=== PATIENT | female | born 1965 | race Caucasian/White ===

== ENCOUNTER → 2017-06-02 15:45 | Outpatient (CLI) | payer OTHER, SELFPAY ==
[2017-06-02 18:28] LABS: Amphetamine Urine VISTA NEGATIVE (<1000 ng/mL); Barbiturate Urine VISTA NEGATIVE (< 200 ng/mL); Benzodiazepine Urine VISTA NEGATIVE (< 200 ng/mL); Cocaine Urine VISTA NEGATIVE (< 300 ng/mL); Ecstacy Urine VISTA NEGATIVE (< 500 ng/mL); Methadone Urine VISTA NEGATIVE (< 300 ng/mL); PCP Urine VISTA NEGATIVE (< 25 ng/mL); THC Urine VISTA NEGATIVE (< 50 ng/mL); Vista UDS pH Range 5
== END ==
PROVIDERS: Family Provider Family Medicine; PCP Family Medicine; Visit Provider Anesthesiology Pain Medicine
DX: F11.20 Opioid dependence, uncomplicated (principal)
CPT/HCPCS: 80307

== ENCOUNTER 2017-06-13 08:31 | Emergency (ER) | payer OTHER, SELFPAY ==
[2017-06-13 08:31] VITALS: BP 140/71; PULSE 68; RESP 16; TEMP 36.8; O2SAT 98
--- NOTE | 2017-06-13 08:45 | ED.VISSUMM ---
- ER Visit Summary Date of Service: 06/13/17 Chief Complaint: Cough and wheezing History of Present Illness: The patient is a 51 F presenting for evaluation secondary to cough and wheezing. Patient states that since yesterday she had a sudden onset of illness. She states that associated with subjective chills, cough productive of yellowish sputum, and some chest tightness. Patient states that she feels that she is wheezing and is concerned that potentially she has bronchitis. Patient does smoke about 6 cigarettes per day, she states that she does not have a diagnosis of asthma or COPD. She denies any nausea vomiting diarrhea. Review of systems otherwise negative. Physical Examination: Vital signs within normal limits. Well-nourished female no acute distress. Moist mucous membranes. No JVD. Heart regular rate and rhythm. Lungs sounds showed evidence of wheezes in the bilateral lung pimentel, no rhonchi rales or retractions noted. No respiratory distress. Remainder physical unremarkable. Test Results: PA and lateral chest x-ray reviewed by myself is found to be negative with no infiltrate. It does show some hyperinflation. Emergency Department Course and Treatment: Patient presented with a cough and wheezing. X-ray was found to be negative. Patient has an element of bronchitis at this point. She was treated with a DuoNeb and prednisone in the emergency department and had symptomatic improvement. Patient will be discharged with a course of albuterol and prednisone and follow-up with primary care. Disposition: Discharge Impression: 1. Bronchitis This note was generated with [employer] dictation software. It may contain incorrect words, spelling, and punctuation that were not noted in review of the chart prior to signing ED Disposition - Plan for ED Patient: Disposition: Home or Assisted Living Chief Complaint: Cough Diagnosis: Bronchitis Instructions: ED Bronchitis Asthmatic Prescriptions: Albuterol Inhaler [Ventolin Hfa] 1 - 2 puff INHALATION Q4H PRN PRN #1 inhaler PRN Reason: Wheezing Prednisone [Deltasone] 60 mg PO DAILY #15 tab Referrals: Rio Foley III, MD [Primary Care Provider] - 1 Week if not improving
[2017-06-13 08:48] VITALS: PULSE 66; RESP 18; O2SAT 97
[2017-06-13] MEDS: Ipratropium/Albuterol Sulfate 3 ML AMPUL.NEB INHALATION (08:48)
--- NOTE | 2017-06-13 09:10 | RAD_ITS ---
STUDY: X-RAY CHEST REASON FOR EXAM: Female, 51 years old. Cough TECHNIQUE: PA and lateral views of the chest. COMPARISON: None. FINDINGS: The lungs are clear and expanded. There is no demonstrated pleural abnormality. Normal size heart. Normal mediastinum and veronica. Normal visualized pulmonary arteries. Normal visualized aortic arch and descending thoracic aorta. Normal visualized thoracic spine. Normal visualized ribs, clavicles, and shoulders. There is no demonstrated abnormality of the visualized soft tissue structures of the upper abdomen. RAD/Chest PA and Lateral IMPRESSION: Normal x-ray examination of the chest. Electronically Signed: Swapnil Garcia DO at 9:44 EDT Tel , Service support ,
[2017-06-13] MEDS: predniSONE 20 MG Tablet 60 MG PO (09:15)
[2017-06-13 09:16] VITALS: BP 109/72; PULSE 63; RESP 16; O2SAT 96
--- NOTE | 2017-06-14 10:13 | CM.ED ---
ED CALLBACK: Follow-up call placed to patient with no answer. Voicemail box is full.
== END 2017-06-13 09:54 | disposition home or self-care (01) ==
PROVIDERS: Emergency Provider Emergency Medicine; Family Provider Family Medicine; PCP Family Medicine
DX: J40 Bronchitis, not specified as acute or chronic (principal); M54.9 Dorsalgia, unspecified; F17.210 Nicotine dependence, cigarettes, uncomplicated
CPT/HCPCS: 71046; 94640; 99283

== ENCOUNTER 2019-09-14 06:26 | Day surgery (SDC) | payer OTHER, SELFPAY ==
--- NOTE | 2019-09-14 | COLBX_PTH ---
PATIENT: CECI NOGUEIRA LOC: EN U#:[id number] AGE/SX: 54/F ROOM: RE09/14/[address]: Dr. Kali Foley MD : 1965 BED: DIS: 09/14/2019 SPEC #: [id number] RECD: 09/14/19 09:48 STATUS: RODRIGUEZ KATHLEEN #: [id number] FAITH: 09/14/19 00:[address]: Kali Foley DEPT: SURGICAL PATHOLOGY RECD BY: Jaciel Luna ENTERED: 09/14/19 09:48 SP TYPE: COLON BX NEL DR: Dr. Rio Foley III, MD Tissues: A - Descending colon B - Sigmoid colon biopsy Procedures: Surgery Specimen Level IV HEADER OPERATION: Colonoscopy (MAC) PRE-OP DIAGNOSIS: Screening TISSUE SUBMITTED: A - Descending polyp, B - Mid sigmoid polyps (4) MICROSCOPIC DIAGNOSIS A. Descending colon polyp, biopsy: Hyperplastic polyp. B. Mid sigmoid colon polyps, biopsy: Fragments of hyperplastic polyp. AM:riccardo 09/17/19 MICROSCOPIC DESCRIPTION Slides are reviewed. GROSS DESCRIPTION A - Received in fixative is one container labeled with the patient's name and designated descending colon polyp. The specimen consists of multiple irregular fragments of light bey soft tissue that in aggregate measure 1 x 0.5 x 0.1 cm. The specimen is totally submitted in one cassette. B - Received in fixative is one container labeled with the patient's name and designated mid sigmoid colon polyp. The specimen consists of multiple irregular fragments of light bey soft tissue that in aggregate measure 1.2 x 0.5 x 0.1 cm. The specimen is totally submitted in one cassette. / AM:riccardo 09/14/19 TC:5 CPT: 00747 x2
[2019-09-14 06:41] VITALS: BP 118/85; PULSE 75; RESP 15; TEMP 36.3; O2SAT 98; BMI 20.4
--- NOTE | 2019-09-14 06:44 | PCM.HP.BLA ---
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 Kali Foley MD) Screening for malignant neoplasm of intestine (Acute) Urinary bladder cancer (Acute) Anxiety (Acute) Bladder cancer (Acute) Depression (Acute) Hematuria (Acute) Lung nodule (Acute) Surgical History (Updated 09/06/19 @ 07:51 by Silvia Messina) History of cervical spinal surgery (Acute) History of colonoscopy (Acute) History of repair of left rotator cuff (Acute) History of tubal ligation (Acute) Family History (Updated 09/06/19 @ 07:51 by Silvia Messina) Father No problems noted. Social History (Updated 09/06/19 @ 08:[address] Kali Foley MD) Smoking Status: Current some day smoker HPI HPI HPI: CECI NOGUEIRA, is a 53 F who presents to the office today for surgical consultation regarding a port placement. Patient referred by Dr. Huang Wynne and her primary care physician Dr. Rio Foley, III. a written copy of my surgical consult and recommendations will be returned to them. She has newly diagnosed bladder cancer. She thinks she may have very remotely over 10 years ago had a colonoscopy. She is very anxious today wanting to initiate treatment but stating that there are ongoing concerns and issues requiring further testing. She states that she has an echocardiogram and a stress test scheduled because of what sounds like coronary calcifications. She states her diagnosis was made with microscopic hematuria and then a CT scan. HPI HPI HPI: CECI NOGUEIRA, is a 53 F who presents to the office today for ROS General General: No weight change, appetite, fatigue, colon cancer, breast cancer or weakness HEENT HEENT: No difficulty swallowing, eye injury, eye surgery, swollen glands or hoarseness Endo Endocrine: No thyroid disease, diabetes mellitus, thyroid cancer, Hair loss, heat intolerance or cold intolerance Cardio Cardiovascular: No murmur, pacemaker, heart disease, atrial fibrillation, high blood pressure, heart attack, heart stent, palpitations, shortness of breat with exertion or chest pain Psych Psychiatric: Yes anxiety; no depression or hearing voices Resp Respiratory: No shortness of breath, No sleep apnea, No cough, No COPD, No asthma, No emphysema, No wheezing Brandon Hematologic: No blood thinners, No blood disorders, No bleeding, No anemia, No blood clots Neuro Neurologic: No weakness Exam Const General: cooperative, comfortable Nutritional Appearance: average body habitus Orientation: alert, awake HENMT Head: normal to inspection Eyes General: appearance normal, both eyes and all related structures Chest Other: Mild increased AP diameter Resp Effort & Inspection: normal respiratory effort Auscultation: clear to auscultation bilaterally Cardio Rate: regular rate Rhythm: regular rhythm Heart Sounds: no murmurs GI Palpation: soft, no hepatosplenomegaly Auscultation: normal bowel sounds Musc Cervical Spine: normal cervical lordosis Extrem General: no calf tenderness Psych Affect: anxious affect Assessment & Plan Problems 1. Malignant neoplasm of urinary bladder, unspecified site C67.9 2. Screening for malignant neoplasm of intestine Z12.10 Plan I recommend to the patient a right internal jugular port placement. In detail described the technique, benefit, risk and alternatives. She has had an opportunity to ask and have questions answered. I do recommend that we await the results of the echocardiogram/stress test. Furthermore to assist her I recommend a screening colonoscopy with possible biopsy or polypectomy. I also explained technique, benefit, risk and alternatives. She has had an opportunity to ask and have questions answered. She is requesting that we expedite her care. We will schedule within 2 days of her anticipated cardiac testing. She is aware of the Covid-19 pandemic. She is aware that the [facility] is currently identifying a low local incidence. I very much appreciate the kind opportunity of assisting with her surgical care Cc: Dr. Huang Foley, III Kali Foley M.D., F.A.C.S. Coding Level of Care Code 90570 Diagnoses Malignant neoplasm of urinary bladder, unspecified site C67.9 ??Bladder location: unspecified site Screening for malignant neoplasm of intestine Z12.10 I have re-examined the patient. There are no clinical changes since date of exam. Procedure Criteria Procedure Type: Elective COVID Risk Discussion: The surgeon/proceduralist and patient have discussed in detail the risk of exposure to and/or potential harm posed by the COVID-19 virus with having a surgery/procedure at this time versus the risk of delaying the surgery/procedure. It is not possible to know either the risk of delaying the surgery or procedure or chance of getting an infection with perfect accuracy, but a joint decision was made between the patient and the surgeon/proceduralist to proceed at this time with the scheduled surgery/procedure as indicated on the consent form.
[2019-09-14] MEDS: Lactated Ringers 1,000 ML 100 ML IV (06:49)
[2019-09-14 07:05] LABS: Hematocrit 44.6 % (37-47); Hemoglobin 14.4 g/dL (12.0-15.0); Mean Corp Hgb Conc 32.3 g/dL (32-36); Mean Corpuscular Hgb 30.6 pg (27.0-32.0); Mean Corpuscular Volume 94.7 fL (81-99); Mean Platelet Vol. 10.3 fl (6.2-12.0); Platelet Count 261 K/mm3 (150-450); RBC Distribution Width CV 13.9 % (11.6-14.6); RBC Distribution Width SD 48.7 fl (35.1-43.9); Red Blood Count 4.71 M/mm3 (4.2-5.4); White Blood Count 7.8 K/mm3 (4.4-11.0)
[2019-09-14 07:29] LABS: Anion Gap 4 (5-15); BUN 13 mg/dL (7-18); BUN/Creat Ratio 17.2 RATIO (10-20); Calcium,Total 9.3 mg/dL (8.5-10.1); Chloride 107 mmol/L (98-107); Creatinine, Serum 0.76 mg/dL (0.55-1.02); EST Glomerular Filtration Rate 85 mL/min (>60); Est Glom Filt Rate - Afr Amer 102 mL/min (>60); Estimated Creatinine Clearance 78.03 ml/min; Glucose 113 mg/dL (74-106); Potassium 3.9 mmol/L (3.5-5.1); Sodium Level 139 mmol/L (136-145)
[2019-09-14 07:58] VITALS: BP 118/85; BP 135/80; PULSE 75; RESP 16; TEMP 36.2; O2SAT 99
--- NOTE | 2019-09-14 08:00 | OP.CCLET_ITS ---
09/14/2019 Rio Foley I[address] [place] [address] Re : Colonoscopy procedure for Sun Larson Dear Dr. Foley This procedure was performed on Saturday, September 14, 2019. My impressions and recommendations are as follows: Impressions : - Preparation of the colon was fair. - Non-thrombosed external hemorrhoids, non-thrombosed internal hemorrhoids and internal hemorrhoids that prolapse with straining, but spontaneously regress to the resting position (Grade II) found on digital rectal exam. - One 5 mm polyp in the descending colon, removed with a hot snare. Resected and retrieved. - The entire examined colon is normal. - Four 4 to 5 mm polyps in the mid sigmoid colon, removed with a hot snare. Resected and retrieved. - Tortuous colon. Recommendations : - Discharge patient to home. - Resume previous diet. - Continue present medications. - Telephone my office for pathology results in 1 week. - Repeat colonoscopy in 5 years for surveillance based on pathology results. My findings are described in the full procedure note, which is enclosed. If I can be of further assistance, please feel free to contact me at Doctor phone number(s): Work: . Sincerely, Kali Foley MD 09/14/2019 7:59:31 AM This report has been signed electronically.
--- NOTE | 2019-09-14 08:00 | OP.COLON_ITS ---
Patient Name: Sun Larson Procedure Date: 09/14/2019 7:02 AM Date of : 1965 Age: 54 Procedure: Colonoscopy Indications: Screening for colorectal malignant neoplasm Providers: Kali Foley MD Referring MD: Rio Foley Iii Medicines: See the Anesthesia note for documentation of the administered medications Patient Profile: Last Colonoscopy: none. The patient's first colonoscopy is today. Complications: No immediate complications. Procedure: Pre-Anesthesia Assessment: - Prior to the procedure, a History and Physical was performed, and patient medications and allergies were reviewed. The patient's tolerance of previous anesthesia was also reviewed. The risks and benefits of the procedure and the sedation options and risks were discussed with the patient. All questions were answered, and informed consent was obtained. Prior Anticoagulants: The patient has taken no previous anticoagulant or antiplatelet agents. ASA Grade Assessment: II - A patient with mild systemic disease. After reviewing the risks and benefits, the patient was deemed in satisfactory condition to undergo the procedure. After I obtained informed consent, the scope was passed under direct vision. Throughout the procedure, the patient's blood pressure, pulse, and oxygen saturations were monitored continuously. The colonoscope was introduced through the anus and advanced to the cecum, identified by appendiceal orifice and ileocecal valve. The colonoscopy was performed without difficulty. The patient tolerated the procedure well. The quality of the bowel preparation was fair. The ileocecal valve and the appendiceal orifice were photographed. Scope In: 7:34:18 AM Scope Withdrawal Time 0 hours 12 minutes 16 seconds Scope Out: 7:52:57 AM Total Procedure Duration Time 0 hours 18 minutes 39 seconds Findings: The digital rectal exam findings include non-thrombosed external hemorrhoids, non-thrombosed internal hemorrhoids and internal hemorrhoids that prolapse with straining, but spontaneously regress to the resting position (Grade II). A 5 mm polyp was found in the descending colon. The polyp was sessile. The polyp was removed with a hot snare. Resection and retrieval were complete. The entire examined colon appeared normal. Four sessile polyps were found in the mid sigmoid colon. The polyps were 4 to 5 mm in size. These polyps were removed with a hot snare. Resection and retrieval were complete. The left colon was mildly tortuous. Advancing the scope required applying abdominal pressure. Impression: - Preparation of the colon was fair. - Non-thrombosed external hemorrhoids, non-thrombosed internal hemorrhoids and internal hemorrhoids that prolapse with straining, but spontaneously regress to the resting position (Grade II) found on digital rectal exam. - One 5 mm polyp in the descending colon, removed with a hot snare. Resected and retrieved. - The entire examined colon is normal. - Four 4 to 5 mm polyps in the mid sigmoid colon, removed with a hot snare. Resected and retrieved. - Tortuous colon. Recommendation: - Discharge patient to home. - Resume previous diet. - Continue present medications. - Telephone my office for pathology results in 1 week. - Repeat colonoscopy in 5 years for surveillance based on pathology results. Procedure Code(s): --- Professional --- 35824, Colonoscopy, flexible; with removal of tumor(s), polyp(s), or other lesion(s) by snare technique Diagnosis Code(s): --- Professional --- Z12.11, Encounter for screening for malignant neoplasm of colon K64.1, Second degree hemorrhoids K64.4, Residual hemorrhoidal skin tags D12.4, Benign neoplasm of descending colon D12.5, Benign neoplasm of sigmoid colon Q43.8, Other specified congenital malformations of intestine CPT copyright 2017 [employer]. All rights reserved. The codes documented in this report are preliminary and upon blind cleaner review may be revised to meet current compliance requirements. Kali Foley MD 09/14/2019 7:59:31 AM This report has been signed electronically. Number of Addenda: 0 Note Initiated On: 09/14/2019 7:02 AM
[2019-09-14 08:03] VITALS: BP 118/85; BP 133/81; PULSE 68; RESP 16; O2SAT 100
[2019-09-14 08:08] VITALS: BP 118/85; BP 126/69; PULSE 70; RESP 16; O2SAT 100
[2019-09-14 08:13] VITALS: BP 105/71; BP 118/85; PULSE 68; RESP 16; TEMP 36.2; O2SAT 100
[2019-09-14 08:35] VITALS: BP 118/85
== END 2019-09-14 08:47 | disposition home or self-care (01) ==
LOC: EN 06:27 → AC 06:29
PROVIDERS: PCP Family Medicine; Referring Provider Family Medicine; Visit Provider Surgery
PROC: 0DJD8ZZ Inspection of Lower Intestinal Tract, Via Natural or Artificial Opening Endoscopic (ICD-10-PCS; CPT 45378; principal; 2019-09-14 07:25)
DX: Z12.11 Encounter for screening for malignant neoplasm of colon (principal); D12.4 Benign neoplasm of descending colon; D12.5 Benign neoplasm of sigmoid colon; K64.1 Second degree hemorrhoids; K64.4 Residual hemorrhoidal skin tags; Q43.8 Other specified congenital malformations of intestine; C67.9 Malignant neoplasm of bladder, unspecified; Z87.891 Personal history of nicotine dependence
CPT/HCPCS: 45385; 80048; 85027; 88305; 93005; J7120

== ENCOUNTER 2019-09-20 08:51 | Day surgery (SDC) | payer OTHER, SELFPAY ==
--- NOTE | 2019-09-14 06:37 | EKG12_ITS ---
Test Reason : PRE-OP Blood Pressure : / mmHG Vent. Rate : 075 BPM Atrial Rate : 075 BPM P-R Int : 142 ms QRS Dur : 072 ms QT Int : 386 ms P-R-T Axes : 082 081 068 degrees QTc Int : 431 ms Normal sinus rhythm Right atrial enlargement Borderline ECG No previous ECGs available Confirmed by BAN JAMA, EV ([id number]), newspaper managing editor DARWIN HARTMANN ([id number]) on 09/18/2019 11:02:26 AM Referred By: Kali Foley Confirmed By:EV CEVALLOS MD
[2019-09-20] VITALS (8 sets, daily range): BP systolic 89–117; BP diastolic 44–79; PULSE 58–69; RESP 15–16; TEMP 36–36.4; O2SAT 97–100; BMI 20.7
[2019-09-20] MEDS: Lactated Ringers 1,000 ML 100 ML IV (09:35)
--- NOTE | 2019-09-20 10:12 | HP.PCM_ITS ---
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 Kali Foley MD) Screening for malignant neoplasm of intestine (Acute) Urinary bladder cancer (Acute) Anxiety (Acute) Bladder cancer (Acute) Depression (Acute) Hematuria (Acute) Lung nodule (Acute) Surgical History (Updated 09/06/19 @ 07:51 by Silvia Messina) History of cervical spinal surgery (Acute) History of colonoscopy (Acute) History of repair of left rotator cuff (Acute) History of tubal ligation (Acute) Family History (Updated 09/06/19 @ 07:51 by Silvia Messina) Father No problems noted. Social History (Updated 09/06/19 @ 08:[address] Kali Foley MD) Smoking Status: Current some day smoker HPI HPI HPI: CECI NOGUEIRA, is a 53 F who presents to the office today for surgical consultation regarding a port placement. Patient referred by Dr. Huang Wynne and her primary care physician Dr. Rio Foley, III. a written copy of my surgical consult and recommendations will be returned to them. She has newly diagnosed bladder cancer. She thinks she may have very remotely over 10 years ago had a colonoscopy. She is very anxious today wanting to initiate treatment but stating that there are ongoing concerns and issues requiring further testing. She states that she has an echocardiogram and a stress test scheduled because of what sounds like coronary calcifications. She states her diagnosis was made with microscopic hematuria and then a CT scan. HPI HPI HPI: CECI NOGUEIRA, is a 53 F who presents to the office today for ROS General General: No weight change, appetite, fatigue, colon cancer, breast cancer or weakness HEENT HEENT: No difficulty swallowing, eye injury, eye surgery, swollen glands or hoarseness Endo Endocrine: No thyroid disease, diabetes mellitus, thyroid cancer, Hair loss, heat intolerance or cold intolerance Cardio Cardiovascular: No murmur, pacemaker, heart disease, atrial fibrillation, high blood pressure, heart attack, heart stent, palpitations, shortness of breat with exertion or chest pain Psych Psychiatric: Yes anxiety; no depression or hearing voices Resp Respiratory: No shortness of breath, No sleep apnea, No cough, No COPD, No asthma, No emphysema, No wheezing Brandon Hematologic: No blood thinners, No blood disorders, No bleeding, No anemia, No blood clots Neuro Neurologic: No weakness Exam Const General: cooperative, comfortable Nutritional Appearance: average body habitus Orientation: alert, awake HENMT Head: normal to inspection Eyes General: appearance normal, both eyes and all related structures Chest Other: Mild increased AP diameter Resp Effort & Inspection: normal respiratory effort Auscultation: clear to auscultation bilaterally Cardio Rate: regular rate Rhythm: regular rhythm Heart Sounds: no murmurs GI Palpation: soft, no hepatosplenomegaly Auscultation: normal bowel sounds Musc Cervical Spine: normal cervical lordosis Extrem General: no calf tenderness Psych Affect: anxious affect Assessment & Plan Problems 1. Malignant neoplasm of urinary bladder, unspecified site C67.9 2. Screening for malignant neoplasm of intestine Z12.10 Plan I recommend to the patient a right internal jugular port placement. In detail described the technique, benefit, risk and alternatives. She has had an opportunity to ask and have questions answered. I do recommend that we await the results of the echocardiogram/stress test. Furthermore to assist her I recommend a screening colonoscopy with possible biopsy or polypectomy. I also explained technique, benefit, risk and alternatives. She has had an opportunity to ask and have questions answered. She is requesting that we expedite her care. We will schedule within 2 days of her anticipated cardiac testing. She is aware of the Covid-19 pandemic. She is aware that the [facility] is currently identifying a low local incidence. I very much appreciate the kind opportunity of assisting with her surgical care Cc: Dr. Huang Foley, III Kali Foley M.D., F.A.C.S. Coding Level of Care Code 88792 Diagnoses Malignant neoplasm of urinary bladder, unspecified site C67.9 ??Bladder location: unspecified site Screening for malignant neoplasm of intestine Z12.10 On September 12, 2019 performed a colonoscopy. Several polyps were identified but on pathology these were all hyperplastic. She presents today for planned placement of a right internal jugular port to facilitate management of her urinary bladder cancer. She has had an opportunity to ask and have questions answered and we will proceed as noted. Procedure Criteria Procedure Type: Elective COVID Risk Discussion: The surgeon/proceduralist and patient have discussed in detail the risk of exposure to and/or potential harm posed by the COVID-19 virus with having a surgery/procedure at this time versus the risk of delaying the surgery/procedure. It is not possible to know either the risk of delaying the surgery or procedure or chance of getting an infection with perfect accuracy, but a joint decision was made between the patient and the surgeon/proceduralist to proceed at this time with the scheduled surgery/procedure as indicated on the consent form.
[2019-09-20] MEDS: Cefazolin 2 GM in 0.9% Normal Saline 100 ML IV (10:31)
[2019-09-20] MEDS: Bupivacaine Mpf 0.5% 30 ML VIAL (10:46)
--- NOTE | 2019-09-20 11:08 | RAD_ITS ---
STUDY: X-RAY CHEST REASON FOR EXAM: Female, 54 years old. POST PORT PLACEMENT TECHNIQUE: Single AP portable view of the chest. COMPARISON: Comparison is made with prior study dated 06/13/2017. FINDINGS: A right-sided Port-A-Cath has been placed. The tip is at the junction of the superior vena cava and right atrium. Hyperinflation. Scattered calcified granulomas. There is no demonstrated pleural abnormality. Normal size heart. Normal mediastinum and veronica. Normal visualized pulmonary arteries. Normal visualized aortic arch and descending thoracic aorta. Normal visualized thoracic spine. Normal visualized ribs, clavicles, and shoulders. There is no demonstrated abnormality of the visualized soft tissue structures of the upper abdomen. RAD/CXR for Line Placement IMPRESSION: The tip of the right pankaj catheter is at the junction of the superior vena cava and right atrium. Hyperinflation. Electronically Signed: German Stanford, at 12:09 EDT , Service support ,
--- NOTE | 2019-09-20 11:11 | DCINST_ITS ---
Discharge Diet: No Restrictions - Pain medication may cause nausea. You should typically eat light foods as you take your pain medication. Discharge Activity: Return to Normal Activity, May Shower - Leave the bandage on for 2-3 days. When you remove the bandage, leave the steri-strips intact until they fall off. Additional Activity Instructions:: May not drive, work with heavy equipment, or sign legal documents for [address] if you are no longer taking narcotic pain medications. You may drive when you are no longer taking pain medications. Additional Dressing/Incision Instructions:: Leave the bandage on for 2-3 days. When you remove the bandage, leave the steri-strips intact until they fall off. Allergies/Adverse Reactions: Allergies Tetanus Vaccines and Toxoid [Tetanus Vaccines & Toxoid] Adverse Reaction (Verified 09/20/19 09:21) Swelling venom-honey bee [bee venom (honey bee)] Adverse Reaction (Verified 09/20/19 09:21) Swelling Medications to take at Discharge Hydrocodone Bitart/Apap 5-325 [[place] 5MG-325MG] 1 tablet PO Q6H PRN PRN 2 Days #5 tablet 09/20/19 The following prescriptions were given: Hydrocodone Bitart/Apap 5-325 [[place] 5MG-325MG] 1 tablet PO Q6H PRN PRN 2 Days #5 tablet PRN Reason: Pain Transmission Status: Sent to [facility] #30 Primary Care Physician: Rio Foley III, MD [Primary Care Provider] - Test Results: Test results from this visit will be discussed in further detail at your follow- up appointment, if applicable. Please Follow Up With: Kali Foley MD - [phone] When: Call for any concerns
--- NOTE | 2019-09-20 11:12 | PCM.OPRPT ---
Problem List (1) Urinary bladder cancer Status: Acute Qualifiers: Report of Operation Date of Procedure: 09/20/19 Pre-Operative Diagnosis: Urinary bladder cancer in need of IV access for chemotherapy Post-Operative Diagnosis: Same Surgery/Procedure Performed:: Right internal jugular 6 [place] PowerPort placement. Reference #[id number]. Lot number [id number]. Expiry date 10/07/2020 Description of Surgical Findings:: Timeout and informed consent was obtained. 54-year-old female was taken to the operating placed supine on the table underwent monitored anesthesia care. Ancef 2 g were given intravenously. The right neck and chest were sterilely prepped and draped. 1% lidocaine mixed 50-50 with 0.5% Marcaine was used as a local anesthetic. Total of 17 cc was used. Under ultrasound guidance local was instilled and then a micropuncture needle was instilled under ultrasound guidance of the right internal jugular vein. Micropuncture wire inserted. Micropuncture sheath inserted. 035 J-wire was inserted. Local was instilled down upon the right chest wall. Midclavicular line second intercostal space transverse incision was created. Electrocautery dissection was used to make a subcutaneous pocket. The tubing was tunneled from the neck to the chest. Under fluoroscopic control sheath dilator was placed over the wire. The wire and dilator were removed. The catheter advanced through the sheath. The sheath was split. Catheter was positioned at the SVC atrial junction. It was amputated connected the port and secured with a port attachment device. The port was placed in the pocket secured there with 2-0 silk. The port site was closed with interrupted 3-0 Vicryl subdermal stitches. The neck was closed with interrupted 5-0 Vicryl subdermal stitch. The port was accessed and aspirated easily was flushed with saline and then with 2-1/2 cc of heparinized saline. Steri-Strips Telfa OpSite dressings applied. Sponge and instrument and needle counts were reported to the surgeon to be correct. Specimens none. Drains none. Blood loss minimal. The patient was taken to the recovery room in satisfactory condition without apparent complication. Stat portable chest x-ray is pending. Kali Foley M.D., F.A.C.S. Type of Anesthesia:: Local MAC Anesthesiologist: Ravi Wen
== END 2019-09-20 12:30 | disposition home or self-care (01) ==
LOC: SDC 08:51 → AC 08:52
PROVIDERS: PCP Family Medicine; Referring Provider Surgery; Visit Provider Surgery
PROC: (CPT 36561; principal; 2019-09-20 10:45)
DX: Z45.2 Encounter for adjustment and management of vascular access device (principal); C67.9 Malignant neoplasm of bladder, unspecified; F17.200 Nicotine dependence, unspecified, uncomplicated
CPT/HCPCS: 36561; 71045; 77001; J7120; J2405

== ENCOUNTER 2020-01-10 09:49 | Emergency (ER) | payer OTHER, SELFPAY ==
[2019-09-20 09:21] VITALS: BMI 20.7
[2020-01-10 09:51] VITALS: BP 114/85; PULSE 88; RESP 18; TEMP 36.2; O2SAT 99; BMI 18.4
--- NOTE | 2020-01-10 10:18 | ED.VIS.GEN ---
History of Present Illness Chief Complaint: Flank Pain Informant: Patient Onset: Weeks Context: Sudden Onset Timing: Continuous Quality: Pain Location: Bilateral flank Current Severity: Severe Maximum Severity: Severe Worsened by: Touch Relieved by: Improved after taking tramadol this morning Associated Symptoms: Frequency and incontinence Narrative: Patient is a 54-year-old woman who underwent a radical cystectomy and lymphadenectomy with a intracorporal neobladder procedure at the [facility] on December 14, 2019. She reports pain since then. She states she has been seen several times by the doctor and feels that she is not being taken seriously. Patient denies fever, chills night sweats. Patient denies headache, visual, ocular auditory symptoms. Patient denies upper respiratory symptoms. Patient denies shortness of breath or cough. Patient denies chest pain. She denies nausea, vomiting or diarrhea. She does report frequency and incontinence. She states she is asked for pain medicine but has been declined. She feels as was due to the fact that she was in pain management for back pain in the past. Patient states that she contacted her primary care physician Dr. Rio Foley and wishes for me to contact Dr. Kali Foley to have her stents removed and port removed since she does not have cancer before the end of the year because she has met her deductible. Prior similar symptoms: Yes Recent Illness/Hospitalization: Yes - Past Medical History (1) Benign bladder mass Status: Acute Past Medical History - Allergies and Home Meds Allergies/Adverse Reactions: Allergies Tetanus Vaccines and Toxoid [Tetanus Vaccines & Toxoid] Adverse Reaction (Verified 01/10/20 09:51) Swelling venom-honey bee [bee venom (honey bee)] Adverse Reaction (Verified 01/10/20 09:51) Swelling Primary Care Physician: Rio Foley III, MD [Primary Care Provider] - 3-5 Days Prior records reviewed: Yes Surgical History: - - Radical cystectomy and lymphadenectomy with intracorporeal neobladder Lives: Spouse/ Significant Other Smoking Status: Current some day smoker Drugs: None Review of Systems General: Denies: Chills, Fever, Malaise, Subjective, Sweats Eyes: Denies: Visual changes - bilaterally, Blurred Vision - bilaterally ENT: Denies: Rhinorrhea, Sore throat Cardiovascular: Denies: Chest pain, Palpitations Respiratory: Denies: Dyspnea, Cough, Sputum, Dyspnea on exertion Gastrointestinal: Reports: Abdominal pain - Near the site of her neobladder, Nausea. Denies: Vomiting, Diarrhea, Constipation, Melena, Hematochezia Genitourinary: Reports: Frequency - And incontinence. Denies: Dysuria, Hematuria Musculoskeletal: Reports: Back pain - Bilateral pain over her kidneys. Denies: Myalgias, Arthralgias, Neck pain, Swelling Skin: Denies: Rash Neurological: Denies: Headache, Weakness Psych: Reports: - - Patient voices frustration due to lack of proper care and attention at [facility].. Denies: Depression, Anxiety Endocrine: Reports: - Hematologic: Denies: Easy bruising Allergy: Denies: Uticaria Physical Exam Vital Signs/Narrative: Vital Signs Temp Pulse Resp BP Pulse Ox 01/10/20 09:51 97.2 F L 88 18 114/85 H 99 Inital Vital Signs reviewed: Yes General: Well nourished, Well developed, Acute Distress Head: Normocephalic, Atraumatic Eyes: Perrl, EOMI. Negative for: Pale conjunctiva Neck: Supple, Nontender, No lymphadenopathy Cardiovascular: Regular rate, Regular rhythm, No murmurs, Normal S1, Normal S2 Respiratory: No distress, CTA bilaterally, Chest nontender Abdomen: Soft, Nondistended, Normal bowel sounds, No masses, Tender - Pain out of proportion to tactile stimuli. Patient raised her voice and told me not to touch there because she is in severe pain. Asked to clarify. She informed me that the pressure I was applying caused her severe pain.. Negative for: Nontender Rectal: Deferred Back: Normal Inspection, CVA tenderness - Out of proportion to stimulus. Negative for: Nontender Extremities: Nontender, No edema Skin: Normal color, No rash Neurological: Alert, Oriented x3, Cranial nerves II-XII grossly intact, Normal Strength, Normal Sensation, Normal Gait Psychological: Agitated, - - Angry, intrusive, voices frustration. Informed me that she spoke with the triage nurse. Diagnostic/Tx/Re-eval Chest X-Ray - ED: 1 View, Read by ED Physician, - - Single view KUB was ordered. The right and left are in proper position, and there is no evidence of migration 01/10/20 10:40 KUB [Abdomen Single View] [RAD] Stat Laboratory Results 01/10/20 01/10/20 01/10/20 10:15 10:36 10:36 WBC 8.7 RBC 3.64 L Hgb 11.6 L Hct 33.5 L MCV 92.0 MCH 31.9 MCHC 34.6 RDW Std Deviation 40.8 RDW Coeff of Waqas 12.0 Plt Count 418 MPV 9.0 Immature Gran % (Auto) 0.500 Neut % (Auto) 65.5 Lymph % (Auto) 19.0 [place] % (Auto) 8.2 Eos % (Auto) 6.0 H Baso % (Auto) 0.8 Absolute Neuts (auto) 5.7 Absolute Lymphs (auto) 1.65 Nucleated RBC % 0 Sodium 135 L Potassium 3.8 Chloride 107 Carbon Dioxide 23.0 Anion Gap 5 BUN 37 H Creatinine 1.18 H Estim Creat Clear Calc 45.52 Est GFR (MDRD) Af Amer 61 Est GFR (MDRD) Non-Af 51 L BUN/Creatinine Ratio 31.4 H Glucose 119 H Calcium 9.8 Urine Color Yellow Urine Clarity Cloudy Urine pH 8.0 Ur Specific [place] 1.010 Urine Protein 100 H Urine Glucose (UA) Normal Urine Ketones Negative Urine Occult Blood 150 H Urine Nitrite Negative Urine Bilirubin Negative Urine Urobilinogen Normal Ur Leukocyte Esterase 500 H Urine RBC 0 SEEN Urine WBC >100 SEEN Ur Squamous Epith Cells 0-5 SEEN Urine Bacteria 4+ Urine Mucus 0 SEEN Right knee is elevated 1.18 with a GFR of 51. Urine is consistent with infection. Culture was sent. She was treated with 1 g of Rocephin. - Medical Decision Making Presents with complaints that she has had since surgery December 14, 2019. Will obtain urine to assess for infection, CBC to assess for anemia/white count. Basic metabolic panel to assess renal function. Patient was medicated with Zofran and morphine. Patient was informed of her test results. She was informed of plan. She requested 2 weeks of oxycodone. Patient was informed she would receive pain medicine for 2 to 3 days. ED Disposition - Plan for ED Patient: Disposition: Home or Assisted Living Diagnosis: Urinary tract infection, Bilateral flank pain, Lower abdominal pain, Elevated serum creatinine Instructions: ED Bladder Infection, Female (Adult), ED Renal Insufficiency Prescriptions: Ciprofloxacin [Cipro] 500 mg PO BID #14 tab Transmission Status: Pending to [facility] #30 Hydrocodone Bitart/Apap 5-325 [[place] 5MG-325MG] 1 tablet PO Q6H PRN PRN 3 Days #10 tablet PRN Reason: Pain Transmission Status: Sent to [facility] #30 Referrals: Rio Foley III, MD [Primary Care Provider] - 3-5 Days
--- NOTE | 2020-01-10 10:28 | ED.RN ---
PT HOSTILE AND ANGRY. NOT ANSWERING QUESTIONS. PT STATES I ALREADY TOLD THEM ALL OF THAT. ATTEMPTED TO EXPLAIN TO PATIENT THAT STAFF CANNOT ALL COME IN AT ONCE. PT DOES NOT RESPOND. UA OBTAINED
[2020-01-10] MEDS: Morphine 4 MG/ML Syringe IV (10:29)
[2020-01-10 10:31] LABS: Mucous, Urine 0 SEEN /hpf (<or=2+)
[2020-01-10 10:32] LABS: Color, Urine Yellow (Yellow); Glucose, Dipstick Normal (Normal); Ketone-Dipstick Negative (Negative); Leukocyte Esterase-Dipstick 500 /ul (Negative); Nitrite-Dipstick Negative (Negative); Occult Blood-Urine 150 /ul (Negative); Protein-Dipstick 100 mg/dl (Negative); Urine Bilirubin Dipstick Negative (Negative); Urine Clarity Cloudy (Clear); Urine Urobilinogen Normal (Normal)
--- NOTE | 2020-01-10 10:40 | RAD_ITS ---
STUDY: X-RAY - ABDOMEN/PELVIS REASON FOR EXAM: Female, 54 years old. Isidoro flank pain. Recent stents placed, hx bladder CA TECHNIQUE: Single AP view of the abdomen / pelvis. COMPARISON: None. FINDINGS: Normal visualized lung bases. There is a moderate amount of colonic fecal material. Bilateral double-J stent catheters are seen in good position. There are calcified phleboliths in the pelvis. Normal visualized osseous structures. RAD/Abdomen Single View IMPRESSION: Bilateral double-J stent catheters are seen in good position. Electronically Signed: German Stanford, at 11:18 EST , Service support ,
[2020-01-10 10:43] LABS: Bacteria 4+ /hpf (None Seen); Red Blood Cells-Urine 0 SEEN /hpf (0-5); Squamous Epithelial Cells - UA 0-5 SEEN /hpf (5-10); White Blood Cells >100 SEEN /hpf (0-5)
[2020-01-10 10:48] LABS: Absolute Lymphocyte Count 1.65 X10^3/uL (0.83-4.51); Absolute Neutrophil Count 5.7 X10^3/uL (2.0-7.7); Basophil# 0.07 X10^3/uL; Basophil% 0.8 % (0-1); Eosinophil# 0.52 X10^3/uL; Hematocrit 33.5 % (37-47); Hemoglobin 11.6 g/dL (12.0-15.0); Lymphocyte # 1.65 X10^3/ul (4.0); Mean Corp Hgb Conc 34.6 g/dL (32-36); Mean Corpuscular Hgb 31.9 pg (27.0-32.0); Monocyte# 0.71 X10^3/uL; Monocyte% 8.2 % (0-10); NRBC Flagged by Analyzer 0 % (0-5); Neutrophil % 65.5 % (47-70); Platelet Count 418 K/mm3 (150-450); RBC Distribution Width SD 40.8 fl (35.1-43.9); Red Blood Count 3.64 M/mm3 (4.2-5.4); White Blood Count 8.7 K/mm3 (4.4-11.0)
[2020-01-10 11:02] LABS: Anion Gap 5 (5-15); BUN 37 mg/dL (7-18); BUN/Creat Ratio 31.4 RATIO (10-20); Calcium,Total 9.8 mg/dL (8.5-10.1); Chloride 107 mmol/L (98-107); Creatinine, Serum 1.18 mg/dL (0.55-1.02); EST Glomerular Filtration Rate 51 mL/min (>60); Est Glom Filt Rate - Afr Amer 61 mL/min (>60); Estimated Creatinine Clearance 45.52 ml/min; Glucose 119 mg/dL (74-106); Potassium 3.8 mmol/L (3.5-5.1); Sodium Level 135 mmol/L (136-145)
--- NOTE | 2020-01-10 11:03 | ED.RN ---
PT REMAINS ANGRY AND HOSTILE. REPORT GIVEN TO ROGER ISLAS. CHRISTIANE PT LIASON IN DEPARTMENT TO TALK WITH PATIENT
[2020-01-10] MEDS: Ceftriaxone 1 GM/50 ML BAG IV (11:27)
== END 2020-01-10 11:55 | disposition home or self-care (01) ==
PROVIDERS: Emergency Provider Emergency Medicine; PCP Family Medicine
DX: N39.0 Urinary tract infection, site not specified (principal); R79.89 Other specified abnormal findings of blood chemistry; F17.200 Nicotine dependence, unspecified, uncomplicated; Z90.6 Acquired absence of other parts of urinary tract
CPT/HCPCS: 74018; 80048; 81001; 85025; 87086; 87088; 96365; 96375; 99283; J7040; A4216; J2405

== ENCOUNTER → 2020-02-06 13:45 | Outpatient (CLI) | payer OTHER, SELFPAY ==
--- NOTE | 2020-02-06 13:47 | VDLE_ITS ---
Reason For Study: Swelling RIGHT LEFT GSV is normal. GSV is normal. CFV is compressible, spontaneous, phasic, CFV is compressible, spontaneous, phasic, competent and demonstrates normal competent, and demonstrates normal augmentation. augmentation. FV is compressible, spontaneous, phasic, FV is compressible, spontaneous, phasic, competent and demonstrates normal competent and demonstrates normal augmentation. augmentation. POP V is compressible, spontaneous, phasic, POP V is compressible, spontaneous, phasic, competent and demonstrates normal competent and demonstrates normal augmentation. augmentation. T/P Trunk is compressible. T/P Trunk is compressible. PTV is compressible. PTV is compressible. RT PerV is compressible. LT PerV is compressible. Procedure This is a venous duplex using B-mode, color flow and spectral Doppler. Exam performed in department. A preliminary report was called and/or faxed to [facility]. Interpretation Summary Deep veins of the lower extremities are bilaterally patent and compressible segmentally. There is no evidence of deep vein thrombosis on either side. Valvular competence appears intact within the proximal deep venous systems bilaterally. The great saphenous veins appear bilaterally patent and compressible segmentally. Ordering Physician: MARION TAY Referring Physician: MAZIN Foley M.D. Performed By: Cristy Burr RVT
== END ==
PROVIDERS: PCP Family Medicine
DX: R60.0 Localized edema (principal); C67.9 Malignant neoplasm of bladder, unspecified
CPT/HCPCS: 93970

== ENCOUNTER → 2021-08-15 | Outpatient (CLI) | payer MEDICAID, SELFPAY ==
--- NOTE | 2021-08-15 09:38 | CT_ITS ---
STUDY: CT Chest W/O Contrast Injection 08/15/2021 5:21 PM REASON FOR EXAM: Female, 55 years old. LUNG NODULE Individualized dose optimization techniques were used for this CT. TECHNIQUE: Transaxial imaging was performed withoutIV contrast material. COMPARISON: None. FINDINGS: There are degenerative changes of the shoulders. There is no pneumothorax. There is no demonstrated pleural abnormality. There is a 3.4 mm right upper lobe nodule. SE: 4 IM: 59. 3.7 mm right lower lobe lobe nodule. SE: 4 IM: 102. There are calcifications of the coronary arteries. Normal mediastinum. Normal hilar regions. Normal pulmonary arteries. There is atherosclerotic calcification of the aortic arch with tortuosity and elongation of the aortic arch and descending thoracic aorta. There are multi-level degenerative changes of the thoracic spine. There are no acute findings of the upper abdomen. CT/Chest without Contrast IMPRESSION: There are right pulmonary nodules. ACR Lung CT Screening Reporting T Data System (Lung-RADS) score: 2 - Benign Appearance or Behavior. Recommend continued annual screening with low-dose CT (LDCT) in 12 months. Electronically Signed: Shawn Castaneda MD at 17:23 EDT ,
== END | disposition home or self-care (01) ==
LOC: CT 09:36
PROVIDERS: PCP Internal Medicine; Referring Provider Internal Medicine Hematology & Oncology; Visit Provider Internal Medicine Hematology & Oncology
DX: R91.8 Other nonspecific abnormal finding of lung field (principal); C67.1 Malignant neoplasm of dome of bladder
CPT/HCPCS: 71250

== ENCOUNTER 2021-08-23 18:55 | Observation (INO) | payer MEDICAID, SELFPAY ==
[2021-08-23 18:58] VITALS: BP 98/64; PULSE 88; RESP 16; TEMP 36.5; O2SAT 97; BMI 19.1
--- NOTE | 2021-08-23 19:24 | ED.RN ---
c/o pressure to back of head and neck. it's not a headache, it's pressure.
--- NOTE | 2021-08-23 19:30 | EDS_ITS ---
HPI History of Present Illness Chief Complaint: Dizziness Detail of Chief Complaint: Lightheadedness and generalized weakness Informant: patient Narrative Narrative: Patient presents to the emergency department complaint of lightheadedness and generalized weakness. Patient states she has had the symptoms for about a week. Patient states she cannot walk very far before she feels like he is in a pass out. Intermittently she will have pain in her neck and in her head but then resolves. Her thighs sometimes get shaky. Patient denies any chest pain or shortness of breath. She denies abdominal pain. She does have history of bladder cancer and she had her bladder removed. Patient denies any fevers. Patient denies cough or sore throat. Patient has had 2 episodes of vomiting in the last 48 hours. She denies diarrhea. Prior similar symptoms: No PFSH PFSH Medical History (Updated 08/23/21 @ 20:[address] Marci Sandoval DO) Anxiety Depression Former tobacco use Lung nodule Urinary bladder cancer Home Medications fluticasone propionate 50 mcg/actuation nasal spray,suspension ea intranasal 08/23/21 [History Last Taken Unknown] Allergy/AdvReac Type Severity Reaction Status Date / Time Tetanus Vaccines and Toxoid AdvReac Swelling Verified 08/23/21 19:03 [Tetanus Vaccines & Toxoid] venom-honey bee AdvReac Swelling Verified 08/23/21 19:03 [bee venom (honey bee)] Family History (Updated 09/30/20 @ 13:10 by Eva Nayak) Father Colon cancer bone and MM Kidney disease stones Surgical History (Updated 08/23/21 @ 20:[address] Aby Penaloza MD) History of bladder surgery History of cervical spinal surgery History of colonoscopy History of repair of left rotator cuff History of tubal ligation Social History (Updated 09/30/20 @ 13:09 by Eva Nayak) Smoking Status: Former smoker alcohol intake: never ROS ROS ED Review of Systems ROS Unobtainable: other Constitutional Constitutional ED: Reports lethargy; Denies chills, fever(s), sweats or weight loss Eyes Eyes: Denies blurry vision, change in vision or diplopia ENT ENT ED: Denies rhinorrhea or sore throat Cardiovascular Cardiovascular: Reports chest pain and racing heartbeat; Denies orthopnea Respiratory/Chest Respiratory/Chest: Reports dyspnea and dyspnea on exertion; Denies cough, or thopnea or sputum Gastrointestinal Gastrointestinal: Reports nausea and vomiting; Denies abdominal pain or diarrhea Genitourinary Genitourinary ED: Denies dysuria, hematuria or urinary frequency Musculoskeletal Musculoskeletal: Reports neck pain; Denies arthralgias, back pain or myalgias Integumentary Denies abscess, Abrasions or rash Neurologic Neurologic: Reports weakness and other Details: Lightheaded ; Denies headache(s) Psychiatric Psychiatric: Denies anxiety, depression or suicidal thoughts Endocrine Endocrinology: Denies polydipsia, polyphagia or polyuria Hematologic/Lymphatic Hematologic/Lymphatic: Denies easy bleeding, easy bruising or lymphadenopathy Allergic/Immunologic Allergic/Immunologic ED: Denies mouth swelling, tongue swelling or urticaria EXAM Physical Exam Const Vital Signs: 08/23/21 18:58 08/23/21 19:24 08/23/21 19:55 Temperature 97.7 F L Temperature Source Temporal Pulse Rate 88 Pulse Rate [Lying] 76 Pulse Rate [Sitting (for 1 minute prior to obtaining)] 73 Pulse Rate [Standing (for 1 minute prior to obtaining)] 95 Respiratory Rate 16 Respiratory Effort Normal Non-Labored Blood Pressure 98/64 Blood Pressure [Lying] 100/79 Blood Pressure [Sitting (for 1 minute prior to obtaining)] 96/78 Blood Pressure [Standing (for 1 minute prior to obtaining)] 89/69 L Blood Pressure Mean 75 Blood Pressure Mean [Lying] 86 Blood Pressure Mean [Sitting (for 1 minute prior to obtaining)] 84 Blood Pressure Mean [Standing (for 1 minute prior to obtaining)] 75 Pulse Ox 97 Oxygen Delivery Method Room Air 08/23/21 19:57 08/23/21 20:48 08/23/21 21:17 Temperature 98 F Temperature Source Temporal Pulse Rate 68 70 Pulse Rate [Lying] Pulse Rate [Sitting (for 1 minute prior to obtaining)] Pulse Rate [Standing (for 1 minute prior to obtaining)] Respiratory Rate 22 H Respiratory Effort Blood Pressure 109/83 H 102/62 102/62 Blood Pressure [Lying] Blood Pressure [Sitting (for 1 minute prior to obtaining)] Blood Pressure [Standing (for 1 minute prior to obtaining)] Blood Pressure Mean 91 75 75 Blood Pressure Mean [Lying] Blood Pressure Mean [Sitting (for 1 minute prior to obtaining)] Blood Pressure Mean [Standing (for 1 minute prior to obtaining)] Pulse Ox Oxygen Delivery Method Positive well nourished and well developed General Appearance ED: well developed and NAD HEENT Reports TM's clear and moist mucous membranes normocephalic and atraumatic; Negative for trauma or tenderness Tympanic Membrane ED: Yes TM's clear Eyes PERRL and EOMs intact bilaterally General Eye ED: Negative for pale conjunctiva or scleral icterus Neck no lymphadenopathy, supple and no JVD General: Negative for tenderness Chest Wall inspection of chest normal and palpation of chest normal Chest: Negative for tenderness Resp normal respiratory effort and clear to auscultation bilaterally Effort and Inspection: Negative for respiratory distress or pain with movement Auscultation: Negative for rhonchi, wheezes or diminished lung sounds Cardio regular rate, regular rhythm, S1 normal heart sound, S2 normal heart sound and no murmurs Peripheral Pulses: pulses 2+ throughout GI normal to inspection, nondistended, normoactive bowel sounds, soft to palpation, non-tender, non-distended and no masses Back/Spine no CVA tenderness and no thoracic nor lumbar tenderness Extremity normal to inspection General Extremety ED: Negative for edema General Extremity: Negative for edema Neuro oriented x3, CN's II-XII intact bilaterally, no sensory deficits noted and gait normal Sensorium / Orientation: awake, alert, oriented to person, oriented to place and oriented to time Motor Exam: strength 5/5 throughout and strength abnormal Psych mental status grossly normal Skin no rashes or lesions noted and no wounds MDM MDM MDM Narrative Medical decision making narrative: IV line established on arrival. Patient was given liter normal saline bolus. Lab work showed an elevated white count 11.9. BUN was 66 and creatinine 1.43. Urinalysis was positive for UTI. Orthostatic vital signs were positive with systolic dropping into the 80s. Case discussed with hospitalist who will evaluate patient for admission. I did start patient on Rocephin 1 g IV. Lab Data Attestation: I reviewed the patient's lab results. Labs: Laboratory Results - last 24 hr 08/23/21 08/23/21 08/23/21 19:28 19:28 19:45 WBC 11.9 H RBC 4.86 Hgb 14.2 Hct 42.2 MCV 86.8 MCH 29.2 MCHC 33.6 RDW Std Deviation 43.9 RDW Coeff of Waqas 13.8 Plt Count 346 MPV 10.3 Immature Gran % (Auto) 0.400 Neut % (Auto) 67.2 Lymph % (Auto) 21.6 [place] % (Auto) 7.7 Eos % (Auto) 2.3 Baso % (Auto) 0.8 Absolute Neuts (auto) 8.0 H Absolute Lymphs (auto) 2.57 Nucleated RBC % 0 Sodium 132 L Potassium 4.4 Chloride 108 H Carbon Dioxide 19.0 L Anion Gap 5 BUN 66 H Creatinine 1.43 H Estim Creat Clear Calc 38.38 Est GFR (MDRD) Af Amer 49 L Est GFR (MDRD) Non-Af 40 L BUN/Creatinine Ratio 46.2 H Glucose 111 H Calcium 9.3 Troponin I High Sens 6 Urine Color Yellow Urine Clarity Cloudy Urine pH 8.0 Ur Specific [place] 1.010 Urine Protein 30 H Urine Glucose (UA) Normal Urine Ketones Negative Urine Occult Blood 50 H Urine Nitrite Positive H Urine Bilirubin Negative Urine Urobilinogen Normal Ur Leukocyte Esterase 500 H Urine RBC 0 SEEN Urine WBC 5-10 SEEN Ur Squamous Epith Cells 0 SEEN Urine Bacteria 3+ Urine Mucus 0 SEEN Radiography Diagnostic Testing: Clinical Impression(s) from Imaging Studies Chest X-Ray 08/23/21 19:34 IMPRESSION: COPD Electronically Signed: Anup Irving MD at 20:41 EDT Reading Location ID and State: [facility] / [place] , Service support , EKG Initial EKG: Attestation: I personally reviewed and interpreted this EKG as follows: Comments: Normal sinus rhythm with a rate of 70 bpm with no acute ST segment changes Discharge Plan Dx/Rx/DC Orders Clinical Impression: UTI (urinary tract infection), Orthostatic hypotension, Dehydration Disposition Disposition: Acute Care [facility]
--- NOTE | 2021-08-23 19:34 | RAD_ITS ---
STUDY: X-RAY CHEST REASON FOR EXAM: Female, 55 years old. weakness TECHNIQUE: Single frontal view of the chest. COMPARISON: CT chest 08/25/2021. Chest x-ray 06/13/2017 FINDINGS: Lungs are hyperaerated. The lungs are clear and expanded. There is no demonstrated pleural abnormality. Normal size heart. Normal mediastinum and veronica. Normal visualized pulmonary arteries. Normal visualized aortic arch and descending thoracic aorta. Normal visualized thoracic spine. Normal visualized ribs, clavicles, and shoulders. There is no demonstrated abnormality of the visualized soft tissue structures of the upper abdomen. RAD/Chest 1 View (Portable) IMPRESSION: COPD Electronically Signed: Anup Irving MD at 20:41 EDT ,
[2021-08-23 19:36] LABS: Absolute Lymphocyte Count 2.57 X10^3/uL (0.83-4.51); Basophil# 0.09 X10^3/uL; Basophil% 0.8 % (0-1); Eosinophil# 0.27 X10^3/uL; Eosinophils% 2.3 % (0-5); Hematocrit 42.2 % (37-47); Hemoglobin 14.2 g/dL (12.0-15.0); Lymphocyte # 2.57 X10^3/ul (0.83-4.51); Lymphocyte % 21.6 % (19-41); Mean Corp Hgb Conc 33.6 g/dL (32-36); Mean Corpuscular Hgb 29.2 pg (27.0-32.0); Mean Corpuscular Volume 86.8 fL (81-99); Mean Platelet Vol. 10.3 fl (6.2-12.0); Monocyte# 0.91 X10^3/uL; Monocyte% 7.7 % (0-10); NRBC Flagged by Analyzer 0 % (0-5); Neutrophil # 7.99 X10^3/uL (2.7-7.7); Neutrophil % 67.2 % (47-70); Platelet Count 346 K/mm3 (150-450); RBC Distribution Width CV 13.8 % (11.6-14.6); RBC Distribution Width SD 43.9 fl (35.1-43.9); Red Blood Count 4.86 M/mm3 (4.2-5.4); White Blood Count 11.9 K/mm3 (4.4-11.0)
[2021-08-23 19:53] LABS: Mucous, Urine 0 SEEN /hpf (<or=2+); Red Blood Cells-Urine 0 SEEN /hpf (0-5); Squamous Epithelial Cells - UA 0 SEEN /hpf (5-10)
[2021-08-23] MEDS: 0.9% Normal Saline 1,000 ML 1000 ML IV (19:54)
[2021-08-23 19:55] VITALS: BP 100/79; BP 89/69; BP 96/78; PULSE 73; PULSE 76; PULSE 95
[2021-08-23 19:55] LABS: Color, Urine Yellow (Yellow); Glucose, Dipstick Normal (Normal); Ketone-Dipstick Negative (Negative); Leukocyte Esterase-Dipstick 500 /ul (Negative); Nitrite-Dipstick Positive (Negative); Occult Blood-Urine 50 /ul (Negative); Protein-Dipstick 30 mg/dl (Negative); Urine Bilirubin Dipstick Negative (Negative); Urine Clarity Cloudy (Clear); Urine Urobilinogen Normal (Normal)
[2021-08-23 19:57] VITALS: BP 109/83
[2021-08-23 19:57] LABS: Anion Gap 5 (5-15); BUN 66 mg/dL (7-18); BUN/Creat Ratio 46.2 RATIO (10-20); Calcium,Total 9.3 mg/dL (8.5-10.1); Chloride 108 mmol/L (98-107); Creatinine, Serum 1.43 mg/dL (0.55-1.02); EST Glomerular Filtration Rate 40 mL/min (>60); Est Glom Filt Rate - Afr Amer 49 mL/min (>60); Estimated Creatinine Clearance 38.38 ml/min; Glucose 111 mg/dL (74-106); Potassium 4.4 mmol/L (3.5-5.1); Sodium Level 132 mmol/L (136-145); Troponin-I HS 6 pg/mL (3.0-54.0)
[2021-08-23 20:07] LABS: Bacteria 3+ /hpf (None Seen); White Blood Cells 5-10 SEEN /hpf (0-5)
[2021-08-23] MEDS: Ceftriaxone 1 GM/50 ML BAG IV (20:26)
--- NOTE | 2021-08-23 20:29 | HP.PCM.HOS_ITS ---
HPI - General General Date of Admission: 08/23/21 Date of Service: 08/23/21 Chief Complaint: Lightheaded, fatigue, malaise. HPI Narrative The patient is a 55 y/o F w/ PMHx: CKD stage III unclear subtype, Anxiety and Depression, Hx Bladder CA s/p resection with reconstructive surgery utilizing bowel for bladder creation considered in remission, Former tobacco use who presents to the [facility] ED on 08/23/21 with history of fatigue, malaise, ligh theadedness with activity prompting ED evaluation. She notes no recent fever, chills, abdominal pain but elected recent decreased oral intake although patient states she feels as though she is been at her baseline. She notes she is most bothered when she is attempting to get up and move. She on exam reports some mild suprapubic discomfort but states it is hard to differentiate if it is worse because she has some chronic underlying secondary to her surgical intervention. Work-up in the ED included T97.7, heart rate 88, BP 90/64 initially with most recent repeat 109/83, respiratory rate 16, 97% room air with orthostatics with change from 100/79-89/69 with standing, CBC with WC 11.9, hemoglobin 14.2, platelet 346 with left shift, BMP with sodium 132, chloride 108, carbon oxide 19, BUN/creatinine 66/1.43, glucose 111, troponin 6, urinalysis with evidence of urinary tract infection, negative SARS COVID antigen, chest x-ray with no acute cardiopulmonary, EKG with SR without acute evidence of ischemia, urine culture pending per ED. [facility] Medical History (Updated 08/23/21 @ 20:[address] Marci Sandoval, ) Anxiety Depression Former tobacco use Lung nodule Urinary bladder cancer Home Medications fluticasone propionate 50 mcg/actuation nasal spray,suspension ea intranasal 08/23/21 [History Last Taken Unknown] Allergy/AdvReac Type Severity Reaction Status Date / Time Tetanus Vaccines and Toxoid AdvReac Swelling Verified 08/23/21 19:03 [Tetanus Vaccines & Toxoid] venom-honey bee AdvReac Swelling Verified 08/23/21 19:03 [bee venom (honey bee)] Family History (Updated 09/30/20 @ 13:10 by Eva Nayak) Father Colon cancer bone and MM Kidney disease stones Surgical History (Updated 08/23/21 @ 20:[address] Aby Penaloza MD) History of bladder surgery History of cervical spinal surgery History of colonoscopy History of repair of left rotator cuff History of tubal ligation Social History (Updated 08/23/21 @ 22:[address] 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 alcohol intake: never substance use type: does not use ROS ROS Narrative Admission Review of Systems: CONSTITUTIONAL: No weight loss, fever, chills, + weakness or fatigue. HEENT: Eyes: No visual loss, blurred vision, double vision or yellow sclerae. Ears, Nose, Throat: No hearing loss, sneezing, congestion, runny nose or sore throat. SKIN: No rash or itching, lesions, wounds. CARDIOVASCULAR: + Lightheadedness, dizziness. No chest pain, chest pressure or chest discomfort, palpitations, edema, orthopnea, syncopal events. RESPIRATORY: No shortness of breath, cough or sputum, wheezing, hemoptysis. GASTROINTESTINAL: + Anorexia, No nausea, vomiting or diarrhea, abdominal pain, melena, BRBPR. GENITOURINARY: + Mild suprapubic discomfort but no specific reported dysuria, frequency, urgency or retention. NEUROLOGICAL: No headache, dizziness, syncope, paralysis, ataxia, numbness or tingling in the extremities, focal weakness, change in bowel or bladder control, seizure. MUSCULOSKELETAL: No muscle, back pain, joint pain or stiffness. HEMATOLOGIC: No anemia, bleeding or bruising. LYMPHATICS: No enlarged nodes. No history of splenectomy. PSYCHIATRIC: + history of depression or anxiety. ENDOCRINOLOGIC: No reports of sweating, cold or heat intolerance. No polyuria or polydipsia. ALLERGIES: + history of rhinitis. Vital Signs Vital Signs Vital Signs: 08/23/21 18:58 08/23/21 19:24 08/23/21 19:55 Temperature 97.7 F L Temperature Source Temporal Pulse Rate 88 Pulse Rate [Lying] 76 Pulse Rate [Sitting (for 1 minute prior to obtaining)] 73 Pulse Rate [Standing (for 1 minute prior to obtaining)] 95 Respiratory Rate 16 Respiratory Effort Normal Non-Labored Blood Pressure 98/64 Blood Pressure [Lying] 100/79 Blood Pressure [Sitting (for 1 minute prior to obtaining)] 96/78 Blood Pressure [Standing (for 1 minute prior to obtaining)] 89/69 L Blood Pressure Mean 75 Blood Pressure Mean [Lying] 86 Blood Pressure Mean [Sitting (for 1 minute prior to obtaining)] 84 Blood Pressure Mean [Standing (for 1 minute prior to obtaining)] 75 Pulse Ox 97 Oxygen Delivery Method Room Air 08/23/21 19:57 Temperature Temperature Source Pulse Rate Pulse Rate [Lying] Pulse Rate [Sitting (for 1 minute prior to obtaining)] Pulse Rate [Standing (for 1 minute prior to obtaining)] Respiratory Rate Respiratory Effort Blood Pressure 109/83 H Blood Pressure [Lying] Blood Pressure [Sitting (for 1 minute prior to obtaining)] Blood Pressure [Standing (for 1 minute prior to obtaining)] Blood Pressure Mean 91 Blood Pressure Mean [Lying] Blood Pressure Mean [Sitting (for 1 minute prior to obtaining)] Blood Pressure Mean [Standing (for 1 minute prior to obtaining)] Pulse Ox Oxygen Delivery Method Weight Weight: 122 lb Body Mass Index (BMI) 19.1 Physical Exam Narrative Physical Examination: General: Awake, alert, oriented x 3 and cooperative, seated upright in the ED bed, fatigued appearing, notes she feels improved with IV fluids. Skin: Normal color, normal turgor, no icterus, no cyanosis. HEENT: AT/NC, EOMI, PERRLA, dry MM, no carotid bruits or JVD noted. Lungs: Diminished, greater bases, moderate effort, no rales, ronchi or wheezing. Heart: Currently regular rate and rhythm; no gallop, rub audible. Abdomen: Soft, mild suprapubic discomfort with palpation otherwise nontender to palpation, ND, normal BS, no HSM. Extremities: No cyanosis, clubbing, or edema. Neurological: Patient awake, alert, oriented as noted, cognitive function intact; pupils equally reactive to light and accommodation, cranial nerves II- XII grossly normal, moving all 4 extremities, no focal deficits, strength moderately global decreased, worse with positional changes but she notes improving following fluids Psychiatric: Affect appears fatigued, irritable, no acute evidence of depressive or anxiety feelings but noted underlying history. Results Lab / Micro Data Result Diagrams: 08/23/21 19:28 08/23/21 19:28 Labs: Laboratory Results - last 24 hr 08/23/21 19:28: WBC 11.9 H, RBC 4.86, Hgb 14.2, Hct 42.2, MCV 86.8, MCH 29.2, MCHC 33.6, RDW Std Deviation 43.9, RDW Coeff of Waqas 13.8, Plt Count 346, MPV 10.3, Immature Gran % (Auto) 0.400, Neut % (Auto) 67.2, Lymph % (Auto) 21.6, [place] % (Auto) 7.7, Eos % (Auto) 2.3, Baso % (Auto) 0.8, Absolute Neuts (auto) 8.0 H, Absolute Lymphs (auto) 2.57, Nucleated RBC % 0 08/23/21 19:28: Sodium 132 L, Potassium 4.4, Chloride 108 H, Carbon Dioxide 19.0 L, Anion Gap 5, BUN 66 H, Creatinine 1.43 H, Estim Creat Clear Calc 38.38, Est GFR (MDRD) Af Amer 49 L, Est GFR (MDRD) Non-Af 40 L, BUN/Creatinine Ratio 46.2 H , Glucose 111 H, Calcium 9.3, Troponin I High Sens 6 08/23/21 19:45: Urine Color Yellow, Urine Clarity Cloudy, Urine pH 8.0, Ur Specific [place] 1.010, Urine Protein 30 H, Urine Glucose (UA) Normal, Urine Ketones Negative, Urine Occult Blood 50 H, Urine Nitrite Positive H, Urine Bilirubin Negative, Urine Urobilinogen Normal, Ur Leukocyte Esterase 500 H, Urine RBC 0 SEEN, Urine WBC 5-10 SEEN, Ur Squamous Epith Cells 0 SEEN, Urine Bacteria 3+, Urine Mucus 0 SEEN Micro: Microbiology 08/23/21 19:35 Nasal Secretion SARS-CoV-2 Antigen (Rapid) - Final Assessment & Plan Assessment/Plan (1) UTI (urinary tract infection): PLAN: Plan The patient is a 55 y/o F w/ PMHx: CKD stage III unclear subtype, Anxiety and Depression, Hx Bladder CA s/p resection with reconstructive surgery utilizing bowel for bladder creation considered in remission, Former tobacco use who presents to the [facility] ED on 08/23/21 with history of fatigue, malaise, lightheadedness with activity prompting ED evaluation. #1. Fatigue, malaise, lightheadedness secondary to Acute Complicated Urinary Tract Infection compounded by Orthostatic Hypotension secondary to decreased intake: Will admit to [facility] given improved BP, UA upon ED evaluation remarkable, pending UCx, continue IVFs with repeat orthostatic VS in AM, monitor I/Os, continue IV Rocephin w/ transition as able pending sensitivities and speciation, maintain on fall precautions. #2. Acute Mild Renal Insufficiency on Chronic Kidney Disease Stage III, unclear subtype: Admission BUN/Cr 66/1.43, baseline renal function noted last 01/10/2020 creatinine 1.18, repeat BMP in AM. #3. Hyponatremia, hypovolemic: Admission sodium 132, chloride 108, decreased recent oral intake with acute presentation noted #1, will continue to hydrate, repeat CMP in AM. #4. Anxiety and depression: Not on any regimen per current list, encourage outpatient follow-up. #5. Former tobacco use: Encourage continued tobacco cessation. #6. History of bladder cancer: Status post resection with reconstructive surgery noted to have utilized bowel, in remission. #7. DVT prophylaxis: SCDs, Lovenox. Charges/Coding Visit Charges OBSV E&M: 90134 Initial observation care L3
--- NOTE | 2021-08-23 20:45 | EKG12_ITS ---
Test Reason : DIZZINESS Blood Pressure : / mmHG Vent. Rate : 070 BPM Atrial Rate : 070 BPM P-R Int : 162 ms QRS Dur : 074 ms QT Int : 410 ms P-R-T Axes : 085 084 084 degrees QTc Int : 442 ms Normal sinus rhythm Normal ECG Confirmed by BAN JAMA, EV ([id number]), news copy editor ORIN MARSHALL ([id number]) on 08/24/2021 11:17:54 AM Referred By: BILLY Confirmed By:EV CEVALLOS MD
[2021-08-23 20:48] VITALS: BP 102/62; PULSE 68; RESP 22; TEMP 36.6
[2021-08-23 21:17] VITALS: BP 102/62; PULSE 70
--- NOTE | 2021-08-23 22:15 | ED.RN ---
pt complaining because why am I not in a room now! Ely been here for four hours, if you guys cant get me some service, I'll call my son to come get me. attempted to explain to the pt that we are very busy, oh so you dont have room for me? continued to attempt to explain that we are busy and we will try to get her to a room as soon as possible. well i have a bed time and i need to get to a comfortable bed. I'll wait a little longer but then im calling my son.
--- NOTE | 2021-08-23 22:33 | ED.RN ---
pt states that we have her out of her routine, i have to pee all night long and now im all mess up now, so they can just change my bed all night long. this rn over a diaper if that made her more comfortable. no, i cant control when it comes and i'll sleep right through it because i'm out of my routine. so they can change my bed all night long.
[2021-08-23] MEDS: 0.9% Normal Saline 1,000 ML 150 ML IV (22:38)
[2021-08-23 22:51] VITALS: BMI 19.3
[2021-08-23 22:53] VITALS: BP 108/61; PULSE 71; RESP 18; TEMP 36.6; O2SAT 93
[2021-08-23] MEDS: 0.9% Normal Saline 1,000 ML 125 ML IV (23:30)
--- NOTE | 2021-08-23 23:48 | NURSING ---
PT STATES SHE HAS NOT HAD COVID OR FLU VACCINES
[2021-08-24] VITALS (10 sets, daily range): BP systolic 72–89; BP diastolic 43–62; PULSE 60–86; RESP 16–18; TEMP 36.3–36.8; O2SAT 98–99
--- NOTE | 2021-08-24 04:18 | NURSING ---
BP 83/57. Dr Penaloza made aware. Order received for NS bolus.
[2021-08-24] MEDS: 0.9% Normal Saline 1,000 ML 125 ML IV ×2 (06:05→12:05)
[2021-08-24 06:26] LABS: Absolute Lymphocyte Count 1.61 X10^3/uL (0.83-4.51); Absolute Neutrophil Count 6.4 X10^3/uL (2.0-7.7); Basophil# 0.05 X10^3/uL; Basophil% 0.5 % (0-1); Eosinophil# 0.18 X10^3/uL; Hematocrit 32.8 % (37-47); Hemoglobin 10.9 g/dL (12.0-15.0); Lymphocyte # 1.61 X10^3/ul (0.83-4.51); Lymphocyte % 17.5 % (19-41); Mean Corp Hgb Conc 33.2 g/dL (32-36); Mean Corpuscular Hgb 29.1 pg (27.0-32.0); Mean Corpuscular Volume 87.5 fL (81-99); Mean Platelet Vol. 10.7 fl (6.2-12.0); Monocyte# 0.94 X10^3/uL; Monocyte% 10.2 % (0-10); NRBC Flagged by Analyzer 0 % (0-5); Neutrophil # 6.38 X10^3/uL (2.7-7.7); Neutrophil % 69.4 % (47-70); Platelet Count 246 K/mm3 (150-450); RBC Distribution Width SD 44.6 fl (35.1-43.9); Red Blood Count 3.75 M/mm3 (4.2-5.4); White Blood Count 9.2 K/mm3 (4.4-11.0)
[2021-08-24 07:09] LABS: AST(SGOT) 11 U/L (15-37); Alanine Aminotransfer ALT/SGPT 13 U/L (13-56); Alkaline Phosphatase 68 U/L (45-117); Anion Gap 11 (5-15); BUN 50 mg/dL (7-18); BUN/Creat Ratio 49.5 RATIO (10-20); Calcium,Total 7.9 mg/dL (8.5-10.1); Chloride 112 mmol/L (98-107); Creatinine, Serum 1.01 mg/dL (0.55-1.02); EST Glomerular Filtration Rate 60 mL/min (>60); Est Glom Filt Rate - Afr Amer 73 mL/min (>60); Estimated Creatinine Clearance 54.89 ml/min; Globulin 3.1 g/dL (2.2-4.2); Glucose 89 mg/dL (74-106); Potassium 3.4 mmol/L (3.5-5.1); Protein, Total 6.1 g/dL (6.4-8.2); Sodium Level 138 mmol/L (136-145)
[2021-08-24] MEDS: Enoxaparin 40 MG/0.4 ML Syringe SC (10:05)
--- NOTE | 2021-08-24 11:53 | PN.HOSP_ITS ---
Subjective Subjective Amada is a little lightheaded and dizzy, especially during her orthostatic vital signs. Blood pressure still on the low side but she does normally run low. Continue with IV fluids Objective Data Objective Data Vital Signs: Vital Signs Temp Pulse Resp BP Pulse Ox O2 Del Method 98.2 F 67 16 89/58 L 98 Room Air 08/24/21 11:19 08/24/21 11:19 08/24/21 11:19 08/24/21 11:19 08/24/21 11:19 08/24/21 11:19 Oxygen Delivery Method Room Air Weight: 123 lb 3.814 oz Body Mass Index (BMI) 19.3 Intake & Output: Intake and Output for Last 24 Hours 08/23/21 08/24/21 08/25/21 03:59 03:59 03:59 Intake Total 1180 / 1180 1442.92 / 1442.92 Balance 1180 / 1180 1442.92 / 1442.92 Lab / Micro Data Result Diagrams: 08/24/21 Unknown 08/24/21 Unknown Labs: Laboratory Results - last 24 hr 08/23/21 19:28: WBC 11.9 H, RBC 4.86, Hgb 14.2, Hct 42.2, MCV 86.8, MCH 29.2, MCHC 33.6, RDW Std Deviation 43.9, RDW Coeff of Waqas 13.8, Plt Count 346, MPV 10.3, Immature Gran % (Auto) 0.400, Neut % (Auto) 67.2, Lymph % (Auto) 21.6, [place] % (Auto) 7.7, Eos % (Auto) 2.3, Baso % (Auto) 0.8, Absolute Neuts (auto) 8.0 H, Absolute Lymphs (auto) 2.57, Nucleated RBC % 0 08/23/21 19:28: Sodium 132 L, Potassium 4.4, Chloride 108 H, Carbon Dioxide 19.0 L, Anion Gap 5, BUN 66 H, Creatinine 1.43 H, Estim Creat Clear Calc 38.38, Est GFR (MDRD) Af Amer 49 L, Est GFR (MDRD) Non-Af 40 L, BUN/Creatinine Ratio 46.2 H , Glucose 111 H, Calcium 9.3, Troponin I High Sens 6 08/23/21 19:45: Urine Color Yellow, Urine Clarity Cloudy, Urine pH 8.0, Ur Specific [place] 1.010, Urine Protein 30 H, Urine Glucose (UA) Normal, Urine Ketones Negative, Urine Occult Blood 50 H, Urine Nitrite Positive H, Urine Bilirubin Negative, Urine Urobilinogen Normal, Ur Leukocyte Esterase 500 H, Urine RBC 0 SEEN, Urine WBC 5-10 SEEN, Ur Squamous Epith Cells 0 SEEN, Urine Bacteria 3+, Urine Mucus 0 SEEN 08/24/21 : WBC 9.2, RBC 3.75 L, Hgb 10.9 L, Hct 32.8 L, MCV 87.5, MCH 29.1, MCHC 33.2, RDW Std Deviation 44.6 H, RDW Coeff of Waqas 14.0, Plt Count 246, MPV 10.7, Immature Gran % (Auto) 0.400, Neut % (Auto) 69.4, Lymph % (Auto) 17.5 L, [place] % (Auto) 10.2 H, Eos % (Auto) 2.0, Baso % (Auto) 0.5, Absolute Neuts (auto) 6.4, Absolute Lymphs (auto) 1.61, Nucleated RBC % 0 08/24/21 : Sodium 138, Potassium 3.4 L, Chloride 112 H, Carbon Dioxide 15.0 L, Anion Gap 11, BUN 50 H, Creatinine 1.01, Estim Creat Clear Calc 54.89, Est GFR (MDRD) Af Amer 73, Est GFR (MDRD) Non-Af 60, BUN/Creatinine Ratio 49.5 H, Glucose 89, Calcium 7.9 L, Total Bilirubin 0.20, AST 11 L, ALT 13, Alkaline Phosphatase 68, Total Protein 6.1 L, Albumin 3.0 L, Globulin 3.1, Albumin/Globulin Ratio 1.0 Micro: Microbiology 08/23/21 19:45 Urine, Clean Catch Urine Culture - Preliminary Gram negative gracia 08/23/21 19:35 Nasal Secretion SARS-CoV-2 Antigen (Rapid) - Final Radiography Diagnostic Testing: Radiology Impression Chest X-Ray 08/23/21 19:34 IMPRESSION: COPD Electronically Signed: Anup Irving MD at 20:41 EDT Reading Location ID and State: [facility] / [place] , Service support , Physical Exam Const alert, oriented x3 and no apparent distress General Appearance: cooperative HEENT normocephalic and moist oral mucous membranes Eyes PERRL, EOMs intact bilaterally and conjunctivae normal Neck supple and no JVD Resp normal respiratory effort, no retractions, no use of accessory muscles and clear to auscultation bilaterally Auscultation: Negative for crackles, rales, rhonchi or wheezes Cardio regular rate, regular rhythm, S1 normal heart sound, S2 normal heart sound and no murmurs GI soft to palpation, non-tender and non-distended; Negative for hepatosplenomegaly Extremity no clubbing, cyanosis or edema Skin no rashes or lesions noted Neuro no focal motor deficits and no sensory deficits noted Psych affect normal Appearance: appropriate Assessment & Plan Assessment/Plan (1) UTI (urinary tract infection): PLAN: Plan 1. Acute UTI with orthostatic hypotension secondary to dehydration/GUZMAN?resolved ? Continue with IV fluids ? She does have gram-negative rods in urine greater than 100,000 CFU's, will continue with Rocephin ? Urine culture is pending for sensitivities and speciation ? No signs of sepsis DVT: Lovenox Charges/Coding Visit Charges OBSV E&M: 41087 Subsequent observation care L2
[2021-08-24] MEDS: 0.9% Saline Lock 10 ML Syringe IV (12:05)
--- NOTE | 2021-08-24 12:58 | DCINST_ITS ---
Discharge Instructions Diet Discharge Diet: No restrictions Activity Discharge Activity: Return to Normal Activity Dressing / Incision Call your doctor if you observe: Fever of 101 or Higher, Shortness of breath, Dizziness, Fainting spells, Swelling in the ankles, Chest pain and Increased palpitations (irregular heartbeat) Follow Up Care Test Results: Test results from this visit will be discussed in further detail at your follow- up appointment, if applicable. Discharge Plan Admission Admit Date/Time: 08/23/21 20:37 Attending Provider: Benson Arciniega Primary Care Provider: Taylor Fernandes Consulting Providers: Aby Penaloza Discharge Orders/Prescriptions Prescriptions: New cephalexin 500 mg capsule 500 mg PO TID 4 Days Qty: 12 0RF Referrals / Follow Up: Taylor Fernandes MD [Primary Care Provider] - In 1 Week Disposition Disposition (needs filled in before D/C Order can be placed): Home, Self Care
--- NOTE | 2021-08-24 13:00 | DS.PCM_ITS ---
Providers Date of Admission: 08/23/21 Primary Care Physician: Dr. Taylor Fernandes MD Reason For Visit: UTI ORTHOSTATIC HYPOTENSION Diagnosis Discharge Diagnosis (1) UTI (urinary tract infection): Status: Acute Code(s): N39.0 - Urinary tract infection, site not specified Plan 1. Acute UTI with orthostatic hypotension secondary to dehydration/GUZMAN?resolved ? Continue with IV fluids ? She does have gram-negative rods in urine greater than 100,000 CFU's, will continue with Rocephin ? Urine culture is pending for sensitivities and speciation ? No signs of sepsis DVT: Lovenox Medications at Discharge Home Medications cephalexin 500 mg capsule 500 mg PO TID 4 days #12 caps 08/24/21 Hospital Course Operations None Procedures None Summary of Care Provided Minutes Spent on Discharge: 39 Hospital Course: Per HPI: The patient is a 55 y/o F w/ PMHx: CKD stage III unclear subtype, Anxiety and Depression, Hx Bladder CA s/p resection with reconstructive surgery utilizing bowel for bladder creation considered in remission, Former tobacco use who presents to the [facility] ED on 08/23/21 with history of fatigue, malaise, lightheadedness with activity prompting ED evaluation. She notes no recent fever, chills, abdominal pain but elected recent decreased oral intake although patient states she feels as though she is been at her baseline.? She notes she is most bothered when she is attempting to get up and move.? She on exam reports some mild suprapubic discomfort but states it is hard to differentiate if it is worse because she has some chronic underlying secondary to her surgical intervention. Work-up in the ED included T97.7, heart rate 88, BP 90/64 initially with most recent repeat 109/83, respiratory rate 16, 97% room air with orthostatics with change from 100/79-89/69 with standing, CBC with WC 11.9, hemoglobin 14.2, platelet 346 with left shift, BMP with sodium 132, chloride 108, carbon oxide 19, BUN/creatinine 66/1.43, glucose 111, troponin 6, urinalysis with evidence of urinary tract infection, negative SARS COVID antigen, chest x-ray with no acute cardiopulmonary, EKG with SR without acute evidence of ischemia, urine culture pending per ED. Hospital Course: 1. Acute UTI with orthostatic hypotension secondary to dehydration/GUZMAN and hyponatremia resolved?55-year-old female presented to the hospital with lightheadedness. She was found to have an GUZMAN due to dehydration from poor p.o. intake secondary to UTI. She does have greater than 100,000 CFU's of gram- negative rods in her urine and she did receive a dose of Rocephin last night. She states that she feels much better today and denies any lightheadedness or dizziness and wants to go home. I discussed with her that she does have some low blood pressure but she states that she is always low between 90 and 110 systolic. She states that she has been getting up and walking around the room and going to the bathroom on her own without any significant issues. She states that she would like to go home now or else she wants to sign out AMA. I discussed with her the possibility of going home and she expressed understanding of the risk and benefits of going home and still wants to go home. I recommend that she follow-up with her PCP in 3 to 5 days and I will follow-up her cultures tomorrow and if necessary change her antibiotics. Weight / BMI Weight Weight: 123 lb 3.814 oz Body Mass Index (BMI) 19.3 ABG / Lab / Microbiology Data Result Diagrams: 08/24/21 Unknown 08/24/21 Unknown Laboratory: Laboratory Results - last 24 hr 08/23/21 19:28: WBC 11.9 H, RBC 4.86, Hgb 14.2, Hct 42.2, MCV 86.8, MCH 29.2, MCHC 33.6, RDW Std Deviation 43.9, RDW Coeff of Waqas 13.8, Plt Count 346, MPV 10.3, Immature Gran % (Auto) 0.400, Neut % (Auto) 67.2, Lymph % (Auto) 21.6, [place] % (Auto) 7.7, Eos % (Auto) 2.3, Baso % (Auto) 0.8, Absolute Neuts (auto) 8.0 H, Absolute Lymphs (auto) 2.57, Nucleated RBC % 0 08/23/21 19:28: Sodium 132 L, Potassium 4.4, Chloride 108 H, Carbon Dioxide 19.0 L, Anion Gap 5, BUN 66 H, Creatinine 1.43 H, Estim Creat Clear Calc 38.38, Est GFR (MDRD) Af Amer 49 L, Est GFR (MDRD) Non-Af 40 L, BUN/Creatinine Ratio 46.2 H , Glucose 111 H, Calcium 9.3, Troponin I High Sens 6 08/23/21 19:45: Urine Color Yellow, Urine Clarity Cloudy, Urine pH 8.0, Ur Specific [place] 1.010, Urine Protein 30 H, Urine Glucose (UA) Normal, Urine Ketones Negative, Urine Occult Blood 50 H, Urine Nitrite Positive H, Urine Bilirubin Negative, Urine Urobilinogen Normal, Ur Leukocyte Esterase 500 H, Urine RBC 0 SEEN, Urine WBC 5-10 SEEN, Ur Squamous Epith Cells 0 SEEN, Urine Bacteria 3+, Urine Mucus 0 SEEN 08/24/21 : WBC 9.2, RBC 3.75 L, Hgb 10.9 L, Hct 32.8 L, MCV 87.5, MCH 29.1, MCHC 33.2, RDW Std Deviation 44.6 H, RDW Coeff of Waqas 14.0, Plt Count 246, MPV 10.7, Immature Gran % (Auto) 0.400, Neut % (Auto) 69.4, Lymph % (Auto) 17.5 L, [place] % (Auto) 10.2 H, Eos % (Auto) 2.0, Baso % (Auto) 0.5, Absolute Neuts (auto) 6.4, Absolute Lymphs (auto) 1.61, Nucleated RBC % 0 08/24/21 : Sodium 138, Potassium 3.4 L, Chloride 112 H, Carbon Dioxide 15.0 L, Anion Gap 11, BUN 50 H, Creatinine 1.01, Estim Creat Clear Calc 54.89, Est GFR (MDRD) Af Amer 73, Est GFR (MDRD) Non-Af 60, BUN/Creatinine Ratio 49.5 H, Glucose 89, Calcium 7.9 L, Total Bilirubin 0.20, AST 11 L, ALT 13, Alkaline Phosphatase 68, Total Protein 6.1 L, Albumin 3.0 L, Globulin 3.1, Albumin/Globulin Ratio 1.0 Microbiology: Microbiology 08/23/21 19:45 Urine, Clean Catch Urine Culture - Preliminary Gram negative gracia 08/23/21 19:35 Nasal Secretion SARS-CoV-2 Antigen (Rapid) - Final Radiography Diagnostic Testing: Radiology Impression Chest X-Ray 08/23/21 19:34 IMPRESSION: COPD Electronically Signed: Anup Irving MD at 20:41 EDT Reading Location ID and State: [facility] / [place] , Service support , D/C Instructions Discharge Diet: No restrictions Call your doctor if you observe: Fever of 101 or Higher, Shortness of breath, Dizziness, Fainting spells, Swelling in the ankles, Chest pain and Increased palpitations (irregular heartbeat) Meaningful Use Info Meaningful Use Diagnoses (Choose all that apply): None applicable Discharge Plan Admission Admit Date/Time: 08/23/21 20:37 Attending Provider: Benson Arciniega Primary Care Provider: Taylor Fernandes Consulting Providers: Aby Penaloza Discharge Orders/Prescriptions Prescriptions: New cephalexin 500 mg capsule 500 mg PO TID 4 Days Qty: 12 0RF Referrals / Follow Up: Taylor Fernandes MD [Primary Care Provider] - In 1 Week Disposition Disposition (needs filled in before D/C Order can be placed): Home, Self Care Charges/Coding Visit Charges OBSV E&M: 14693 Observation care discharge
--- NOTE | 2021-08-25 10:46 | NURSING ---
Patient called in to check on urine culture results after discharge. Dr. Arciniega aware of results and new antibiotic prescription sent to [facility]. Patient called back by this nurse and aware of new script being sent.
== END 2021-08-24 13:42 | disposition home or self-care (01) ==
LOC: ED 20:44 → MS3 21:51
PROVIDERS: Admitting Provider Family Medicine; Emergency Provider Emergency Medicine; PCP Internal Medicine; Visit Provider Family Medicine
DX: N39.0 Urinary tract infection, site not specified (principal); N17.9 Acute kidney failure, unspecified; N18.30 Chronic kidney disease, stage 3 unspecified; Z90.49 Acquired absence of other specified parts of digestive tract; R11.10 Vomiting, unspecified; I95.1 Orthostatic hypotension; Z87.891 Personal history of nicotine dependence; E86.0 Dehydration; E87.1 Hypo-osmolality and hyponatremia; Z85.51 Personal history of malignant neoplasm of bladder
CPT/HCPCS: 87811; 36415; 71045; 80048; 80053; 81001; 84484; 85025; 87077; 87086; 87088; 87186; 93005; 96361; 96365; 96372; 97802; 99218; 99285; J7030; J7040; A4216; G0378

== ENCOUNTER 2021-10-31 10:52 | Inpatient (IN) | payer MEDICAID, SELFPAY ==
[2021-10-31 10:53] VITALS: BP 101/61; PULSE 89; RESP 16; TEMP 35.7; O2SAT 100; BMI 19.5
--- NOTE | 2021-10-31 11:12 | EDS_ITS ---
HPI History of Present Illness Chief Complaint: Nausea/Vomiting Informant: patient Narrative Narrative: 56-year-old female is presenting to the emergency department today with 5 days of nausea vomiting and bilateral side pain. Patient states that the symptoms began abruptly. She notes no fever or diarrhea. She states that she has been constipated because I have not been eating. She denies any urinary symptoms. She has been able to tolerate fluids but not solids. She denies any rashes. No known bad food exposures. She denies any blood in the vomit. She has prior history of hysterectomy and bladder surgery. [facility] Medical History Anxiety Depression Former tobacco use Lung nodule Urinary bladder cancer Home Medications cephalexin 500 mg capsule 500 mg PO TID 4 days #12 caps 08/24/21 [Rx Last Taken Unknown] ciprofloxacin HCl 500 mg tablet (Cipro) 500 mg PO BID 5 days #10 tabs 08/25/21 [Rx Last Taken Unknown] Allergy/AdvReac Type Severity Reaction Status Date / Time Tetanus Vaccines and Toxoid AdvReac Swelling Verified 10/31/21 10:52 [Tetanus Vaccines & Toxoid] venom-honey bee AdvReac Swelling Verified 10/31/21 10:52 [bee venom (honey bee)] Family History Father Colon cancer bone and MM Kidney disease stones Surgical History History of bladder surgery History of cervical spinal surgery History of colonoscopy History of repair of left rotator cuff History of tubal ligation Social History household members: none Smoking Status: Former smoker how long ago did patient quit smoking: Quit >2 years prior, smoked 1/4 ppd, 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 alcohol intake: never substance use type: does not use ROS ROS ED Constitutional Constitutional ED: Denies chills or weight loss Eyes Eyes: Denies change in vision or diplopia ENT ENT ED: Denies ear pain, rhinorrhea or sore throat Cardiovascular Cardiovascular: Denies chest pain, orthopnea, palpitations or racing heartbeat Respiratory/Chest Respiratory/Chest: Denies cough, dyspnea or orthopnea Gastrointestinal Gastrointestinal: Reports abdominal pain, constipation, nausea and vomiting; Denies diarrhea Genitourinary Genitourinary ED: Denies dysuria, hematuria or urinary frequency Musculoskeletal Musculoskeletal: Denies arthralgias or myalgias Integumentary Denies abscess or rash Neurologic Neurologic: Denies headache(s) or weakness Psychiatric Psychiatric: Denies anxiety, depression, suicidal ideation or suicidal thoughts Endocrine Endocrinology: Denies polydipsia, polyphagia or polyuria Allergic/Immunologic Allergic/Immunologic ED: Denies mouth swelling, tongue swelling or urticaria EXAM Physical Exam Const Vital Signs: 10/31/21 10:53 10/31/21 11:27 10/31/21 13:00 Temperature 96.2 F L Temperature Source Temporal Pulse Rate 89 85 78 Respiratory Rate 16 14 12 Blood Pressure 101/61 116/47 L 114/79 Blood Pressure Mean 74 70 90 Pulse Ox 100 Oxygen Delivery Method Room Air Positive well nourished and well developed General Appearance ED: well developed HEENT Reports normocephalic, head/scalp atraumatic and moist mucous membranes Eyes PERRL and EOMs intact bilaterally Neck no lymphadenopathy, supple and no JVD Resp normal respiratory effort and clear to auscultation bilaterally Cardio regular rate, regular rhythm and no murmurs GI normal to inspection, nondistended, normoactive bowel sounds and non-tender Palpation: soft Back/Spine no CVA tenderness and normal ROM Extremity normal to inspection General Extremety ED: Negative for edema General Extremity: Negative for edema Neuro oriented x3 and CN's II-XII intact bilaterally Sensorium / Orientation: alert Motor Exam: strength 5/5 throughout Psych mental status grossly normal Mood & Affect: Negative for depressed or tearful Skin no rashes or lesions noted and no wounds MDM MDM MDM Narrative Medical decision making narrative: CT of the abdomen pelvis demonstrates moderate bilateral hydronephrosis and hydroureter's. There is thickening of the bladder wall. Her urine is consistent with infection. She is hyponatremic with evidence of acute renal failure. She attempted to urinate. A Conte catheter was placed with greater than 1000 cc of urine removed. She received Rocephin after blood and urine cultures were obtained. In speaking with her more she states that she has been having problems urinating at home often times has to push on her pelvis and lean forward in order to urinate. At this point the patient's going to be admitted into the hospital for further care. Conte catheters remain in place. Lab Data Attestation: I reviewed the patient's lab results. Labs: Laboratory Results - last 24 hr 10/31/21 10/31/21 10/31/21 11:20 11:20 13:11 WBC 11.6 H RBC 5.28 Hgb 15.7 H Hct 45.2 MCV 85.6 MCH 29.7 MCHC 34.7 RDW Std Deviation 40.6 RDW Coeff of Waqas 13.0 Plt Count 456 H MPV 10.4 Immature Gran % (Auto) 0.600 Neut % (Auto) 72.0 H Lymph % (Auto) 19.3 [place] % (Auto) 7.5 Eos % (Auto) 0.2 Baso % (Auto) 0.4 Absolute Neuts (auto) 8.3 H Absolute Lymphs (auto) 2.23 Nucleated RBC % 0 Sodium 119 L* Potassium 5.3 H Chloride 86 L Carbon Dioxide 17.0 L Anion Gap 16 H BUN 134 H* Creatinine 2.75 H Estim Creat Clear Calc 20.20 Est GFR (MDRD) Af Amer 23 L Est GFR (MDRD) Non-Af 19 L BUN/Creatinine Ratio 48.7 H Glucose 133 H Calcium 9.8 Total Bilirubin 0.60 Direct Bilirubin 0.10 AST 18 ALT 16 Alkaline Phosphatase 104 Total Protein 9.7 H Albumin 4.6 Globulin 5.1 H Lipase 445 H Urine Color Yellow Urine Clarity Sl. Cloudy Urine pH 8.0 Ur Specific [place] 1.010 Urine Protein 100 H Urine Glucose (UA) Normal Urine Ketones Negative Urine Occult Blood 250 H Urine Nitrite Negative Urine Bilirubin Negative Urine Urobilinogen Normal Ur Leukocyte Esterase 500 H Urine RBC 0 SEEN Urine WBC 10-25 SEEN Ur Squamous Epith Cells 0-5 SEEN Urine Bacteria 2+ Urine Mucus 0 SEEN Radiography Diagnostic Testing: Clinical Impression(s) from Imaging Studies Abdomen/Pelvis CT 10/31/21 12:34 IMPRESSION: 1. Moderate bilateral hydronephrosis and hydroureters without definite ureteral stones as described above. 2. Thickening of the posterior wall of the bladder wall. Cystitis or infiltrative process cannot be excluded. 3. Fluid collections anterior and superior to the bladder dome likely representing bladder diverticula. 4. Otherwise no focal acute inflammatory process. Electronically Signed: Richard Agudelo MD at 13:15 EDT , Discharge Plan Dx/Rx/DC Orders Clinical Impression: Acute dehydration, Acute renal failure, Acute hyponatremia, Acute uremia, Obstructive uropathy, UTI (urinary tract infection) Disposition Disposition: Acute Care Hospital [facility]
[2021-10-31] MEDS: 0.9% Normal Saline 1,000 ML 1000 ML IV ×2 (11:24→13:19)
[2021-10-31] MEDS: Ondansetron 4 MG/2 ML Vial IV (11:25)
[2021-10-31 11:27] VITALS: BP 116/47; PULSE 85; RESP 14
[2021-10-31 11:53] LABS: Absolute Lymphocyte Count 2.23 X10^3/uL (0.83-4.51); Absolute Neutrophil Count 8.3 X10^3/uL (2.0-7.7); Basophil# 0.05 X10^3/uL; Basophil% 0.4 % (0-1); Eosinophil# 0.02 X10^3/uL; Eosinophils% 0.2 % (0-5); Hematocrit 45.2 % (37-47); Hemoglobin 15.7 g/dL (12.0-15.0); Lymphocyte # 2.23 X10^3/ul (0.83-4.51); Lymphocyte % 19.3 % (19-41); Mean Corp Hgb Conc 34.7 g/dL (32-36); Mean Corpuscular Hgb 29.7 pg (27.0-32.0); Mean Corpuscular Volume 85.6 fL (81-99); Mean Platelet Vol. 10.4 fl (6.2-12.0); Monocyte# 0.87 X10^3/uL; Monocyte% 7.5 % (0-10); NRBC Flagged by Analyzer 0 % (0-5); Neutrophil # 8.31 X10^3/uL (2.7-7.7); Platelet Count 456 K/mm3 (150-450); RBC Distribution Width SD 40.6 fl (35.1-43.9); Red Blood Count 5.28 M/mm3 (4.2-5.4); White Blood Count 11.6 K/mm3 (4.4-11.0)
[2021-10-31 12:16] LABS: AST(SGOT) 18 U/L (15-37); Alanine Aminotransfer ALT/SGPT 16 U/L (13-56); Albumin, Serum 4.6 g/dL (3.2-5.0); Alkaline Phosphatase 104 U/L (45-117); Anion Gap 16 (5-15); BUN 134 mg/dL (7-18); BUN/Creat Ratio 48.7 RATIO (10-20); Calcium,Total 9.8 mg/dL (8.5-10.1); Chloride 86 mmol/L (98-107); Creatinine, Serum 2.75 mg/dL (0.55-1.02); EST Glomerular Filtration Rate 19 mL/min (>60); Est Glom Filt Rate - Afr Amer 23 mL/min (>60); Globulin 5.1 g/dL (2.2-4.2); Glucose 133 mg/dL (74-106); Lipase 445 U/L (73-393); Potassium 5.3 mmol/L (3.5-5.1); Protein, Total 9.7 g/dL (6.4-8.2); Sodium Level 119 mmol/L (136-145)
--- NOTE | 2021-10-31 12:34 | CT_ITS ---
STUDY: CT ABDOMEN AND PELVIS WITHOUT CONTRAST REASON FOR EXAM: Female, 56 years old. Abdominal pain and nausea RADIATION DOSAGE (If Supplied By Facility): CTDIvol = ( 6.26 ) mGy, DLP = ( 278.45 ) mGycm TECHNIQUE: Transaxial images were obtained from the dome of the diaphragm to the symphysis pubis without oral contrast, and without intravenous contrast. Sagittal and coronal images were reconstructed. Individualized dose optimization techniques were used for this CT. COMPARISON: None. FINDINGS: The visualized lung bases are unremarkable. The visualized portions of the heart are within normal limits. Normal liver. Normal gallbladder and extrahepatic biliary system. Normal spleen. Normal pancreas. Normal bilateral adrenal glands. Moderate bilateral hydronephrosis and hydroureters without evidence of ureteral stones. There are however multiple calcifications in the region of the distal ureters bilaterally and ureterovesical junction likely vascular. Normal visualized stomach. Normal small intestine. Normal colon. The appendix is visualized and appears normal. No evidence of abdominal aortic aneurysm. Probable small metallic density adjacent to the aorta. Normal inferior vena cava. Normal retroperitoneum. Distended urinary bladder. Thickening of the posterior wall of the bladder. Pockets of fluid anterior and superior to the bladder dome likely representing bladder diverticula measuring about 7 cm on the right side and 5 cm in the left side. Normal abdominal wall. Unremarkable osseous structures. CT/Abdomen/Pelvis without Cont IMPRESSION: 1. Moderate bilateral hydronephrosis and hydroureters without definite ureteral stones as described above. 2. Thickening of the posterior wall of the bladder wall. Cystitis or infiltrative process cannot be excluded. 3. Fluid collections anterior and superior to the bladder dome likely representing bladder diverticula. 4. Otherwise no focal acute inflammatory process. Electronically Signed: Richard Agudelo MD at 13:15 EDT ,
[2021-10-31 13:00] VITALS: BP 114/79; PULSE 78; RESP 12
[2021-10-31 13:28] LABS: Mucous, Urine 0 SEEN /hpf (<or=2+); Red Blood Cells-Urine 0 SEEN /hpf (0-5)
[2021-10-31 13:30] LABS: Color, Urine Yellow (Yellow); Glucose, Dipstick Normal (Normal); Ketone-Dipstick Negative (Negative); Leukocyte Esterase-Dipstick 500 /ul (Negative); Nitrite-Dipstick Negative (Negative); Occult Blood-Urine 250 /ul (Negative); Protein-Dipstick 100 mg/dl (Negative); Urine Bilirubin Dipstick Negative (Negative); Urine Clarity Sl. Cloudy (Clear); Urine Urobilinogen Normal (Normal)
[2021-10-31 13:45] LABS: Bacteria 2+ /hpf (None Seen); Squamous Epithelial Cells - UA 0-5 SEEN /hpf (5-10); White Blood Cells 10-25 SEEN /hpf (0-5)
[2021-10-31] MEDS: Ceftriaxone 1 GM/50 ML BAG IV (14:52)
--- NOTE | 2021-10-31 14:55 | HP.PCM.HOS_ITS ---
HPI - General General Date of Admission: 10/31/21 Date of Service: 10/31/21 Chief Complaint: nausea, vomiting. HPI Narrative CECI NOGUEIRA, is a 56 F with a PMH as outlined who presents via the ED with a complaint of nausea and vomiting as well as bilateral flank pain x 5 days. She has also not been having any bowel movements; she says she has to push on her pelvis when she goes to the bathroom. She hasnt been eating and drinking well. She has been unable to keep anything down. She denies any history of kidney stones. She denies any fever, chills, cough, chest pain, palpitations or any other symptoms. Vitals were temperature was 96.2, BP of 116/47 and RR of 14 and she was saturating at 100% on room air. CBC showed WBC of 11.6 with hemoglobin of 15.7 and platelets of 456. Chemistry showed sodium of 119 with potassium of 5.3, bicarb of 17 and anion gap of 16 as well as BUN of 134 and creatinine of 2.75. Urinalysis showed 2+ bacteria. CT of the abdomen and pelvis showed moderate bilateral hydronephrosis and hydroureters without definite ureteral stones and thickening of the posterior bladder wall with cystitis or infiltra tive process could not be excluded as well as fluid collections anterior and superior to the bladder dome most likely representing bladder diverticula. She has been admitted to be managed for GUZMAN likely postrenal with assisted hydronephrosis and hydroureters as well as anion gap metabolic acidosis due to GUZMAN. [facility] Medical History Anxiety Depression Former tobacco use Lung nodule Urinary bladder cancer Home Medications NK 10/31/21 [History Last Taken Unknown] Allergy/AdvReac Type Severity Reaction Status Date / Time Tetanus Vaccines and Toxoid AdvReac Swelling Verified 10/31/21 10:52 [Tetanus Vaccines & Toxoid] venom-honey bee AdvReac Swelling Verified 10/31/21 10:52 [bee venom (honey bee)] Family History Father Colon cancer bone and MM Kidney disease stones Surgical History History of bladder surgery History of cervical spinal surgery History of colonoscopy History of repair of left rotator cuff History of tubal ligation Social History household members: none Smoking Status: Former smoker how long ago did patient quit smoking: Quit >2 years prior, smoked 1/4 ppd, 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 alcohol intake: never substance use type: does not use ROS Constitutional Constitutional: Reports fatigue, malaise and weakness; Denies anorexia, change in weight, chills or fever(s) ENT HEENT: Denies dysphagia, headache(s) or sore throat Cardiovascular Cardiovascular: Denies chest pain, dyspnea on exertion, edema, lightheadedness, orthopnea, palpitations, paroxysmal nocturnal dyspnea, rapid heart rate or syncope Respiratory/Chest Respiratory/Chest: Denies cough, dyspnea, productive cough, shortness of breath at rest, shortness of breath with exertion or wheezing Gastrointestinal Gastrointestinal: Denies abdominal pain, coffee ground emesis, diarrhea, dyspepsia, hematochezia, loose stools, nausea or vomiting Genitourinary Genitourinary: Reports difficulty urinating, urinary frequency and urinary hesitancy; Denies burning urination, dysuria, nocturia, urinary incontinence or urinary urgency Musculoskeletal Musculoskeletal: Denies back pain Neurologic Neurologic: Denies confusion, dizziness, focal weakness, headache(s), numbness, seizure-like activity, seizures or syncope Psychiatric Psychiatric: Denies anxiety Endocrine Endocrinology: Denies change in body appearance Vital Signs Vital Signs Vital Signs: 10/31/21 10:53 10/31/21 11:27 10/31/21 13:00 Temperature 96.2 F L Temperature Source Temporal Pulse Rate 89 85 78 Respiratory Rate 16 14 12 Blood Pressure 101/61 116/47 L 114/79 Blood Pressure Mean 74 70 90 Pulse Ox 100 Oxygen Delivery Method Room Air Weight Weight: 125 lb Body Mass Index (BMI) 19.5 Physical Exam Const alert, oriented x3 and no apparent distress General Appearance: cooperative HEENT normocephalic, head/scalp atraumatic and hearing grossly normal bilaterally HEENT Narrative: dry oral mucosal membranes Eyes PERRL, EOMs intact bilaterally and conjunctivae normal Neck no lymphadenopathy, supple and no JVD Resp normal respiratory effort, no retractions, no use of accessory muscles and clear to auscultation bilaterally Cardio regular rate, regular rhythm, S1 normal heart sound, S2 normal heart sound and no murmurs GI normal to inspection, nondistended, normoactive bowel sounds, soft to palpation and non-tender Extremity normal to inspection, full ROM and no clubbing, cyanosis or edema Neuro oriented x3, CN's II-XII intact bilaterally, moves all extremities and no focal motor deficits Sensorium / Orientation: awake Motor Exam: strength 5/5 throughout Psych affect normal Results Lab / Micro Data Result Diagrams: 10/31/21 11:20 10/31/21 16:40 Labs: Laboratory Results - last 24 hr 10/31/21 11:20: WBC 11.6 H, RBC 5.28, Hgb 15.7 H, Hct 45.2, MCV 85.6, MCH 29.7, MCHC 34.7, RDW Std Deviation 40.6, RDW Coeff of Waqas 13.0, Plt Count 456 H, MPV 10.4, Immature Gran % (Auto) 0.600, Neut % (Auto) 72.0 H, Lymph % (Auto) 19.3, [place] % (Auto) 7.5, Eos % (Auto) 0.2, Baso % (Auto) 0.4, Absolute Neuts (auto) 8. 3 H, Absolute Lymphs (auto) 2.23, Nucleated RBC % 0 10/31/21 11:20: Sodium 119 L*, Potassium 5.3 H, Chloride 86 L, Carbon Dioxide 17.0 L, Anion Gap 16 H, BUN 134 H*, Creatinine 2.75 H, Estim Creat Clear Calc 20.20, Est GFR (MDRD) Af Amer 23 L, Est GFR (MDRD) Non-Af 19 L, BUN/Creatinine Ratio 48.7 H, Glucose 133 H, Calcium 9.8, Total Bilirubin 0.60, Direct Bilirubin 0.10, AST 18, ALT 16, Alkaline Phosphatase 104, Total Protein 9.7 H, Albumin 4.6, Globulin 5.1 H, Lipase 445 H 10/31/21 13:11: Urine Color Yellow, Urine Clarity Sl. Cloudy, Urine pH 8.0, Ur Specific [place] 1.010, Urine Protein 100 H, Urine Glucose (UA) Normal, Urine Ketones Negative, Urine Occult Blood 250 H, Urine Nitrite Negative, Urine Bilirubin Negative, Urine Urobilinogen Normal, Ur Leukocyte Esterase 500 H, Urine RBC 0 SEEN, Urine WBC 10-25 SEEN, Ur Squamous Epith Cells 0-5 SEEN, Urine Bacteria 2+, Urine Mucus 0 SEEN Radiology Impression Abdomen/Pelvis CT 10/31/21 12:34 IMPRESSION: 1. Moderate bilateral hydronephrosis and hydroureters without definite ureteral stones as described above. 2. Thickening of the posterior wall of the bladder wall. Cystitis or infiltrative process cannot be excluded. 3. Fluid collections anterior and superior to the bladder dome likely representing bladder diverticula. 4. Otherwise no focal acute inflammatory process. Electronically Signed: Richard Agudelo MD at 13:15 EDT , Assessment & Plan Assessment/Plan (1) Acute renal failure: (2) Acute hyponatremia: (3) Acute uremia: (4) Obstructive uropathy: (5) UTI (urinary tract infection): (6) Acute dehydration: PLAN: Plan #Acute renal failure due to post obstructive uropathy * Cr is * CT abdomen and pelvis showed moderate bilateral hydronephrosis and hydroureters without definitive ureteral stones, thickening of the posterior wall of the bladder and bladder diverticulae. * admit to PCU o/a of hyponatremia * urbina catheter in situ * consult urology * hydrate with IVF NS @ 150cc/hr * trend kidney function * #UTI * get urine cultures * start on IV ceftriaxone #Acute Hyponatremia * likely due to dehydration as she hasnt been eating or drinking well * sodium is 119; baseline is ~ 138 * hydrate with IVF and trend * check urine urine osmolality, serum osmolality and urine sodium * trend sodium; consult nephrology * goal is to correct by 6-8mmol/L over next 24 hours * #ANion gap metabolic acidosis * bicarb is down to 16 * likely due to dehydration and GUZMAN * should improve with hydration * #Hyperkalemia: potassium is 5.3. Likely due to GUZMAN. Give kayexalate and trend DVT prophylaxis: lovenox, renally dosed Addendum (11/01/2021) @ 12;12pm Patient signed out AGAINST MEDICAL ADVICE on the evening of 10/31/2021 at approximately 2124. This note will therefore serve as an admit and discharge note. Charges/Coding Visit Charges OBSV E&M: 93744 Observ/hosp same date L3
[2021-10-31 15:32] VITALS: BP 109/74; PULSE 86; RESP 16; TEMP 36.2; O2SAT 97
[2021-10-31 16:21] LABS: Lactic Acid 1.1 mmol/L (0.4-1.9)
[2021-10-31 16:54] VITALS: BP 108/75; PULSE 84; PULSE 85; RESP 16; TEMP 36.9; O2SAT 100
[2021-10-31] MEDS: 0.9% Normal Saline 1,000 ML 150 ML IV (17:00)
[2021-10-31 17:04] VITALS: BMI 19.5
[2021-10-31 17:17] LABS: Creatinine, Urine < 13.00 mg/dL (NO RANGE EST.); Urine Sodium 42 mmol/L (Not Establ.)
[2021-10-31] MEDS: Sodium Polystyrene Sulfonate 15 GM/60 ML UDC 30 GM PO (17:17)
[2021-10-31] MEDS: oxyCODONE 5 MG Tablet PO (17:24)
[2021-10-31 17:26] LABS: Osmolality, Serum 305 mOsm/KG (275-295)
[2021-10-31 17:50] LABS: Osmolality, Urine 347 mOsm/KG
[2021-10-31 18:10] LABS: Anion Gap 12 (5-15); BUN 119 mg/dL (7-18); BUN/Creat Ratio 59.8 RATIO (10-20); Calcium,Total 8.1 mg/dL (8.5-10.1); Chloride 99 mmol/L (98-107); Creatinine, Serum 1.99 mg/dL (0.55-1.02); EST Glomerular Filtration Rate 27 mL/min (>60); Est Glom Filt Rate - Afr Amer 33 mL/min (>60); Estimated Creatinine Clearance 27.97 ml/min; Glucose 102 mg/dL (74-106); Potassium 4.6 mmol/L (3.5-5.1); Sodium Level 128 mmol/L (136-145)
--- NOTE | 2021-10-31 21:05 | NURSING ---
Patient irritated upon coming onto shift states wanting towel and washcloths and states RN takes too long to complete tasks not wanting vitals or assessment obtained. Another nurse answers patient call light while this RN was with another patient and demands shower privileges. This RN working on obtaining when Patient wanting to leave AMA threatening to pull out IV and Conte. Multiple nurses attempted to talk to patient and education provided on importance of staying in hospital. Dr. Penaloza contacted and advises patient to not leave and states shower privileges can be given and we can help patient calm down and rest and leaving is not advised. This RN discusses with patient what Dr. Penaloza advises and patient states it doesn't matter and demands to leave. Signs AMA multiple attempts at education provided ineffectively. Patient removes heart monitor independently with noted increasing agitation and Charge nurse Marly removes Conte and this RN removes IV. Patient gathers stuff and is assisted to elevator and departs. Patient states this nurse is guilt tripping patient when education provided and that this nurse should be slapped for not putting shampoo and conditioner in shower
--- NOTE | 2021-10-31 21:05 | NURSING ---
Patient signed against medical advice this nurse provided education on the importance of staying in the hospital and leaving against medical advice. I also explained to patient that we were contacting doctor to see if we could get shower privilege. We received an order for shower privilege but patient still insisted on leaving. Explained to patient that doctor do not advise them on leaving.But patient put on clothing and states they would remove the urbina, iv, & heart monitor if we did not because she was leaving no matter what. Patient started removing gambling monitor tried asking patient how could I prevent her from leaving but patient insisted on leaving the hospital. Removed 10cc out of urbina balloon and nurse Kaur removed iv out of right ac. IV catheter intact no blood noted at right ac.
--- NOTE | 2021-10-31 21:44 | PCM.HOSP.N ---
Hospitalist Note Despite strong encouragement and allowance of shower privileges as well as offering of medications to help her relax patient very agitated and irritable, yelling at staff and left AMA 10/31/[id number].
--- NOTE | 2021-11-01 08:08 | DS.PCM_ITS ---
Providers Date of Admission: 10/31/21 Primary Care Physician: Dr. Taylor Fernandes MD Consultations 10/31/21 16:49 Consult: Nephrology Routine Consulting Provider: Selena De La Garza Reason for Consult: hyponatremia EMERGENT Consult: No Notified: Yes Date Notified: 10/31/21 Time Notified: 15:16 Method of Notification: Text Consult: Urology Routine Consulting Provider: Kady Taylor Reason for Consult: obstructive uropathy EMERGENT Consult: No Notified: Yes Date Notified: 10/31/21 Time Notified: 15:15 Method of Notification: Text Reason For Visit: GUZMAN, OBSTRUCTIVE UROPATHY Diagnosis Discharge Diagnosis (1) Acute renal failure: Status: Acute Code(s): N17.9 - Acute kidney failure, unspecified (2) Acute hyponatremia: Status: Acute Code(s): E87.1 - Hypo-osmolality and hyponatremia (3) Acute uremia: Status: Acute Code(s): N19 - Unspecified kidney failure (4) Obstructive uropathy: Status: Acute Code(s): N13.9 - Obstructive and reflux uropathy, unspecified (5) UTI (urinary tract infection): Status: Acute Code(s): N39.0 - Urinary tract infection, site not specified (6) Acute dehydration: Status: Acute Code(s): E86.0 - Dehydration Plan #Acute renal failure due to post obstructive uropathy * Cr is * CT abdomen and pelvis showed moderate bilateral hydronephrosis and hydroureters without definitive ureteral stones, thickening of the posterior wall of the bladder and bladder diverticulae. * admit to PCU o/a of hyponatremia * urbina catheter in situ * consult urology * hydrate with IVF NS @ 150cc/hr * trend kidney function * #UTI * get urine cultures * start on IV ceftriaxone #Acute Hyponatremia * likely due to dehydration as she hasnt been eating or drinking well * sodium is 119; baseline is ~ 138 * hydrate with IVF and trend * check urine urine osmolality, serum osmolality and urine sodium * trend sodium; consult nephrology * goal is to correct by 6-8mmol/L over next 24 hours * #ANion gap metabolic acidosis * bicarb is down to 16 * likely due to dehydration and GUZMAN * should improve with hydration * #Hyperkalemia: potassium is 5.3. Likely due to GUZMAN. Give kayexalate and trend DVT prophylaxis: lovenox, renally dosed Medications at Discharge Home Medications NK 10/31/21 Weight / BMI Weight Weight: 125 lb 3.561 oz Body Mass Index (BMI) 19.5 ABG / Lab / Microbiology Data Result Diagrams: 10/31/21 11:20 10/31/21 16:40 Laboratory: Laboratory Results - last 24 hr 10/31/21 11:20: WBC 11.6 H, RBC 5.28, Hgb 15.7 H, Hct 45.2, MCV 85.6, MCH 29.7, MCHC 34.7, RDW Std Deviation 40.6, RDW Coeff of Waqas 13.0, Plt Count 456 H, MPV 10.4, Immature Gran % (Auto) 0.600, Neut % (Auto) 72.0 H, Lymph % (Auto) 19.3, [place] % (Auto) 7.5, Eos % (Auto) 0.2, Baso % (Auto) 0.4, Absolute Neuts (auto) 8.3 H, Absolute Lymphs (auto) 2.23, Nucleated RBC % 0 10/31/21 11:20: Sodium 119 L*, Potassium 5.3 H, Chloride 86 L, Carbon Dioxide 17.0 L, Anion Gap 16 H, BUN 134 H*, Creatinine 2.75 H, Estim Creat Clear Calc 20.20, Est GFR (MDRD) Af Amer 23 L, Est GFR (MDRD) Non-Af 19 L, BUN/Creatinine Ratio 48.7 H, Glucose 133 H, Calcium 9.8, Total Bilirubin 0.60, Direct Bilirubin 0.10, AST 18, ALT 16, Alkaline Phosphatase 104, Total Protein 9.7 H, Albumin 4.6, Globulin 5.1 H, Lipase 445 H 10/31/21 13:11: Urine Color Yellow, Urine Clarity Sl. Cloudy, Urine pH 8.0, Ur Specific [place] 1.010, Urine Protein 100 H, Urine Glucose (UA) Normal, Urine Ketones Negative, Urine Occult Blood 250 H, Urine Nitrite Negative, Urine Bilirubin Negative, Urine Urobilinogen Normal, Ur Leukocyte Esterase 500 H, Urine RBC 0 SEEN, Urine WBC 10-25 SEEN, Ur Squamous Epith Cells 0-5 SEEN, Urine Bacteria 2+, Urine Mucus 0 SEEN 10/31/21 13:11: Urine Osmolality 347, Ur Random Sodium 42, Urine Creatinine < 13.00 10/31/21 14:35: Lactic Acid 1.1 10/31/21 16:40: Serum Osmolality 305 H 10/31/21 16:40: Sodium 128 L, Potassium 4.6, Chloride 99, Carbon Dioxide 17.0 L, Anion Gap 12, BUN 119 H*, Creatinine 1.99 H, Estim Creat Clear Calc 27.97, Est GFR (MDRD) Af Amer 33 L, Est GFR (MDRD) Non-Af 27 L, BUN/Creatinine Ratio 59.8 H , Glucose 102, Calcium 8.1 L Radiography Diagnostic Testing: Radiology Impression Abdomen/Pelvis CT 10/31/21 12:34 IMPRESSION: 1. Moderate bilateral hydronephrosis and hydroureters without definite ureteral stones as described above. 2. Thickening of the posterior wall of the bladder wall. Cystitis or infiltrative process cannot be excluded. 3. Fluid collections anterior and superior to the bladder dome likely representing bladder diverticula. 4. Otherwise no focal acute inflammatory process. Electronically Signed: Richard Agudelo MD at 13:15 EDT , Discharge Plan Admission Admit Date/Time: 10/31/21 15:13 Attending Provider: Elsa Miller Primary Care Provider: Taylor Fernandes Consulting Providers: Selena De La Garza ; Kady Taylor Discharge Orders/Prescriptions Prescriptions: No Action NK Referrals / Follow Up: Taylor Fernandes MD [Primary Care Provider] - Disposition Disposition (needs filled in before D/C Order can be placed): Against Medical Advice
--- NOTE | 2021-11-01 10:39 | NURSING ---
Patient called to inquire the results of her urine culture. The results are still pending. This RN informed the patient that once they result she will have to request them from medical records.
== END 2021-10-31 21:05 | disposition left against medical advice (07) | DRG 469 ==
LOC: ED 12:56 → MS3 15:36 → PCU 15:40
PROVIDERS: Admitting Provider Student in an Organized Health Care Education/Training Program; Emergency Provider Emergency Medicine; PCP Internal Medicine; Visit Provider Student in an Organized Health Care Education/Training Program
DX: N17.9 Acute kidney failure, unspecified (principal); E87.1 Hypo-osmolality and hyponatremia; E87.2 Acidosis; E86.0 Dehydration; E87.5 Hyperkalemia; N32.3 Diverticulum of bladder; N13.6 Pyonephrosis; B96.89 Other specified bacterial agents as the cause of diseases classified elsewhere; Z53.29 Procedure and treatment not carried out because of patient's decision for other reasons; Z79.899 Other long term (current) drug therapy; Z87.891 Personal history of nicotine dependence
CPT/HCPCS: 51702; 74176; 80048; 80076; 81001; 82570; 83605; 83690; 83930; 83935; 84300; 85025; 87040; 87077; 87086; 87088; 87186; 99285; J7030; A4216; J2405

== ENCOUNTER 2022-01-16 11:44 | Emergency (ER) | payer MEDICAID, SELFPAY ==
[2022-01-16 11:45] VITALS: BP 132/67; PULSE 74; RESP 14; TEMP 36.4; O2SAT 100
--- NOTE | 2022-01-16 12:17 | CT_ITS ---
HISTORY: Left lower abdominal pain. TECHNIQUE: Helically acquired images were obtained of the abdomen and pelvis without oral or IV contrast. A radiation dose optimization technique was used for this scan. 413 images. COMPARISON: 10/31/2021. FINDINGS: LOWER CHEST: Lung bases clear. BOWEL: Bowel including appendix nondilated. No focal pericolonic inflammatory change. PERITONEUM: No significant free fluid. LIVER/SPLEEN/PANCREAS: Nonenlarged. GALLBLADDER/BILIARY TREE: Gallbladder present. KIDNEYS AND URETERS: Mildly decreased bilateral hydroureteronephrosis. No nephrolithiasis or obstructing ureteral calculus identified on either side. ADRENAL GLANDS: No nodules. VESSELS: No abdominal aortic aneurysm. Mild atherosclerosis. PELVIC ORGANS: Absent uterus. Decompressed bladder with chronic wall thickening and adjacent postoperative change. BONES: Intact. CT/Abdomen/Pelvis without Cont IMPRESSION: Mildly decreased bilateral hydroureteronephrosis with decreased bladder distention. No evidence for nephrolithiasis or obstructing ureteral calculus. Chronic bladder wall thickening with postoperative change. Electronically Signed: Jennifer Gupta MD at 13:04 EST ,
--- NOTE | 2022-01-16 12:17 | EDS_ITS ---
HPI History of Present Illness Chief Complaint: Abd Pain Informant: patient Narrative Narrative: Patient presents with intermittent sharp left lower quadrant pain. She states is very sharp like stabbing. It comes and goes every couple minutes. She has never had nausea vomiting fevers chills diarrhea. Patient self caths ever since she got a neobladder placed about 2 years ago. She states she looks at her urine every time she catheterizes herself and she has not noticed any changes. She does have a history of kidney stones and is wondering if this is 1 of those. She states other than the pain in that area nothing bothers her. She states she just started a new job and she may have pulled something in that area. However, moving the hip does not bother her. Of note, she does not want blood work done. She did agree to getting a urinalysis. She would like a CT scan to see if she has a kidney stone. At this point she does not want any other work-up and will not permit that. We will work her up to the best of our ability giving the limitations that she provides. [facility] Medical History Anxiety Depression Former tobacco use Kidney stone Lung nodule Urinary bladder cancer Home Medications hydrocodone-acetaminophen 5-325mg 5mg-325mg 1 tab PO Q6H PRN pain 3 days #10 tabs 01/16/22 [Rx Last Taken Unknown] Allergy/AdvReac Type Severity Reaction Status Date / Time Tetanus Vaccines and Toxoid AdvReac Swelling Verified 01/16/22 11:47 [Tetanus Vaccines & Toxoid] venom-honey bee AdvReac Swelling Verified 01/16/22 11:47 [bee venom (honey bee)] Family History Father Colon cancer bone and MM Kidney disease stones Surgical History History of bladder surgery History of cervical spinal surgery History of colonoscopy History of repair of left rotator cuff History of tubal ligation Social History household members: none Smoking Status: Former smoker how long ago did patient quit smoking: Quit >2 years prior, smoked 1/4 ppd, 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 alcohol intake: never substance use type: does not use ROS ROS ED Constitutional Constitutional ED: Denies chills, fever(s) or sweats ENT ENT ED: Denies rhinorrhea or sore throat Cardiovascular Cardiovascular: Denies chest pain Respiratory/Chest Respiratory/Chest: Denies cough or dyspnea Gastrointestinal Gastrointestinal: Reports abdominal pain; Denies constipation, diarrhea, melena, nausea or vomiting Genitourinary Genitourinary ED: Reports other Details: See history of present illness. ; Denies dysuria, hematuria or urinary frequency Musculoskeletal Musculoskeletal: Denies back pain Integumentary Denies rash Neurologic Neurologic: Denies paresthesias or weakness Endocrine Endocrinology: Denies polydipsia or polyuria Hematologic/Lymphatic Hematologic/Lymphatic: Denies easy bleeding or easy bruising Allergic/Immunologic Allergic/Immunologic ED: Denies urticaria EXAM Physical Exam Const Vital Signs: 01/16/22 11:45 Temperature 97.6 F L Temperature Source Temporal Pulse Rate 74 Respiratory Rate 14 Blood Pressure 132/67 H Blood Pressure Mean 88 Pulse Ox 100 Oxygen Delivery Method Room Air Positive well nourished and well developed Constitutional Narrative: Patient looks comfortable. She has sitting in the chair. She has no difficulty getting up or moving. General Appearance ED: well developed and NAD HEENT Reports moist mucous membranes Eyes General Eye ED: Negative for scleral icterus Resp normal respiratory effort and clear to auscultation bilaterally Cardio regular rate, regular rhythm and no murmurs GI normal to inspection, nondistended, normoactive bowel sounds GI Narrative: I am really not getting any areas of tenderness even in the area she points to is a source of pain. She states she has been rubbing the area and that seems to help. Overall abdomen is quite benign. There is no CVA tenderness. Auscultation: normoactive bowel sounds Back/Spine no CVA tenderness Extremity normal to inspection General Extremety ED: Negative for edema or tenderness General Extremity: Negative for edema Neuro Sensorium / Orientation: alert Psych mental status grossly normal Skin no rashes or lesions noted MDM MDM MDM Narrative Medical decision making narrative: CT shows no marked abnormality. Urine does have 5-10 white cells. But negative nitrites. Patient states she always has urine that looks a little dirty because of her surgery and using small bowel reconstructed is a bladder. She is not having change in color or odor of the urine. No fevers or chills. Plan will be to send off a culture and treat if that is positive but we will hold off treatment with antibiotics until then. Patient is not having some sharp pain. It certainly possible she could have passed a kidney stone. She has done this before. I will write something for pain for her and we discussed reasons to return and reasons to return for further work-up. Lab Data Attestation: I reviewed the patient's lab results. Labs: Laboratory Results - last 24 hr 01/16/22 12:36 Urine Color YELLOW Urine Clarity Sl. Cloudy Urine pH 7.0 Ur Specific [place] 1.010 Urine Protein Negative Urine Glucose (UA) Normal Urine Ketones Negative Urine Occult Blood 25 H Urine Nitrite Negative Urine Bilirubin Negative Urine Urobilinogen Normal Ur Leukocyte Esterase 100 H Urine RBC 0 SEEN Urine WBC 5-10 SEEN Ur Squamous Epith Cells 0-5 SEEN Urine Bacteria RARE Urine Mucus 0 SEEN Radiography Diagnostic Testing: Clinical Impression(s) from Imaging Studies Abdomen/Pelvis CT 01/16/22 12:17 IMPRESSION: Mildly decreased bilateral hydroureteronephrosis with decreased bladder distention. No evidence for nephrolithiasis or obstructing ureteral calculus. Chronic bladder wall thickening with postoperative change. Electronically Signed: Jennifer Gupta MD at 13:04 EST , CT scan shows a little bit less hydroureteronephrosis than before. No acute process. Discharge Plan Triage Chief Complaint: Abd Pain ED Provider: Trevor Doe Dx/Rx/DC Orders Clinical Impression: Acute left flank pain Instructions: ED Flank Pain, Uncertain Cause Prescriptions: New hydrocodone-acetaminophen 5-325 mg tablet 1 tab PO Q6H PRN (Reason: pain) 3 Days Qty: 10 0RF Primary Care Provider: Taylor Fernandes Referrals: Taylor Fernandes MD [Primary Care Provider] - 3-5 Days if not improving Disposition Disposition: Home, Self Care
[2022-01-16 12:41] LABS: Glucose, Dipstick Normal (Normal); Ketone-Dipstick Negative (Negative); Leukocyte Esterase-Dipstick 100 /ul (Negative); Mucous, Urine 0 SEEN /hpf (<or=2+); Nitrite-Dipstick Negative (Negative); Occult Blood-Urine 25 /ul (Negative); Protein-Dipstick Negative (Negative); Red Blood Cells-Urine 0 SEEN /hpf (0-5); Urine Bilirubin Dipstick Negative (Negative); Urine Clarity Sl. Cloudy (Clear); Urine Urobilinogen Normal (Normal)
[2022-01-16 12:47] LABS: Color, Urine YELLOW (Yellow)
[2022-01-16 12:48] LABS: Squamous Epithelial Cells - UA 0-5 SEEN /hpf (5-10); White Blood Cells 5-10 SEEN /hpf (0-5)
[2022-01-16 12:49] LABS: Bacteria RARE /hpf (None Seen)
== END 2022-01-16 13:34 | disposition home or self-care (01) ==
PROVIDERS: Emergency Provider Emergency Medicine; PCP Internal Medicine; Visit Provider Emergency Medicine
DX: R10.32 Left lower quadrant pain (principal); Z79.899 Other long term (current) drug therapy; Z87.442 Personal history of urinary calculi; Z87.891 Personal history of nicotine dependence
CPT/HCPCS: 74176; 81001; 87077; 87086; 87088; 87186; 99282

== ENCOUNTER → 2022-02-19 | Outpatient (CLI) | payer MEDICAID, SELFPAY ==
--- NOTE | 2022-02-19 15:57 | CT_ITS ---
STUDY: CT ABDOMEN AND PELVIS WITH AND WITHOUT CONTRAST REASON FOR EXAM: Female, 56 years old. Evaluate neoplasm of the urinary bladder. Bladder resection 3 years ago. RADIATION DOSAGE (If Supplied By Facility): CTDIvol = ( 14.16 ) mGy, DLP = ( 1885.97 ) mGycm TECHNIQUE: Transaxial images were obtained from the dome of the diaphragm to the symphysis pubis without oral contrast. IV 100mL Isovue-370 was administered. Sagittal and coronal images were reconstructed. Individualized dose optimization techniques were used for this CT. COMPARISON: January 16, 2022. FINDINGS: The visualized lung bases are unremarkable. The visualized portions of the heart are within normal limits. Normal liver. Normal gallbladder and extrahepatic biliary system. Normal spleen. Normal pancreas. Normal bilateral adrenal glands. Normal right kidney. Normal left kidney. Normal visualized ureters. Normal visualized stomach. Normal small intestine. Normal colon. The appendix is visualized and appears normal. There is diffuse atherosclerotic calcification of the abdominal aorta, without a demonstrated aneurysm. Normal inferior vena cava. Nonspecific subcentimeter left periaortic lymphadenopathy. Urinary bladder is absent. There is a neobladder formed from bowel. No pelvic lymphadenopathy. Status post hysterectomy. No free air or free fluid is seen within the abdominal cavity Normal abdominal wall. Normal osseous structures. CT/CT Abd/Pelvis W/WO Contrast IMPRESSION: 1. Nondistended neobladder with resolution of the bilateral hydronephrosis and ureterectasis seen on the previous study. 2. Nonspecific left periaortic lymph nodes unchanged from prior study. There is no evidence of metastatic disease or local recurrence. 3. Otherwise stable findings. Electronically Signed: Carmelo Weiss DO at 17:54 EST ,
--- NOTE | 2022-02-19 16:06 | CT_ITS ---
INDICATION: Lung nodules. EXAMINATION: CT CHEST WITHOUT CONTRAST - CT Chest W/O Contrast Injection TECHNIQUE: Helically acquired images were obtained of the chest. A radiation dose optimization technique was used for this scan. IV Contrast dosage and agent: None. COMPARISON: Chest, August 23, 2021. CT of the chest, August 15, 2021 FINDINGS: LUNGS, PLEURA AND LARGE AIRWAYS: The lungs are hyper expanded with mild emphysematous change. There is a stable 3.4 cm nodule in the right middle lobe just below the horizontal fissure (image 67 of series 4 there is also a nodule seen laterally in the right costophrenic angle involving the lower lobe best seen on image 114 of series 4. On this same image there is a small stable density in the left lateral costophrenic angle measuring 4 mm in greatest dimension. No new masses or infiltrates. No pleural effusion or thickening. No pneumothorax. THYROID: No thyroid lesions. HEART AND PERICARDIUM: Heart size is normal. No pericardial effusion. CORONARY ARTERIES: Normal coronary artery calcifications. VESSELS: Thoracic aorta is not dilated. MEDIASTINUM AND XUAN: No mediastinal or hilar adenopathy. Esophagus is unremarkable. No hiatal hernia. UPPER ABDOMEN: No acute pathology. BONES: Stable degenerative changes of the midthoracic spine. There is evidence of anterior fusion of C5-6. CT/Chest without Contrast IMPRESSION: 1. Stable pulmonary nodules when compared with study of August 15, 2021. Fleischner Society Guidelines for low-risk patients, no follow-up is necessary. For high-risk patients (smoking history or other known risk factors) an optional chest CT at 12 months could be performed. 2. Otherwise stable findings. Electronically Signed: Carmelo Weiss DO at 17:24 EST ,
== END | disposition home or self-care (01) ==
PROVIDERS: PCP Internal Medicine; Visit Provider Internal Medicine Hematology & Oncology
DX: R91.8 Other nonspecific abnormal finding of lung field (principal); C67.8 Malignant neoplasm of overlapping sites of bladder
CPT/HCPCS: 71250; 74178; Q9967

== ENCOUNTER 2022-03-05 02:05 | Emergency (ER) | payer MEDICAID, SELFPAY ==
[2022-03-05 02:06] VITALS: BP 113/65; PULSE 82; RESP 15; TEMP 36.6; O2SAT 96; BMI 19.7
[2022-03-05] MEDS: Fluorescein 1 MG STRIP 1 STRIP EACH EYE (02:34)
[2022-03-05] MEDS: Tetracaine 0.5% Ophthalmic Bottle 1 DRP EACH EYE (02:35)
--- NOTE | 2022-03-05 02:46 | EDS_ITS ---
HPI History of Present Illness Chief Complaint: Eye Problem Narrative Narrative: Patient is a 56-year-old female with past medical history of anxiety and depression as well as history of bladder cancer. 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 She states that she did not think much of this and she performed her job but a few hours after returning home from work started noticing bilateral eye pain and irritation that was worse with light sensitivity. She states as time past symptoms worsen and she is concerned for Welders flash and with this comes in for evaluation. Patient denies any history of contact lens use and she denies any eye trauma prior to the pain beginning PFSH PFSH Medical History Anxiety Depression Former tobacco use Kidney stone Lung nodule Urinary bladder cancer Home Medications hydrocodone-acetaminophen 5-325mg 5mg-325mg 1 tab PO Q6H PRN pain 3 days #10 tabs 01/16/22 [Rx Last Taken Unknown] erythromycin 5 mg/gram (0.5 %) eye ointment 1 applic EACH EYE 4X/DAY 5 days #3.5 grams 03/05/22 [Rx Last Taken Unknown] methocarbamol 500 mg tablet 500 mg PO 4X/DAY PRN PRN Muscle pain/spasm #40 tabs 03/05/22 [Rx Last Taken Unknown] Allergy/AdvReac Type Severity Reaction Status Date / Time Tetanus Vaccines and Toxoid AdvReac Swelling Verified 01/16/22 11:47 [Tetanus Vaccines & Toxoid] venom-honey bee AdvReac Swelling Verified 01/16/22 11:47 [bee venom (honey bee)] Family History Father Colon cancer bone and MM Kidney disease stones Surgical History History of bladder surgery History of cervical spinal surgery History of colonoscopy History of repair of left rotator cuff History of tubal ligation Social History household members: none Smoking Status: Former smoker how long ago did patient quit smoking: Quit >2 years prior, smoked 1/4 ppd, 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 alcohol intake: never substance use type: does not use ROS ROS ED Constitutional Constitutional ED: Denies chills or fever(s) Eyes Eyes: Reports other Details: Positive photophobia ENT ENT ED: Denies sore throat Cardiovascular Cardiovascular: Denies chest pain Respiratory/Chest Respiratory/Chest: Denies cough or dyspnea Gastrointestinal Gastrointestinal: Denies abdominal pain, diarrhea, nausea or vomiting Genitourinary Genitourinary ED: Denies dysuria Musculoskeletal Musculoskeletal: Reports neck pain Integumentary Denies rash Neurologic Neurologic: Denies headache(s) or paresthesias Hematologic/Lymphatic Hematologic/Lymphatic: Denies easy bleeding or easy bruising EXAM Physical Exam Const Vital Signs: 03/05/22 02:06 Temperature 97.9 F Temperature Source Temporal Pulse Rate 82 Respiratory Rate 15 Blood Pressure 113/65 Blood Pressure Mean 81 Pulse Ox 96 Oxygen Delivery Method Room Air Positive well nourished and well developed General Appearance ED: well developed Eyes PERRL and EOMs intact bilaterally Eyes Narrative: Patient has scleral injection hyperemia bilaterally. There is no foreign body noted with upper lid everted. Staining with fluorescein and Lilly lamp exam reveals punctate uptake dye consistent with UV keratitis. Negative Mary sign. Neck supple Neck Narrative: Patient has tension and spasm in the left upper trapezius muscle that is worse with motion without secondary soft tissue changes to suggest trauma or infection and no neurovascular compromise Resp normal respiratory effort and clear to auscultation bilaterally Cardio regular rate and regular rhythm Extremity normal to inspection Neuro oriented x3 and CN's II-XII intact bilaterally Sensorium / Orientation: alert Psych mental status grossly normal Skin no rashes or lesions noted MDM MDM MDM Narrative Medical decision making narrative: Patient presented with a history and physical most consistent with UV keratitis. There is concern for also foreign body but patient had no known injury and physical exam did not reveal a retained foreign body. Also her history and exam is consistent with muscle tension in the trapezius and as there is no signs of neurovascular compromise or overlying soft tissue infection such as cellulitis or abscess there is no need for work-up. Patient had complete relief with tetracaine which is consistent with UV keratitis. At this time she will be placed on erythromycin ophthalmic ointment for possible infectious process stemming from the UV keratitis but at this time as there is no signs of globe rupture or arterial or vein occlusion there is no need for further work-up and patient is otherwise safe for discharge Discharge Plan Triage Chief Complaint: Eye Problem ED Provider: Lg Rivera Dx/Rx/DC Orders Clinical Impression: UV keratitis, Trapezius muscle spasm Instructions: ED Flash Burn to Eye, ED Muscle Spasm Prescriptions: New methocarbamol 500 mg tablet 500 mg PO 4X/DAY PRN PRN (Reason: Muscle pain/spasm) Qty: 40 0RF erythromycin 5 mg/gram (0.5 %) ointment 1 applic EACH EYE 4X/DAY 5 Days Qty: 3.5 0RF No Action hydrocodone-acetaminophen 5-325 mg tablet 1 tab PO Q6H PRN (Reason: pain) 3 Days Qty: 10 0RF Stand Alone Forms: ED Work / School Excuse Primary Care Provider: Taylor Fernandes Referrals: Taylor Fernandes MD [Primary Care Provider] - Activity Restrictions/Additional Instructions: Please only use the tetracaine/numbing eyedrops by using 1 to 2 drops in each eye up to 4 times a day for the next 3 days Disposition Disposition: Home, Self Care Discharge Date/Time: 03/05/22 03:04
== END 2022-03-05 03:04 | disposition home or self-care (01) ==
PROVIDERS: Emergency Provider Emergency Medicine; PCP Internal Medicine; Visit Provider Emergency Medicine
DX: H16.133 Photokeratitis, bilateral (principal); X58.XXXA Exposure to other specified factors, initial encounter; M62.838 Other muscle spasm; Z87.891 Personal history of nicotine dependence
CPT/HCPCS: 99282

== ENCOUNTER 2023-05-09 08:40 | Emergency (ER) | payer MEDICAID, SELFPAY ==
[2023-05-09 08:41] VITALS: BP 100/68; PULSE 79; RESP 16; TEMP 36.2; O2SAT 100; BMI 17.6
--- NOTE | 2023-05-09 09:01 | RAD_ITS ---
STUDY: X-RAY - PELVIS AND RIGHT HIP REASON FOR EXAM: Female, 57 years old. Right hip pain. TECHNIQUE: 4 views of the pelvis and right hip. COMPARISON: None. FINDINGS: There is a non-specific bowel gas pattern. There are sutures in the pelvis related to bowel surgery. There are multiple calcified phleboliths. Normal bilateral iliac wings, sacroiliac joints and visualized sacrum. Normal bilateral superior and inferior pubic rami. Normal pubic symphysis. Normal bilateral ischial tuberosities. Normal visualized femoral head. Normal acetabulum. Normal hip joint. There is no demonstrated acute fracture. RAD/HIP, UNI W/ Pelvis 2-3 Views IMPRESSION: Unremarkable x-ray examination of the pelvis and right hip. Electronically Signed: Jf Welch MD at 9:55 EDT ,
--- NOTE | 2023-05-09 09:04 | EDS_ITS ---
HPI History of Present Illness Chief Complaint: Lower Extremity Injury Informant: patient Onset/Context/Timing Onset: Days Injury: lifting Timing: Continuous Quality: Sharp Current Severity: Mild Maximum Severity: Moderate Worsened by: improves with Movement Relieved by: Nothing Associated Symptoms Associated Symptoms: Radiation to Right Leg; Negative for Numbness, Tingling, Radiation to Left Leg, Fever, Abdominal Pain, Dysuria, Unable to Ambulate, Unable to Transfer, Urinary Retention, Urinary Incontinence, Constipation or Fecal Incontinence Narrative Narrative: 57-year-old female with a history of prior bladder cancer with prior hysterectomy. States she was lifting something at work that weighed about 100 pounds on Tuesday and since that time has had back pain primarily right buttock going down her right leg to about her knee. Denies any fall injury or other trauma. No prior back history or surgery. No bowel or bladder incontinence. Prior similar symptoms: No Recent Illness/Hospitalization: No PFSH PFSH Medical History Anxiety Depression Former tobacco use Kidney stone Lung nodule Urinary bladder cancer Home Medications hydrocodone-acetaminophen 5-325mg 5mg-325mg 1 tab PO Q6H PRN pain 3 days #10 tabs 01/16/22 [Rx Last Taken Unknown] erythromycin 5 mg/gram (0.5 %) eye ointment 1 applic EACH EYE 4X/DAY 5 days #3.5 grams 03/05/22 [Rx Last Taken Unknown] methocarbamol 500 mg tablet 500 mg PO 4X/DAY PRN PRN Muscle pain/spasm #40 tabs 03/05/22 [Rx Last Taken Unknown] Allergy/AdvReac Type Severity Reaction Status Date / Time Tetanus Vaccines and Toxoid AdvReac Swelling Verified 05/09/23 08:44 [Tetanus Vaccines & Toxoid] venom-honey bee AdvReac Swelling Verified 05/09/23 08:44 [bee venom (honey bee)] Family History Father Colon cancer bone and MM Kidney disease stones Surgical History History of bladder surgery History of cervical spinal surgery History of colonoscopy History of repair of left rotator cuff History of tubal ligation Social History household members: none Smoking Status: Former smoker how long ago did patient quit smoking: Quit >2 years prior, smoked 1/4 ppd, 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 alcohol intake: never substance use type: does not use ROS ROS ED ROS Narrative Back pain radiating to right buttock and hamstring. No recent illness. Review of Systems ROS Unobtainable: Denies due to encephalopathy Constitutional Constitutional ED: Denies chills or fever(s) Eyes Eyes: Denies blurry vision ENT ENT ED: Denies ear pain Cardiovascular Cardiovascular: Denies chest pain Respiratory/Chest Respiratory/Chest: Denies dyspnea Gastrointestinal Gastrointestinal: Denies abdominal pain Genitourinary Genitourinary ED: Denies dysuria or hematuria Musculoskeletal Musculoskeletal: Reports back pain; Denies arthralgias Integumentary Denies abscess or Abrasions Neurologic Neurologic: Denies headache(s) Psychiatric Psychiatric: Denies anxiety or depression Endocrine Endocrinology: Denies cold intolerance Hematologic/Lymphatic Hematologic/Lymphatic: Denies easy bleeding, easy bruising or lymphadenopathy Allergic/Immunologic Allergic/Immunologic ED: Denies mouth swelling, tongue swelling or urticaria EXAM Physical Exam Narrative Exam Narrative: 57-year-old female no acute distress vital signs stable afebrile. H EENT exam unremarkable. Neck nontender. Lungs clear to auscultation bilaterally. Heart regular rhythm no murmur. Chest wall and ribs nontender. Abdomen soft nontender. Back there is no reproducible tenderness over thoracic or lumbar spine. No signs of trauma. Mild right SI tenderness. Full range of motion to her right hip and thigh and hamstring. Normal flexion extension of her right hip, knee and ankle and foot. Both lower extremities neurovascularly intact. No cauda equina. No saddle anesthesia. Neurologically she is awake and alert with no focal motor deficits. No loss of sensation. No cauda equina. Const Vital Signs: 05/09/23 08:41 05/09/23 08:41 Temperature 97.2 F L 97.2 F L Temperature Source Temporal Temporal Pulse Rate 79 79 Respiratory Rate 16 16 Blood Pressure 100/68 100/68 Blood Pressure Mean 78 78 Pulse Ox 100 100 Oxygen Delivery Method Room Air Room Air Positive well nourished and well developed; Negative for obese, cachectic, contractures or unkempt General Appearance ED: well developed; Negative for unkempt, cachectic, contractures or pallor Nutritional Appearance: Negative for cachectic or obese HEENT Reports moist mucous membranes; Denies dry mucous membranes Negative for trauma or tenderness Mouth ED: No dry mucous membranes Mouth: No dry mucous membranes Eyes PERRL and EOMs intact bilaterally General Eye ED: Negative for pale conjunctiva, scleral icterus or other Neck no lymphadenopathy, supple and no JVD General: Negative for tenderness Resp normal respiratory effort and clear to auscultation bilaterally Effort and Inspection: Negative for pain with movement Auscultation: Negative for rales, rhonchi, wheezes or diminished lung sounds Cardio regular rate, regular rhythm, S1 normal heart sound, S2 normal heart sound and no murmurs Palpation: Negative for palpable S3 Rate: Negative for bradycardia or tachycardic Rhythm: Negative for abnormal rhythm Bruits: Negative for other GI normal to inspection, nondistended, normoactive bowel sounds, soft to palpation, non-tender, non-distended and no masses Inspection: Negative for abdominal distention Auscultation: Negative for hyperactive bowel sounds Palpation: Negative for tender, guarding or rebound tenderness present Back/Spine normal to inspection and no thoracic nor lumbar tenderness General Back: Negative for CVA tenderness Cervical Spine: Negative for cervical spine tenderness and Negative for paracervical muscle tenderness Thoracic Spine / Upper Back: Negative for paraspinal muscle tenderness Lumbar Spine / Lower Back: Negative for ROM limited or straight leg raise negative bilaterally Extremity normal to inspection and no clubbing, cyanosis or edema General Extremety ED: Negative for edema or tenderness General Extremity: Negative for edema Neuro oriented x3 and no sensory deficits noted Sensorium / Orientation: alert; Negative for confused, lethargic or stuporous Sensory Exam: No other Motor Exam: strength 5/5 throughout Psych mental status grossly normal Appearance: Negative for unkempt Attitude: No agitated and No other Mood & Affect: Negative for depressed, sad or tearful Skin no rashes or lesions noted and no wounds General Skin Exam: Negative for jaundice or pallor Lesions: No lesion noted Rashes: No rashes noted Trauma: Negative for abrasion, puncture or other Wounds: Negative for wounds noted MDM MDM MDM Narrative Medical decision making narrative: 57-year-old female with lower back pain after lifting at work. 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 No prior back history. Clinically this appears to be sciatica. She is concerned with the pain in her hip and wants that x- rayed. I do not think there is going of any specific abnormality to her hip and x-rays being obtained per her request. Repeat exam unchanged. History and exam are consistent with acute right-sided sciatica. X-ray showed no acute abnormality per patient's request because of her hip pain. Discharged home. Anti-inflammatories for pain. Outpatient follow-up if not improving. History & Record Review Discussion w/independent historian: Patient Additional record(s) reviewed:: Prior inpatient record, Prior outpatient record, Prior ED visit, Prior labs and No prior records Radiography Diagnostic Testing: Right hip and pelvis x-ray showed no acute abnormality. 4 views interpreted by myself. Discharge Plan Triage Chief Complaint: Lower Extremity Injury ED Provider: Pravin Masterson Dx/Rx/DC Orders Clinical Impression: Sciatica, Encounter related to worker's compensation claim Instructions: ED Sciatica Prescriptions: No Action hydrocodone-acetaminophen 5-325 mg tablet 1 tab PO Q6H PRN (Reason: pain) 3 Days Qty: 10 0RF methocarbamol 500 mg tablet 500 mg PO 4X/DAY PRN PRN (Reason: Muscle pain/spasm) Qty: 40 0RF erythromycin 5 mg/gram (0.5 %) ointment 1 applic EACH EYE 4X/DAY 5 Days Qty: 3.5 0RF Primary Care Provider: Taylor Fernandes Referrals: [facility] [Group of [facility]] - 1 Week if not improving Taylor Fernandes MD [Primary Care Provider] - Activity Restrictions/Additional Instructions: Aleve for pain and inflammation. Follow-up with [facility] if not improving. Disposition Disposition: Home, Self Care
[2023-05-09] MEDS: Naproxen 375 MG Tablet PO (09:50)
--- NOTE | 2023-05-09 10:34 | ED.RN ---
[id number] THIS RN AT BEDSIDE TO MEDICATE PT. PT EDUCATED ON MEDICATION. PT REPORTS THAT THIS IS NOT PAIN MEDICINE, AND THIS IS NOT GOING TO DO ANYTHING, THIS IS AN ANTI-INFLAMMATORY, NOT A PAIN MEDICATION. THIS RN PROVIDES EDUCATION ON PATHOPHYSIOLOGY OF SCIATICA AND THE IMPORTANCE OF TAKING ANTI-INFLAMMATORY MEDICATION. PT ASSISTED TO THE RESTROOM. PT AMBULATORY WITHOUT ASSISTANCE OF STAFF UTILIZING A WALKER TO THE RESTROOM. THIS RN INFORMS PT SHE WILL RETURN TO DISCHARGE PATIENT WHEN SHE IS DONE IN THE RESTROOM. [id number] THIS RN RETURNS TO ROOM WITH NOEL RN TO DISCHARGE PATIENT. PT COMPLAINING THAT SHE FEELS THAT SHE NEEDS TO BE OFF WORK LONGER AND THAT SHE IS UNABLE TO WALK. THIS RN OFFERS CANE TO PATIENT TO WHICH SHE REFUSES REPORTING THAT SHE CANNOT PAY FOR THAT. 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 PT CONTINUES TO COMPLAIN SHE AMBULATES OUT OF THE DEPARTMENT. PT DITCHES THE DEPARTMENT WALKER AT THE EMS ENTRANCE AND AMBULATES WITH A LIMP OUT OF THE DEPARTMENT UNASSISTED.
--- NOTE | 2023-05-09 10:45 | ED.RN ---
ON DISCHARGE, PT WAS GIVEN DIRECTIONS TO NOW CLINIC.
== END 2023-05-09 10:46 | disposition home or self-care (01) ==
LOC: ED 09:26
PROVIDERS: Emergency Provider Emergency Medicine; PCP Internal Medicine; Visit Provider Emergency Medicine
DX: M54.40 Lumbago with sciatica, unspecified side (principal); Z87.891 Personal history of nicotine dependence
CPT/HCPCS: 73502; 99282

== ENCOUNTER 2024-09-30 09:44 | Emergency (ER) | payer OTHER, BC, SELFPAY ==
[2024-09-30 09:44] VITALS: BP 114/76; PULSE 76; RESP 14; TEMP 36.1; O2SAT 98; BMI 19.3
--- NOTE | 2024-09-30 10:03 | EX.ED.UPPERE ---
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 She is right-hand dominant. This is the first time she has been seen for this injury, she has been developing swelling and pain especially this morning, and the area of the entry wound has been seeping a small amount of fluid and she feels like there is a lot of pressure and pain in the pad of her finger like more needs to come out. Tetanus Immunization: >10 years [facility] Medical History Kidney stone Former tobacco use Urinary bladder cancer Depression Lung nodule Anxiety Home Medications ?Medication ?Instructions ?Recorded ?Last Taken ?Type hydrocodone-acetaminophen 5-325mg 1 tab PO Q6H PRN pain 3 days #10 01/16/22 Unknown Rx 5mg-325mg tabs erythromycin 5 mg/gram (0.5 %) eye 1 applic EACH EYE 4X/DAY 5 days 03/05/22 Unknown Rx ointment #3.5 grams methocarbamol 500 mg tablet 500 mg PO 4X/DAY PRN PRN Muscle 03/05/22 Unknown Rx pain/spasm #40 tabs cefadroxil 500 mg capsule 500 mg PO BID #20 caps 09/30/24 Unknown Rx Allergy/AdvReac Type Severity Reaction Status Date / Time Tetanus Vaccines and Toxoid AdvReac Swelling Verified 09/30/24 09:44 (Tetanus Vaccines & Toxoid) venom-honey bee (bee venom AdvReac Swelling Verified 09/30/24 09:44 (honey bee)) Family History Father Colon cancer bone and MM Kidney disease stones Surgical History History of bladder surgery History of cervical spinal surgery History of colonoscopy History of repair of left rotator cuff History of tubal ligation Social History household members: none Smoking Status: Former smoker how long ago did patient quit smoking: Quit >2 years prior, smoked 1/4 ppd, 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 alcohol intake: never substance use type: does not use ROS ROS ED Constitutional Constitutional ED: Denies chills or fever(s) Musculoskeletal Musculoskeletal: Reports extremity pain; Denies neck pain Integumentary Reports wounds; Denies Abrasions or rash Neurologic Neurologic: Reports paresthesias LUE (tip of middle injured finger); Denies weakness EXAM Physical Exam Const Vital Signs: 09/30/24 09:44 Temperature 97 F L Temperature Source Temporal Pulse Rate 76 Respiratory Rate 14 Blood Pressure 114/76 Blood Pressure Mean 88 Pulse Ox 98 Oxygen Delivery Method Room Air Positive well nourished and well developed General Appearance ED: well developed and NAD Neck full ROM and supple Back/Spine normal ROM and normal to inspection Extremity Extremity Narrative: Patient has swollen erythematous tender volar pad of the left middle finger. There is a single entry/exit wound without any evidence of a foreign body visible or palpable, directly in the center of the finger pad. There is no exit wound. There is no subungual hematoma. She is not tender dorsally. Limited function of the FDP due to swelling and pain but its function generally is intact. There is a very small amount of fluid seeping from the wound. Entire pad is tense and tender. There is no tenderness proximal to the DIPJ, nor is there lymphangitis/streaking. Neuro oriented x3, no focal motor deficits and no sensory deficits noted Sensorium / Orientation: alert Psych mental status grossly normal and thought process normal Skin no wounds Rashes: no rashes MDM MDM MDM Narrative Medical decision making narrative: Three-view x-ray series of the left middle finger was obtained, and on my interpretation there is no residual foreign body or apparent bone involvement. According to radiology there is arthritis versus an avulsion fracture dorsally, the patient does not have any pain or tenderness here, so I do not think this is indicative of an acute fracture. My concern is that she has an infection, and that it may be a borderline felon. I advised for now doing a simple puncture/I&D in the area where there is some drainage, the patient wanted this and wanted to relieve pressure from the area. This was successful, although there was not purulent drainage, afterwards the pad of the finger was much less tender and tense. I do not think she needs to have a felon dissection/drainage right now, but am referring her to plastics in case this does not get better on antibiotics. No evidence of a tenosynovitis right now. Given appropriate work restrictions, prescription for antibiotics which she started here, [facility] if it is not getting worse. We updated her tetanus. She states that she tends to swell locally as a result, so we offered her a half dose which she initially wanted but then she wanted to take the whole thing and had no issues with it. Procedures Other Procedures Procedure(s): Simple I&D: After sterile prep with isopropyl alcohol, topical anesthesia with LET for 20 minutes, and informed consent from the patient, after discussing alternatives including digital block, performed a simple incision and drainage with an 18-gauge needle into the area that there was seeping from. This caused some bleeding and no pus. Patient was able to express more blood from the area, no pulsatile bleeding, and the pad was less tense and swollen afterwards. Tolerated well no complications, dressed with bacitracin Discharge Plan Triage Chief Complaint: Upper Extremity Injury ED Provider: Yassine Hall Dx/Rx/DC Orders Clinical Impression: Puncture wound of left middle finger, Infected puncture wound of finger, Immunization, tetanus-diphtheria Instructions: ED Puncture Wound (General) Prescriptions: New cefadroxil 500 mg capsule 500 mg PO BID Qty: 20 0RF No Action hydrocodone-acetaminophen 5-325 mg tablet 1 tab PO Q6H PRN (Reason: pain) 3 Days Qty: 10 0RF methocarbamol 500 mg tablet 500 mg PO 4X/DAY PRN PRN (Reason: Muscle pain/spasm) Qty: 40 0RF erythromycin 5 mg/gram (0.5 %) ointment 1 applic EACH EYE 4X/DAY 5 Days Qty: 3.5 0RF Primary Care Provider: Joan Valle NP [facility] [Group of Physicians] - As soon as possible (if not worsening) Kali Banks MD [Med Staff - Active Staff] - 3-5 Days if not improving Print Language: Persian Disposition Disposition: Home, Self Care
--- NOTE | 2024-09-30 10:13 | RAD_ITS ---
PROCEDURE: FINGER(S) MIN 2 VIEWS 09/30/2024 REASON FOR EXAM: INJURY DISTAL PH TECHNIQUE: FINGER(S) MIN 2 VIEWS Laterality: Left COMPARISON: None FINDINGS: Bones: A half a mm bony density dorsal to the distal interphalangeal joint of the 3rd finger may represent avulsion fracture. Otherwise, no acute fractures. Joints: No dislocation. Soft tissues: No soft tissue abnormalities. Other: RAD/Finger(s) Min 2 Views IMPRESSION: A 0.5 mm bony density dorsal to the distal interphalangeal joint of the 3rd fin yung may represent avulsion fracture. Otherwise, no acute fractures. Reading Location: [id number]
[2024-09-30] MEDS: Lidocaine/Epi/Tetracaine 50 ML 1 APPLIC TOPICAL (10:20)
--- OUTSIDE RECORDS SUMMARY | 2024-09-30 10:46 | XMS RPT_ITS | CCD ---
Author Organization [facility] Care Team Providers Care Sql Etl Developer Name Role Phone Yuri JAMA MD, Jacinto Unavailable Doup RN, Allie Unavailable Unavailable Dena JAMA, Alma Delia Primary Care Provider Dr. Alma Delia Choudhury Primary Care Provider Dr. Marci Sandoval Emergency Provider Dr. Aby Penaloza Admit Provider Dr. Aby Penaloza Other Provider Dr. Benson Arciniega Attending Provider Dr. Benson Arciniega Other Provider Yuri JAMA MD, Felixung Unavailable Doup RN, Allie Unavailable Unavailable Alma Delia Choudhury MD Primary Care Provider Dr. Glenn Marte Emergency Provider Dr. Elsa Miller Admit Provider Dr. Elsa Miller Other Provider Dr. Selena De La Garza Other Provider Dr. Kady Taylor Other Provider Dr. Aby Penaloza Attending Provider Dr. Alma Delia Choudhury Primary Care Provider Dr. Glenn Marte Emergency Provider Dr. Elsa Miller Admit Provider Dr. Elsa Miller Other Provider Dr. Selena De La Garza Other Provider Dr. Kady Taylor Other Provider Dr. 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, Ofelia Unavailable VALLE, HEIDE Referring Unavailable GANTA, ALMA DELIA Primary Care Unavailable HAFSA MENDOZA Attending Unavailable GANTA, ALMA DELIA Primary Care Unavailable VALLE, HEIDE Attending Unavailable SELF Referring Unavailable GANTA, ALMA DELIA Primary Care Unavailable VALLE, HEIDE Referring Unavailable GANTA, ALMA DELIA Primary Care Unavailable GANTA, ALMA DELIA Primary Care Unavailable ADELA CHURCH Referring Unavailable GANTA, ALMA DELIA Primary Care Unavailable Allergies Allergy Classification Reported Allergen(s) Allergy Type Date of Onset Reaction(s) Facility (20 sources) bee stings [Other] Propensity to adverse reactions 10-25-19 05 [facility] (20 sources) tetnus [Other] Propensity to adverse reactions 10-25-19 05 [facility] (20 sources) Tetanus Vaccines and Toxoid; Translations: [Tetanus Vaccines and Toxoid] Propensity to adverse reactions 10-01-19 21 [facility] (20 sources) venom-honey bee; Translations: [VENOM-HONEY BEE] Propensity to adverse reactions 10-01-19 21 [facility] (8 sources) Gadolinium-Containi ng Contrast Media Drug Allergy 02-24-19 23 [facility] Work Phone: (20 sources) diphtheria toxoid vaccine, inactivated / tetanus toxoid vaccine, inactivated; Translations: [TETANUS AND DIPHTHER. TOX (PF)] Drug Allergy 12-02-20 23 [facility] Work Phone: (1 source) venom-honey bee Drug allergy (disorder) 05-09-19 [facility] (19 sources) Sulfamethoxazole / Trimethoprim; Translations: [SULFAMETHOXAZOLE-T RIMETHOPRIM] Drug Allergy 05-13-19 Other: See Comments [facility] Medications Current Medications Medication Drug Class(es) Dates Sig (Normalized) Sig (Original) acetaminophen 325 mg / HYDROcodone bitartrate 7.5 mg oral tablet (20 sources) Opioid Agonist Start: 05-13-2023 End: 05-16-2023 take 1 tablet by mouth every six hours as needed for pain HYDROcodone-Acetami nophen (NORCO) 7.5-325 mg per tablet Indications: Acute right-sided low back pain with right-sided sciatica Take 1 tablet by mouth every 6 hours as needed for pain for up to 3 days. For breakthrough pain 12 tablet 0 05/13/2023 05/16/2023 Active Start: 01-16-2022 take 1 tablet by linn th every six hours Hydrocodone-Acetaminophen Active 1 TABLE T PO EVERY 6 HOURS 10 January 16, 2022 Start: 11-03-2021 End: 11-08-2021 take 1 tablet by mouth every eight hours as needed for pain HYDROcodone-acetaminophen (NORCO) 5-325 mg per tablet Indications: Malignant neoplasm of urinary bladder, unspecified site (HCC) Take 1 tablet by mouth every 8 hours as needed for pain for up to 5 days. 15 tablet 0 11/03/2021 11/08/2021 Active Start: 01-10-2020 End: 01-13-2020 take 1 tablet by mouth every six hours as needed Hydrocodone-Acetaminophen Discontinued 1 TABLET PO EVERY 6 HOURS NEEDED 10 January 10, 2020 January 13, 2020 1:03am Start: 09-20-2019 End: 09-22-2019 take 1 tablet by mouth every six hours as needed Hydrocodone-Acetaminophen Discontinued 1 TABLET PO EVERY 6 HOURS NEEDED 5 September 20, 2019 September 22, 2019 12:02am Comment on above: Take 1 tablet by linn th every 8 hours as needed for pain for up to 5 days. Take 1 tablet by linn th every 6 hours as needed for pain for up to 3 days. For breakthrough pain [id number] 200 actuat albuterol 0.09 mg/actuat metered dose inhaler (20 sources) beta2-Adrenergic Agonist Start: take 2 puff(s) by inhalation every four hours as needed for wheezing albuterol HFA (PROVENTIL HFA, VENTOLIN HFA) 90 mcg/actuation inhaler Indications: Acute cough Inhale 2 puffs as instructed every 4 hours as needed for wheezing/shortness of breath. 8 g 05/17/2024 Active Start: 01-08-2023 End: 05-13-2023 take 2 puff(s) by inhalation every four hours as needed albuterol HFA (PROAIR HFA) 90 mcg/actuation inhaler Inhale 2 Puffs as instructed every 4 hours as needed. 18 g 0 01/08/2023 05/13/2023 Discontinued Start: 11-21-2022 End: 12-15-2022 take 2 puff(s) by inhalation every four hours as needed for wheezing albuterol HFA (PROVENTIL HFA, VENTOLIN HFA) 90 mcg/actuation inhaler Indications: Acute cough Inhale 2 Puffs as instructed every 4 hours as needed for wheezing/shortness of breath. 1 Each 0 11/21/2022 12/15/2022 Discontinued (Discontinued by Patient) Start: 03-04-2021 End: 11-21-2022 take 2 puff(s) by inhalation every four hours as needed albuterol HFA (PROAIR HFA) 90 mcg/actuation inhaler Indications: Viral URI with cough Inhale 2 Puffs as instructed every 4 hours as needed. 18 g 1 07/03/2021 11/21/2022 Discontinued Start: 06-13-2017 End: 09-06-2019 take 1 puff(s) by inhalation every four hours as needed Albuterol Sulfate Discontinued 1 - 2 PUFF INHALATION EVERY 4 HOURS NEEDED June 13, 2017 12:00am September 06, 2019 7:48am Comment on above: Inhale 2 Puffs as in structed every 4 hours as needed. Inhale 2 Puffs as in structed every 4 hours as needed for wheezing/shortness of breath. amoxicillin 875 mg / clavulanate 125 mg oral tablet (1 source) Penicillin-class Antibacterial Start: 022 End: take 1 tablet by mouth twice daily amoxicillin-clavulanic acid (AUGMENTIN) 875-125 mg per tablet Take 1 tablet by mouth twice daily for 10 days. 20 tablet 0 07/20/2021 07/30/2021 Active Comment on above: Take 1 tablet by linn twice daily for 10 days. azithromycin 250 mg oral tablet (1 source) Macrolide Antimicrobial Start: End: take 2 tablets by mouth once daily azithromycin (ZITHROMAX) 250 mg tablet Indications: Campylobacter gastroenteritis Take 2 tablets by mouth once daily for 3 days. 6 tablet 0 12/19/2022 12/22/2022 Active Comment on above: Take 2 tablets by [facility] once daily for 3 days. 24 hr buPROPion hydrochloride 150 mg extended release oral tablet (14 sources) Aminoketone Start: 024 End: 025 take 1 tablet by mouth once daily buPROPion XL (WELLBUTRIN XL) 150 mg 24 hr tablet Indications: EVELYN (generalized anxiety disorder) Take 1 tablet by mouth once daily for 14 days. 14 tablet 05/17/2024 Active Start: 01-23-2021 End: 07-03-2021 take 1 tablet by mouth twice daily buPROPion (WELLBUTRIN) 75 mg tablet Take 1 tablet by mouth twice daily. 60 tablet 1 01/23/2021 07/03/2021 Discontinued (Discontinued by Patient) Comment on above: Take 1 tablet by [facility] twice daily. cephalexin 500 mg oral capsule (7 sources) Cephalosporin Antibacterial Start: End: take 1 capsule by mouth three times daily cephALEXin (KEFLEX) 500 mg capsule Indications: Urgency of urination Take 1 capsule by mouth three times a day for 5 days. 15 capsule 05/17/2024 05/22/2024 Active Start: 11-21-2022 End: 11-28-2022 take 1 capsule by mouth twice daily cephALEXin (KEFLEX) 500 mg capsule Indications: Burning with urination Take 1 capsule by mouth two times a day for 7 days. 14 capsule 0 11/21/2022 11/28/2022 Start: 01-20-2022 End: 12-21-2022 take 1 capsule by mouth twice daily cephALEXin (KEFLEX) 500 mg capsule Take 1 capsule by mouth twice daily for 7 days. 14 capsule 0 01/20/2022 01/27/2022 Active Start: 08-24-2021 take 500 mg by mouth three times daily Cephalexin Active 500 MG PO THREE TIMES A DAY 12 August 24, 2021 12:00am Comment on above: Take 1 capsule by [facility] twice daily for 7 days. Take 1 capsule by [facility] two times a day for 7 days. cholecalciferol 0.025 mg oral tablet (8 sources) Vitamin D Start: 024 take 2 tablets by mouth once daily cholecalciferol (VITAMIN D3) 1,000 unit tab tablet Take 2 tablets by mouth once daily. 180 tablet 3 11/04/2023 Active ciprofloxacin 250 mg oral tablet (14 sources) Quinolone Antimicrobial Start: End: take 1 tablet by mouth twice daily ciprofloxacin HCl (CIPRO) 250 mg tablet Take 1 tablet by mouth twice daily for 10 days. 20 tablet 0 09/08/2021 09/18/2021 Active Start: 08-25-2021 take 1 tablet by linn twice daily Ciprofloxacin Hcl (Cipro) 500 mg tablet Active 500 MG PO TWICE A DAY 10 August 25, 2021 12:00am Start: 01-10-2020 End: 07-03-2021 take 500 mg by mouth twice daily Ciprofloxacin Hcl Discontinued 500 MG PO TWICE A DAY January 10, 2020 1:00am January 23, 2020 12:56pm Comment on above: Take by mouth. Take 1 tablet by linn twice daily for 10 days. cyclobenzaprine hydrochloride 10 mg oral tablet (20 sources) Muscle Relaxant Start: 05-13-19 End: 05-18-19 take 1 tablet by mouth three times daily as needed for muscle spasms cyclobenzaprine (FLEXERIL) 10 mg tablet Indications: EVELYN (generalized anxiety disorder) Take 1 tablet by mouth three times a day as needed for muscle spasm for up to 12 doses. 12 tablet 05/17/2024 Active Start: 08-27-2022 End: 12-15-2022 cyclobenzaprine (FLEXERIL) 1 0 mg tablet Indications: Low back pain, unspecified back pain laterality, unspecified chronicity, unspecified whether sciatica present 1/2 - 1 tablet (10mg) every 8 hours prn 15 tablet 0 08/27/2022 12/15/2022 Discontinued (Course of therapy completed) Start: 08-11-2022 cyclobenzaprin e (FLEXERIL) 10 mg tablet 1/2 - 1 tablet (10mg) every 8 hours prn 15 tablet 0 08/11/2022 Active Comment on above: 1/2 - 1 tablet (10mg ) every 8 hours prn Take 1 tablet by linn at bedtime as needed for muscle spasm. docusate sodium 100 mg oral capsule (18 sources) Start: 05-13-19 take 1 capsule by mouth every twelve hours as needed docusate sodium (COLACE) 100 mg capsule Take 1 capsule by mouth two times a day as needed for constipation. while taking hydrocodone acetaminophen 24 capsule 05/13/2023 Active Comment on above: Take 1 capsule by [facility] two times a day as needed for constipation. while taking hydrocodone acetaminophen erythromycin 0.005 mg/mg ophthalmic ointment (2 sources) Macrolide, Macrolide Antimicrobial Start: 03-05-19 Erythromycin Active 1 APPLIC EACH EYE 4 TIMES DAILY 3.5 5 March 05, 2022 1:00am levoFLOXacin 750 mg oral tablet (4 sources) Quinolone Antimicrobial Start: 11-03-19 End: 11-10-19 22 take 1 tablet by mouth once daily levoFLOXacin (LEVAQUIN) 750 mg tablet Take 1 tablet by mouth once daily for 7 days. 7 tablet 0 11/02/2021 11/09/2021 Active Comment on above: Take 1 tablet by [facility] once daily for 7 days. methocarbamol 500 mg oral tablet (2 sources) Muscle Relaxant Start: 03-05-19 take 500 mg by mouth four times daily as needed Methocarbamol Active 500 MG PO 4 TIMES DAILY NEEDED 40 March 05, 2022 3:47am MULTIVITAMIN ORAL (11 sources) MULTIVITAMIN ORA L Take by mouth. Active [place] (Nk) (2 sources) Start: 11-01-[address] (Nk) Active October 31, 2021 12:00am Start: 09-30-[address] (Nk) A ctive September 30, 2020 12:00am predniSONE 50 mg oral tablet (20 sources) Start: 05-17-2024 End: 05-22-2024 take 1 tablet by mouth once daily predniSONE (DELTASONE) 50 mg Indications: Acute cough Take 1 tablet by mouth once daily for 5 days. 5 tablet 05/17/2024 05/22/2024 Active Start: 05-13-2023 End: 05-18-2023 take 2 tablets by mouth once daily at mealtime predniSONE (DELTASONE) 20 mg tablet Indications: Acute right-sided low back pain with right-sided sciatica Take 2 tablets by mouth once daily for 5 days. Take with food 10 tablet 0 05/13/2023 05/18/2023 Active Start: 01-08-2023 End: 01-13-2023 take 2 tablets by mouth once daily predniSONE (DELTASONE) 20 mg tablet Take 2 tablets by mouth once daily for 5 days. 10 tablet 0 01/08/2023 01/13/2023 Active Start: 08-11-2022 End: 08-16-2022 take 2 tablets by mouth once daily predniSONE (DELTASONE) 20 mg tablet Take 2 tablets by mouth once daily for 5 days. 10 tablet 0 08/11/2022 08/16/2022 Active Start: 02-24-2022 End: 03-05-2022 predniSONE (DELTASONE) 10 mg tablet Indications: Allergic dermatitis Take 4 tabs daily for 3 days, then 2 tabs daily for 3 days, then 1 tab daily for 3 days with food. 21 tablet 0 02/24/2022 03/05/2022 Active Start: 07-03-2021 End: 02-24-2022 take 1 tablet by mouth once daily predniSONE (DELTASONE) 20 mg tablet Take 1 tablet by mouth once daily. 4 tablet 0 07/03/2021 02/24/2022 Discontinued Start: 06-13-2017 End: 09-06-2019 take 60 mg by mouth once daily at mealtime Prednisone Discontinued 60 MG PO DAILY June 13, 2017 12:00am September 06, 2019 7:48am With food Comment on above: Take 1 tablet by linn th once daily. Take 4 tabs daily fo r 3 days, then 2 tabs daily for 3 days, then 1 tab daily for 3 days with food. Take 2 tablets by mo uth once daily for 5 days. Take 2 tablets by mo uth once daily for 5 days. Take with food Completed/Discontinued Medications Medication Drug Class(es) Dates Sig (Normalized) Sig (Original) benzonatate 100 mg oral capsule (6 sources) Non-narcotic Antitussive Start: 11-21-2022 End: 12-01-2022 take 2 capsules by mouth every eight hours as needed for cough and cough benzonatate (TESSALON PERLE) 100 mg capsule Indications: Acute cough Take 2 capsules by mouth three times a day as needed for up to 10 days. 60 capsule 0 11/21/2022 12/01/2022 Start: 08-09-2020 End: 07-03-2021 benzonatate (TESSALON PERLE) 100 mg capsule Take 1-2 capsules tid prn, no more than 6 in 24 hours. 30 capsule 0 08/09/2020 07/03/2021 Discontinued (Discontinued by Patient) Comment on above: Take 1-2 capsules ti d prn, no more than 6 in 24 hours. Take 2 capsules by [facility] three times a day as needed for up to 10 days. brompheniramine maleate 0.4 mg/ml / dextromethorphan hydrobromide 2 mg/ml / pseudoephedrine hydrochloride 6 mg/ml oral solution (3 sources) alpha-Adrenergic Agonist, Uncompetitive V-qbljiw-C-aspartate Receptor Antagonist, Sigma-1 Agonist Start: End: take 5 mL by mouth every six hours as needed Brompheniramine-Pse udoeph-DM (BROMFED DM) 2-30-10 mg/5 mL syrup Take 5 mL by mouth four times a day as needed. 120 mL 0 01/08/2023 05/13/2023 Discontinued Comment on above: Take 5 mL by mouth f our times a day as needed. fluticasone propionate 0.05 mg/actuat metered dose nasal spray (20 sources) Corticosteroid Start: End: take 2 spray(s) by mouth once daily fluticasone (FLONASE) 50 mcg/actuation nasal spray Use 2 Sprays in each nostril once daily. Rinse mouth after use. 1 Each 3 07/03/2021 12/15/2022 Discontinued (Course of therapy completed) Comment on above: Use 2 Sprays in each nostril once daily. Rinse mouth after use. 12 hr guaiFENesin 600 mg extended release oral tablet (20 sources) Start: End: take 1 tablet by mouth twice daily guaiFENesin (MUCINEX) 600 mg 12 hr tablet Take 1 tablet by mouth twice daily. 60 tablet 0 07/03/2021 12/15/2022 Discontinued (Course of therapy completed) Comment on above: Take 2 tablets by [facility] twice daily. Take 1 tablet by [facility] twice daily. Incontinence Pad, Liner, Disp (BLADDER CONTROL PADS) pads (20 sources) Start: End: Incontinence Pad, Liner, Disp (BLADDER CONTROL PADS) pads Indications: Malignant neoplasm of urinary bladder, unspecified site (HCC) , Overflow incontinence of urine 1 Each every 8 hours as needed. Patient would like the over night pads Equate brand 90 Each 08/14/2021 12/15/2022 Discontinued (Discontinued by Patient) Start: 08-14-2021 Incontinence P ad, Liner, Disp (BLADDER CONTROL PADS) pads Indications: Malignant neoplasm of urinary bladder, unspecified site (HCC) , Overflow incontinence of urine 1 Each every 8 hours as needed. Patient would like the over night pads Equate brand 90 Each 08/14/2021 Active Start: 04-07-2021 Incontinence P ad, Liner, Disp (BLADDER CONTROL PADS) pads Indications: Malignant neoplasm of urinary bladder, unspecified site (HCC) , Overflow incontinence of urine 1 Each every 8 hours as needed. 90 Each 04/07/2021 Active Comment on above: 1 Each every 8 hours as needed. 1 Each every 8 hours as needed. Patient would like the over night pads Equate brand iv contrast (will be provided with radiology test) (20 sources) Start: 08-16-2024 End: 08-17-2024 iv contrast (will be provided with radiology test) CT Chest W -Inject, intravenously, once for 1 dose.No IV access, insert saline lock prior to the beginning of sedation, infusion, injection of imaging exam. Discontinue saline lock post exam. If Pt. has a central line or IVAD, may access for administration according to line specific nursing protocol. Once exam is complete flush line and de-access according to line specific nursing protocol in theCT contrast administration guidelines link. 1 each 08/16/2024 08/17/2024 Start: 08-16-2024 End: 08-17-2024 iv contrast (will be provide d with radiology test) CT Chest W -Inject, intravenously, once for 1 dose.No IV access, insert saline lock prior to the beginning of sedation, infusion, injection of imaging exam. Discontinue saline lock post exam. If Pt. has a central line or IVAD, may access for administration according to line specific nursing protocol. Once exam is complete flush line and de-access according to line specific nursing protocol in theCT contrast administration guidelines link. 1 each 08/16/2024 08/17/2024 Active Start: 11-01-2023 End: 11-02-2023 iv contrast (will be provide d with radiology test) Indications: Malignant neoplasm of urinary bladder, unspecified site (HCC) CT Chest W -Inject, intravenously, once for 1 dose.No IV access, insert saline lock prior to the beginning of sedation, infusion, injection of imaging exam. Discontinue saline lock post exam. If Pt. has a central line or IVAD, may access for administration according to line specific nursing protocol. Once exam is complete flush line and de-access according to line specific nursing protocol in the CT contrast administration guidelines link. 1 Each 11/01/2023 11/02/2023 Active Start: 11-01-2023 iv contrast (w ill be provided with radiology test) CT ABD/PEL -Inject, intravenously, once for 1 dose.No IV access, insert saline lock prior to the beginning of sedation, infusion, injection of imaging exam. Discontinue saline lock post exam. If Pt. has a central line or IVAD, may access for administration according to line specific nursing protocol. Once exam is complete flush line and de-access according to line specific nursing protocol in the CT contrast administration guidelines link. 1 Each 11/01/2023 Active Start: 05-16-2022 iv contrast (w ill be provided with radiology test) CT ABD/PEL -Inject, intravenously, once for 1 dose.No IV access, insert saline lock prior to the beginning of sedation, infusion, injection of imaging exam. Discontinue saline lock post exam. If Pt. has a central line or IVAD, may access for administration according to line specific nursing protocol. Once exam is complete flush line and de-access according to line specific nursing protocol in the CT contrast administration guidelines link. 1 Each 05/16/2022 Active Start: 05-16-2022 End: 05-13-2023 iv contrast (will be provide d with radiology test) CT Chest W -Inject, intravenously, once for 1 dose.No IV access, insert saline lock prior to the beginning of sedation, infusion, injection of imaging exam. Discontinue saline lock post exam. If Pt. has a central line or IVAD, may access for administration according to line specific nursing protocol. Once exam is complete flush line and de-access according to line specific nursing protocol in the CT contrast administration guidelines link. 1 Each 0 05/16/2022 05/13/2023 Discontinued Start: 05-16-2022 iv contrast (w ill be provided with radiology test) CT Chest W -Inject, intravenously, once for 1 dose.No IV access, insert saline lock prior to the beginning of sedation, infusion, injection of imaging exam. Discontinue saline lock post exam. If Pt. has a central line or IVAD, may access for administration according to line specific nursing protocol. Once exam is complete flush line and de-access according to line specific nursing protocol in the CT contrast administration guidelines link. 1 Each 0 05/16/2022 Active Start: 05-16-2022 iv contrast (w ill be provided with radiology test) CT ABD/PEL -Inject, intravenously, once for 1 dose.No IV access, insert saline lock prior to the beginning of sedation, infusion, injection of imaging exam. Discontinue saline lock post exam. If Pt. has a central line or IVAD, may access for administration according to line specific nursing protocol. Once exam is complete flush line and de-access according to line specific nursing protocol in the CT contrast administration guidelines link. 1 Each 0 05/16/2022 Active Start: 12-22-2021 End: 05-13-2023 iv contrast (will be provide d with radiology test) CT ABD/PEL -Inject, intravenously, once for 1 dose.No IV access, insert saline lock prior to the beginning of sedation, infusion, injection of imaging exam. Discontinue saline lock post exam. If Pt. has a central line or IVAD, may access for administration according to line specific nursing protocol. Once exam is complete flush line and de-access according to line specific nursing protocol in the CT contrast administration guidelines link. 1 Each 0 12/22/2021 05/13/2023 Discontinued Start: 12-22-2021 End: 12-15-2022 iv contrast (will be provide d with radiology test) CT ABD/PEL -Inject, intravenously, once for 1 dose.No IV access, insert saline lock prior to the beginning of sedation, infusion, injection of imaging exam. Discontinue saline lock post exam. If Pt. has a central line or IVAD, may access for administration according to line specific nursing protocol. Once exam is complete flush line and de-access according to line specific nursing protocol in the CT contrast administration guidelines link. 1 Each 0 12/22/2021 12/15/2022 Discontinued (Erroneous entry) Start: 12-22-2021 iv contrast (w ill be provided with radiology test) CT ABD/PEL -Inject, intravenously, once for 1 dose.No IV access, insert saline lock prior to the beginning of sedation, infusion, injection of imaging exam. Discontinue saline lock post exam. If Pt. has a central line or IVAD, may access for administration according to line specific nursing protocol. Once exam is complete flush line and de-access according to line specific nursing protocol in the CT contrast administration guidelines link. 1 Each 0 12/22/2021 Active Start: 08-25-2021 End: 08-26-2021 iv contrast (will be provide d with radiology test) Indications: Malignant neoplasm of overlapping sites of bladder (HCC) , Lung nodules CT Urogram WO/W Inject, intravenously, once for 1 dose.No IV access, insert saline lock prior to the beginning of sedation, infusion, injection of imaging exam. Discontinue saline lock post exam. If Pt. has a central line or IVAD, may access for administration according to line specific nursing protocol. Once exam is complete flush line and de-access according to line specific nursing protocol in the CT contrast administration guidelines link. 1 Each 0 08/25/2021 08/26/2021 Comment on above: CT Urogram WO/W Inje ct, intravenously, once for 1 dose.No IV access, insert saline lock prior to the beginning of sedation, infusion, injection of imaging exam. Discontinue saline lock post exam. If Pt. has a central line or IVAD, may access for administration according to line specific nursing protocol. Once exam is complete flush line and de-access according to line specific nursing protocol in the CT contrast administration guidelines link. CT ABD/PEL -Inject, intravenously, once for 1 dose.No IV access, insert saline lock prior to the beginning of sedation, infusion, injection of imaging exam. Discontinue saline lock post exam. If Pt. has a central line or IVAD, may access for administration according to line specific nursing protocol. Once exam is complete flush line and de-access according to line specific nursing protocol in the CT contrast administration guidelines link. CT Chest W -Inject, intravenously, once for 1 dose.No IV access, insert saline lock prior to the beginning of sedation, infusion, injection of imaging exam. Discontinue saline lock post exam. If Pt. has a central line or IVAD, may access for administration according to line specific nursing protocol. Once exam is complete flush line and de-access according to line specific nursing protocol in the CT contrast administration guidelines link. meloxicam 15 mg oral tablet (14 sources) Nonsteroidal Anti-inflammatory Drug Start: 2022 End: 2023 take 1 tablet by mouth once daily at mealtime meloxicam (MOBIC) 15 mg tablet Indications: Low back pain, unspecified back pain laterality, unspecified chronicity, unspecified whether sciatica present Take 1 tablet by mouth once daily. With food. 30 tablet 1 08/27/2022 05/13/2023 Discontinued Comment on above: Take 1 tablet by [facility] once daily. With food. nitrofurantoin, macrocrystals 25 mg / nitrofurantoin, monohydrate 75 mg oral capsule (5 sources) Nitrofuran Antibacterial Start: 2021 End: 2021 take 1 capsule by mouth twice daily at mealtime nitrofurantoin monohydrate and macrocrystal (MACROBID) 100 mg capsule Take 1 capsule by mouth twice daily with meals for 10 days. 20 capsule 0 11/05/2021 11/15/2021 Comment on above: Take 1 capsule by [facility] twice daily with meals for 10 days. 1000 ml sodium chloride 9 mg/ml injection (1 source) Start: 2021 End: 2021 inject 1 dose intravenously once 0.9 % sodium chloride (NACL 0.9%) infusion Indications: Malignant neoplasm of overlapping sites of bladder (HCC) , Lung nodules Inject 100 mL/hr intravenously one time only for 1 dose. Administer at rate defined per CT contrast administration specifications. To be provided with radiology test. 1 Each 0 08/25/2021 08/25/2021 Comment on above: Inject 100 mL/hr int ravenously one time only for 1 dose. Administer at rate defined per CT contrast administration specifications. To be provided with radiology test. triamcinolone acetonide 0.25 mg/ml topical cream (20 sources) Corticosteroid Start: 2022 End: 2023 triamcinolone (KENALOG) 0.025 % cream Indications: Allergic dermatitis Apply 1 application to affected area twice daily. 30 g 0 02/24/2022 05/13/2023 Discontinued Comment on above: Apply 1 application to affected area twice daily. Problems Active Problems Problem Classification Problem Date Documented Da te Episodic/Chronic Abdominal pain (20 sources) Lower abdominal pain; Translations: [Lower abdominal pain, unspecified] Episodic Acute and unspecified renal failure (9 sources) Uremia; Translations: [Unspecified kidney failure] Chronic Acute and unspecified renal failure (10 sources) Acute renal failure syndrome; Translations: [Acute kidney failure, unspecified] Episodic Adjustment disorders (20 sources) Adjustment disorder with depressed mood; Translations: [Adjustment disorder with depressed mood] Onset: 10-24-2004 10-24-2004 Chronic Allergic reactions (1 source) Allergic disorder of skin; Translations: [Allergic contact dermatitis, unspecified cause] Episodic Anxiety disorders (20 sources) Anxiety; Translations: [Other specified anxiety disorders] Onset: 07-24-2019 07-24-2019 Chronic Cancer of bladder (20 sources) Malignant neoplasm of lateral wall of urinary bladder; Translations: [Malignant neoplasm of lateral wall of bladder] Onset: 08-30-2019 Chronic Cancer of bladder (2 sources) H/O: malignant neoplasm; Translations: [Personal history of malignant neoplasm of bladder] Onset: 08-15-2024 08-16-2024 Episodic Diabetes mellitus without complication (1 source) Increased glucose level; Translations: [Other abnormal glucose] Episodic Fluid and electrolyte disorders (20 sources) Dehydration; Translations: [Dehydration] Episodic Genitourinary symptoms and ill-defined conditions (20 sources) Urinary incontinence; Translations: [Unspecified urinary incontinence] Onset: 01-29-2020 Resolved: 01-31-2020 Chronic Inflammation; infection of eye (except that caused by tuberculosis or sexually transmitteddisease) (2 sources) Photokeratitis; Translations: [Photokeratitis, unspecified eye] 03-05-2022 Episodic Intestinal infection (1 source) Infectious gastroenteritis; Translations: [Campylobacter enteritis] 12-19-2022 Episodic Nausea and vomiting (1 source) Nausea and vomiting; Translations: [Nausea with vomiting, unspecified] 04-26-2023 Episodic Nutritional deficiencies (20 sources) Vitamin D deficiency; Translations: [Vitamin D deficiency, unspecified] Onset: 01-06-2019 01-06-2019 Chronic Other aftercare (1 source) Post-discharge follow-up; Translations: [Encounter for follow-up examination after completed treatment for conditions other than malignant neoplasm] Episodic Other bone disease and musculoskeletal deformities (4 sources) Disorder of elbow; Translations: [Disorder of bone, unspecified] 09-17-2022 Episodic Other circulatory disease (7 sources) Orthostatic hypotension; Translations: [Orthostatic hypotension] 09-01-2021 Episodic Other circulatory disease (3 sources) Orthostatic hypotension; Translations: [Orthostatic hypotension] Episodic Other congenital anomalies (20 sources) Congenital anomaly of skin; Translations: [Other specified congenital malformations of skin] Onset: 02-13-2008 02-13-2008 Chronic Other connective tissue disease (2 sources) Muscle spasm of cervical muscle of neck; Translations: [Other muscle spasm] 03-05-2022 Episodic Other diseases of bladder and urethra (8 sources) Benign neoplasm of bladder; Translations: [Other specified disorders of bladder] 08-23-2021 Chronic Other diseases of kidney and ureters (1 source) Kidney disease; Translations: [Other specified disorders of kidney and ureter] 08-16-2024 Chronic Other diseases of kidney and ureters (1 source) Other specified disorders of kidney and ureter; Translations: [Pelvicaliectasis] Onset: 08-15-2024 Chronic Other diseases of kidney and ureters (1 source) Hydronephrosis; Translations: [Unspecified hydronephrosis] Episodic Other female genital disorders (1 source) Vaginal adhesions; Translations: [Stricture and atresia of vagina] 11-01-2023 Episodic Other gastrointestinal disorders (2 sources) Diarrhea; Translations: [Diarrhea, unspecified] 12-15-2022 Episodic Other lower respiratory disease (3 sources) Wheezing; Translations: [Wheezing] Episodic Other lower respiratory disease (2 sources) Cough; Translations: [Cough] Episodic Other lower respiratory disease (1 source) Cough; Translations: [Acute cough] 05-17-2024 Episodic Other screening for suspected conditions (not mental disorders or infectious disease) (20 sources) Serum creatinine raised; Translations: [Other specified abnormal findings of blood chemistry] Onset: 08-01-2024 Episodic Other upper respiratory infections (3 sources) Viral upper respiratory tract infection; Translations: [Acute upper respiratory infection, unspecified] Episodic Residual codes; unclassified (1 source) Viral syndrome; Translations: [Other general symptoms and signs] 12-15-2022 Episodic Rheumatoid arthritis and related disease (1 source) 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; Translations: [Rheumatoid nodule, left elbow] 10-10-2022 Chronic Spondylosis; intervertebral disc disorders; other back problems (20 sources) Degeneration of cervical intervertebral disc; Translations: [Other cervical disc degeneration, unspecified cervical region] Onset: 06-05-2008 06-05-2008 Chronic Spondylosis; intervertebral disc disorders; other back problems (5 sources) Acute low back pain; Translations: [Acute right-sided low back pain without sciatica] Episodic Superficial injury; contusion (2 sources) Contusion of left hand; Translations: [Contusion of left hand, initial encounter] 10-08-2022 Episodic Urinary tract infections (20 sources) Urinary tract infectious disease; Translations: [Urinary tract infection, site not specified] Episodic Viral infection (1 source) Viral disease; Translations: [Viral infection, unspecified] 04-26-2023 Episodic Past or Other Problems Problem Classification Problem Date Documented Da te Episodic/Chronic Administrative/social admission (20 sources) Patient encounter status; Translations: [Encounter for examination for insurance purposes] Onset: 08-11-2016 Resolved: 04-07-2021 05-09-2023 Episodic Chronic obstructive pulmonary disease and bronchiectasis (20 sources) Bronchitis; Translations: [Bronchitis, not specified as acute or chronic] Onset: 10-18-2019 10-18-2019 Episodic Genitourinary symptoms and ill-defined conditions (20 sources) Microscopic hematuria; Translations: [Other microscopic hematuria] Onset: 03-30-2019 Resolved: 04-07-2021 Episodic Immunizations and screening for infectious disease (4 sources) Viral screening status; Translations: [Encounter for screening for other viral diseases] Onset: 11-01-2023 11-01-2023 Episodic Other female genital disorders (1 source) Stricture and atresia of vagina; Translations: [Adhesions of vagina] Onset: 11-01-2023 Episodic Other lower respiratory disease (20 sources) Multiple nodules of lung; Translations: [Other nonspecific abnormal finding of lung field] Onset: 07-24-2019 Episodic Screening and history of mental health and substance abuse codes (1 source) Encounter for screening for depression; Translations: [Screening for depression] Onset: 11-01-2023 Episodic Sprains and strains (20 sources) Neck sprain; Translations: [Sprain of joints and ligaments of unspecified parts of neck, initial encounter] Onset: 05-10-2007 Resolved: 08-11-2016 08-11-2016 Episodic Substance-related disorders (20 sources) Opioid dependence; Translations: [Opioid dependence, uncomplicated] Onset: 06-02-2017 Resolved: 04-07-2021 02-20-2020 Chronic Results Test Name Value Interpretation Reference Range Facility [facility] 08-15-2024 CNOV Office Visit (UROLMN ) SUN NOGUEIRA ([id number]) 1965 F Date Time Provider Department 08/15/24 1:45 PM HAFSA MENDOZA During your visit today, we recorded the following information about you: Hafsa Mendoza MD 08/16/2024 10:51 AM Signed REASON FOR VISIT: Follow-up, history of bladder cancer HPI: 49 yo female Previously seen and treated by Dr. Post for bladder cancer S/P cystectomy with neobladder in December 2019 Sun Nogueira is a 58-year-old female with a history of bladder removal surgery 5 years ago, presenting with concerns about persistent nocturnal enuresis, abdominal bloating, and pressure in the kidney area. Sun reports experiencing nocturnal enuresis every night since her bladder removal surgery 5 years ago. She states, I hate the nighttime bedwetting, I can't stand it anymore, it's been 5 years of it every night. She notes that she is never dry in the morning and has not slept in her bed to avoid ruining her mattress. She has been using small throws instead of bed sheets and expresses a need for a solution to manage her condition at night. She has tried emptying her bladder completely before sleep but still cannot get through the night without bedwetting. She has not used adult diapers due to cost concerns and lack of trash disposal services. Sun also reports feeling pressure in her kidneys and experiencing pain on her sides since the surgery. She inquires if these symptoms could be related to kidney stones, noting that she has passed a kidney stone in the past. She also mentions experiencing abdominal bloating, stating, I do get bloated sometimes, and I think I got to pee, but I don't. She describes feeling miserable for a couple of days before the bloating subsides. Sun expresses concerns about a spot on her liver and lung nodules, asking if these could be cancerous. She mentions that a healthcare provider from a different facility thought they saw something concerning but did not provide specific details. She inquires about the possibility of a spit test to diagnose lung cancer. PATHOLOGY: FINAL DIAGNOSIS 1. Left distal ureter, excision (A) - Ureter, negative for malignancy. 2. Right distal ureter, excision (B) - Ureter, negative for malignancy. 3. Bladder, uterus, cervix, ovaries and fallopian tubes, accentuation (C) - Bladder with prior biopsy site changes and benign urachal remnants. - Negative for residual carcinoma. - Margins are negative for malignancy. - Cervix with chronic inflammation and atrophic changes, negative for malignancy. - Benign inactive endometrium. - Myometrium with adenomyosis. - Unremarkable right fallopian tube. - Left fallopian tube with benign paratubal adrenal cortical rest. - Unremarkable right ovary. - Left ovary with benign serous cystadenoma. 4. Bilateral pelvic lymph nodes, excision (D) - Fourteen lymph nodes, negative for malignancy (0/14). 5. Final right ureteral margin, excision (E) - Ureter, negative for malignancy. 6. Final left ureteral margin, excision (F) - Ureter, negative for malignancy. LABS: Creatinine Date Value Ref Range Status 11/01/2023 1.16 (H) 0.58 - 0.96 mg/dL Final 08/06/2022 1.52 (H) 0.58 - 0.96 mg/dL Final 01/18/2022 1.29 (H) 0.58 - 0.96 mg/dL Final 11/05/2021 1.29 (H) 0.58 - 0.96 mg/dL Final IMAGING: CT A/P (08/01/24):No metastatic disease in the abdomen or pelvis. Bilateral pelvocaliectasis with mild urothelial thickening of the bilateral renal pelves, unchanged from prior and likely postsurgical from urinary diversion and neobladder. CT chest (08/01/24): 1. Stable lung nodules compared to studies dating back to 2019, in keeping with benign process. No new or growing lung nodules have developed. CT abdomen/pelvis (02/19/22): Non-distended neobladder with resolution of bilateral hydronephrosis and ureterectasis seen on previous study. Nonspecific left periaortic lymph node unchanged from prior study. No evidence of metastatic disease or local recurrence. CT chest (02/19/22): stable 3.4 mm nodule in the right midline lobe, just below horizontal fissure. ALLERGIES: ALLERGIES Allergen Reactions Bactrim [Sulfametho* Other: See Comments Tetanus And Diphthe* Swelling Tetanus Vaccines An* Swelling Venom-Honey Bee Swelling MEDICATIONS: Current Outpatient Medications Medication Sig nitrofurantoin monohydrate and macrocrystal (MACROBID) 100 mg capsule Take 1 capsule by mouth twice daily with meals for 10 days. levoFLOXacin (LEVAQUIN) 750 mg tablet Take 1 tablet by mouth once daily for 7 days. (Patient not taking: Reported on 11/05/2021) Incontinence Pad, Liner, Disp (BLADDER CONTROL PADS) pads 1 Each every 8 hours as needed. Patient would like the over night pads Equate brand albuterol HFA (PROAIR HFA) 90 mcg/actuation inhaler Inhale 2 Puffs as instructed (more content not included)... Normal [facility] Laboratory - Hematology and Cell countson 08-15-2024 Hemoglobin Ql (U) Small Abnormal Negative [facility] Laboratory - Urinalysison Protein Ql (U) 30 mg/dL Abnormal Negative [facility] No Panel Informationon 08-15 BILIRUBIN UA (POCT) Negative Negative [facility] CLARITY UA (POCT) Cloudy [facility] COLOR UA (POCT) Yellow [facility] GLUCOSE UA (POCT) Negative Negative mg/dL [facility] Interpretation and review of laboratory results Abnormal [facility] KETONE UA (POCT) Negative Negative mg/dL [facility] LEUKOCYTES UA (POCT) Small Abnormal Negative [facility] NITRITE UA (POCT) Positive Abnormal Negative [facility] PH UA (POCT) 7 4.5 - 8.0 [facility] SPECIFIC GRAVITY UA (POCT) 1.015 1.005 - 1.030 [facility] UROBILINOGEN UA (POCT) 0.2 Natalie l E.U./dL [facility] Location:[facility], [address] [place] [address] POINT OF CARE [facility] CT ABD/PEL W IVCONon 025 CT ABD/PEL W IVCON * * *Final Report* * * DATE OF EXAM: Aug 01 2024 7:21AM [facility] 0530 - CT ABD/PEL W IVCON / PROCEDURE REASON: Malignant neoplasm of urinary bladder, unspecified site (HCC) * * * * Physician Interpretation * * * * EXAMINATION: CT ABDOMEN AND PELVIS WITH IV CONTRAST CLINICAL HISTORY: History of bladder cancer status post cystectomy with urinary diversion and neobladder. TECHNIQUE: CT of the abdomen and pelvis was performed using standard technique, scanning from just above the dome of the diaphragm to the symphysis pubis. MQ: CTAP_3 Contrast: IV: 100 ml of Omnipaque 350 CT Radiation dose: Integrated Dose-length product (DLP) for this visit = 381 mGy*cm. CT Dose Reduction Employed: Automated exposure control(AEC) and iterative recon COMPARISON: CT abdomen pelvis 02/19/2022. RESULT: Liver: Subcentimeter hypoattenuating left hepatic lobe lesion (3:42), too small to characterize but stable and likely benign. No new lesion. Biliary: No bile duct dilation. Spleen: No mass. No splenomegaly. Pancreas: No mass or duct dilation. Adrenals: Nonspecific left adrenal gland thickening without measurable nodule. Right adrenal gland is unremarkable. Kidneys: Benign, 1.3 cm left upper pole cyst (3:24). Additional subcentimeter lesions, too small to characterize but likely benign. No calculus. Bilateral pelvocaliectasis with urothelial thickening within the bilateral renal pelves, similar to prior. GI tract: No dilation or wall thickening. Normal appendix. Lymph nodes: No abdominal or pelvic lymphadenopathy. Stable, subcentimeter short axis retroperitoneal lymph nodes. Mesentery/Peritoneum: No ascites or mass. Retroperitoneum: No mass. Vasculature: - Abdominal aorta and iliac arteries: Atherosclerotic calcifications without aneurysm. - Celiac and SMA: Patent without stenosis. - Portal venous system (SMV, splenic vein, portal vein and branches): Patent. - Hepatic veins: Patent. Pelvis: Postsurgical changes of cystectomy with urinary diversion and neobladder. No mass, ascites or fluid collection. Bones/Soft Tissues: No significant findings. Lower thorax: A chest CT performed will be reported separately. Localizer images: No additional findings. IMPRESSION: No metastatic disease in the abdomen or pelvis. Bilateral pelvocaliectasis with mild urothelial thickening of the bilateral renal pelves, unchanged from prior and likely postsurgical from urinary diversion and neobladder. I agree that this report by the resident or fellow represents my interpretation of the study. Newspaper Clipper: BEVERLY Transcribe Date/Time: Aug 01 2024 7:57A Dictated by : IZZY MCCLAIN MD This examination was interpreted and the report reviewed and electronically signed by: RANDY JORGENSEN MD on Aug 01 2024 9:02AM EST [id number] Normal [facility] CT Abdomen and Pelvis W cont rast [place] 08-01-2024 IMPRESSION: No metastatic disease in the abdomen or pelvis. Bilateral pelvocaliectasis with mild urothelial thickening of the bilateral renal pelves, unchanged from prior and likely postsurgical from urinary diversion and neobladder. I agree that this report by the resident or fellow represents my interpretation of the study. Newspaper Clipper: BEVERLY Transcribe Date/Time: Aug 01 2024 7:57A Dictated by : IZZY MCCLAIN MD This examination was interpreted and the report reviewed and electronically signed by: RANDY JORGENSEN MD on Aug 01 2024 9:02AM [facility] DIVISION OF RADIOLOGY * * *Final Report* * * DATE OF EXAM: Aug 01 2024 7:21AM [facility] 0530 - CT ABD/PEL W IVCON / PROCEDURE REASON: Malignant neoplasm of urinary bladder, unspecified site (HCC) * * * * Physician Interpretation * * * * EXAMINATION: CT ABDOMEN AND PELVIS WITH IV CONTRAST CLINICAL HISTORY: History of bladder cancer status post cystectomy with urinary diversion and neobladder. TECHNIQUE: CT of the abdomen and pelvis was performed using standard technique, scanning from just above the dome of the diaphragm to the symphysis pubis. MQ: CTAP_3 Contrast: IV: 100 ml of Omnipaque 350 CT Radiation dose: Integrated Dose-length product (DLP) for this visit = 381 mGy*cm. CT Dose Reduction Employed: Automated exposure control(AEC) and iterative recon COMPARISON: CT abdomen pelvis 02/19/2022. RESULT: Liver: Subcentimeter hypoattenuating left hepatic lobe lesion (3:42), too small to characterize but stable and likely benign. No new lesion. Biliary: No bile duct dilation. Spleen: No mass. No splenomegaly. Pancreas: No mass or duct dilation. Adrenals: Nonspecific left adrenal gland thickening without measurable nodule. Right adrenal gland is unremarkable. Kidneys: Benign, 1.3 cm left upper pole cyst (3:24). Additional subcentimeter lesions, too small to characterize but likely benign. No calculus. Bilateral pelvocaliectasis with urothelial thickening within the bilateral renal pelves, similar to prior. GI tract: No dilation or wall thickening. Normal appendix. Lymph nodes: No abdominal or pelvic lymphadenopathy. Stable, subcentimeter short axis retroperitoneal lymph nodes. Mesentery/Peritoneum: No ascites or mass. Retroperitoneum: No mass. Vasculature: - Abdominal aorta and iliac arteries: Atherosclerotic calcifications without aneurysm. - Celiac and SMA: Patent without stenosis. - Portal venous system (SMV, splenic vein, portal vein and branches): Patent. - Hepatic veins: Patent. Pelvis: Postsurgical changes of cystectomy with urinary diversion and neobladder. No mass, ascites or fluid collection. Bones/Soft Tissues: No significant findings. Lower thorax: A chest CT performed will be reported separately. Localizer images: No additional findings. DIVISION OF RADIOLOGY Provider, [facility] - 08/01/[facility]24 * * *Final Report* * * DATE OF EXAM: Aug 01 2024 7:21AM [facility] 0530 - CT ABD/PEL W IVCON / PROCEDURE REASON: Malignant neoplasm of urinary bladder, unspecified site (HCC) * * * * Physician Interpretation * * * * EXAMINATION: CT ABDOMEN AND PELVIS WITH IV CONTRAST CLINICAL HISTORY: History of bladder cancer status post cystectomy with urinary diversion and neobladder. TECHNIQUE: CT of the abdomen and pelvis was performed using standard technique, scanning from just above the dome of the diaphragm to the symphysis pubis. MQ: CTAP_3 Contrast: IV: 100 ml of Omnipaque 350 CT Radiation dose: Integrated Dose-length product (DLP) for this visit = 381 mGy*cm. CT Dose Reduction Employed: Automated exposure control(AEC) and iterative recon COMPARISON: CT abdomen pelvis 02/19/2022. RESULT: Liver: Subcentimeter hypoattenuating left hepatic lobe lesion (3:42), too small to characterize but stable and likely benign. No new lesion. Biliary: No bile duct dilation. Spleen: No mass. No splenomegaly. Pancreas: No mass or duct dilation. Adrenals: Nonspecific left adrenal gland thickening without measurable nodule. Right adrenal gland is unremarkable. Kidneys: Benign, 1.3 cm left upper pole cyst (3:24). Additional subcentimeter lesions, too small to characterize but likely benign. No calculus. Bilateral pelvocaliectasis with urothelial thickening within the bilateral renal pelves, similar to prior. GI tract: No dilation or wall thickening. Normal appendix. Lymph nodes: No abdominal or pelvic lymphadenopathy. Stable, subcentimeter short axis retroperitoneal lymph nodes. Mesentery/Peritoneum: No ascites or mass. Retroperitoneum: No mass. Vasculature: - Abdominal aorta and iliac arteries: Atherosclerotic calcifications without aneurysm. - Celiac and SMA: Patent without stenosis. - Portal venous system (SMV, splenic vein, portal vein and branches): Patent. - Hepatic veins: Patent. Pelvis: Postsurgical changes of cystectomy with urinary diversion and neobladder. No mass, ascites or fluid collection. Bones/Soft Tissues: No significant findings. Lower thorax: A chest CT performed will be reported separately. Localizer images: No additional findings. IMPRESSION IMPRESSION: No metastatic disease in the abdomen or pelvis. Bilateral pelvocaliectasis with mild urothelial thickening of the bilateral renal pelves, unchanged from prior and likely postsurgical from urinary diversion and neobladder. I agree that this report by the resident or fellow represents my interpretation of the study. Newspaper Clipper: BEVERLY Transcribe Date/Time: Aug 01 2024 7:57A Dictated by : IZZY MCCLAIN MD This examination was interpreted and the report reviewed and electronically signed by: RANDY JORGENSEN MD on Aug 01 2024 9:02AM EST [facility] Radiology Study observation (narrative) [facility] Abdomen and Pelvis W cont rast IVOrdered By: Ccf Provider on 08-01-[address] [facility] [address] CHEST W IVCONon CT CHEST W IVCON * * *Final Report* * * DATE OF EXAM: Aug 01 2024 7:21AM [facility] 0539 - CT CHEST W IVCON / PROCEDURE REASON: Malignant neoplasm of urinary bladder, unspecified site (HCC) * * * * Physician Interpretation * * * * EXAMINATION: CHEST CT WITH CONTRAST CLINICAL HISTORY: Malignant neoplasm of urinary bladder Technique: Spiral CT acquisition of the chest from the thoracic inlet to the upper abdomen following IV contrast. MQ: CTCW_6 Contrast: 100 mL Omnipaque [address] Radiation dose: Integrated Dose-length product (DLP) for this visit = 381 mGy*cm CT Dose Reduction Employed: Automated exposure control(AEC) and iterative recon Comparison: Multiple prior studies dating back to 08/30/2019 RESULT: Limitations: None. Lines, tubes, and devices: None. Lung parenchyma and airways: Stable scattered small benign lung nodules including 6 mm nodule in left lower lobe on image 191, right lower lobe 5 mm nodule on image 189 and a 4 mm nodule in right middle lobe on image 103. No new or growing lung nodules have developed. Centrilobular groundglass opacities and upper lungs likely reflect respiratory bronchiolitis. Unchanged bilateral apical scarring. Mild upper lung predominant centrilobular emphysema noted. Diffuse bronchial wall thickening is again noted in both lungs. The central airways are patent. Pleural space: No pleural effusion. No pleural thickening. Lower neck, lymph nodes, and mediastinum: The imaged thyroid gland is normal. No lymphadenopathy in the supraclavicular, axillary, mediastinal, or hilar regions. Heart, pericardium, and thoracic vessels: The thoracic aorta and main pulmonary artery are normal in caliber. The cardiac chambers are normal in size. Scattered coronary artery atherosclerotic calcifications are noted, although the study is not optimized for coronary assessment. No pericardial effusion or thickening. Bones and soft tissues: No destructive bone lesion. Chest wall is unremarkable. Upper abdomen: Dictated separately. Localizer images: No additional findings. IMPRESSION: 1. Stable lung nodules compared to studies dating back to 2019, in keeping with benign process. No new or growing lung nodules have developed. Newspaper Clipper: PSCB Transcribe Date/Time: Aug 02 2024 8:50A Dictated by : CLAUDIO EDOUARD MD This examination was interpreted and the report reviewed and electronically signed by: CLAUDIO EDOUARD MD on Aug 02 2024 8:58AM EST [id number] Normal [facility] OLIVIER SCREENING W TOMOon 08-01 OLIVIER SCREENING W TAY * * *Final Report* * * DATE OF EXAM: Aug 01 2024 11:48AM [facility] 0582 - OLIVIER SCREENING W TAY / PROCEDURE REASON: Encounter for screening mammogram for breast cancer * * * * Physician Interpretation * * * * RESULT: [place] [address] #[id number] - OLIVIER SCREENING W TAY HISTORY: 58 year-old patient presents for screening. Patient is asymptomatic in both breasts. Patient states no personal history of breast cancer. COMPARISON STUDIES: The present examination has been compared to a prior imaging study dated 08/17/2019 (mammogram). MAMMOGRAM TECHNIQUE: The study was acquired using full field digital technology and interpreted from soft copy. Digital Breast Tomosynthesis (DBT) images were obtained and used to assist in the interpretation of this examination. MAMMOGRAM FINDINGS: There are scattered areas of fibroglandular density. No suspicious masses, calcifications or other abnormalities are seen in either breast. There are no significant interval changes. IMPRESSION: There is no mammographic evidence of malignancy in either breast. Routine screening mammogram is recommended. Annual mammogram will be due in 1 year. BI-RADS Category 1: Negative RISK: Based on the Tyrer-Cuzick (TC) risk assessment model, this patient has a 3.1% lifetime risk of developing breast cancer, meaning they are at average risk for developing breast cancer. However, this is only an estimate based on available history provided on the patient's questionnaire. We encourage all patients to talk with their providers about these results, further recommendations for managing breast health, and appropriate supplemental screening options if the patient has dense breast tissue. Interpreting Radiologist: Celina Richard M.D. Electronically signed on: 08/02/2024 Newspaper Clipper: CARLOS Transcribe Date/Time: Aug 01 2024 11:30A Dictated by: CELINA RICHARD MD This examination was interpreted and the report reviewed and electronically signed by: CELINA RICHARD MD on Aug 02 2024 1:06PM EST [id number] Normal [facility] Bacteria Ur Culton 5 Bacteria identified Cx Nom (U) ORGANISM ID: 1 10,000 -<50,000 CFU/ml Mixed microbiota No further workup. Mixed microbiota can be due to???urine???contamina tion with skin bacteria at time of collection or presence of a long-term urinary catheter. If a new culture is needed, please consider re-education of the patient on proper midstream collection technique or straight catheterization for???urine???collecti on. Normal [facility] Comment on above: Performed By: #### 6 30-4 ####[facility] LABCLIA [id number] [address] OF [facility] CNOVon 05-17-2024 CNOV Office Visit (UCWSTR ) SUN NOGUEIRA ([id number]) 1965 F Date Time Provider Department 05/17/24 2:00 PM BILLY JUAN WSTR During your visit today, we recorded the following information about you: Temperature Pulse Respiration Blood pressure 99.2 degrees 78/minute 20/minute 100/71 Weight 56 kg Billy Juan APRN.KITTY 05/17/2024 2:56 PM Signed This note was created using [employer]. Subjective Sun Nogueira is a 58 year old female. HPI Patient had generalized URI symptoms with runny nose and headache which seem to have resolved over the last week. For the last 3 to 4 days she feels as though she has urinary tract infection with malodorous urine. Patient does self cath due to history of cancer. Patient also complains of pain in her left ear but otherwise denies any vomiting. She states that her temperature is normally 97 so temperature of 99 is a fever for her. Review of Systems As above Objective BP 100/71 Pulse 78 Temp 37.3 ?C (99.2 ?F) Resp 20 Wt 56 kg (123 lb 7.3 oz) LMP 10/08/2019 SpO2 98% BMI 20.23 kg/m? Physical Exam Vitals and nursing note reviewed. Constitutional: General: She is not in acute distress. Appearance: Normal appearance. She is not ill-appearing. HENT: Head: Normocephalic. Right Ear: Tympanic membrane normal. Left Ear: Tympanic membrane normal. Mouth/Throat: Mouth: Mucous membranes are moist. Eyes: Conjunctiva/sclera: Conjunctivae normal. Cardiovascular: Rate and Rhythm: Normal rate and regular rhythm. Pulmonary: Effort: Pulmonary effort is normal. Breath sounds: Normal breath sounds. Abdominal: Palpations: Abdomen is soft. Tenderness: There is no abdominal tenderness. Musculoskeletal: General: Normal range of motion. Cervical back: Normal range of motion. Skin: General: Skin is warm and dry. Neurological: General: No focal deficit present. Mental Status: She is alert. Psychiatric: Mood and Affect: Mood normal. Behavior: Behavior normal. Assessment and Plan ASSESSMENT/PLAN: 1. Urgency of urination - ICD9: 788.63, ICD10: R39.15 (primary diagnosis) Urine does show trace amounts of blood but otherwise is negative for nitrites, leukocytes, and glucose. Urine will be sent for culture. As patient subjectively notes symptoms consistent with UTI she was started on Keflex. - UA DIP, URINE (POC) - BACTERIAL CULTURE, URINE - CEPHALEXIN 500 MG CAPSULE - BACTERIAL CULTURE, URINE 2. Acute cough - ICD9: 786.2, ICD10: R05.1 Patient notes mild ongoing respiratory symptoms including cough and chest tightness. She was given a prescription for prednisone and an albuterol inhaler. We did discuss chest x-ray but is mutually agreed it was not needed at this time. - PREDNISONE 50 MG TABLET - ALBUTEROL SULFATE HFA 90 MCG/ACTUATION AEROSOL INHALER 3. EVELYN (generalized anxiety disorder) - ICD9: 300.02, ICD10: F41.1 Patient notes that she has a history of anxiety and takes Flexeril and Wellbutrin. She notes that her prescription for Wellbutrin is running out and to this point has been unable to get a hold of her PCP to arrange for further prescriptions. Patient was given a short prescription for Flexeril and a short extension of her Wellbutrin with instructions to contact PCP and arrange for further evaluation and medication prescriptions - CYCLOBENZAPRINE 10 MG TABLET - BUPROPION XL 150 MG TAB Billy Juan APRN.KITTY Allergies As of Date: 05/17/2024 Noted Allergy Reaction BACTRIM (SULFAMETHOXAZOLE-TRIM ETH*05/13/2023 14 - Other: See Comments TETANUS AND DIPHTHER. TOX (PF) 01/08/2023 7 - Swelling TETANUS VACCINES AND TOXOID 08/23/2021 7 - Swelling VENOM-HONEY BEE 08/23/2021 7 - Swelling Date Reviewed: 05/17/2024 Reviewed by: Billy Juan APRN.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 - Fully Assessed Reason for Visit: Urinary Frequency [1086] Cmt: Odor, x 3-4 Earache [243] Cmt: Left ear pain, headache, congestion, cough, x 1 week Primary Visit Diagnosis:Urgency of urination [R39.15] Other Visit Diagnoses:Acute cough [R05.1] EVELYN (generalized anxiety disorder) [F41.1] Order(s):UA DIP, URINE (POC) [2277667] Order #: [id number] #:[id number] cyclobenzaprine (FLEXERIL) 10 mg tabletTake 1 tablet by mouth three times a day as needed for muscle spasm for up to 12 doses.Disp: 12 tabletRfl: 0 predniSONE (DELTASONE) 50 mgTake 1 tablet by mouth once daily for 5 days.Disp: 5 tabletRfl: 0 albuterol HFA (PROVENTIL HFA, VENTOLIN HFA) 90 mcg/actuation inhalerInhale 2 puffs as instructed every 4 hours as needed for wheezing/shortness of breath.Disp: 8 gRfl: 0 cephALEXin (KEFLEX) 500 mg capsuleTake 1 capsule by mouth three times a day for 5 days.Disp: 15 capsuleRfl: 0 buPROPion XL (WELLBUTRIN XL) 150 mg 24 hr tabletTake 1 tablet by mouth once daily for 14 days.Disp: 14 tabletRfl: 0 BACTERIAL CULTURE, URINE [SQURCUL] Order #: [id number] (more content not included)... Normal [facility] UA DIP, URINE (POC)on 2024 BILIRUBIN UA (POCT) Negative Negative [facility] CLARITY UA (POCT) Clear [facility] COLOR UA (POCT) Yellow [facility] GLUCOSE UA (POCT) Negative Negative mg/dL [facility] Hemoglobin Ql (U) Trace-lysed Abnormal Negative [facility] Interpretation and review of laboratory results Abnormal [facility] KETONE UA (POCT) Negative Negative mg/dL [facility] LEUKOCYTES UA (POCT) Negative Negative [facility] NITRITE UA (POCT) Negative Negative [facility] PH UA (POCT) 7 4.5 - 8.0 [facility] Protein Ql (U) Negative Negative mg/dL [facility] SPECIFIC GRAVITY UA (POCT) 1.015 1.005 - 1.030 [facility] UROBILINOGEN UA (POCT) 0.2 Natalie l E.U./dL [facility] Location:[address], [place], [address] [facility] CNPN Telephone (INTMWS) SUN NOGUEIRA ([id number]) 1965 F Date Time Provider Department 11/08/23 ALMA DELIA CHOUDHURY During your visit today, we recorded the following information about you: Shanda Lopez RN 11/08/2023 4:25 PM Signed Patient calls and is asking for orders for 14 Irish Indwelling Conte Catheter. Patient states that she had contacted main campus and they have not helped her. Patient uses [facility]. PORFIRIO Acevedo Terri, APRN.REHABILITATION MEDICINE PHYSICIAN 11/10/2023 7:35 AM Signed She is followed by urology. She has been advised to make a follow-up appointment since July by urology but has not yet done so. She was advised at her last appointment May 13, [address] Mendoza to follow up in one year with a CT. Endorse making urology and CT appointments at her earliest convenience. I will route this to urology provider for review. Marsha Vazquez LPN 11/10/2023 12:08 PM Signed Attempted to contact patient but no answer and voice mailbox is full. Marsha Vazquez LPN 11/11/2023 10:35 AM Signed No answer. Left message for patient to call office and ask to speak to a nurse regarding catheter Jailene Jean-Baptiste LPN 11/11/2023 4:05 PM Signed Patient returned call and wants Heide Valle to send order for indwelling catheter for her. She said Urology will not do anything for her about this. Patient was getting mad with this nurse, she said I do not need to tell you all about why I want this. Heide knows all about my issues. Tried to explain to the patient can not insert one herself, she has not had one previously but was not getting much information from the patient. Heide Valle APRN.REHABILITATION MEDICINE PHYSICIAN 11/11/2023 4:45 PM Addendum Routed to urology. She does not yet have an appoointment. Allergies As of Date: 11/08/2023 Noted Allergy Reaction BACTRIM (SULFAMETHOXAZOLE-TRIM ETH*05/13/2023 14 - Other: See Comments TETANUS AND DIPHTHER. TOX (PF) 01/08/2023 7 - Swelling TETANUS VACCINES AND TOXOID 08/23/2021 7 - Swelling VENOM-HONEY BEE 08/23/2021 7 - Swelling Date Reviewed: 11/01/2023 Reviewed by: Heide Valle APRN.REHABILITATION MEDICINE PHYSICIAN - Fully Assessed Reason for Visit: Patient Request [1696] Prescriptions as of 11/11/2023 - cholecalciferol (VITAMIN D3) 1,000 unit tab tablet Take 2 tablets by mouth once daily. - cyclobenzaprine (FLEXERIL) 10 mg tablet Take 1 tablet by mouth at bedtime as needed for muscle spasm. - MULTIVITAMIN ORAL Take by mouth. - buPROPion XL (WELLBUTRIN XL) 150 mg 24 hr tablet Take 1 tablet by mouth once daily. - iv contrast (will be provided with radiology test) CT ABD/PEL -Inject, intravenously, once for 1 dose.No IV access, insert saline lock prior to the beginning of sedation, infusion, injection of imaging exam. Discontinue saline lock post exam. If Pt. has a central line or IVAD, may access for administration according to line specific nursing protocol. Once exam is complete flush line and de-access according to line specific nursing protocol in the CT contrast administration guidelines link. - docusate sodium (COLACE) 100 mg capsule Take 1 capsule by mouth two times a day as needed for constipation. while taking hydrocodone acetaminophen - iv contrast (will be provided with radiology test) CT ABD/PEL -Inject, intravenously, once for 1 dose.No IV access, insert saline lock prior to the beginning of sedation, infusion, injection of imaging exam. Discontinue saline lock post exam. If Pt. has a central line or IVAD, may access for administration according to line specific nursing protocol. Once exam is complete flush line and de-access according to line specific nursing protocol in the CT contrast administration guidelines link. 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 Opioid dependence, uncomplicated (HCC) [F11.20] 06/02/2017 02/20/2020 Bronchitis [J40] 10/18/2019 Malignant tumor of urinary bladder (HCC) [C67.9]10/18/2019 Smoker [F17.200] 11/30/2019 04/07/2021 Bladder cancer (HCC) [C67.9] 12/14/2019 Retained ureteral stent [Z96.0] 01/29/2020 01/31/2020 Encounter Status:Closed by HEIDE VALLE on 11/11/23 Normal [facility] 25(OH)D3 SerPl-mCncon 2023 25-hydroxyvitamin D3 [Mass/Vol] 25.3 ng/mL Low 31.0-80.0 [facility] Comment on above: Order Comment: Speci men Type: BLOOD SPECIMENOrdering Facility: [facility] Address: [address] [place] [address] Result Comment: Clas sification of 25 [place] Vitamin D status: Deficiency/Insufficiency: < or = 30 ng/ml. Sufficiency/Optimal Levels: 31-80 ng/mL Toxicity: > 100 ng/mL. Test performed by chemiluminescent immunoassay. Performed By: #### 1 989-3 ####[facility] LABCLIA [id number] [place] [address] [place] CBC W Auto Differential pane l (Bld)on 11-01-2023 Basophils (Bld) [#/Vol] 0.08 10*3/uL Normal <0.11 [facility] Comment on above: Order Comment: Speci men Type: BLOOD SPECIMENOrdering Facility: [facility] Address: [address] [place] [address] Performed By: #### 5 7021-8 ####[facility] LABCLIA [id number] [place] [address] [place] Basophils/100 WBC (Bld) 1.0 % Normal C [facility] Comment on above: Order Comment: Speci men Type: BLOOD SPECIMENOrdering Facility: [facility] Address: [address] [place] [address] Performed By: #### 5 7021-8 ####[facility] LABCLIA [id number] [place] [address] [place] Differential cell count method Nom (Bld) Auto Normal [facility] Comment on above: Order Comment: Speci men Type: BLOOD SPECIMENOrdering Facility: [facility] Address: [address] [place] [address] Performed By: #### 5 7021-8 ####[facility] LABCLIA [id number] [place] [address] [place] Eosinophils (Bld) [#/Vol] 0.26 10*3/uL Normal <0.46 [facility] Comment on above: Order Comment: Speci men Type: BLOOD SPECIMENOrdering Facility: [facility] Address: [address] [place] [address] Performed By: #### 5 7021-8 ####[facility] LABCLIA [id number] [place] [address] [place] Eosinophils/100 WBC (Bld) 3.1 % Normal [facility] Comment on above: Order Comment: Speci men Type: BLOOD SPECIMENOrdering Facility: [facility] Address: [address] [place] [address] Performed By: #### 5 7021-8 ####[facility] LABCLIA [id number] [place] [address] [place] Erythrocyte distribution width (RBC) [Ratio] 13.8 % Normal 11.5-15.0 [facility] Comment on above: Order Comment: Speci men Type: BLOOD SPECIMENOrdering Facility: [facility] Address: [address] [place] [address] Performed By: #### 5 7021-8 ####[facility] LABCLIA [id number] [place] [address] [place] Hematocrit (Bld) [Volume fraction] 41.7 % Normal 36.0-46.0 [facility] Comment on above: Order Comment: Speci men Type: BLOOD SPECIMENOrdering Facility: [facility] Address: [address] [place] [address] Performed By: #### 5 7021-8 ####[facility] LABCLIA [id number] [place] [address] [place] Hemoglobin (Bld) [Mass/Vol] 13.4 g/dL Normal 11.5-15.5 [facility] Comment on above: Order Comment: Speci men Type: BLOOD SPECIMENOrdering Facility: [facility] Address: [address] [place] [address] Performed By: #### 5 7021-8 ####[facility] LABCLIA [id number] [place] [address] [place] Immature granulocytes (Bld) [#/Vol] 10*3/uL Normal <0.10 [facility] Comment on above: Order Comment: Speci men Type: BLOOD SPECIMENOrdering Facility: [facility] Address: [address] [place] [address] Performed By: #### 5 7021-8 ####[facility] LABCLIA [id number] [place] [address] [place] Immature granulocytes/100 WBC (Bld) 0.1 % Normal [facility] Comment on above: Order Comment: Speci men Type: BLOOD SPECIMENOrdering Facility: [facility] Address: [address] [place] [address] Performed By: #### 5 7021-8 ####[facility] LABCLIA [id number] [place] [address] [place] Lymphocytes (Bld) [#/Vol] 2.73 10*3/uL Normal 1.00-4.00 [facility] Comment on above: Order Comment: Speci men Type: BLOOD SPECIMENOrdering Facility: [facility] Address: [address] [place] [address] Performed By: #### 5 7021-8 ####[facility] LABCLIA [id number] [place] [address] [place] Lymphocytes/100 WBC (Bld) 32.5 % Normal [facility] Comment on above: Order Comment: Speci men Type: BLOOD SPECIMENOrdering Facility: [facility] Address: [address] [place] [address] Performed By: #### 5 7021-8 ####[facility] LABCLIA [id number] [place] [address] [place] MCH (RBC) [Entitic mass] 29.5 pg Normal 26.0-34.0 [facility] Comment on above: Order Comment: Speci men Type: BLOOD SPECIMENOrdering Facility: [facility] Address: [address] [place] [address] Performed By: #### 5 7021-8 ####[facility] LABIA [id number] [place] [address] [place] MCHC (RBC) [Mass/Vol] 32.1 g/dL Normal 30.5-36.0 [facility] Comment on above: Order Comment: Speci men Type: BLOOD SPECIMENOrdering Facility: [facility] Address: [address] [place] [address] Performed By: #### 5 7021-8 ####[facility] LABCLIA [id number] [place] [address] [place] MCV (RBC) [Entitic vol] 91.9 fL Normal 80.0-100.0 C [facility] Comment on above: Order Comment: Speci men Type: BLOOD SPECIMENOrdering Facility: [facility] Address: [address] [place] [address] Performed By: #### 5 7021-8 ####[facility] LABCLIA [id number] [place] [address] [place] Monocytes (Bld) [#/Vol] 0.62 10*3/uL Normal <0.87 [facility] Comment on above: Order Comment: Speci men Type: BLOOD SPECIMENOrdering Facility: [facility] Address: [address] [place] [address] Performed By: #### 5 7021-8 ####[facility] LABCLIA [id number] [place] [address] [place] Monocytes/100 WBC (Bld) 7.4 % Normal [facility] Comment on above: Order Comment: Speci men Type: BLOOD SPECIMENOrdering Facility: [facility] Address: [address] [place] [address] Performed By: #### 5 7021-8 ####[facility] LABCLIA [id number] [place] [address] [place] Neutrophils (Bld) [#/Vol] 4.69 10*3/uL Normal 1.45-7.50 [facility] Comment on above: Order Comment: Speci men Type: BLOOD SPECIMENOrdering Facility: [facility] Address: [address] [place] [address] Performed By: #### 5 7021-8 ####[facility] LABCLIA [id number] [place] [address] [place] [place] Neutrophils/100 WBC (Bld) 55.9 % Normal [facility] Comment on above: Order Comment: Speci men Type: BLOOD SPECIMENOrdering Facility: [facility] Address: [address] [place] [address] Performed By: #### 5 7021-8 ####[facility] LABCLIA [id number] [place] [address] [place] Nucleated RBC (Bld) [#/Vol] 10*3/uL Normal <0.01 [facility] Comment on above: Order Comment: Speci men Type: BLOOD SPECIMENOrdering Facility: [facility] Address: [address] [place] [address] Performed By: #### 5 7021-8 ####[facility] LABCLIA [id number] [place] [address] [place] Nucleated RBC/100 WBC (Bld) [Ratio] 0.0 /100 WBC Normal [facility] Comment on above: Order Comment: Speci men Type: BLOOD SPECIMENOrdering Facility: [facility] Address: [address] [place] [address] Performed By: #### 5 7021-8 ####[facility] LABCLIA [id number] [place] [address] [place] Platelet mean volume (Bld) [Entitic vol] 10.6 fL Normal 9.0-12.7 [facility] Comment on above: Order Comment: Speci men Type: BLOOD SPECIMENOrdering Facility: [facility] Address: [address] [place] [address] Performed By: #### 5 7021-8 ####[facility] LABIA [id number] [place] [address] [place] Platelets (Bld) [#/Vol] 299 10*3/uL Normal 150-400 [facility] Comment on above: Order Comment: Speci men Type: BLOOD SPECIMENOrdering Facility: [facility] Address: [address] [place] [address] Performed By: #### 5 7021-8 ####[facility] LABCLIA [id number] [place] [address] [place] RBC (Bld) [#/Vol] 4.54 10*6/uL Normal 3.90-5.20 [facility] Comment on above: Order Comment: Speci men Type: BLOOD SPECIMENOrdering Facility: [facility] Address: [address] [place] [address] Performed By: #### 5 7021-8 ####[facility] LABCLIA [id number] [place] [id number] [place] WBC (Bld) [#/Vol] 8.39 10*3/uL Normal 3.70-11.00 [facility] Comment on above: Order Comment: Speci men Type: BLOOD SPECIMENOrdering Facility: [facility] Address: [address] [place] [address] Performed By: #### 5 7021-8 ####[facility] LABCLIA [id number] [place] [id number] [place] CNCOon 11-01-2023 CNCO Letter Text Normal [facility] CNOVon 11-01-2023 CNOV Office Visit (INTMWS ) SUN NOGUEIRA ([id number]) 1965 F Date Time Provider Department 11/01/23 4:00 PM HEIDE VALLE INTMWS During your visit today, we recorded the following information about you: Pulse Respiration Blood pressure Weight 83/minute 16/minute 100/66 53.1 kg Height 1.664 m Heide Valle, MONIQUE.REHABILITATION MEDICINE PHYSICIAN 11/01/2023 5:00 PM Signed SUBJECTIVE: Hepatitis C Screening Never done HIV Screening Never done Mammogram Screening due on 08/16/2020 HPI Sun Nogueira is a 58 year old female. 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 Test strip Ql (U)O rdered By: Dr. Doe on 01-16-2022 Bilirubin Ql (U) Negative Negative [facility] Ketones Test strip Ql (U)Ord ered By: Dr. Doe on 01-16-2022 Ketones Ql (U) Negative Negative [facility] Mucus LM Ql (Urine sed)Order ed By: Dr. Doe on 01-16-2022 Mucus Ql (Urine sed) 0 SEEN /hpf [facility] Nitrite Test strip Ql (U)Ord ered By: Dr. Doe on 01-16-2022 Nitrite Ql (U) Negative Negative [facility] Protein Test strip Ql (U)Ord ered By: Dr. Doe on 01-16-2022 Protein Ql (U) Negative Negative [facility] Squamous epithelial cells de tection in urine sediment by light microscopyOrdered By: Dr. Doe on 01-16-2022 Epithelial cells.squamous LM Ql (Urine sed) 0-5 SEEN /hpf 5-10 [facility] Urine blood detectionOrdered By: Dr. Doe on 01-16-2022 RBC Ql (U) 25 /ul Negative [facility] RBC Ql (U) 0 SEEN /hpf 0-5 [facility] Urine clarityOrdered By: Dr. Doe on 01-16-2022 Clarity (U) Sl. Cloudy Clear [facility] Urine color determinationOrd ered By: Dr. Doe on 01-16-2022 Color (U) YELLOW Yellow [facility] Urine glucose detectionOrder ed By: Dr. Doe on 01-16-2022 Glucose Ql (U) Normal mg/dl Normal [facility] Urine leukocyte esterase det ection by dipstickOrdered By: Dr. Doe on 01-16-2022 Leukocyte esterase Test strip Ql (U) 100 /ul Negative [facility] Urine pHOrdered By: Dr. Joaquín landaverde on 01-16-2022 pH (U) 7.0 [pH] 5.0 - 8.0 [facility] Urine sediment bacteria coun t by microscopy (number/high power field)Ordered By: Dr. Doe on 01-16-2022 Bacteria LM.HPF (Urine sed) [#/Area] RARE /hpf None Seen [facility] Urine specific gravity measu rementOrdered By: Dr. Doe on 01-16-2022 Specific gravity (U) [Rel density] 1.010 1.002-1.030 [facility] Urobilinogen Auto test strip Ql (U)Ordered By: Dr. Doe on 01-16-2022 Urobilinogen Ql (U) Normal mg/dl Normal [facility] Absolute lymphocyte counton 10-31-2021 Lymphocytes Auto (Unsp spec) [#/Vol] 2.23 10*3/uL 0.83-4.51 [facility] Work Phone: Basophil percentageon 2021 Chloride [Moles/Vol] 99 mmol/L 98-107 [facility] Work Phone: Glucose [Mass/Vol] 102 mg/dL 74-[address] [facility] Work Phone: Comment on above: Fasting Glucose resu lt from 100 to 125 mg/dL suggests IMPAIRED HOMEOSTASIS per A.D.A. criteria. Potassium [Moles/Vol] 4.6 mmol/L 3.5-5.1 [facility] Work Phone: Sodium [Moles/Vol] 128 mmol/L 136-[address] [facility] Work Phone: Lactate [Moles/Vol] 1.1 mmol/L 0.4-2.0 [facility] Work Phone: Basophil percentage 10-25 SEEN /hpf 0-5 [facility] Work Phone: Basophils/100 WBC (Bld) 0.4 % 0-1 [facility] Work Phone: Bilirubin [Mass/Vol] 0.60 mg/dL 0.20-1.00 [facility] Work Phone: Comment on above: For patients on eltr ombopag therapy, use of Dimension Comins TBIL is not recommended. Chloride [Moles/Vol] 86 mmol/L 98-107 [facility] Work Phone: Eosinophils/100 WBC (Bld) 0.2 % 0-5 [facility] Work Phone: Glucose [Mass/Vol] 133 mg/dL 74-[address] [facility] Work Phone: Comment on above: Fasting Glucose resu lt greater than or equal to 126 mg/dL suggests DIABETES MELLITUS per A.D.A. criteria. Neutrophils (Bld) [#/Vol] 8.3 10*3/uL 2.0-7.7 [facility] Work Phone: Neutrophils/100 WBC (Bld) 72.0 % 47-70 [facility] Work Phone: Potassium [Moles/Vol] 5.3 mmol/L 3.5-5.1 [facility] Work Phone: Protein [Mass/Vol] 9.7 g/dL 6.4-8.[address] [facility] Work Phone: Sodium [Moles/Vol] 119 mmol/L 136-[address] [facility] Work Phone: Comment on above: Critical Result(s) C alled at: 12:22:18 10/31/2021 by: Nayeli Arenas. Results read back by same. WBC (Bld) [#/Vol] 11.6 10*3/uL 4.4-11.0 [facility] Work Phone: Bilirubin Test strip Ql (U)o n 10-31-2021 Bilirubin Ql (U) Negative Negative [facility] Work Phone: Blood erythrocytes count (nu mber/volume)on 10-31-2021 RBC (Bld) [#/Vol] 5.28 10*6/uL 4.2-5.4 [facility] Work Phone: Blood hemoglobin measurement (mass/volume)on 10-31-2021 Hemoglobin (Bld) [Mass/Vol] 15.7 g/dL 12.0-15.0 [facility] Work Phone: Blood lymphocytes/100 leukoc yteson 10-31-2021 Lymphocytes/100 WBC (Bld) 19.3 % 19-41 [facility] Work Phone: [phone] Blood monocytes/100 leukocyt eson 10-31-2021 Monocytes/100 WBC (Bld) 7.5 % 0-10 [facility] Work Phone: Blood platelet mean volumeon 10-31-2021 Platelet mean volume (Bld) [Entitic vol] 10.4 fL 6.2-12.0 [facility] Work Phone: Determination of erythrocyte mean corpuscular volume (MCV)on 10-31-2021 MCV (RBC) [Entitic vol] 85.6 fL 81-99 [facility] Work Phone: Direct bilirubinon 2 Bilirubin.direct [Mass/Vol] 0.10 mg/dL 0.00-0.30 [facility] Work Phone: Hematocrit Auto (Bld) [Volum e fraction]on 10-31-2021 Hematocrit (Bld) [Volume fraction] 45.2 % 37-47 [facility] Work Phone: Ketones Test strip Ql (U)on 10-31-2021 Ketones Ql (U) Negative Negative [facility] Work Phone: Laboratory - Chemistry and C hemistry - challengeon 10-31-2021 CO2 [Moles/Vol] 17.0 mmol/L 21.0-32.0 [facility] Work Phone: Urea nitrogen/Creatinine [Mass ratio] 59.8 mg/mg 10-20 [facility] Work Phone: Sodium (U) [Moles/Vol] 42 mmol/L Not Establ. [facility] Work Phone: ALP [Catalytic activity/Vol] 104 U/L 45-117 [facility] Work Phone: [phone] ALT [Catalytic activity/Vol] 16 U/L 13-56 [facility] Work Phone: [phone] CO2 [Moles/Vol] 17.0 mmol/L 21.0-32.0 [facility] Work Phone: [phone] Globulin (S) [Mass/Vol] 5.1 g/dL 2.2-4.2 [facility] Work Phone: [phone] Lipase [Catalytic activity/Vol] 445 U/L 73-393 [facility] Work Phone: [phone] Urea nitrogen/Creatinine [Mass ratio] 48.7 mg/mg 10-20 [facility] Work Phone: [phone] Laboratory - Hematology and Cell countson 10-31-2021 Erythrocyte distribution width (RBC) [Entitic vol] 40.6 fL 35.1-43.9 [facility] Work Phone: [phone] Erythrocyte distribution width (RBC) [Ratio] 13.0 % 11.6-14.6 [facility] Work Phone: [phone] Immature granulocytes/100 WBC (Bld) 0.600 % 0.0-0.9 [facility] Work Phone: Comment on above: IG% - Immature Granu locytes (promyelocytes, myelocytes and metamyelocytes) > 1% indicates that a LEFT SHIFT is Present. MCH (RBC) [Entitic mass] 29.7 pg 27.0-32.0 [facility] Work Phone: [phone] Nucleated RBC/100 WBC (Bld) [Ratio] 0 % 0-5 [facility] Work Phone: [phone] MCHC Auto (RBC) [Mass/Vol]on 10-31-2021 MCHC (RBC) [Mass/Vol] 34.7 g/dL 32-36 [facility] Work Phone: [phone] Mucus LM Ql (Urine sed)on Mucus Ql (Urine sed) 0 SEEN /hpf [facility] Work Phone: Nitrite Test strip Ql (U)on 10-31-2021 Nitrite Ql (U) Negative Negative [facility] Work Phone: No Panel Informationon 10-31 Estimated Creatinine Clearance Calc 27.97 ml/min [facility] Work Phone: Estimated GFR (MDRD) Amer 33 mL/min >60 [facility] Work Phone: Comment on above: GFR Calc Estimated GFR (MDRD) Non-Af Amer 27 mL/min >60 [facility] Work Phone: Comment on above: Non- GFR Calc Estimated Creatinine Clearance Calc 20.20 ml/min [facility] Work Phone: Estimated GFR (MDRD) Amer 23 mL/min >60 [facility] Work Phone: Comment on above: GFR Calc Estimated GFR (MDRD) Non-Af Amer 19 mL/min >60 [facility] Work Phone: Comment on above: Non- GFR Calc Platelets bldon 10-31-2021 Platelets (Bld) [#/Vol] 456 10*3/uL 150-450 [facility] Work Phone: Protein Test strip Ql (U)on 10-31-2021 Protein Ql (U) 100 mg/dl Negative [facility] Work Phone: [phone] Serum or plasma albumin khurram urement (mass/volume)on 10-31-2021 Albumin [Mass/Vol] 4.6 g/dL 3.2-5.[address] [facility] Work Phone: [phone] Serum or plasma calcium khurram urement (mass/volume)on 10-31-2021 Calcium [Mass/Vol] 8.1 mg/dL 8.5-10.[address] [facility] Work Phone: [phone] Calcium [Mass/Vol] 9.8 mg/dL 8.5-10.[address] [facility] Work Phone: Serum or plasma creatinine m easurement (mass/volume)on 10-31-2021 Creatinine [Mass/Vol] 1.99 mg/dL 0.55-1.02 [facility] Work Phone: Comment on above: The validity of the calculated GFR & GFRAA in patients over 70 years has not been determined. Clinical correlation is essential. Creatinine [Mass/Vol] 2.75 mg/dL 0.55-1.02 [facility] Work Phone: Comment on above: The validity of the calculated GFR & GFRAA in patients over 70 years has not been determined. Clinical correlation is essential. Serum or plasma urea nitroge n measurement (mass/volume)on 10-31-2021 Urea nitrogen [Mass/Vol] 119 mg/dL 08-24 [facility] Work Phone: Comment on above: Critical Result(s) C alled at: 18:16:21 10/31/2021 by: Marquis Phillips RN ([facility]). Results read back by same. Urea nitrogen [Mass/Vol] 134 mg/dL 08-24 [facility] Work Phone: Comment on above: Critical Result(s) C alled at: 12:22:18 10/31/2021 by: Nayeli Arenas. Results read back by same. Squamous epithelial cells de tection in urine sediment by light microscopyon 10-31-2021 Epithelial cells.squamous LM Ql (Urine sed) 0-5 SEEN /hpf 5-10 [facility] Work Phone: Thin prep Papanicolaou smear with manual screeningon 10-31-2021 Thin prep Papanicolaou smear with manual screening 12 5-15 [facility] Work Phone: Thin prep Papanicolaou smear with manual screening 305 mOsm/KG [phone] [facility] Work Phone: Thin prep Papanicolaou smear with manual screening 18 U/L 15-37 [facility] Work Phone: Thin prep Papanicolaou smear with manual screening 16 5-15 [facility] Work Phone: Urine blood detectionon 10-09 RBC Ql (U) 250 /ul Negative [facility] Work Phone: RBC Ql (U) 0 SEEN /hpf 0-5 [facility] Work Phone: Urine clarityon 10-31-2021 Clarity (U) Sl. Cloudy Clear [facility] Work Phone: Urine color determinationon 10-31-2021 Color (U) Yellow Yellow [facility] Work Phone: Urine creatinine measurement (mass/volume)on 10-31-2021 Creatinine (U) [Mass/Vol] mg/dL NO RANGE EST. [facility] Work Phone: Urine glucose detectionon Glucose Ql (U) Normal mg/dl Normal [facility] Work Phone: Urine leukocyte esterase det ection by dipstickon 10-31-2021 Leukocyte esterase Test strip Ql (U) 500 /ul Negative [facility] Work Phone: Urine osmolality measurement on 10-31-2021 Osmolality (U) [Osmolality] 347 mOsm/KG >50 [facility] Work Phone: Comment on above: Normal Urine Referen ce Ranges Random: 50 - 1200 mOsm/kg H20 depending on fluid intake Random: >850 mOsm/kg after 12 hour fluid restriction 24 hour: ~300 - 900 mOsm/kg H2O Urine pHon 10-31-2021 pH (U) 8.0 [pH] 5.0 - 8.0 [facility] Work Phone: Urine sediment bacteria coun t by microscopy (number/high power field)on 10-31-2021 Bacteria LM.HPF (Urine sed) [#/Area] 2 /[HPF] None Seen [facility] Work Phone: Urine specific gravity measu rementon 10-31-2021 Specific gravity (U) [Rel density] 1.010 1.002-1.030 [facility] Work Phone: Urobilinogen Auto test strip Ql (U)on 10-31-2021 Urobilinogen Ql (U) Normal mg/dl Normal [facility] Work Phone: Absolute lymphocyte counton 08-24-2021 Lymphocytes Auto (Unsp spec) [#/Vol] 1.61 10*3/uL 0.83-4.51 [facility] Work Phone: Basophil percentageon 2021 Basophils/100 WBC (Bld) 0.5 % 0-1 [facility] Work Phone: Bilirubin [Mass/Vol] 0.20 mg/dL 0.20-1.00 [facility] Work Phone: Comment on above: For patients on eltr ombopag therapy, use of Dimension Comins TBIL is not recommended. Chloride [Moles/Vol] 112 mmol/L 98-107 [facility] Work Phone: Eosinophils/100 WBC (Bld) 2.0 % 0-5 [facility] Work Phone: Glucose [Mass/Vol] 89 mg/dL 74-[address] [facility] Work Phone: Neutrophils (Bld) [#/Vol] 6.4 10*3/uL 2.0-7.7 [facility] Work Phone: Neutrophils/100 WBC (Bld) 69.4 % 47-70 [facility] Work Phone: Potassium [Moles/Vol] 3.4 mmol/L 3.5-5.1 [facility] Work Phone: Protein [Mass/Vol] 6.1 g/dL 6.4-8.[address] [facility] Work Phone: Sodium [Moles/Vol] 138 mmol/L 136-[address] [facility] Work Phone: WBC (Bld) [#/Vol] 9.2 10*3/uL 4.4-11.[address] [facility] Work Phone: Blood erythrocytes count (nu mber/volume)on 08-24-2021 RBC (Bld) [#/Vol] 3.75 10*6/uL 4.2-5.4 [facility] Work Phone: Blood hemoglobin measurement (mass/volume)on 08-24-2021 Hemoglobin (Bld) [Mass/Vol] 10.9 g/dL 12.0-15.0 [facility] Work Phone: [phone] Blood lymphocytes/100 leukoc yteson 08-24-2021 Lymphocytes/100 WBC (Bld) 17.5 % 19-41 [facility] Work Phone: [phone] monocytes/100 leukocyt eson 08-24-2021 Monocytes/100 WBC (Bld) 10.2 % 0-10 [facility] Work Phone: [phone] Blood platelet mean volumeon 08-24-2021 Platelet mean volume (Bld) [Entitic vol] 10.7 fL 6.2-12.0 [facility] Work Phone: [phone] Determination of erythrocyte mean corpuscular volume (MCV)on 08-24-2021 MCV (RBC) [Entitic vol] 87.5 fL 81-99 [facility] Work Phone: [phone] Hematocrit Auto (Bld) [Volum e fraction]on 08-24-2021 Hematocrit (Bld) [Volume fraction] 32.8 % 37-47 [facility] Work Phone: Laboratory - Chemistry and C hemistry - challengeon 08-24-2021 ALP [Catalytic activity/Vol] 68 U/L 45-117 [facility] Work Phone: [phone] ALT [Catalytic activity/Vol] 13 U/L 13-56 [facility] Work Phone: [phone] CO2 [Moles/Vol] 15.0 mmol/L 21.0-32.0 [facility] Work Phone: [phone] Globulin (S) [Mass/Vol] 3.1 g/dL 2.2-4.2 [facility] Work Phone: Urea nitrogen/Creatinine [Mass ratio] 49.5 mg/mg 10-20 [facility] Work Phone: [phone] Laboratory - Hematology and Cell countson 08-24-2021 Erythrocyte distribution width (RBC) [Entitic vol] 44.6 fL 35.1-43.9 [facility] Work Phone: [phone] Erythrocyte distribution width (RBC) [Ratio] 14.0 % 11.6-14.6 [facility] Work Phone: [phone] Immature granulocytes/100 WBC (Bld) 0.400 % 0.0-0.9 [facility] Work Phone: [phone] Comment on above: IG% - Immature Granu locytes (promyelocytes, myelocytes and metamyelocytes) > 1% indicates that a LEFT SHIFT is Present. MCH (RBC) [Entitic mass] 29.1 pg 27.0-32.0 [facility] Work Phone: [phone] Nucleated RBC/100 WBC (Bld) [Ratio] 0 % 0-5 [facility] Work Phone: [phone] MCHC Auto (RBC) [Mass/Vol]on 08-24-2021 MCHC (RBC) [Mass/Vol] 33.2 g/dL 32-36 [facility] Work Phone: No Panel Informationon 08-24 Estimated Creatinine Clearance Calc 54.89 ml/min [facility] Work Phone: [phone] Estimated GFR (MDRD) Amer 73 mL/min >60 [facility] Work Phone: [phone] Comment on above: GFR Calc Estimated GFR (MDRD) Non-Af Amer 60 mL/min >60 [facility] Work Phone: [phone] Comment on above: Non- GFR Calc Platelets bldon 08-24-2021 Platelets (Bld) [#/Vol] 246 10*3/uL 150-450 [facility] Work Phone: [phone] Serum or plasma albumin khurram urement (mass/volume)on 08-24-2021 Albumin [Mass/Vol] 3.0 g/dL 3.2-5.[address] [facility] Work Phone: Serum or plasma albumin/glob ulin mass ratioon 08-24-2021 Albumin/Globulin [Mass ratio] 1.0 {ratio} 0.9-2.4 [facility] Work Phone: Serum or plasma calcium khurram urement (mass/volume)on 08-24-2021 Calcium [Mass/Vol] 7.9 mg/dL 8.5-10.[address] [facility] Work Phone: Serum or plasma creatinine m easurement (mass/volume)on 08-24-2021 Creatinine [Mass/Vol] 1.01 mg/dL 0.55-1.02 [facility] Work Phone: Comment on above: The validity of the calculated GFR & GFRAA in patients over 70 years has not been determined. Clinical correlation is essential. Serum or plasma urea nitroge n measurement (mass/volume)on 08-24-2021 Urea nitrogen [Mass/Vol] 50 mg/dL 08-24 [facility] Work Phone: Thin prep Papanicolaou smear with manual screeningon 08-24-2021 Thin prep Papanicolaou smear with manual screening 11 U/L 15-37 [facility] Work Phone: Thin prep Papanicolaou smear with manual screening 11 5-15 [facility] Work Phone: Basophil percentageon 2021 Basophil percentage 5-10 SEEN /hpf 0-5 [facility] Work Phone: Bilirubin Test strip Ql (U)o n 08-23-2021 Bilirubin Ql (U) Negative Negative [facility] Work Phone: Ketones Test strip Ql (U)on 08-23-2021 Ketones Ql (U) Negative Negative [facility] Work Phone: Mucus LM Ql (Urine sed)on Mucus Ql (Urine sed) 0 SEEN /hpf [facility] Work Phone: Nitrite Test strip Ql (U)on 08-23-2021 Nitrite Ql (U) Positive Negative [facility] Work Phone: No Panel Informationon 08-23 Troponin I High Sensitivity 6 pg/mL 3.0-54.0 [facility] Work Phone: Comment on above: Please Note: New Corina t Units and Gender Specific Reference Ranges. For more information see Policy Stat Procedure Comins High Sensitivity Troponin (TNIH) and attachments. Protein Test strip Ql (U)on 08-23-2021 Protein Ql (U) 30 mg/dl Negative [facility] Work Phone: Squamous epithelial cells de tection in urine sediment by light microscopyon 08-23-2021 Epithelial cells.squamous LM Ql (Urine sed) 0 SEEN /hpf 5-10 [facility] Work Phone: Urine blood detectionon 08-07 RBC Ql (U) 50 /ul Negative [facility] Work Phone: RBC Ql (U) 0 SEEN /hpf 0-5 [facility] Work Phone: Urine clarityon 08-23-2021 Clarity (U) Cloudy Clear [facility] Work Phone: Urine color determinationon 08-23-2021 Color (U) Yellow Yellow [facility] Work Phone: Urine glucose detectionon Glucose Ql (U) Normal mg/dl Normal [facility] Work Phone: Urine leukocyte esterase det ection by dipstickon 08-23-2021 Leukocyte esterase Test strip Ql (U) 500 /ul Negative [facility] Work Phone: Urine pHon 08-23-2021 pH (U) 8.0 [pH] 5.0 - 8.0 [facility] Work Phone: [phone] Urine sediment bacteria coun t by microscopy (number/high power field)on 08-23-2021 Bacteria LM.HPF (Urine sed) [#/Area] 3 /[HPF] None Seen [facility] Work Phone: Urine specific gravity measu rementon 08-23-2021 Specific gravity (U) [Rel density] 1.010 1.002-1.030 [facility] Work Phone: Urobilinogen Auto test strip Ql (U)on 08-23-2021 Urobilinogen Ql (U) Normal mg/dl Normal [facility] Work Phone: XR CHEST 2V FRONTAL/LATon [facility] XR Chest PA and Lateralon IMPRESSION: No acute radiographic abnormality. Newspaper Clipper: PSCB Transcribe Date/Time: Jul 03 2021 2:55P Dictated by : ANDREA CARROLL MD This examination was interpreted and the report reviewed and electronically signed by: ANDREA CARROLL MD on Jul 03 2021 2:56PM EST [email or web address]_U _DIVISION OF RADIOLOGY * * *Final Report* * * DATE OF EXAM: Jul 03 2021 2:53PM WOX 5291 - XR CHEST 2V FRONTAL/LAT / PROCEDURE REASON: multiple diagnoses * * * * Physician Interpretation * * * * EXAMINATION: CHEST RADIOGRAPH (2 VIEW FRONTAL & LATERAL) CLINICAL HISTORY: Wheezing Cough MQ: XC2_6 EXAM DATE/TIME: 07/03/2021 2:53 PM COMPARISON: No relevant prior studies available. RESULT: Lines, tubes, and devices: None. Lungs and pleura: The lungs are somewhat overexpanded. No consolidation. No lung mass. No pleural effusion. No pneumothorax. Cardiomediastinal silhouette: Normal cardiomediastinal silhouette. Bones and soft tissues: There are degenerative changes in the spine. Status post cervical spinal fusion. [email or web address]_U _DIVISION OF RADIOLOGY Provider, [facility] - 07/03/2021 * * *Final Report* * * DATE OF EXAM: Jul 03 2021 2:53PM WOX 5291 - XR CHEST 2V FRONTAL/LAT / PROCEDURE REASON: multiple diagnoses * * * * Physician Interpretation * * * * EXAMINATION: CHEST RADIOGRAPH (2 VIEW FRONTAL & LATERAL) CLINICAL HISTORY: Wheezing Cough MQ: XC2_6 EXAM DATE/TIME: 07/03/2021 2:53 PM COMPARISON: No relevant prior studies available. RESULT: Lines, tubes, and devices: None. Lungs and pleura: The lungs are somewhat overexpanded. No consolidation. No lung mass. No pleural effusion. No pneumothorax. Cardiomediastinal silhouette: Normal cardiomediastinal silhouette. Bones and soft tissues: There are degenerative changes in the spine. Status post cervical spinal fusion. IMPRESSION IMPRESSION: No acute radiographic abnormality. Newspaper Clipper: BEVERLY Transcribe Date/Time: Jul 03 2021 2:55P Dictated by : ANDREA CARROLL MD This examination was interpreted and the report reviewed and electronically signed by: ANDREA CARROLL MD on Jul 03 2021 2:56PM EST [facility] Radiology Study observation (narrative) [facility] XR Chest PA and LateralOrder ed By: [facility] Provider on 07-03-[address] [facility] [address] UROGRAM WO/W IVCONon - [facility] CNPNon 01-18-2021 CNPN Telephone (MEPRAD) SUN NOGUEIRA ([id number]) 1965 F Date Time Provider Department 01/18/21 HUANG WYNNE During your visit today, we recorded the following information about you: Huang Wynne DO 01/18/2021 8:35 AM Signed Can let her know urine culture shows resolution of the UTI. DO Shasta Bazan LPN 01/19/2021 8:40 AM Signed Attempted to contact patient. VM full, unable to leave message. Shasta Schumacher LPN 01/19/2021 9:50 AM Signed Patient notified. Patient c/o constant fatigue d/t not sleeping because she's up all night urinating. Denies any other UTI symptoms. Patient is asking for something to help with the fatigue. She suggested steroids. Patient had requested and has been given a referral for urology at [facility] from her PCP. She had already talked to Dr. Christiansen's office and they cannot offer her anything new. Shasta Wynne DO 01/19/2021 10:38 AM Signed I would not advise steroids for the fatigue. Steroids can compromise the immune system and lead to further issues with bladder infection. I think the frank issue is getting her help with neobladder function to get her a better night sleep. Keep appointment with [facility] at urology. Also I recommend she follow-up with her PCP for other thoughts on causes of fatigue. DO Matheus Bazan [facility] 01/19/2021 11:15 AM Signed I called and let Sun know the below information and she stated understanding. She asked to be transferred to one of our hem./onc. nurses to ask them some questions , so she was transferred to [facility]. Matheus Ford [facility] Allergies As of Date: 01/18/2021 Noted Allergy Reaction bee stings [Other] 10/24/2004 7 - Swelling tetnus [Other] 10/24/2004 7 - Swelling MORPHINE 12/15/2019 9 - Itching Date Reviewed: 01/06/2021 Reviewed by: Huang Wynne DO - Fully Assessed Reason for Visit: Results [95] Prescriptions as of 01/19/2021 - albuterol HFA (PROAIR HFA) 90 mcg/actuation inhaler Inhale 2 Puffs as instructed every 4 hours as needed. - guaiFENesin (MUCINEX) 600 mg 12 hr tablet Take 2 tablets by mouth twice daily. - benzonatate (TESSALON PERLE) 100 mg capsule Take 1-2 capsules tid prn, no more than 6 in 24 hours. 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 Author Type: Registered Nurse Type: ED Notes Filed: 12/03/2020 10:29 PM Note Text: Patient discharged, given verbal and written discharge instructions. Patient verbalized understanding. Nurse discussed follow up appointments (oncology) and signs/symptoms of worsening conditions. [facility] CBC and Differentialon 12-03 Abs Baso 0.05 k/uL Normal <0.11 [facility] Comment on above: Performed By: #### C BCDIF CMP #### [facility] [address] [place] [address] Abs Eosin <0.03 Normal <0.46 [facility] Comment on above: Performed By: #### C BCDIF CMP #### [facility] [address] [place] [address] Abs Collier 0.60 k/uL Normal <0.87 [facility] Comment on above: Performed By: #### C BCDIF CMP #### [facility] [address] [place] [address] Abs Neut 13.25 k/uL High 1.45-7.50 [facility] Comment on above: Performed By: #### C BCDIF CMP #### [facility] [address] [place] [address] Absolute nRBC <0.01 Normal <0.01 [facility] Comment on above: Performed By: #### C BCDIF, CMP #### [facility] [address] Basophils/100 WBC (Bld) 0.3 % Normal [facility] Comment on above: Performed By: #### C BCDIF, CMP #### [facility] [address] DTYPE Auto Diff Normal [facility] Comment on above: Performed By: #### C BCDIF, CMP #### [facility] [address] [place], [place] [phone] Eosinophils/100 WBC (Bld) 0.1 % Normal [facility] Comment on above: Performed By: #### C BCDIF, CMP #### [facility] [address] [place] [address] Erythrocyte distribution width (RBC) [Ratio] 12.5 % Normal 11.5-15.0 [facility] Comment on above: Performed By: #### C BCDIF, CMP #### [facility] [address] [place] [address] Hematocrit (Bld) [Volume fraction] 42.8 % Normal 36.0-46.0 [facility] Comment on above: Performed By: #### C BCDIF CMP #### [facility] [address] [place] [address] Hemoglobin (Bld) [Mass/Vol] 14.4 g/dL Normal 11.5-15.5 [facility] Comment on above: Performed By: #### C BCDIF, CMP #### [facility] [address] [place], [place] [phone] Lymphocytes (Bld) [#/Vol] 1.40 10*3/uL Normal 1.00-4.00 [facility] Comment on above: Performed By: #### C BCDIF, CMP #### [facility] [address] [place], [place] [phone] Lymphocytes/100 WBC (Bld) 9.1 % [facility] Comment on above: Performed By: #### C BCDIF, CMP #### [facility] [address] [place] [address] MCH 30.7 pG Normal 26.0-34.0 [facility] Comment on above: Performed By: #### C BCDIF, CMP #### [facility] [address] [place] [address] MCHC (RBC) [Mass/Vol] 33.6 g/dL Normal 30.5-36.0 [facility] Comment on above: Performed By: #### C BCDIF, CMP #### [facility] [address] [place] [address] MCV (RBC) [Entitic vol] 91.3 fL Normal 80.0-100.0 [facility] Comment on above: Performed By: #### C BCDIF, CMP #### [facility] [address] [place] [address] Monocytes/100 WBC (Bld) 3.9 % Normal [facility] Comment on above: Performed By: #### C BCDIF, CMP #### [facility] [address] [place] [address] Neutrophils/100 WBC (Bld) 86.6 % [facility] Comment on above: Performed By: #### C BCDIF, CMP #### [facility] [address] [place] [address] NRBCs 0.0 /100 WBC Normal 0 [facility] Comment on above: Performed By: #### C BCDIF, CMP #### [facility] [address] [place] [address] Platelet mean volume (Bld) [Entitic vol] 10.0 fL Normal 9.0-12.7 [facility] Comment on above: Performed By: #### C BCDIF, CMP #### [facility] [address] Platelets (Bld) [#/Vol] 357 10*3/uL Normal 150-400 [facility] Comment on above: Performed By: #### C BCDIF, CMP #### [facility] [address] RBC (Bld) [#/Vol] 4.69 10*6/uL Normal 3.90-5.20 [facility] Comment on above: Performed By: #### C BCDIF, CMP #### [facility] [address] [place] [address] WBC (Bld) [#/Vol] 15.32 10*3/uL High 3.70-11.00 [facility] Comment on above: Performed By: #### C BCSHAQF CMP #### [facility] [address] [place] [address] Comp Metabolic Panelon 12-03 Albumin [Mass/Vol] 5.3 g/dL High 3.9-4.9 [facility] Comment on above: Performed By: #### C BCSHAQF, CMP #### [facility] [address] [place] [address] ALP [Catalytic activity/Vol] 86 U/L Normal 34-123 [facility] Comment on above: Performed By: #### C BCGARRETT, CMP #### [facility] [address] [place] [address] ALT [Catalytic activity/Vol] 11 U/L Normal 7-38 [facility] Comment on above: Performed By: #### C BCSHAQF, CMP #### [facility] [address] [place] [address] Anion gap [Moles/Vol] 15 mmol/L Normal 9-18 [facility] Comment on above: Performed By: #### C BCSHAQF, CMP #### [facility] [address] [place] [address] AST [Catalytic activity/Vol] 15 U/L Normal 13-35 [facility] Comment on above: Performed By: #### C BCSHAQF, CMP #### [facility] [address] [place] [address] Bilirubin [Mass/Vol] 0.3 mg/dL Normal 0.2-1.3 [facility] Comment on above: Performed By: #### C BCDIF, CMP #### [facility] [address] [place] [address] Calcium [Mass/Vol] 10.2 mg/dL Normal 8.5-10.2 [facility] Comment on above: Performed By: #### C BCDIF, CMP #### [facility] [address] [place] [address] Chloride [Moles/Vol] 97 mmol/L Normal 97-105 [facility] Comment on above: Performed By: #### C BCDIF, CMP #### [facility] [address] [facility] [phone] CO2 [Moles/Vol] 17 mmol/L Low 22-30 [facility] Comment on above: Performed By: #### C BCDIF, CMP #### [facility] [address] [place] [phone] Creatinine [Mass/Vol] 1.35 mg/dL High 0.58-0.96 [facility] Comment on above: Performed By: #### C BCDIF, CMP #### [facility] [address] [place] [phone] eGFR- Amer. 49 [facility] Comment on above: Performed By: #### C BCDIF, CMP #### [facility] [address] eGFR-All Other Races 41 . Normal [facility] Comment on above: Result Comment: eGFR (Estimated GFR) Units of measure: mL/min/1.73 meters squared eGFR is derived from the reexpressed MDRD Study equation using the following parameters: serum creatinine, age, gender and race. The creatinine assay has been calibrated to be traceable to IDMS. An eGFR <60 mL/min/1.73m2 for >3 months is consistent with chronic kidney disease. Refer to KDOQI guidelines for clinical interpretation. In patients with unstable renal function, e.g. those with acute kidney injury, the eGFR may not accurately reflect actual GFR. Performed By: #### C BCDIF, CMP #### [facility] [address] [place] [phone] Glucose [Mass/Vol] 138 mg/dL High 74-99 [facility] Comment on above: Result Comment: The [place] [employer] (ADA) provides guidance for cutoff values for fasting glucose and random glucose. The ADA defines fasting as no caloric intake for at least 8 hours. Fasting plasma glucose results between 100 to 125 mg/dL indicate increased risk for diabetes (prediabetes). Fasting plasma glucose results greater than or equal to 126 mg/dL meet the criteria for diagnosis of diabetes. In the absence of unequivocal hyperglycemia, results should be confirmed by repeat testing. In a patient with classic symptoms of hyperglycemia or hyperglycemic crisis, random plasma glucose results greater than or equal to 200 mg/dL meet the criteria for diagnosis of diabetes. Reference: Standards of Medical Care in Diabetes 2016, [place] [employer]. Diabetes Care. 2016.39(Suppl 1). Performed By: #### C BCDIF, CMP #### [facility] [address] Potassium [Moles/Vol] 4.2 mmol/L Normal 3.7-5.1 [facility] Comment on above: Performed By: #### C BCDIF, CMP #### [facility] [address] Protein [Mass/Vol] 8.7 g/dL High 6.3-8.0 [facility] Comment on above: Performed By: #### C BCDIF, CMP #### [facility] [address] Sodium [Moles/Vol] 129 mmol/L Low 136-144 [facility] Comment on above: Performed By: #### C BCDIF, CMP #### [facility] [address] [place] [phone] Urea nitrogen [Mass/Vol] 47 mg/dL High 7-21 [facility] Comment on above: Performed By: #### C BCDIF, CMP #### [facility] [address] [place], [place] [phone] ED NOTEon 12-03-2020 ED NOTE HNO ID: [id number] Author: Melissa Harrell RN Service: ? Author Type: Registered Nurse Type: ED Notes Filed: 12/03/2020 7:59 PM Note Text: Pt presents to ED with c/c UTI that began with white mucus, dark in color and odorous urine that began 3 days ago. Pt states bladder CA in 08/2019 and had bladder removed and neobladder placed. Pt states she called her oncologist and they e-scripted antibiotics bactrim that she began taking today. Pt states she is here today to see if she has further complications. Pt is requesting ultrasound blood work and xray tonight and wants to go home in a couple hours pt has apt at 8am with urologist. [facility] ED PROV NOTEon 12-03-2020 ED PROV NOTE HNO ID: [id number] Author: Sapna Velasco MD Service: Emergency Medicine Author Type: Physician Type: ED Provider Notes Filed: 12/03/2020 11:44 PM Note Text: ED Provider Note Patient Name: Sun Nogueira SERVICE DATE: 12/03/20 History Patient presents with: UTI Patient with history of bladder cancer, with a reconstructed bladder presents for concern for UTI. Patient states for the last 3 days she been having very foul-smelling and odd colored urine. Her oncologist sent her prescription for Bactrim, and she started it yesterday. She is feeling fatigued today, having chills and having abdominal discomfort. She is concerned she may be septic. She is complaining of bilateral lower back pain, stating she feels like her kidneys are cramping. PAST MEDICAL HISTORY Diagnosis Date - Bladder cancer (HCC) - Hematuria - Other anxiety states - Smoker PAST SURGICAL HISTORY Procedure Laterality Date - NECK SURGERY HX 2004 - ROTATOR CUFF REPAIR Left 1994 - TUBAL LIGATION 2002 FAMILY HISTORY Problem Relation Age of Onset - Cancer Father - Heart Maternal Grandfather - Cancer Paternal Grandmother skin cancer Social History Tobacco Use - Smoking status: Former Smoker Packs/day: 0.50 Years: 15.00 Pack years: 7.50 Types: Cigarettes Quit date: 10/10/2019 Years since quittin.1 - Smokeless tobacco: Never Used Vaping Use - Vaping Use: Never used Substance and Sexual Activity - Alcohol use: No - Drug use: Never - Sexual activity: Not Currently ALLERGIES Allergen Reactions - Bee Stings [Other] Swelling - Tetnus [Other] Swelling - Morphine Itching Review of Systems Constitutional: Positive for activity change, appetite change, chills and fatigue. Negative for fever. All other systems negative except as documented in the HPI. HENT: Negative for congestion, rhinorrhea and sore throat. Eyes: Negative for pain and discharge. Respiratory: Negative for cough and shortness of breath. Cardiovascular: Negative for chest pain and palpitations. Gastrointestinal: Positive for abdominal pain and nausea. Negative for constipation, diarrhea and vomiting. Genitourinary: Positive for difficulty urinating, dysuria, flank pain and hematuria. Negative for frequency and urgency. Musculoskeletal: Positive for back pain. Negative for arthralgias, myalgias and neck pain. Skin: Negative for pallor and rash. Neurological: Negative for dizziness, weakness and headaches. All other systems reviewed and are negative. Physical Exam Vitals [12/03/201951] BP Pulse Temp Temp src Resp SpO2 Weight Height 116/73 (!) 95 36.9 ?C (98.5 ?F) Oral 18 99 % 59 kg (130 lb) 1.702 m (5' 7) Physical Exam Vitals and nursing note reviewed. Exam conducted with a broommaking supervisor present. Constitutional: General: She is not in acute distress. Appearance: Normal appearance. She is not ill-appearing. HENT: Head: Normocephalic and atraumatic. Eyes: Extraocular Movements: Extraocular movements intact. Conjunctiva/sclera: Conjunctivae normal. Pupils: Pupils are equal, round, and reactive to light. Cardiovascular: Rate and Rhythm: Normal rate and regular rhythm. Pulses: Normal pulses. Heart sounds: No murmur heard. Pulmonary: Effort: Pulmonary effort is normal. No respiratory distress. Breath sounds: Normal breath sounds. No wheezing, rhonchi or rales. Abdominal: General: Bowel sounds are normal. Palpations: Abdomen is soft. Tenderness: There is no abdominal tenderness. There is no guarding or rebound. Musculoskeletal: General: No tenderness. Normal range of motion. Cervical back: Normal range of motion and neck supple. No muscular tenderness. Right lower leg: No edema. Left lower leg: No edema. Skin: General: Skin is warm and dry. Findings: No rash. Neurological: General: No focal deficit present. Mental Status: She is alert and oriented to person, place, and time. Psychiatric: Mood and Affect: Mood normal. Behavior: Behavior normal. Diagnostic Testing ED Labs Ordered and Reviewed COMP METABOLIC PANEL - Abnormal; Notable for the following components: Result Value Ref Range Protein, Total 8.7 (*) 6.3 - 8.0 g/dL Albumin 5.3 (*) 3.9 - 4.9 g/dL Glucose 138 (*) 74 - 99 mg/dL BUN 47 (*) 7 - 21 mg/dL Creatinine 1.35 (*) 0.58 - 0.96 mg/dL Sodium 129 (*) 136 - 144 mmol/L CO2 17 (*) 22 - 30 mmol/L All other components within normal limits CBC + DIFF - Abnormal; Notable for the following components: WBC 15.32 (*) 3.70 - 11.00 k/uL Abs Neut (ANC) 13.25 (*) 1.45 - 7.50 k/uL All other components within normal limits CRITICAL CARE PROFILE VENOUS - Abnormal; Notable for the following components: Carboxyhemoglobin, Venous 3.5 (*) % pCO2, Venous 37.4 (*) 42.0 - 55.0 mmHg pH, Venous 7.283 (*) 7.320 - 7.420 All other components within normal limits No orders to display Medications - No data to display Procedures ED C (more content not included)... [facility] CNOVon 09-04-2019 CNOV Office Visit (AKURFL ) JEROSUN Ayala ([id number]) 1965 F Date Time Provider Department 09/04/19 8:30 AM [facility] During your visit today, we recorded the following information about you: Blood pressure Weight Height 132/90 59.9 kg 1.676 m Brooke Christiansen DO, MBA 09/04/2019 9:57 AM Signed ?? [facility] LOCATION: [address] [place] [address] ESTABLISHED PATIENT PATIENT INFO: Sun Moellerdulce 53 year old Chief Complaint: Bladder Cancer HPI S/P TURBT with gemcitabine. Doing well.. Met with Dr. Wynne and Dr. Welch for radiation Proceeding to chemotherapy. CT chest with CAD, needs stress test. 1-Duration: 2019 2-Location: bladder 3-Severity: N/A 4-Quality: Not applicable 5-Context: N/A 6-Timing: N/A 7-Modifying factors: No treatment prior to referral 8-Associated signs AND symptoms: no additional symptoms No question data found. 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 FOCUS SUSPICIOUS FOR DESTRUCTIVE MUSCULARIS PROPRIA INVASION. LYMPHOVASCULAR INVASION IS PRESENT. PLEASE SEE COMMENT AND SYNOPTIC REPORT. COMMENT: ?Histologic sections show a high grade urothelial carcinoma with focal micropapillary differentiation. ?The tumor extensively involves the submitted tissue with confluent solid growth. ?One section demonstrates intervening thin bundles of muscle fibers. ?Therefore, destructive muscularis propria invasion cannot be excluded. A HARPAL-3 immunostain is strongly and diffusely positive consistent with urothelial carcinoma. Dr. Cristy Torres has reviewed?this case and concurs. Urinary Bladder TURBT Cancer Case Summary Procedure: ?Transurethral resection of bladder. Tumor site: ?Left posterior, lateral and dome. Histologic type:Urothelial carcinoma, invasive with micropapillary ? ? ?features. Associated epithelial lesions: None identified. Histologic grade: High grade. Tumor configuration: ?Solid, ulcerated. Muscularis propria presence: No definite muscularis propria identified. Lymphovascular invasion: Present. Tumor extension: Tumor invades lamina propria (subepithelial connective ? ? ?tissue). ?Please see comment. Additional pathologic findings: ?Cautery artifact. LAB: WBC (k/uL) Date Value 01/03/2019 8.15 RBC (m/uL) Date Value 01/03/2019 4.78 Hemoglobin (g/dL) Date Value 01/03/2019 14.5 Hematocrit (%) Date Value 01/03/2019 45.0 MCV (fL) Date Value 01/03/2019 94.1 MCH (pG) Date Value 01/03/2019 30.3 MCHC (g/dL) Date Value 01/03/2019 32.2 RDW-CV (%) Date Value 01/03/2019 13.0 Platelet Count (k/uL) Date Value 01/03/2019 313 MPV (fL) Date Value 01/03/2019 10.2 Neut% (%) Date Value 10/05/2012 57.2 Lymph% (%) Date Value 10/05/2012 31.7 Collier% (%) Date Value 10/05/2012 7.7 Eosin% (%) Date Value 10/05/2012 2.7 Baso% (%) Date Value 10/05/2012 0.7 Abs Neut (ANC) (k/uL) Date Value 10/05/2012 6.05 Abs Collier (k/uL) Date Value 10/05/2012 0.81 Abs Eosin (k/uL) Date Value 10/05/2012 0.29 Abs Baso (k/uL) Date Value 10/05/2012 0.07 Creatinine Date Value Ref Range Status 01/03/2019 0.61 0.58 - 0.96 mg/dL Final 10/05/2012 0.62 (L) 0.70 - 1.40 mg/dL Final No results found for: PSA, PSAPER URINE POC GLUCOSE UA (POCT) Negative 09/04/2019 BILIRUBIN UA (POCT) Negative 09/04/2019 KETONE UA (POCT) Negative 09/04/2019 SPECIFIC GRAVITY UA (POCT) 1.020 09/04/2019 HEMOGLOBIN/BLOOD UA (POCT) Moderate 09/04/2019 PH UA (POCT) 5.5 09/04/2019 PROTEIN UA (POCT) Trace 09/04/2019 UROBILINOGEN UA (POCT) 0.2 09/04/2019 NITRITE UA (POCT) Negative 09/04/2019 LEUKOCYTES UA (POCT) Large 09/04/2019 COLOR UA (POCT) Yellow 09/04/2019 CLARITY UA (POCT) Clear 09/04/2019 IMAGING: CT Scan: chest I have independently reviewed films and my findings are the same. ALLERGIES: ALLERGIES Allergen Reactions - Bee Stings [Other] Swelling - Tetnus [Other] Swelling MEDICATIONS: perflutren lipid microspheres (DEFINITY) 1.1 mg/mL injection (to be provided with echo procedure) Inject 1.3 mL intravenously as directed. Administration Instructions: If no IV access, insert saline lock prior to administering contrast. Discontinue saline lock post exam. If patient has central line or IVAD, may access for administration according to line specific nursing protocol. Once exam is complete, flush line and de-access per line specific nursing protocol. Diluted IV Bolus: Dilute 1.3 ml of Definity with 8.7 ml of preservative-free saline. Does the patient take any herbal medications?: No HISTORIES PAST MEDICAL HISTORY Diagnosis Date - Bladder cancer (HCC) - Hematuria - Other anxiety states - Smoker Smoking Status Reviewed: Yes REVIEW OF SYSTEMS GENERAL: No fever, chills, weight loss, or fatigue. HEAD AND NECK: No blurred vision or Sjogren's syndrome CARDIOVASCULAR: NO CHEST PAIN, PALPITATIONS, ANKLE EDEMA RESPIRATORY: No chronic cough, wheezing, dyspnea, hemoptysis. MUSCULOSKELETAL: NO CHRONIC BACK PAIN, ARTHRITIS, CHRONIC NECK PAIN SKIN: NO VARICOSE VEINS, RASH, ABNORMAL ITCHING BLOOD/LYMPHATIC: No easy bleeding, easy bruising, transfusion Hx NEUROLOGICAL: NO HEADACHES, NUMBNESS, SEIZURES, STROKE PSYCHIATRIC: No depression or inordinate anxiety The remainder of the ROS was negative. PHYSICAL EXAMINATION BP 132/90 Ht 167.6 cm (5' 6) Wt 59.9 kg (132 lb) LMP 08/06/2019 (Approximate) BMI 21.31 kg/m? General appearance: Well appearing, alert, in no acute distress and well-hydrated, well nourished Skin: Skin color, texture, turgor normal, no suspicious rashes or lesions Head: Normocephalic, no masses, lesions, tenderness or abnormalities Abdomen: Normal abdominal exam, Abdomen soft, non-tender. Bowel sounds normal. No masses, organomegaly Genitourinary: MALE EXAM: Exam NOT Indicated PVR: NA IMPRESSION/PLAN: High Grade muscle invasive bladder cancer. Micropapillary features. We reviewed pathology. Son present for discussion. Options reviewed. Recommend neoadjuvant chemotherapy followed by radical cystectomy with urinary diversion. Diversion options discussed. ? We reviewed radiation as well. She has seen Dr. Huang Wynne in [place], proceeding to chemotherapy after stress test. She has met with radiation for consultation. She will quit smoking. All questions answered. I spent 30 minutes in the visit, with more than 50% of the total [id number] time of the visit in counseling / coordination of care. 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 #:[id number] Prescriptions as of 09/04/2019 Sig: PERFLUTREN LIPID MICROSPHERES* Inject 1.3 mL intravenously a* Problem List As Of Date 09/04/2019 Noted Resolved ADJUSTMENT DISORDER WITH DEPRESSED MOOD [F43.21]10/24/2004 Sprain of neck [S13.9XXA] 05/10/2007 08/11/2016 Sprain of thoracic region [S23.9XXA] 05/10/2007 08/11/2016 SKIN ANOMALY NEC [Q82.8] 02/13/2008 CERVICAL DISC DEGEN [M50.30] 06/05/2008 Work-related stress [Z56.6] 08/11/2016 Vitamin D deficiency [E55.9] 01/06/2019 Microscopic hematuria [R31.29] 03/30/2019 Proteinuria [R80.9] 03/30/2019 Lung nodules [R91.8] 07/24/2019 Mass of urinary bladder [N32.89] 07/24/2019 Situational anxiety [F41.8] 07/24/2019 Malignant neoplasm of lateral wall of urinary b*08/30/2019 Encounter Status:Closed by BROOKE CHRISTIANSEN on 09/04/19 [facility] PROGRESSon 09-04-2019 PROGRESS HNO ID: [id number] Author: Brooke Christiansen Service: ? Author Type: Physician Type: Progress Notes Filed: 09/04/2019 9:57 AM Note Text: ?? [facility] LOCATION: [address] [place] [address] ESTABLISHED PATIENT PATIENT INFO: Sun Nogueira 53 year old Chief Complaint: Bladder Cancer HPI S/P TURBT with gemcitabine. Doing well.. Met with Dr. Wynne and Dr. Welch for radiation Proceeding to chemotherapy. CT chest with CAD, needs stress test. 1-Duration: 2019 2-Location: bladder 3-Severity: N/A 4-Quality: Not applicable 5-Context: N/A 6-Timing: N/A 7-Modifying factors: No treatment prior to referral 8-Associated signs AND symptoms: no additional symptoms No question data found. 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 FOCUS SUSPICIOUS FOR DESTRUCTIVE MUSCULARIS PROPRIA INVASION. LYMPHOVASCULAR INVASION IS PRESENT. PLEASE SEE COMMENT AND SYNOPTIC REPORT. COMMENT: ?Histologic sections show a high grade urothelial carcinoma with focal micropapillary differentiation. ?The tumor extensively involves the submitted tissue with confluent solid growth. ?One section demonstrates intervening thin bundles of muscle fibers. ?Therefore, destructive muscularis propria invasion cannot be excluded. A HARPAL-3 immunostain is strongly and diffusely positive consistent with urothelial carcinoma. Dr. Cristy Torres has reviewed?this case and concurs. Urinary Bladder TURBT Cancer Case Summary Procedure: ?Transurethral resection of bladder. Tumor site: ?Left posterior, lateral and dome. Histologic type:Urothelial carcinoma, invasive with micropapillary ? ? ?features. Associated epithelial lesions: None identified. Histologic grade: High grade. Tumor configuration: ?Solid, ulcerated. Muscularis propria presence: No definite muscularis propria identified. Lymphovascular invasion: Present. Tumor extension: Tumor invades lamina propria (subepithelial connective ? ? ?tissue). ?Please see comment. Additional pathologic findings: ?Cautery artifact. LAB: WBC (k/uL) Date Value 01/03/2019 8.15 RBC (m/uL) Date Value 01/03/2019 4.78 Hemoglobin (g/dL) Date Value 01/03/2019 14.5 Hematocrit (%) Date Value 01/03/2019 45.0 MCV (fL) Date Value 01/03/2019 94.1 MCH (pG) Date Value 01/03/2019 30.3 MCHC (g/dL) Date Value 01/03/2019 32.2 RDW-CV (%) Date Value 01/03/2019 13.0 Platelet Count (k/uL) Date Value 01/03/2019 313 MPV (fL) Date Value 01/03/2019 10.2 Neut% (%) Date Value 10/05/2012 57.2 Lymph% (%) Date Value 10/05/2012 31.7 Collier% (%) Date Value 10/05/2012 7.7 Eosin% (%) Date Value 10/05/2012 2.7 Baso% (%) Date Value 10/05/2012 0.7 Abs Neut (ANC) (k/uL) Date Value 10/05/2012 6.05 Abs Collier (k/uL) Date Value 10/05/2012 0.81 Abs Eosin (k/uL) Date Value 10/05/2012 0.29 Abs Baso (k/uL) Date Value 10/05/2012 0.07 Creatinine Date Value Ref Range Status 01/03/2019 0.61 0.58 - 0.96 mg/dL Final 10/05/2012 0.62 (L) 0.70 - 1.40 mg/dL Final No results found for: PSA, PSAPER URINE POC GLUCOSE UA (POCT) Negative 09/04/2019 BILIRUBIN UA (POCT) Negative 09/04/2019 KETONE UA (POCT) Negative 09/04/2019 SPECIFIC GRAVITY UA (POCT) 1.020 09/04/2019 HEMOGLOBIN/BLOOD UA (POCT) Moderate 09/04/2019 PH UA (POCT) 5.5 09/04/2019 PROTEIN UA (POCT) Trace 09/04/2019 UROBILINOGEN UA (POCT) 0.2 09/04/2019 NITRITE UA (POCT) Negative 09/04/2019 LEUKOCYTES UA (POCT) Large 09/04/2019 COLOR UA (POCT) Yellow 09/04/2019 CLARITY UA (POCT) Clear 09/04/2019 IMAGING: CT Scan: chest I have independently reviewed films and my findings are the same. ALLERGIES: ALLERGIES Allergen Reactions - Bee Stings [Other] Swelling - Tetnus [Other] Swelling MEDICATIONS: perflutren lipid microspheres (DEFINITY) 1.1 mg/mL injection (to be provided with echo procedure) Inject 1.3 mL intravenously as directed. Administration Instructions: If no IV access, insert saline lock prior to administering contrast. Discontinue saline lock post exam. If patient has central line or IVAD, may access for administration according to line specific nursing protocol. Once exam is complete, flush line and de-access per line specific nursing protocol. Diluted IV Bolus: Dilute 1.3 ml of Definity with 8.7 ml of preservative-free saline. Does the patient take any herbal medications?: No HISTORIES PAST MEDICAL HISTORY Diagnosis Date - Bladder cancer (HCC) - Hematuria - Other anxiety states - Smoker Smoking Status Reviewed: Yes REVIEW OF SYSTEMS GENERAL: No fever, chills, weight loss, or fatigue. HEAD AND NECK: No blurred vision or Sjogren's syndrome CARDIOVASCULAR: NO CHEST PAIN, PALPITATIONS, ANKLE EDEMA RESPIRATORY: No chronic cough, wheezing, dyspnea, hemoptysis. MUSCULOSKELETAL: NO CHRONIC BACK PAIN, ARTHRITIS, CHRONIC NECK PAIN SKIN: NO VARICOSE VEINS, RASH, ABNORMAL ITCHING BLOOD/LYMPHATIC: No easy bleeding, easy bruising, transfusion Hx NEUROLOGICAL: NO HEADACHES, NUMBNESS, SEIZURES, STROKE PSYCHIATRIC: No depression or inordinate anxiety The remainder of the ROS was negative. PHYSICAL EXAMINATION BP 132/90 Ht 167.6 cm (5' 6) Wt 59.9 kg (132 lb) LMP 08/06/2019 (Approximate) BMI 21.31 kg/m? General appearance: Well appearing, alert, in no acute distress and well-hydrated, well nourished Skin: Skin color, texture, turgor normal, no suspicious rashes or lesions Head: Normocephalic, no masses, lesions, tenderness or abnormalities Abdomen: Normal abdominal exam, Abdomen soft, non-tender. Bowel sounds normal. No masses, organomegaly Genitourinary: MALE EXAM: Exam NOT Indicated PVR: NA IMPRESSION/PLAN: High Grade muscle invasive bladder cancer. Micropapillary features. We reviewed pathology. Son present for discussion. Options reviewed. Recommend neoadjuvant chemotherapy followed by radical cystectomy with urinary diversion. Diversion options discussed. ? We reviewed radiation as well. She has seen Dr. Huang Wynne in [place], proceeding to chemotherapy after stress test. She has met with radiation for consultation. She will quit smoking. All questions answered. I spent 30 minutes in the visit, with more than 50% of the total txxo-rx-nuvx time of the visit in counseling / coordination of care. Brooke Christiansen DO MBA [facility] 08-24-2019 [facility] Telephone (UROLAE) SUN NOGUEIRA ([id number]) 1965 F Date Time Provider Department 08/24/19 [facility] During your visit today, we recorded the following information about you: Bharti Mejía, RN, RN 08/24/2019 1:39 PM Signed Patient called because she was concerned because she is passing air when she urinates and large pieces of tissue. Denies any fever or chills. She thought you took everything out with the surgery. Passing urine with difficulty, denies pain. Patient has questions regarding types of stomas/ diversions to help decisions. She is available at any time for your call before Tuesday. Please advise. Thanks, PORFIRIO Gagnon DO, MBA 08/27/2019 9:23 AM Signed See previous encounter. Allergies As of Date: 08/24/2019 Noted Allergy Reaction bee stings [Other] 10/24/2004 7 - Swelling tetnus [Other] 10/24/2004 7 - Swelling Date Reviewed: 08/23/2019 Reviewed by: Chloe ([facility]) Alyson Carrera - Fully Assessed Reason for Visit: Symptoms [3640] Prescriptions as of 08/24/2019 Sig: PHENAZOPYRIDINE 100 MG TABLET Take 1 tablet by mouth three * Patient not taking: Reported on 08/22/2019 CHANTIX STARTING MONTH BOX 0.* Take 1 tablet (0.5 mg) by linn* Patient not taking: Reported on 08/22/2019 VARENICLINE 1 MG TABLET Take 1 tablet by mouth twice * Patient not taking: Reported on 08/22/2019 ONDANSETRON 4 MG DISINTEGRATI* Take 1 tablet by mouth every * Patient not taking: Reported on 08/02/2019 CYCLOBENZAPRINE 10 MG TABLET Take 1 tablet by mouth three * Patient not taking: Reported on 04/06/2019 CHOLECALCIFEROL (VITAMIN D3) * Take 1 tablet by mouth once d* Patient not taking: Reported on 08/08/2019 MELOXICAM 15 MG TABLET Take 1 tablet by mouth as nee* Patient not taking: Reported on 04/06/2019 Problem List As Of Date 08/24/2019 Noted Resolved ADJUSTMENT DISORDER WITH DEPRESSED MOOD [F43.21]10/24/2004 Sprain of neck [S13.9XXA] 05/10/2007 08/11/2016 Sprain of thoracic region [S23.9XXA] 05/10/2007 08/11/2016 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 CNPN Telephone (AKURFL) SUN NOGUEIRA ([id number]) 1965 F Date Time Provider Department 08/24/19 [facility] During your visit today, we recorded the following information about you: Juana Chapmanntz 08/24/2019 9:14 AM Signed August 24, 2019 9:13 AM Patient is calling, she is requesting a phone call from you. She has multiple questions about how she needs to proceed. She is very panicked. Please advise. Juana Deion Marina 08/24/2019 12:59 PM Signed August 24, 2019 12:58 PM Patient calling again. She states she is passing tissue in her urine and wants Dr. Christiansen to call her. Explained again that he is in the OR today but send him the message. She is demanding a call today. Juana Deion Christiansen DO, MBA 08/27/2019 9:22 AM Signed Passing tissue is normal after her surgery. Bladder lining is healing. She needs to see Dr. Wynne in [place] then see me in the office. Magnolia Ruffin RN 08/27/2019 2:45 PM Signed Spoke with patient and she has her Dr. Wynne appt on 08-30-2019 in the morning at 10 am after she gets her CT Scan as well. She will come to the [place] office for appt after Dr. Wynne since not back from September 20, 2019. Please put patient at 130 pm on 08-30-2019. Magnolia Ruffin RN 08/28/2019 9:19 AM Signed Spoke with patient and she doesn't think she will be able to get done with appt and be to work at 3 pm. 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 Delgado plan and further surgical plan. Can we assist with [place] 09-04-2019 earliest am appt possible? Allergies As of Date: 08/24/2019 Noted Allergy Reaction bee stings [Other] 10/24/2004 7 - Swelling tetnus [Other] 10/24/2004 7 - Swelling Date Reviewed: 08/23/2019 Reviewed by: Chloe ([facility]) Alyson Carrera - Fully Assessed Reason for Visit: multiple questions [Other] Prescriptions as of 08/24/2019 Sig: PHENAZOPYRIDINE 100 MG TABLET Take 1 tablet by mouth three * Patient not taking: Reported on 08/22/2019 CHANTIX STARTING MONTH BOX 0.* Take 1 tablet (0.5 mg) by linn* Patient not taking: Reported on 08/22/2019 VARENICLINE 1 MG TABLET Take 1 tablet by mouth twice * Patient not taking: Reported on 08/22/2019 ONDANSETRON 4 MG DISINTEGRATI* Take 1 tablet by mouth every * Patient not taking: Reported on 08/02/2019 CYCLOBENZAPRINE 10 MG TABLET Take 1 tablet by mouth three * Patient not taking: Reported on 04/06/2019 CHOLECALCIFEROL (VITAMIN D3) * Take 1 tablet by mouth once d* Patient not taking: Reported on 08/08/2019 MELOXICAM 15 MG TABLET Take 1 tablet by mouth as nee* Patient not taking: Reported on 04/06/2019 Problem List As Of Date 08/24/2019 Noted Resolved ADJUSTMENT DISORDER WITH DEPRESSED MOOD [F43.21]10/24/2004 Sprain of neck [S13.9XXA] 05/10/2007 08/11/2016 Sprain of thoracic region [S23.9XXA] 05/10/2007 08/11/2016 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 CNPNon 08-13-2019 CNPN Telephone (AKURFL) SUN NOGUEIRA ([id number]) 1965 F Date Time Provider Department 08/13/19 [facility] During your visit today, we recorded the following information about you: Juana Marina 08/13/2019 8:02 AM Signed August 13, 2019 8:01 AM Patient had CANDP, TURBT w/ [facility] on 08/09/2019. Patient calling for a post op appointment, and would like to know why she has a cath. Please advise. Juana Christiansen DO, MBA 08/13/2019 8:39 AM Signed Catheter is for healing. F/U this in [place] for path review and conte removal. Jen Núñez Pss 08/13/2019 10:48 AM Signed Done-appt for 08/16/2019 Allergies As of Date: 08/13/2019 Noted Allergy Reaction bee stings [Other] 10/24/2004 7 - Swelling tetnus [Other] 10/24/2004 7 - Swelling Date Reviewed: 08/09/2019 Reviewed by: Karen (Rn) PORFIRIO Gibson - Fully Assessed Reason for Visit: Surgical Followup [104] Prescriptions as of 08/13/2019 Sig: OXYCODONE-ACETAMINOPHE N 5 MG-* Take 1 tablet by mouth every * PHENAZOPYRIDINE 100 MG TABLET Take 1 tablet by mouth three * CHANTIX STARTING MONTH BOX 0.* Take 1 tablet (0.5 mg) by linn* VARENICLINE 1 MG TABLET Take 1 tablet by mouth twice * ONDANSETRON 4 MG DISINTEGRATI* Take 1 tablet by mouth every * Patient not taking: Reported on 08/02/2019 CYCLOBENZAPRINE 10 MG TABLET Take 1 tablet by mouth three * Patient not taking: Reported on 04/06/2019 CHOLECALCIFEROL (VITAMIN D3) * Take 1 tablet by mouth once d* Patient not taking: Reported on 08/08/2019 MELOXICAM 15 MG TABLET Take 1 tablet by mouth as nee* Patient not taking: Reported on 04/06/2019 Problem List As Of Date 08/13/2019 Noted Resolved ADJUSTMENT DISORDER WITH DEPRESSED MOOD [F43.21]10/24/2004 Sprain of neck [S13.9XXA] 05/10/2007 08/11/2016 Sprain of thoracic region [S23.9XXA] 05/10/2007 08/11/2016 SKIN ANOMALY NEC [Q82.8] 02/13/2008 CERVICAL DISC DEGEN [M50.30] 06/05/2008 Work-related stress [Z56.6] 08/11/2016 Vitamin D deficiency [E55.9] 01/06/2019 Microscopic hematuria [R31.29] 03/30/2019 Proteinuria [R80.9] 03/30/2019 Lung nodules [R91.8] 07/24/2019 Mass of urinary bladder [N32.89] 07/24/2019 Situational anxiety [F41.8] 07/24/2019 Encounter Status:Closed by JUANA MANCINI on 08/13/19 [facility] ANES Saman 08-09-2019 ANES POST HNO ID: [id number] Author: Aakash Carr Service: Anesthesiology Author Type: Physician Type: Anesthesia PostOp Filed: 08/09/2019 5:22 PM Note Text: POST ANESTHESIA EVALUATION NOTE SERVICE DATE: 08/09/2019 SERVICE TIME: 5:22 PM : 1965 Vitals: 08/09/19 1130 08/09/19 1535 Temp: 36.5 ?C (97.7 ?F) 36.2 ?C (97.2 ?F) 08/09/19 1622 08/09/19 1630 08/09/19 1645 08/09/19 1700 BP: 121/66 130/75 134/84 121/62 08/09/19 1622 08/09/19 1630 08/09/19 1645 08/09/19 1700 Pulse: 67 68 77 74 08/09/19 1622 08/09/19 1630 08/09/19 1645 08/09/19 1700 Resp: 12 13 15 19 08/09/19 1622 08/09/19 1630 08/09/19 1645 08/09/19 1700 SpO2: 96% 93% 94% 99% Validated Vital Signs: Yes POST ANES STATUS: No apparent anesthetic complications. The patient is appropriately hydrated with stable respiratory and cardiovascular status. Patient has safe and adequate airway control. The patient has appropriate pain relief and no significant post operative nausea or vomiting. The patient has achieved baseline mental status. Intra-Operative Events: No Significant Anesthesia Events Further assessment by Anesthesia Service: None Other Remarks: SIGNATURE: Aakash Carr DO PATIENT NAME: Sun Nogueira DATE: August 09, 2019 TIME: 5:22 PM PAGER/CONTACT #: [phone] [facility] ANES PREOPon 08-09-2019 ANES PREOP HNO ID: [id number] Author: Joel Abebe Service: Anesthesiology Author Type: Physician Type: Anesthesia PreOp Filed: 08/09/2019 12:22 PM Note Text: ANESTHESIOLOGY DAY OF SURGERY NOTE SERVICE DATE: 08/09/2019 SERVICE TIME: 12:22 PM : 1965 Procedure(s) (LRB): CYSTOSCOPY, RETROPYELOGRAM (N/A) CYSTOURETHROSCOPY, W/FULGURATION MEDIUM BLADDER TUMOR(S) 2.0-5.0 CM (N/A) INSTILL ANTICARCINOGENIC AGENT IN BLADDER, GEMCITABINE (N/A) Surgeon(s): Brooke Christiansen Estimated body mass index is 20.67 kg/m? as calculated from the following: Height as of 08/02/19: 170.2 cm (5' 7). Weight as of 08/02/19: 59.9 kg (132 lb). Most recent hematocrit and potassium results: Hematocrit 45.0 01/03/2019 Potassium 4.5 01/03/2019 ANES DOS/PREOP NOTE: Vitals: There were no vitals filed for this visit. 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 Work-Related Stress Vitamin D Deficiency Microscopic Hematuria Proteinuria Lung Nodules Mass of Urinary Bladder Situational Anxiety PAST MEDICAL HISTORY Diagnosis Date - Hematuria - Other anxiety states PAST SURGICAL HISTORY Procedure Laterality Date - NECK SURGERY HX 2004 - ROTATOR CUFF REPAIR Left 1994 - TUBAL LIGATION 2002 FAMILY HISTORY Problem Relation Age of Onset - Heart Maternal Grandfather - Cancer Paternal Grandmother SKIN CA - Cancer Paternal Grandfather BLACK LUNG Social History: Social History Tobacco Use - Smoking status: Current Some Day Smoker Packs/day: 0.50 Years: 15.00 Pack years: 7.50 Types: Cigarettes - Smokeless tobacco: Never Used - Tobacco comment: about 4 cigaretes a day. Substance Use Topics - Alcohol use: No - Drug use: No No current facility-administered medications on file prior to encounter. Current Outpatient Medications on File Prior to Encounter Medication Sig - ceFAZolin (ANCEF, KEFZOL) 1 gram injection Inject 2 g intravenously one time only for 1 dose. - varenicline (CHANTIX STARTING MONTH BOX) 0.5 mg (11)- 1 mg (42) tablet Take 1 tablet (0.5 mg) by mouth once daily for 3 days, then 1 tablet (0.5 mg) twice daily for 4 days, then one tablet (1 mg) twice daily. - varenicline (CHANTIX CONTINUING MONTH BOX) 1 mg tablet Take 1 tablet by mouth twice daily. - ondansetron orally disintegrating (ZOFRAN ODT) 4 mg disintegrating tablet Take 1 tablet by mouth every 8 hours as needed for Nausea/Vomiting. (Patient not taking: Reported on 08/02/2019 ) - cyclobenzaprine (FLEXERIL) 10 mg tablet Take 1 tablet by mouth three times daily as needed. (Patient not taking: Reported on 04/06/2019 ) - cholecalciferol (VITAMIN D-3) 2,000 unit tablet Take 1 tablet by mouth once daily. (Patient not taking: Reported on 08/08/2019 ) - meloxicam (MOBIC) 15 mg tablet Take 1 tablet by mouth as needed. Take with food. (Patient not taking: Reported on 04/06/2019 ) Current Facility-Administered Medications Medication Dose Route Frequency Provider Last Rate Last Dose - hexaminolevulinate 100 mg intravesical solution (CYSVIEW) 100 mg INTRAVESICAL ONCE Jayram Francisco - gemcitabine 1,000 mg in NaCl 0.9% (GEMZAR) 1,000 mg INTRAVESICAL ONCE Jayram Francisco Allergies: ALLERGIES Allergen Reactions - Bee Stings [Other] Swelling - Tetnus [Other] Swelling DOS EXAM: Adequate NPO Status: Yes Anesthetic Risks, Benefits, Alternatives, Personnel and Consent Discussed: Yes Patient agrees to proceed: Yes Previous Anesthesia: No history of adverse event Airway Assessment: MP 3; Neck ROM: Full ROM without neurologic symptoms; Airway Evaluation: No significant abnormalities Symptoms of Sleep Apnea: Age over 50 (53 year old) Dentition: Multiple missing teeth Additional Physical Exam: Lungs: Patient health status unchanged since recent history and physical. See history and physical for exam findings. Cardiac: Patient health status unchanged since recent history and physical. See history and physical for exam findings. Additional Pertinent Findings: N/A Blood Products: Not anticipated for this procedure Anesthetic Plan: General Anesthetic Monitoring: Standard ASA Monitors Pain Management Plan: Parenteral or Oral ASA Class: 2 Other Medical Problems: Bladder CA Anxiety smoker Recent Lab Values WBC 8.15 01/03/2019 Hemoglobin 14.5 01/03/2019 Hematocrit 45.0 01/03/2019 Platelet Count 313 01/03/2019 Sodium 141 01/03/2019 Potassium 4.5 01/03/2019 Chloride 101 01/03/2019 CO2 27 01/03/2019 BUN 17 01/03/2019 Creatinine 0.61 01/03/2019 Glucose 88 01/03/2019 Calcium 10.0 01/03/2019 No results found for this basename: GlucoseMeter No results found for: ABORHD, ABSCREEN No results found for: [facility] Chronic Beta Crystal medication administered within 24 hours: N/A I have interviewed and examined the patient. I have reviewed the medical record and/or the pre-anesthesia evaluation, pertinent labs, and test results. Significant changes in the patient's condition since the History and Physical, not otherwise documented in primary service progress notes: No This contains updated information obtained within 48 hours of Surgery/Procedure. SIGNATURE: Joel Abebe MD PATIENT NAME: Sun Nogueira DATE: August 09, 2019 TIME: 11:19 AM CSN: [id number] [facility] HISTORY PHYSICALon 0 HISTORY PHYSICAL HNO ID: [id number] Author: Abby Cornell Service: Anesthesiology Author Type: Nurse Practitioner Type: HANDP Filed: 08/09/2019 12:26 PM Note Text: HISTORY AND PHYSICAL EXAMINATION SERVICE DATE: 08/09/2019 SERVICE TIME: 12:13 PM PRIMARY CARE PHYSICIAN: Rio Foley III MD Sun Nogueira [id number] [phone] REASON FOR VISIT: Sun Nogueira is a 53 year old female who is scheduled for....... Procedure(s): CYSTOSCOPY, RETROPYELOGRAM (N/A) CYSTOURETHROSCOPY, W/FULGURATION MEDIUM BLADDER TUMOR(S) 2.0-5.0 CM (N/A) INSTILL ANTICARCINOGENIC AGENT IN BLADDER, GEMCITABINE (N/A) at the request of Dr. Brooke Christiansen for routine HANDP. 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 She has a history of hematuria and frequency. She had notice small amount of blood on toilet paper after urination. She complain of frequency. She states repeat lab tests would show blood in the urine. She denies dysuria or incontinence. Patient requested a CT scan of abdomen after having a family member pass away. After ct scan she was informed she had a bladder tumor. After discussion with the surgeon patient has agreed to surgical intervention. PAST MEDICAL HISTORY Diagnosis Date - Bladder cancer (HCC) - Hematuria - Other anxiety states - Smoker PAST SURGICAL HISTORY Procedure Laterality Date - NECK SURGERY HX 2004 - ROTATOR CUFF REPAIR Left 1994 - TUBAL LIGATION 2002 FAMILY HISTORY Problem Relation Age of Onset - Heart Maternal Grandfather - Cancer Paternal Grandmother SKIN CA - Cancer Paternal Grandfather BLACK LUNG SOCIAL HISTORY: Social History Tobacco Use - Smoking status: Current Some Day Smoker Packs/day: 0.50 Years: 15.00 Pack years: 7.50 Types: Cigarettes - Smokeless tobacco: Never Used - Tobacco comment: about 4 cigaretes a day. Substance Use Topics - Alcohol use: No - Drug use: No Prior to Admission medications as of 08/09/19 1128 Medication Sig Last Dose Taking ceFAZolin (ANCEF, KEFZOL) 1 gram injection Inject 2 g intravenously one time only for 1 dose. varenicline (CHANTIX STARTING MONTH BOX) 0.5 mg (11)- 1 mg (42) tablet Take 1 tablet (0.5 mg) by mouth once daily for 3 days, then 1 tablet (0.5 mg) twice daily for 4 days, then one tablet (1 mg) twice daily. varenicline (CHANTIX CONTINUING MONTH BOX) 1 mg tablet Take 1 tablet by mouth twice daily. ondansetron orally disintegrating (ZOFRAN ODT) 4 mg disintegrating tablet Take 1 tablet by mouth every 8 hours as needed for Nausea/Vomiting. Patient not taking: Reported on 08/02/2019 cyclobenzaprine (FLEXERIL) 10 mg tablet Take 1 tablet by mouth three times daily as needed. Patient not taking: Reported on 04/06/2019 cholecalciferol (VITAMIN D-3) 2,000 unit tablet Take 1 tablet by mouth once daily. Patient not taking: Reported on 08/08/2019 Not Taking at Unknown time meloxicam (MOBIC) 15 mg tablet Take 1 tablet by mouth as needed. Take with food. Patient not taking: Reported on 04/06/2019 No medication comments found. ALLERGIES Allergen Reactions - Bee Stings [Other] Swelling - Tetnus [Other] Swelling REVIEW OF SYSTEMS: PAIN ASSESSMENT: Pain Pain Level: 0 Pain Assessment (RN/RETAIL MERCHANDISING SPECIALIST): Assessment Tool: Verbal (Numeric Rating or Visual Analog Scale) General: Denies fever, chills, and unexpected weight change. Neuro: Denies dizziness and headaches. Respiratory: No history of current cough or dyspnea, or pneumonia in the past 6 weeks. Cardiovascular: No history of angina, CHF, LA, cardiac surgery or stents. Denies chest pain or palpations. GI: Denies abd pain and N/V/D. : Denies dysuria. SEE HPI SPRING CRATER: Denies abnormal vaginal bleeding. Endocrine: No history of diabetes or thyroid disease Hematology: Denies history of bleeding or clotting disorder. Psych: Denies anxiety/depression. Musculoskeletal: Denies joint pain and swelling. Skin: Denies open sores and rashes. Objective PHYSICAL EXAM: VITALS: BP 104/75 Pulse 62 Temp (Src) 97.7 (Tympanic) Resp 16 SpO2 97% LMP 03/07/2019 O2 Therapy: Room Air General: NAD. Cooperative. Skin: Skin is warm, no rashes, and no open sores. HEENT: Normocephalic. Cardiovascular: Normal S1 AND S2, no rubs, murmurs or gallops. No JVD. Pulse regular. Lungs: Fairly clear. Exp wheezes noted. Unable to inform Dr. Estrada after several calls. Informed charge aide Cathy who will inform DAVID or Dr. Estrada. Abdomen: Soft, non-tender, +BS throughout Extremities: No edema. Neurological: Alert and oriented to person, place, and time. Pulses: radial/pedal pulses +2 Bilaterally : DEFER TO SURGEON, SEE HPI Diagnostic tests reviewed for today's visit: Lab Value Units Date High Low HB No results within date range. HCT No results within date range. WBC No results within date range. PLT No results within date range. NA No results within date range. K No results within date range. GLUC No results within date range. BUN No results within date range. CREAT No results within date range. PTSEC No results within date range. INR No results within date range. APTT No results within date range. ALT No results within date range. AST No results within date range. TBILI No results within date range. TSH No results within date range. Lab Value Units Date High Low HCGQT No results within date range. UHCG No results within date range. HCG, BODY* No results within date range. Lab Value Units Date High Low ABORHD No results within date range. ABSCREEN No results within date range. No results found for: HBA1C No new labs There is no known pertinent medical condition which may affect naya-operative course Assessment/Plan Bladder cancer (HCC) [C67.9] PLAN Procedure Diagnosis: Bladder cancer (HCC) [C67.9] Planned Procedure: Procedure(s): CYSTOSCOPY, RETROPYELOGRAM (N/A) CYSTOURETHROSCOPY, W/FULGURATION MEDIUM BLADDER TUMOR(S) 2.0-5.0 CM (N/A) INSTILL ANTICARCINOGENIC AGENT IN BLADDER, GEMCITABINE (N/A) Planned Anesthetic: General SIGNATURE: Abby Cornell APRN.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 PATIENT NAME: Sun Nogueira DATE: August 09, 2019 TIME: 12:13 PM PAGER/CONTACT #: [facility] NURSING PROGon 08-09-2019 NURSING [facility] ID: [id number] Author: Sun CauseyRnKieran Jean RN Service: Nursing Author Type: Registered Nurse Type: Nursing Progress Note Filed: 08/09/2019 6:11 PM Note Text: Patient discharged via wheelchair with son at the bedside. [facility] [id number] Author: Sun Jean RN Service: Nursing Author Type: Registered Nurse Type: Nursing Progress Note Filed: 08/09/2019 6:10 PM Note Text: I called patient's son up and gave him instructions, but patient continued to interrupt and told the son that she just wanted to go. Son said the doctor never came and talked to him. I tried calling the urology resident, but patient would not wait for his call. [facility] [id number] Author: Sun Jean RN Service: Nursing Author Type: Registered Nurse Type: Nursing Progress Note Filed: 08/09/2019 6:07 PM Note Text: Patient just getting more agitated. Will not listen to conte instructions or any other instructions. Just keeps saying she will be fine and she will figure it out at home. I continued to try to give instructions, but she just kept getting more agitated. [facility] NURSING PROG O ID: [id number] Author: Sun Jean RN Service: Nursing Author Type: Registered Nurse Type: Nursing Progress Note Filed: 08/09/2019 6:05 PM Note Text: Patient very angry and states that she just wants to go home. IV d/c'd and monitors taken off. Patient states that she has been here all day and just wants out. I got ahold of patient's son and told him to go nut picker patient's meds. [facility] NURSING PROG HNO ID: [id number] Author: Sonido Tolentino RN Service: ? Author Type: Registered Nurse Type: Nursing Progress Note Filed: 08/09/2019 4:38 PM Note Text: Converted the conte bag to a leg bag with explaination of how to drain it [facility] NURSING PROG HNO ID: [id number] Author: Sonido (Rn) PORFIRIO Tolentino Service: ? Author Type: Registered Nurse Type: Nursing Progress Note Filed: 08/09/2019 4:26 PM Note Text: Unclamped conte to drain medicine [facility] NURSING PROG HNO ID: [id number] Author: Aria CauseyRn) PORFIRIO Carranza Service: Nursing Author Type: Registered Nurse Type: Nursing Progress Note Filed: 08/09/2019 11:33 AM Note Text: PRE OP LEARNING ASSESSMENT READINESS TO LEARN COGNITIVE ABILITY: Alert and oriented MOTIVATION TO LEARN: Eager FAMILY SUPPORT: None - Unavailable/disinteres rick PATIENT LEARNS BEST BY: Individual Instruction FACTORS AFFECTING LEARNING: None PHYSICAL LIMITATIONS AFFECTING LEARNING: None Electronically Signed By: Aria Carranza RN In Department: [place] SURGERY OR [facility] OPERATIVE NOon 08-09-2019 OPERATIVE NO HNO ID: [id number] Author: Brooke Christiansen Service: Urology Author Type: Physician Type: Operative Report Filed: 08/15/2019 6:05 AM Note Text: OPERATIVE/PROCEDURE REPORT LOG ID: [id number] SURGERY/PROCEDURE DATE: 08/09/2019 INCISION/PROCEDURE START TIME: 2:33 PM INCISION CLOSE/PROCEDURE END TIME: 3:20 PM SURGEON(S)/PROCEDURALI ST(S) AND ELECTRIC LINEMAN(S): Surgeon(s) and Role: * Brooke Christiansen - Primary * Mark (Lizzie) Carmelo - Resident - Assisting No Additional Staff SURGERY/PROCEDURE(S): CYSTOSCOPY, RETROPYELOGRAM: [id number] (CPT?) CYSTOURETHROSCOPY, W/FULGURATION MEDIUM BLADDER TUMOR(S) 2.0-5.0 CM: 58920 (CPT?) INSTILL ANTICARCINOGENIC AGENT IN BLADDER, GEMCITABINE: 47178 (CPT?) ANESTHESIA: General SURGERY/PROCEDURE DETAILS: Sun Nogueira is a 53 year old patient who presents with a bladder tumor seen on office cystoscopy as well as on CT scan. After having a discussion on treatment options, risks and benefits, the patient wishes to proceed forward with surgical intervention. Patient was brought to the operating room and identified using name band/number. A thorough time out was performed and everyone present was in agreement. Patient was placed on OR table. Anesthesia and lines were maintained by the anesthesia team. Patient was placed into dorsal lithotomy position. Pressure points were padded. Prepped and draped in usual sterile fashion. A resectoscope was inserted through the urethra using a visual obturator. The entire bladder was inspected using a 30 degree angled lens. There was a very large, sessile appearing tumor along the left posterior and lateral wall and involving the dome of the bladder as well. This area lit up using bluelight cystoscopy. The tumor appeared to cover approximately 10 cm of the bladder. No other area around the bladder was noted to light up on bluelight, or have visible tumor. The ureteral orifices were noted to be well away from any tumor. Bilateral retrograde pyelograms were performed using a 5 Irish open-ended catheter. This was done under flouroscopic visualization. There were no filling defects or deformities noted. There was no hydronephrosis. Using the loop, the tumor was resected in its entirety. Care was taken to prevent bladder perforation. The depth of resection was aimed to achieve muscle in the pathology specimen but avoid perforation. Periodically, bluelight was used to ensure negative margins of resection. The tumor did appear to be invasive into the muscle. Hemostasis was achieved using electrocautery. All tumor specimen was removed from the bladder.The ureteral orifices were inspected and found to be free of harm or injury. The resectoscope was removed. An 18 Irish Conte catheter was inserted. Gemcitabine was instilled into the catheter, and the catheter was clamped. Plan to drain chemotherapy in the recovery room, although patient will go home with Conte catheter for 1 week. The patient tolerated the procedure well. Patient awoken from anesthesia having tolerated the procedure well. Sun Nogueira Was transferred to recovery room. PRE-OP/PRE-PROCEDURE DIAGNOSIS: Bladder tumor POST-OP/POST-PROCEDURE DIAGNOSIS: Same ESTIMATED BLOOD LOSS: 0 ml SPECIMENS: Bladder tumor IMPLANTABLE DEVICES: None DRAINS: None CATHETER: 18 Irish Conte catheter COMPLICATIONS: None PARTICIPATION IN SURGERY/PROCEDURE: Resident performed the procedure, under direct supervision and the remainder of the procedure was performed by the primary surgeon/proceduralist with assistance. SIGNATURE: Mark Rhodes MD PATIENT NAME: Sun Nogueira DATE: August 09, 2019 TIME: 3:36 PM PAGER/CONTACT #: [phone] I was present for the entire surgery including the critical and frank portions of the surgery and I was immediately available to provide assistance. 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 FOCUS SUSPICIOUS FOR DESTRUCTIVE MUSCULARIS PROPRIA INVASION. LYMPHOVASCULAR INVASION IS PRESENT. PLEASE SEE COMMENT AND SYNOPTIC REPORT. COMMENT: Histologic sections show a high grade urothelial carcinoma with focal micropapillary differentiation. The tumor extensively involves the submitted tissue with confluent solid growth. One section demonstrates intervening thin bundles of muscle fibers. Therefore, destructive muscularis propria invasion cannot be excluded. A HARPAL-3 immunostain is strongly and diffusely positive consistent with urothelial carcinoma. Dr. Cristy Torres has reviewed this case and concurs. Urinary Bladder TURBT Cancer Case Summary Procedure: Transurethral resection of bladder. Tumor site: Left posterior, lateral and dome. Histologic type: Urothelial carcinoma, invasive with micropapillary features. Associated epithelial lesions: None identified. Histologic grade: High grade. Tumor configuration: Solid, ulcerated. Muscularis propria presence: No definite muscularis propria identified. Lymphovascular invasion: Present. Tumor extension: Tumor invades lamina propria (subepithelial connective tissue). Please see comment. Additional pathologic findings: Cautery artifact. OPERATIVE PROCEDURE: TURB CLINICAL INFORMATION: Bladder cancer GROSS DESCRIPTION: Bladder tumor Received in formalin labeled bladder tumor are multiple pink-bey irregularly shaped rubbery tissue fragments aggregating to 2.5 x 2.1 x 1.3 cm and weighing 2.5 gm. Totally submitted in 2 cassettes. KARLIE/luis miguel ERVIN M.D. (Electronic signature on file) Signed out: 08/16/2019 10:56 PRINTED: 08/16/2019 Page 1 of 1 [facility] Comment on above: Performed By: #### S URG #### [place] [id number] XR RETROGRADE PYELOGRAM BILo n 08-09-2019 XR RETROGRADE PYELOGRAM SHAINA Final Report DATE OF EXAM: Aug 09 2019 4:00PM AKO [id number] - XR RETROGRADE PYELOGRAM SHAINA / PROCEDURE REASON: BLADDER CANCER Physician Interpretation EXAM TITLE: BILATERAL RETROGRADE PYELOGRAM DATE: August 09, 2019 at 3:11 PM COMPARISON: CT urogram from July 18, 2019 CLINICAL INDICATION/HISTORY: The patient is a 53-year-old female with bladder cancer. Fluoroscopy Radiation dose: Integrated dose-area product (DAP) for this visit = 1.1 mGycm. TECHNIQUE: 2 spot films from retrograde exam performed by Dr. Christiansen are presented for interpretation. 0 minute and 18 seconds of fluoroscopy was available in the OR. FINDINGS: There is no evidence of filling defect, stricture, dilation, mucosal abnormality, or extrinsic mass involving the visualized portions of either renal collecting system or ureter. Bilateral tubal ligation clips are present. IMPRESSION: Normal bilateral retrograde pyelogram. Newspaper Clipper: [facility] Transcribe Date/Time: Aug 13 2019 7:20A Dictated by : DEIDRA REA MD This examination was interpreted and the report reviewed and electronically signed by: DEIDRA REA MD on Aug 13 2019 7:26AM EST [facility] HOSPon 08-03-2019 HOSP Patient:Saumya Nogueira MRN: Height:5' 7(1.702 m) Weight:132 lb (59.875 kg) Outpatient Medications as of 08/09/19: ceFAZolin (ANCEF, KEFZOL) 1 gram injection varenicline (CHANTIX STARTING MONTH BOX) 0.5 mg (11)- 1 mg (42) tablet varenicline (CHANTIX CONTINUING MONTH BOX) 1 mg tablet ondansetron orally disintegrating (ZOFRAN ODT) 4 mg disintegrating tablet cyclobenzaprine (FLEXERIL) 10 mg tablet cholecalciferol (VITAMIN D-3) 2,000 unit tablet meloxicam (MOBIC) 15 mg tablet Admission/Clinic Administered Medications as of 08/09/19: lidocaine 10 mg/mL (1 %) 1-2 mg injection (XYLOCAINE) lactated ringers infusion gemcitabine 1,000 mg injection (GEMZAR) gemcitabine 1,000 mg in NaCl 0.9% (GEMZAR) Problem List: Adjustment disorder with depressed mood [F43.21] 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): Brooke Christiansen DO, MBA 08/02/2019 11:19 PM Signed SEE ABOVE Brooke Christiansen DO, MBA 08/02/2019 11:19 PM Signed ?? [facility] [place] [facility] LOCATION: [address] [place] [address] NEW CONSULT VISIT PATIENT INFO: Sun Nogueira 53 year old PCP: Rio Foley III MD Consultation requested by and my final recommendations will be communicated back to the requesting physician by way of shared medical record or letter via US mail. Chief Complaint: Gross hematuria, bladder mass HPI Referral from Dr. Marie Gross hematuria, long time smoker. Cystoscopy with large bladder mass at the dome. CT scan c/w bladder mass, no metastatic disease. Very anxious patient. 1-Duration: 2019 2-Location: bladder 3-Severity: N/A 4-Quality: Not applicable 5-Context: N/A 6-Timing: N/A 7-Modifying factors: No treatment prior to referral 8-Associated signs AND symptoms: no additional symptoms No question data found. PATHOLOGY: N/A LAB: WBC (k/uL) Date Value 01/03/2019 8.15 RBC (m/uL) Date Value 01/03/2019 4.78 Hemoglobin (g/dL) Date Value 01/03/2019 14.5 Hematocrit (%) Date Value 01/03/2019 45.0 MCV (fL) Date Value 01/03/2019 94.1 MCH (pG) Date Value 01/03/2019 30.3 MCHC (g/dL) Date Value 01/03/2019 32.2 RDW-CV (%) Date Value 01/03/2019 13.0 Platelet Count (k/uL) Date Value 01/03/2019 313 MPV (fL) Date Value 01/03/2019 10.2 Neut% (%) Date Value 10/05/2012 57.2 Lymph% (%) Date Value 10/05/2012 31.7 Collier% (%) Date Value 10/05/2012 7.7 Eosin% (%) Date Value 10/05/2012 2.7 Baso% (%) Date Value 10/05/2012 0.7 Abs Neut (ANC) (k/uL) Date Value 10/05/2012 6.05 Abs Collier (k/uL) Date Value 10/05/2012 0.81 Abs Eosin (k/uL) Date Value 10/05/2012 0.29 Abs Baso (k/uL) Date Value 10/05/2012 0.07 Creatinine Date Value Ref Range Status 01/03/2019 0.61 0.58 - 0.96 mg/dL Final 10/05/2012 0.62 (L) 0.70 - 1.40 mg/dL Final No results found for: PSA, PSAPER URINE POC GLUCOSE UA (POCT) Negative 07/30/2019 BILIRUBIN UA (POCT) Negative 07/30/2019 KETONE UA (POCT) Negative 07/30/2019 SPECIFIC GRAVITY UA (POCT) 1.015 07/30/2019 HEMOGLOBIN/BLOOD UA (POCT) Moderate 07/30/2019 PH UA (POCT) 6.0 07/30/2019 PROTEIN UA (POCT) 30 07/30/2019 UROBILINOGEN UA (POCT) 0.2 07/30/2019 NITRITE UA (POCT) Negative 07/30/2019 LEUKOCYTES UA (POCT) Trace 07/30/2019 COLOR UA (POCT) Other 07/30/2019 CLARITY UA (POCT) Slightly Cloudy 07/30/2019 IMAGING: CT Scan: Epic I have independently reviewed films and my findings are the same. ALLERGIES: ALLERGIES Allergen Reactions - Bee Stings [Other] Swelling - Tetnus [Other] Swelling MEDICATIONS: varenicline (CHANTIX STARTING MONTH BOX) 0.5 mg (11)- 1 mg (42) tablet Take 1 tablet (0.5 mg) by mouth once daily for 3 days, then 1 tablet (0.5 mg) twice daily for 4 days, then one tablet (1 mg) twice daily. varenicline (CHANTIX CONTINUING MONTH BOX) 1 mg tablet Take 1 tablet by mouth twice daily. cholecalciferol (VITAMIN D-3) 2,000 unit tablet Take 1 tablet by mouth once daily. ondansetron orally disintegrating (ZOFRAN ODT) 4 mg disintegrating tablet Take 1 tablet by mouth every 8 hours as needed for Nausea/Vomiting. cyclobenzaprine (FLEXERIL) 10 mg tablet Take 1 tablet by mouth three times daily as needed. meloxicam (MOBIC) 15 mg tablet Take 1 tablet by mouth as needed. Take with food. Does the patient take any herbal medications?: No Medication list reviewed and reconciled with patient: Yes HISTORIES PAST MEDICAL HISTORY Diagnosis Date - Other anxiety states History reviewed. No pertinent surgical history. FAMILY HISTORY Problem Relation Age of Onset - Heart Maternal Grandfather - Cancer Paternal Grandmother SKIN CA - Cancer Paternal Grandfather BLACK LUNG Negative family history: No SOCIAL HISTORY Social History Tobacco Use - Smoking status: Current Some Day Smoker Packs/day: 0.50 Years: 15.00 Pack years: 7.50 Types: Cigarettes - Smokeless tobacco: Never Used - Tobacco comment: about 4 cigaretes a day. Substance Use Topics - Alcohol use: No - Drug use: No Smoking Status Reviewed: Yes REVIEW OF SYSTEMS: GENERAL: No fever, chills, weight loss, or fatigue. HEAD AND NECK: No blurred vision or Sjogren's syndrome CARDIOVASCULAR: NO CHEST PAIN, PALPITATIONS, ANKLE EDEMA RESPIRATORY: No chronic cough, wheezing, dyspnea, hemoptysis. MUSCULOSKELETAL: NO CHRONIC BACK PAIN, ARTHRITIS, CHRONIC NECK PAIN SKIN: NO VARICOSE VEINS, RASH, ABNORMAL ITCHING BLOOD/LYMPHATIC: No easy bleeding, easy bruising, transfusion Hx NEUROLOGICAL: NO HEADACHES, NUMBNESS, SEIZURES, STROKE PSYCHIATRIC: No depression or inordinate anxiety The remainder of the ROS was negative. PHYSICAL EXAMINATION Ht 170.2 cm (5' 7) Wt 59.9 kg (132 lb) LMP 03/07/2019 (Approximate) BMI 20.67 kg/m? General appearance: Well appearing, alert, in no acute distress and well-hydrated, well nourished Skin: Skin color, texture, turgor normal, no suspicious rashes or lesions Head: Normocephalic, no masses, lesions, tenderness or abnormalities Neck: Supple, no adenopathy; thyroid symmetric, normal size, no bruits Lungs: Clear to auscultation no wheezing or rhonchi Heart: RRR without murmur, gallop, or rubs. No ectopy Abdomen: Normal abdominal exam, Abdomen soft, non-tender. Bowel sounds normal. No masses, organomegaly Extremities: Extremities normal. No deformities, edema, or skin discoloration. Good capillary refill. Genitourinary: Exam NOT Indicated PVR: NA IMPRESSION/PLAN: Gross hematuria. Irritative voiding symptoms. Long history of smoking. Bladder mass found on cystoscopy. This is large and located at the dome according to my partner. We had a long discussion regarding the future plan. At this time she will need a resection of bladder tumor, cystoscopy with cysview and gemcitabine placement. She is agreeable at this time. She is extremely anxious. I spent 45 minutes in the visit, with more than 50% of the total [id number] time of the visit in counseling / coordination of care. Brooke Christiansen DO CAT Letter to: MAZIN Galvan MD 08/02/2019 3:25 PM Addendum August 02, 2019 3:25 PM You only have afternoon available on 08/09/2019 Juana Albarran Move other cases forward Previous Version Juana Marina 08/03/2019 9:56 AM Signed August 03, 2019 9:55 AM Patient is scheduled for surgery at [facility] with Dr. Christiansen on 08/09/2019 at 9:20am. Covid testing on 08/07/2019 in [place]. Patient is aware of date, time, location, and pre op instructions. Patient had no further questions at this time. Juana Albarran Progress Notes (NURSE MARIONETTE PERFORMER): Zofia Sauer, RN, RN 07/31/2019 7:54 AM Signed Reason for call: Patient calling and wishes to cancel appointment she has today with Dr. Kali Argueta, Urology. Patient calling with health information request. Patient denies any new or worsening symptoms of which a provider is not aware: Yes. Patient states I just need you to do what I ask and don't mess this up. Outcome: Patient conferenced to Richard in the appointment center for appointment cancellation. Reason for Disposition - General information question, no triage required and triager able to answer question Protocols used: INFORMATION ONLY [id number] [facility] Constanza 07-30-2019 CNPN Telephone (AKURFL) SUN NOGUEIRA ([id number]) 1965 F Date Time Provider Department 07/30/19 [facility] During your visit today, we recorded the following information about you: Savitamary jane Simon TYRONE 07/30/2019 3:38 PM Signed Patient called stated she is seeing you on in [place], Patient had a CT chest in [place]. I can not get the CT chest without patient signing a release first. Savitamary jane Jamese [employer] Allergies As of Date: 07/30/2019 Noted Allergy Reaction bee stings [Other] 10/24/2004 7 - Swelling tetnus [Other] 10/24/2004 7 - Swelling Date Reviewed: 07/30/2019 Reviewed by: Magan Gentile RN - Fully Assessed Reason for Visit: appt [Other] Prescriptions as of 07/30/2019 Sig: ONDANSETRON 4 MG DISINTEGRATI* Take 1 tablet by mouth every * CYCLOBENZAPRINE 10 MG TABLET Take 1 tablet by mouth three * Patient not taking: Reported on 04/06/2019 CHOLECALCIFEROL (VITAMIN D3) * Take 1 tablet by mouth once d* MELOXICAM 15 MG TABLET Take 1 tablet by mouth as nee* Patient not taking: Reported on 04/06/2019 Problem List As Of Date 07/30/2019 Noted Resolved ADJUSTMENT DISORDER WITH DEPRESSED MOOD [F43.21]10/24/2004 Sprain of neck [S13.9XXA] 05/10/2007 08/11/2016 Sprain of thoracic region [S23.9XXA] 05/10/2007 08/11/2016 SKIN ANOMALY NEC [Q82.8] 02/13/2008 CERVICAL DISC DEGEN [M50.30] 06/05/2008 Work-related stress [Z56.6] 08/11/2016 Vitamin D deficiency [E55.9] 01/06/2019 Microscopic hematuria [R31.29] 03/30/2019 Proteinuria [R80.9] 03/30/2019 Lung nodules [R91.8] 07/24/2019 Mass of urinary bladder [N32.89] 07/24/2019 Situational anxiety [F41.8] 07/24/2019 Encounter Status:Closed by SAVITA SIMON CMA on 08/01/19 [facility] Culture, urine Bacteria identified Cx Nom (U) Enterobacter aerogenes [facility] Work Phone: Bacteria identified Cx Nom (U) Citrobacter koseri [facility] Work Phone: Laboratory - Microbiology an d Antimicrobial susceptibility Bacteria identified Cx Nom (Bld) No growth in 5 days. [facility] Work Phone: Vital Signs Date Time Vital Sign Value Performing Clinician Facility 05-17-2024 14:15-0400 Body mass index (BMI) [Ratio] 20.23 kg/m2 Billy Moomaw [employer] CONSULTANT.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 Work Phone: [facility] 05-17-2024 14:15-0400 Body temperature 99.19 [degF] Billy Moomaw [employer] SOL[employer] CONSULTANT.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 Work Phone: [facility] 05-17-2024 14:15-0400 Body weight 56 kg Billy Moomaw [employer] SOL[employer] CONSULTANT.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 Work Phone: [facility] 05-17-2024 14:15-0400 Diastolic blood pressure 71 mm[Hg] Billy Moomaw [employer] SOL[employer] CONSULTANT.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 Work Phone: [facility] 05-17-2024 14:15-0400 Heart rate 78 /min Billy Moomaw [employer] CONSULTANT.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 Work Phone: [facility] 05-17-2024 14:15-0400 Respiratory rate 20 /min Billy Moomaw [employer] CONSULTANT.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 Work Phone: [facility] 05-17-2024 14:15-0400 SaO2% (BldA) [Mass fraction] 98 % Billy Moomaw [employer] CONSULTANT.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 Work Phone: [facility] 05-17-2024 14:15-0400 Systolic blood pressure 100 mm[Hg] Billy Moomaw [employer] CONSULTANT.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 Work Phone: [facility] 11-01-2023 15:48-0400 Body height 166.4 cm Heide Valle [employer] CONSULTANT.REHABILITATION MEDICINE PHYSICIAN Work Phone: [facility] 11-01-2023 15:48-0400 Body mass index (BMI) [Ratio] 19.18 kg/m2 Heide Valle [employer] CONSULTANT.REHABILITATION MEDICINE PHYSICIAN Work Phone: [facility] 11-01-2023 15:48-0400 Body weight 53.1 kg Heide Valle [employer] CONSULTANT.REHABILITATION MEDICINE PHYSICIAN Work Phone: [facility] 11-01-2023 15:48-0400 Diastolic blood pressure 66 mm[Hg] Heide Valle [employer] CONSULTANT.REHABILITATION MEDICINE PHYSICIAN Work Phone: [facility] 11-01-2023 15:48-0400 Heart rate 83 /min Heide Valle [employer] CONSULTANT.REHABILITATION MEDICINE PHYSICIAN Work Phone: [facility] 11-01-2023 15:48-0400 Respiratory rate 16 /min Heide Valle [employer] CONSULTANT.REHABILITATION MEDICINE PHYSICIAN Work Phone: [facility] 11-01-2023 15:48-0400 Systolic blood pressure 100 mm[Hg] Heide Valle [employer] CONSULTANT.REHABILITATION MEDICINE PHYSICIAN Work Phone: [facility] 05-13-2023 09:57-0400 Body weight 52.16 kg Heide Valle [employer] CONSULTANT.REHABILITATION MEDICINE PHYSICIAN Work Phone: [facility] 05-13-2023 09:57-0400 Diastolic blood pressure 72 mm[Hg] Heide Valle [employer] SOL[employer] CONSULTANT.REHABILITATION MEDICINE PHYSICIAN Work Phone: [facility] 05-13-2023 09:57-0400 Heart rate 77 /min Heide Valle [employer] SOL[employer] CONSULTANT.REHABILITATION MEDICINE PHYSICIAN Work Phone: [facility] 05-13-2023 09:57-0400 Respiratory rate 16 /min Heide Valle [employer] SOL[employer] CONSULTANT.REHABILITATION MEDICINE PHYSICIAN Work Phone: [facility] 05-13-2023 09:57-0400 SaO2% (BldA) [Mass fraction] 98 % Heide Valle [employer] CONSULTANT.REHABILITATION MEDICINE PHYSICIAN Work Phone: [facility] 05-13-2023 09:57-0400 Systolic blood pressure 102 mm[Hg] Heide Valle [employer] SOLUT[employer] CONSULTANT.REHABILITATION MEDICINE PHYSICIAN Work Phone: [facility] 05-09-2023 08:41-0400 Body height 170.18 cm [facility] 05-09-2023 08:41-0400 Body mass index (BMI) [Ratio] 17.6 kg/m2 [facility] 05-09-2023 08:41-0400 Body temperature 97.2 [degF] [facility] 05-09-2023 08:41-0400 Body weight 51.25 kg [facility] 05-09-2023 08:41-0400 Diastolic blood pressure 68 mm[Hg] [facility] 05-09-2023 08:41-0400 Heart rate 79 /min [facility] 05-09-2023 08:41-0400 Respiratory rate 16 /min [facility] 05-09-2023 08:41-0400 SaO2% (BldA) [Mass fraction] 100 % [facility] 05-09-2023 08:41-0400 Systolic blood pressure 100 mm[Hg] [facility] 04-26-2023 11:52-0400 Body temperature 97.3 [degF] Naima Lanier [employer] SOL[employer] CONSULTANT.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 Work Phone: [facility] 04-26-2023 11:52-0400 Body weight 51.5 kg Naima Lanier [employer] SOL[employer] CONSULTANT.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 Work Phone: [facility] 04-26-2023 11:52-0400 Diastolic blood pressure 64 mm[Hg] Naima Lanier [employer] SOLUT[employer] CONSULTANT.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 Work Phone: [facility] 04-26-2023 11:52-0400 Heart rate 80 /min Naima Lanier [employer] SOLUTIONS CONSULTANT.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 Work Phone: [facility] 04-26-2023 11:52-0400 Respiratory rate 18 /min Naima Lanier [employer] SOLUTIONS CONSULTANT.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 Work Phone: [facility] 04-26-2023 11:52-0400 SaO2% (BldA) [Mass fraction] 98 % Naima Lanier [employer] SOLUT[employer] CONSULTANT.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 Work Phone: [facility] 04-26-2023 11:52-0400 Systolic blood pressure 110 mm[Hg] Naima Lanier [employer] SOLUTIONS CONSULTANT.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 Work Phone: [facility] 01-08-2023 08:42-0500 Body temperature 98.4 [degF] Vandana Tejinder [employer] SOL[employer] CONSULTANT.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 Work Phone: [facility] 01-08-2023 08:42-0500 Body weight 51.71 kg Vandana Tejinder [employer] SOLUTIONS CONSULTANT.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 Work Phone: [facility] 01-08-2023 08:42-0500 Diastolic blood pressure 74 mm[Hg] Vandana Tejinder [employer] SOLUTIONS CONSULTANT.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 Work Phone: [facility] 01-08-2023 08:42-0500 Heart rate 84 /min Vandana Tejinder [employer] SOLUTIONS CONSULTANT.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 Work Phone: [facility] 01-08-2023 08:42-0500 Respiratory rate 16 /min Vandana Tejinder [employer] SOLUTIONS CONSULTANT.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 Work Phone: [facility] 01-08-2023 08:42-0500 SaO2% (BldA) [Mass fraction] 96 % Vandana Tejinder [employer] SOLUTIONS CONSULTANT.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 Work Phone: [facility] 01-08-2023 08:42-0500 Systolic blood pressure 118 mm[Hg] Vandana Tejinder [employer] SOLUTIONS CONSULTANT.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 Work Phone: [facility] 12-17-2022 08:47-0500 Body temperature 98.29 [degF] Vandana Tejinder [employer] SOLUT[employer] CONSULTANT.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 Work Phone: [facility] 12-17-2022 08:47-0500 Body weight 52.98 kg Vandana Tejinder [employer] SOLUTIONS CONSULTANT.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 Work Phone: [facility] 12-17-2022 08:47-0500 Diastolic blood pressure 64 mm[Hg] Vandana Tejinder [employer] SOLUTIONS CONSULTANT.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 Work Phone: [facility] 12-17-2022 08:47-0500 Heart rate 83 /min Vandana Tejinder [employer] SOLUTIONS CONSULTANT.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 Work Phone: [facility] 12-17-2022 08:47-0500 Respiratory rate 18 /min Vandana Tejinder [employer]PLE SOLUTIONS CONSULTANT.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 Work Phone: [facility] 12-17-2022 08:47-0500 SaO2% (BldA) [Mass fraction] 96 % Vandana Tejinder [employer] SOLUTIONS CONSULTANT.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 Work Phone: [facility] 12-17-2022 08:47-0500 Systolic blood pressure 104 mm[Hg] Vandana Tejinder [employer] SOLUTIONS CONSULTANT.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 Work Phone: [facility] 12-15-2022 13:35-0500 Body temperature 99.1 [degF] Vandana Tejinder [employer] SOLUTIONS CONSULTANT.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 Work Phone: [facility] 12-15-2022 13:35-0500 Body weight 52.16 kg Vandana Tejinder [employer] SOLUTIONS CONSULTANT.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 Work Phone: [facility] 12-15-2022 13:35-0500 Diastolic blood pressure 78 mm[Hg] Vandana Tejinder [employer] SOLUTIONS CONSULTANT.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 Work Phone: [facility] 12-15-2022 13:35-0500 Heart rate 96 /min Vandana Tejinder [employer] SOLUT[employer] CONSULTANT.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 Work Phone: [facility] 12-15-2022 13:35-0500 Respiratory rate 21 /min Vandana Tejinder [employer] SOLUT[employer] CONSULTANT.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 Work Phone: [facility] 12-15-2022 13:35-0500 SaO2% (BldA) [Mass fraction] 95 % Vandana Tejinder [employer] SOL[employer] CONSULTANT.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 Work Phone: [facility] 12-15-2022 13:35-0500 Systolic blood pressure 98 mm[Hg] Vandana Tejinder [employer] SOL[employer] CONSULTANT.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 Work Phone: [facility] 10-08-2022 12:47-0400 Body height 170.2 cm Cheng Lucas MD Work Phone: [facility] 10-08-2022 12:47-0400 Body temperature 98.6 [degF] Cheng Lucas MD Work Phone: [facility] 10-08-2022 12:47-0400 Body weight 55.52 kg Cheng Lucas MD Work Phone: [facility] 10-08-2022 12:47-0400 Diastolic blood pressure 60 mm[Hg] Cheng Lucas MD Work Phone: [facility] 10-08-2022 12:47-0400 Heart rate 86 /min Cheng Lucas MD Work Phone: [facility] 10-08-2022 12:47-0400 SaO2% (BldA) [Mass fraction] 98 % Cheng Lucas MD Work Phone: [facility] 10-08-2022 12:47-0400 Systolic blood pressure 100 mm[Hg] Cheng Lucas MD Work Phone: [facility] 08-11-2022 16:02-0400 Body temperature 99.61 [degF] Vandana Banerjeek [employer] SOL[employer] CONSULTANT.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 Work Phone: [facility] 08-11-2022 16:02-0400 Body weight 55.34 kg Vandana Marr [employer] SOL[employer] CONSULTANT.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 Work Phone: [facility] 08-11-2022 16:02-0400 Diastolic blood pressure 74 mm[Hg] Vandana Tejinder [employer] SOL[employer] CONSULTANT.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 Work Phone: [facility] 08-11-2022 16:02-0400 Heart rate 78 /min Vandana Tejinder [employer] SOLUT[employer] CONSULTANT.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 Work Phone: [facility] 08-11-2022 16:02-0400 Respiratory rate 16 /min Vandana Tejinder [employer] SOLUT[employer] CONSULTANT.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 Work Phone: [facility] 08-11-2022 16:02-0400 SaO2% (BldA) [Mass fraction] 96 % Vandana Marr APRN.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 Work Phone: [facility] 08-11-2022 16:02-0400 Systolic blood pressure 120 mm[Hg] Vandana Marr [employer] CONSULTANT.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 Work Phone: [facility] 05-13-2022 11:02-0400 Body weight 56.79 kg Hafsa Mendoza MD Work Phone: [facility] 03-05-2022 02:06-0500 Body height 170.18 cm [facility] 03-05-2022 02:06-0500 Body mass index (BMI) [Ratio] 19.7 kg/m2 [facility] 03-05-2022 02:06-0500 Body temperature 97.9 [degF] [facility] 03-05-2022 02:06-0500 Body weight 57.15 kg [facility] 03-05-2022 02:06-0500 Diastolic blood pressure 65 mm[Hg] [facility] 03-05-2022 02:06-0500 Heart rate 82 /min [facility] 03-05-2022 02:06-0500 Respiratory rate 15 /min [facility] 03-05-2022 02:06-0500 SaO2% (BldA) [Mass fraction] 96 % [facility] 03-05-2022 02:06-0500 Systolic blood pressure 113 mm[Hg] [facility] 02-24-2022 16:03-0500 Body temperature 98.2 [degF] Dulce Praisler-Wood [employer] CONSULTANT.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 Work Phone: [facility] 02-24-2022 16:03-0500 Body weight 59.42 kg Dulce Praisler-Wood [employer] SOL[employer] CONSULTANT.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 Work Phone: [facility] 02-24-2022 16:03-0500 Diastolic blood pressure 78 mm[Hg] Dulce Praisler-Wood [employer] SOL[employer] CONSULTANT.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 Work Phone: [facility] 02-24-2022 16:03-0500 Heart rate 73 /min Dulce Praisler-Wood [employer] SOL[employer] CONSULTANT.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 Work Phone: [facility] 02-24-2022 16:03-0500 Respiratory rate 21 /min Dulce Cherygaylealexander-Neil [employer] CONSULTANT.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 Work Phone: [facility] 02-24-2022 16:03-0500 SaO2% (BldA) [Mass fraction] 98 % Dulce Ortiz-Wood [employer] CONSULTANT.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 Work Phone: [facility] 02-24-2022 16:03-0500 Systolic blood pressure 118 mm[Hg] Dulce Ortiz-Neil [employer] CONSULTANT.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 Work Phone: [facility] 01-16-2022 11:45-0500 Body height 170.[address] Alma Delia Choudhury Work Phone: 2(307)238-773056 [place] [address] 01-16-2022 11:45-0500 Body mass index (BMI) [Ratio] 20 kg/m2 Dr. Alma Delia Choudhury Work Phone: 1(201)683-032356 [place] [address] 01-16-2022 11:45-0500 Body temperature 97.6 [degF] Dr. Alma Delia Choudhury Work Phone: 2(706)485-812165 [place] [address] 01-16-2022 11:45-0500 Body weight 58.[address] Alma Delia Choudhury Work Phone: 3(231)999-919865 [place] [address] 01-16-2022 11:45-0500 Diastolic blood pressure 67 mm[Hg] Dr. Alma Delia Choudhury Work Phone: 3(682)195-076456 [place] [address] 01-16-2022 11:45-0500 Heart rate 74 /min Dr. Alma Delia Choudhury Work Phone: 6(852)329-865156 [place] [address] 01-16-2022 11:45-0500 Respiratory rate 14 /min Dr. Alma Delia Choudhury Work Phone: 7(129)520-680265 [place] [address] 01-16-2022 11:45-0500 SaO2% (BldA) [Mass fraction] 100 % Dr. Alma Delia Choudhury Work Phone: 5(498)268-457556 [place] [address] 01-16-2022 11:45-0500 Systolic blood pressure 132 mm[Hg] Dr. Alma Delia Choudhury Work Phone: [facility] 11-12-2021 11:21-0400 Body height 167.6 cm Hafsa Mendoza MD Work Phone: [facility] 11-12-2021 11:21-0400 Body weight 58.97 kg Hafsa Mendoza MD Work Phone: [facility] 11-12-2021 11:21-0400 Diastolic blood pressure 69 mm[Hg] Hafsa Mendoza MD Work Phone: [facility] 11-12-2021 11:21-0400 Heart rate 52 /min Hafsa Mendoza MD Work Phone: [facility] 11-12-2021 11:21-0400 Systolic blood pressure 101 mm[Hg] Hafsa Mendoza MD Work Phone: [facility] 11-05-2021 10:39-0400 Body temperature 98.2 [degF] Alma Delia Choudhury MD Work Phone: [facility] 11-05-2021 10:39-0400 Body weight 58.97 kg Alma Delia Choudhury MD Work Phone: [facility] 11-05-2021 10:39-0400 Diastolic blood pressure 72 mm[Hg] Alma Delia Choudhury MD Work Phone: [facility] 11-05-2021 10:39-0400 Heart rate 72 /min Alma Delia Choudhury MD Work Phone: [facility] 11-05-2021 10:39-0400 Respiratory rate 16 /min Alma Delia Choudhury MD Work Phone: [facility] 11-05-2021 10:39-0400 SaO2% (BldA) [Mass fraction] 98 % Alma Delia Choudhury MD Work Phone: [facility] 11-05-2021 10:39-0400 Systolic blood pressure 110 mm[Hg] Alma Delia Choudhury MD Work Phone: [facility] 10-31-2021 17:04-0400 Body height 170.[address] Alma Delia Choudhury Work Phone: [facility] Work Phone: 10-31-2021 17:04-0400 Body mass index (BMI) [Ratio] 19.5 kg/m2 Dr. Alma Delia Choudhury Work Phone: [facility] Work Phone: 10-31-2021 17:04-0400 Body weight 56.[address] Alma Delia Choudhury Work Phone: [facility] Work Phone: 10-31-2021 16:54-0400 Body temperature 98.5 [degF] Dr. Alma Delia Choudhury Work Phone: [facility] Work Phone: 10-31-2021 16:54-0400 Diastolic blood pressure 75 mm[Hg] Dr. Alma Delia Choudhury Work Phone: [facility] Work Phone: 10-31-2021 16:54-0400 Heart rate 84 /min Dr. Alma Delia Choudhury Work Phone: [facility] Work Phone: 10-31-2021 16:54-0400 Respiratory rate 16 /min Dr. Alma Delia Choudhury Work Phone: [facility] Work Phone: 10-31-2021 16:54-0400 SaO2% (BldA) [Mass fraction] 100 % Dr. Alma Delia Choudhury Work Phone: [facility] Work Phone: 10-31-2021 16:54-0400 Systolic blood pressure 108 mm[Hg] Dr. Alma Delia Choudhury Work Phone: [facility] Work Phone: 10-31-2021 15:32-0400 Body temperature 97.1 [degF] Dr. Alma Delia Choudhury Work Phone: [facility] Work Phone: 10-31-2021 15:32-0400 Diastolic blood pressure 74 mm[Hg] Dr. Alma Delia Choudhury Work Phone: [facility] Work Phone: 10-31-2021 15:32-0400 Heart rate 86 /min Dr. Alma Delia Choudhury Work Phone: [facility] Work Phone: 10-31-2021 15:32-0400 Respiratory rate 16 /min Dr. Alma Delia Choudhury Work Phone: [facility] Work Phone: 10-31-2021 15:32-0400 SaO2% (BldA) [Mass fraction] 97 % Dr. Alma Delia Choudhury Work Phone: [facility] Work Phone: 10-31-2021 15:32-0400 Systolic blood pressure 109 mm[Hg] Dr. Alma Delia Choudhury Work Phone: [facility] Work Phone: 10-31-2021 10:53-0400 Body height 170.[address] Alma Delia Choudhury Work Phone: [facility] Work Phone: 10-31-2021 10:53-0400 Body mass index (BMI) [Ratio] 19.5 kg/m2 Dr. Alma Delia Choudhury Work Phone: [facility] Work Phone: 10-31-2021 10:53-0400 Body weight 56.[address] Alma Delia Choudhury Work Phone: [facility] Work Phone: 09-08-2021 15:55-0400 Body height 167.6 cm Alma Delia Choudhury MD Work Phone: [facility] 09-08-2021 15:55-0400 Body temperature 98.71 [degF] Alma Delia Choudhury MD Work Phone: [facility] 09-08-2021 15:55-0400 Body weight 58.51 kg Alma Delia Choudhury MD Work Phone: [facility] 09-08-2021 15:55-0400 Diastolic blood pressure 60 mm[Hg] Alma Delia Choudhury MD Work Phone: [facility] 09-08-2021 15:55-0400 Heart rate 86 /min Alma Delia Choudhury MD Work Phone: [facility] 09-08-2021 15:55-0400 Respiratory rate 12 /min Alma Delia Choudhury MD Work Phone: [facility] 09-08-2021 15:55-0400 SaO2% (BldA) [Mass fraction] 99 % Alma Delia hCoudhury MD Work Phone: [facility] 09-08-2021 15:55-0400 Systolic blood pressure 110 mm[Hg] Alma Delia Choudhury MD Work Phone: [facility] 08-24-2021 13:25-0400 Body temperature 98 [degF] Dr. Alma Delia Choudhury Work Phone: [facility] Work Phone: 08-24-2021 13:25-0400 Diastolic blood pressure 58 mm[Hg] Dr. Alma Delia Choudhury Work Phone: [facility] Work Phone: 08-24-2021 13:25-0400 Heart rate 64 /min Dr. Alma Delia Choudhury Work Phone: [facility] Work Phone: 08-24-2021 13:25-0400 Respiratory rate 16 /min Dr. Alma Delia Choudhury Work Phone: [facility] Work Phone: 08-24-2021 13:25-0400 SaO2% (BldA) [Mass fraction] 98 % Dr. Alma Delia Choudhury Work Phone: [facility] Work Phone: 08-24-2021 13:25-0400 Systolic blood pressure 86 mm[Hg] Dr. Alma Delia Choudhury Work Phone: [facility] Work Phone: 08-24-2021 13:01-0400 Body height 170.[address] Alma Delia Choudhury Work Phone: [facility] Work Phone: 08-24-2021 13:01-0400 Body weight 55.[address] Alma Delia Choudhury Work Phone: [facility] Work Phone: 08-23-2021 22:51-0400 Body mass index (BMI) [Ratio] 19.3 kg/m2 Dr. Alma Delia Choudhury Work Phone: [facility] Work Phone: 07-03-2021 13:55-0400 Body temperature 98.01 [degF] Ofelia Older [employer]UT[employer] CONSULTANT.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 Work Phone: [facility] 07-03-2021 13:55-0400 Body weight 59.88 kg Ofelia Older [employer] SOLUT[employer] CONSULTANT.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 Work Phone: [facility] 07-03-2021 13:55-0400 Diastolic blood pressure 68 mm[Hg] Ofelia Older [employer] SOLUT[employer] CONSULTANT.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 Work Phone: [facility] 07-03-2021 13:55-0400 Heart rate 82 /min Ofelia Older [employer] SOLUT[employer] CONSULTANT.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 Work Phone: [facility] 07-03-2021 13:55-0400 Respiratory rate 16 /min Ofelia Older [employer] SOLUT[employer] CONSULTANT.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 Work Phone: [facility] 07-03-2021 13:55-0400 SaO2% (BldA) [Mass fraction] 98 % Ofelia Older [employer] SOLUT[employer] CONSULTANT.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 Work Phone: [facility] 07-03-2021 13:55-0400 Systolic blood pressure 122 mm[Hg] Ofelia Older [employer] CONSULTANT.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 Work Phone: [facility] Encounters Encounter Date Encounter Type Care Provider Facility Start: 08-15-2024 End: 08-15-2024 Office outpatient visit 25 minutes Hafsa Mendoza MD Work Phone: Urology Comment on above: Malignant neoplasm o f urinary bladder, unspecified site (HCC) (Primary Dx); Screening for genitourinary condition; Pelvicaliectasis; Personal history of malignant neoplasm of bladder; Presence of urostomy (HCC) Start: 08-15-2024 End: 08-20-2024 ambulatory Hafsa Mendoza MD Work Phone: Urology Start: 08-01-2024 ambulatory [facility] Facility:[facility] Start: 08-01-2024 End: 08-01-2024 Subsequent hospital visit by physician Screen Mammo [facility] Comment on above: Encounter for screen ing mammogram for breast cancer [Z12.31] Start: 08-01-2024 ambulatory ADELA Lemon ty:[facility] Start: 08-01-2024 End: 08-01-2024 Subsequent hospital visit by physician Ct 2 Main Q[facility] (I-Stat) Radiology Comment on above: Malignant neoplasm o f urinary bladder, unspecified site (HCC) [C67.9] Start: 05-17-2024 End: 05-17-2024 ambulatory ALMA DELIA CHOUDHURY Facility:[facility] Start: 05-17-2024 End: 05-20-2024 Follow-up encounter Billy Juan APRN.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 Work Phone: [facility] Start: 05-17-2024 End: 05-18-2024 Patient encounter procedure Billy Juan APRN.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 Work Phone: [facility] Comment on above: Urgency of urination (Primary Dx); Acute cough; EVELYN (generalized anxiety disorder) Refill Request Start: 11-08-2023 End: 11-11-2023 Telephone encounter Alma Delia Choudhury MD Work Phone: Internal Medicine [place] Comment on above: Patient Request Start: 11-01-2023 End: 11-01-2023 Patient encounter status Heide Valle APRN.REHABILITATION MEDICINE PHYSICIAN Work Phone: [facility] Start: 11-01-2023 Encounter for genera l adult medical examination without abnormal findings HEIDE VALLE [facility] Start: 11-01-2023 End: 11-02-2023 Orders Only Hafsa Mendoza MD Work Phone: Urology Comment on above: Malignant neoplasm o f urinary bladder, unspecified site (HCC) (Primary Dx) Routine medical exam (Primary Dx); Encounter for immunization; Screening for depression; Special screening examination for viral disease; Screening for HIV (human immunodeficiency virus); Vitamin D deficiency; Malignant neoplasm of urinary bladder, unspecified site (HCC); Situational anxiety; S/P urinary bladder replacement; 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); Adjustment disorder with depressed mood; Encounter for screening mammogram for breast cancer; Adhesions of vagina Refill Request Start: 09-16-2023 Telephone encounter Alma Delia mora MD Work Phone: Family Medicine [place] Comment on above: Forms Start: 07-20-2023 Nurse Triage Christina Walters LPN NURSE [employer] Comment on above: cathater bag orders supplies Start: 07-19-2023 ambulatory Maria Elena Block RN NURS E [employer] Comment on above: Patient Update Start: 06-06-2023 Telephone encounter Heide marquez APRN.REHABILITATION MEDICINE PHYSICIAN Work Phone: Internal Medicine [place] Comment on above: Letter Start: 05-23-2023 Telephone encounter Heide marquez [employer] SOLUT[employer] CONSULTANT.REHABILITATION MEDICINE PHYSICIAN Work Phone: Internal Medicine [place] Comment on above: Patient Request Start: 05-13-2023 End: 05-13-2023 Office outpatient visit 25 minutes Heide Valle APRN.REHABILITATION MEDICINE PHYSICIAN Work Phone: Internal Medicine [place] Comment on above: Acute right-sided lo w back pain with right-sided sciatica (Primary Dx) Start: 05-09-2023 End: 05-09-2023 Emergency department patient visit Pravin Masterson Facility:[facility] Start: 05-09-2023 End: 05-09-2023 Emergency department patient visit [facility]-Emergency Department Work Phone: Start: 04-26-2023 End: 04-26-2023 Patient encounter procedure Naima Lanier [employer] CONSULTANT.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 Work Phone: [facility] Comment on above: Nausea and vomiting, unspecified vomiting type (Primary Dx); Viral illness Start: 01-08-2023 End: 01-08-2023 Patient encounter procedure Vandana Marr APRN.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 Work Phone: [facility] Comment on above: Sore throat (Primary Dx); URI with cough and congestion; Wheezing Start: 12-19-2022 Telephone encounter Jose G Eileen luciano AMAYA.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 Work Phone: [facility] Comment on above: Results Start: 12-17-2022 End: 12-17-2022 Patient encounter procedure Vandana Marr APRN.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 Work Phone: [facility] Comment on above: Diarrhea, unspecifie d type (Primary Dx) Start: 12-15-2022 End: 12-15-2022 Patient encounter procedure Vandana Marr APRN.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 Work Phone: [facility] Comment on above: Flu-like symptoms (P rimary Dx); Diarrhea, unspecified type Start: 11-26-2022 End: 11-26-2022 Subsequent hospital visit by physician [employer] [facility] (I-Stat/1.5t) Work Phone: Radiology Comment on above: Lesion of bone of el bow [M89.9] Start: 11-24-2022 ambulatory Alma Delia Ibarra Work Phone: Internal Medicine [facility] [place] Start: 10-13-2022 Telephone encounter Alma Delia mora MD Work Phone: Internal Medicine [place] Comment on above: requesting a disk fr om radiology Results Requesting further t esting (CT or MRI per pt) Start: 10-08-2022 End: 10-08-2022 Subsequent hospital visit by physician Aly [facility] [place] [facility] Work Phone: Radiology Comment on above: Contusion of left merc[place] nd, initial encounter [S60.222A] Start: 10-08-2022 End: 10-08-2022 Patient encounter procedure Cheng Lucas MD Work Phone: General Surgery Comment on above: Contusion of left merc[place] nd, initial encounter (Primary Dx); 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) Start: 09-13-2022 Telephone encounter Alma Delia mora MD Work Phone: Internal Medicine [place] Comment on above: Orders Start: 08-27-2022 End: 08-27-2022 Subsequent hospital visit by physician [facility] Work Phone: Radiology Comment on above: Lesion of bone of el bow [M89.9] Start: 08-11-2022 End: 08-11-2022 Patient encounter procedure Vandana Marr [employer]UT[employer] CONSULTANT.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 Work Phone: [facility] Comment on above: Acute right-sided lo w back pain without sciatica (Primary Dx) Start: 08-05-2022 Patient encounter procedure Ofelia Lau APRN.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 Work Phone: Family Medicine [place] Start: 08-05-2022 Telephone encounter Ofelia Lau APRN.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 Work Phone: Family [facility] Comment on above: Orders (Requesting l ab orders) Start: 08-04-2022 Telephone encounter Huang guadalupe DO Work Phone: Hematology/Oncology Comment on above: Orders Start: 05-21-2022 Telephone encounter Violet hernandez RN Work Phone: Urology Comment on above: Follow Up Start: 05-13-2022 ambulatory Hafsa dey MD Work Phone: Urology Start: 05-13-2022 End: 05-13-2022 Patient encounter procedure Hafsa Mendoza MD Work Phone: Urology Comment on above: Malignant neoplasm o f urinary bladder, unspecified site (HCC) (Primary Dx) Start: 03-05-2022 End: 03-05-2022 Emergency department patient visit [facility]Emergency Department Start: 02-24-2022 End: 02-24-2022 Patient encounter procedure Dulce Mann [employer] SOLUT[employer] CONSULTANT.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 Work Phone: [facility] Comment on above: Allergic dermatitis (Primary Dx) Start: 02-19-2022 End: 02-19-2022 ambulatory [facility] Work Phone: Start: 02-19-2022 End: 02-19-2022 Patient encounter procedure [facility] Start: 01-20-2022 Telephone encounter Taniya Messina [employer] SOLUT[employer] CONSULTANT.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 Work Phone: [facility] Comment on above: Results; Orders Start: 01-18-2022 Telephone encounter Naima Carlito scanlon [employer] SOLUT[employer] CONSULTANT.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 Work Phone: [facility] Comment on above: Results Start: 01-18-2022 End: 01-18-2022 Patient encounter procedure Taniya Messina [employer] SOLUT[employer] CONSULTANT.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 Work Phone: [facility] Comment on above: Left lower quadrant abdominal pain (Primary Dx) Start: 01-16-2022 End: 01-16-2022 Emergency department patient visit Dr. Alma Delia Choudhury Work Phone: [facility]-Emergency Department Start: 12-16-2021 ambulatory Alma Delia Ibarra Work Phone: Internal Medicine [facility] Start: 11-16-2021 Telephone encounter Korina GOLDMAN Hematology/Oncology Comment on above: Financial Assistance Start: 11-13-2021 Telephone encounter Allie GOLDMAN Work Phone: Adult Psychology Comment on above: patient outreach Start: 11-12-2021 End: 11-12-2021 Patient encounter procedure Hafsa Mendoza MD Work Phone: Urology Comment on above: Malignant neoplasm o f urinary bladder, unspecified site (HCC) (Primary Dx) Start: 11-09-2021 Telephone encounter Korina GOLDMAN Hematology/Oncology Comment on above: Financial Assistance Start: 11-05-2021 Chart abstracting Allie GOLDMAN Work Phone: Adult Psychology Start: 11-05-2021 End: 11-05-2021 Patient encounter procedure Alma Delia Choudhury MD Work Phone: Internal Medicine [place] Comment on above: GUZMAN (acute kidney in jury) (HCC) (Primary Dx); PTSD (post-traumatic stress disorder); 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 Joe Choudhury Work Phone: [facility] Start: 10-31-2021 End: 10-31-2021 Evaluation and management of inpatient Dr. Alma Delia Choudhury Work Phone: [facility] Start: 09-22-2021 Telephone encounter Huang guadalupe DO Work Phone: Hematology/Oncology Comment on above: Question Start: 09-08-2021 End: 09-08-2021 Patient encounter procedure Alma Delia Choudhury MD Work Phone: Internal Medicine [place] Comment on above: Urinary tract infect ion without hematuria, site unspecified (Primary Dx); Hospital discharge follow-up; Urinary incontinence, unspecified type Start: 09-01-2021 End: 09-01-2021 Follow-up encounter Angio 1 Work Phone: Radiology Comment on above: Radiology IR (Follow up s/p nephrostomy tube removal ) Start: 09-01-2021 End: 09-01-2021 Patient encounter procedure Angio Room 1 Work Phone: [facility] Start: 08-25-2021 Telephone encounter Huang guadalupe DO Work Phone: Hematology/Oncology Comment on above: ED Follow-up Results (CT Chest fr om 08/15/2021 at [facility]) Start: 08-24-2021 Non-patient / Non-visit Dr. Joe Choudhury Work Phone: [facility] Start: 08-23-2021 End: 08-24-2021 Evaluation and management of inpatient Dr. Alma Delia Choudhury Work Phone: [facility]-Medical Surgical 3 Start: 08-22-2021 Telephone encounter Huang guadalupe DO Work Phone: Hematology/Oncology Comment on above: Results (CT chest fr [facility]) Start: 08-19-2021 Telephone encounter Oswaldo Main DO Work Phone: Hematology/Oncology Comment on above: disc request Start: 08-15-2021 End: 08-15-2021 Patient encounter procedure [facility]-Cat Scan, [facility] Start: 08-12-2021 Telephone encounter Alma Delia mora MD Work Phone: Family [facility] Comment on above: Patient Question Start: 08-11-2021 Telephone encounter Huang guadalupe DO Work Phone: Hematology/Oncology Comment on above: Patient Question Start: 07-20-2021 Telephone encounter Alma Delia mora MD Work Phone: Internal Medicine [place] Comment on above: Patient Question Start: 07-03-2021 End: 07-03-2021 Subsequent hospital visit by physician Xr [facility] [place] Work Phone: Radiology Comment on above: Wheezing [R06.2] Start: 07-03-2021 Telephone encounter Alma Delia mora MD Work Phone: Internal Medicine [place] Comment on above: Return To Work Lette r Start: 07-03-2021 End: 07-03-2021 Patient encounter procedure Ofelia Lau [employer] SOLUTIONS CONSULTANT.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 Work Phone: Internal Medicine [place] Comment on above: Viral URI with cough (Primary Dx); Wheezing; Cough Start: 06-26-2021 End: 06-26-2021 Subsequent hospital visit by physician Ct [facility] (I-Stat) Work Phone: Cat Scan Comment on above: Lung nodules [R91.8] Canceled (Pt cx: Marychuy jaime in Condition, Sick) Start: 06-25-2021 Orders Only Huang Garcia Work Phone: Hematology/Oncology Comment on above: Malignant neoplasm o f lateral wall of urinary bladder (HCC) (Primary Dx); Lung nodules; Hematuria, microscopic; Malignant neoplasm of overlapping sites of bladder (HCC) Procedures Date Procedure Procedure Detail Performing Clinician Start: 08-15-2024 Urnls dip stick/tabl et rgnt auto w/o microscopy Bulk Order Provider Start: 08-01-2024 Ct abdomen & pelvis w/contrast material Adela Church MD Work Phone: Start: 05-17-2024 Urnls dip stick/tabl et rgnt auto w/o microscopy Krishna Pimentel PA-C Work Phone: Start: 11-01-2023 Adult depression scr eening assessment Hafsa Mendoza MD Work Phone: Start: 05-09-2023 Plain x-ray of pelvi s and lower extremity Start: 01-08-2023 STREP A MOLECULAR (POC) Vandana Marr 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.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 Work Phone: Start: 11-26-2022 Mri any jt upper ext remity w/o contrast matrl Mendy Carrasco PA-C Work Phone: Start: 10-08-2022 Radex hand minimum 3 views Cheng Lucas MD Work Phone: Start: 08-27-2022 Radex elbow 2 views Lauren Carrasco PA-C Work Phone: Start: 08-06-2022 Lipid 1996 panel - S liam or Plasma Alma Delia Choudhury MD Work Phone: Start: 05-13-2022 Urnls dip stick/tabl et reagent auto microscopy Bulk Order Provider Start: 02-19-2022 CT of chest without contrast Start: 02-19-2022 Computed tomography of abdomen and pelvis with contrast Start: 01-16-2022 CT of abdomen and pe lvis without contrast Dr. Alma Delia Choudhury Work Phone: Start: 10-31-2021 CT of abdomen and pe lvis without contrast Dr. Alma Delia Choudhury Work Phone: Start: 08-23-2021 Plain chest X-ray Dr. 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 Alma Delia Choudhury Work Phone: Urine culture Dr. Alma Delia mora Work Phone: Urine culture Viral antigen assay Dr. Sharif Choudhury Work Phone: Plan of Treatment Date Care Activity Detail Author Start: 08-07-2027 Lipid 1996 panel - S liam or Plasma Lipid Screening [facility] Start: 08-07-2027 Lipid panel Lipid Screening [facility] Start: 08-07-2027 LIPID SCREEN LIPID SCREEN [facility] Start: 10-31-2026 Diabetes Screening Diabetes Screenin [facility] Start: 08-06-2025 DIABETES SCREEN DIABETES SCREEN [facility] Start: 08-06-2025 Diabetes Screening Diabetes Screenin [facility] Start: 08-01-2025 Screening for malign ant neoplasm of breast Mammogram Screening [facility] Start: 01-18-2025 DIABETES SCREEN DIABETES SCREEN [facility] Start: 11-05-2024 DIABETES SCREEN DIABETES SCREEN [facility] Start: 10-31-2024 Depression Screening Depression Scre ening [facility] Start: 10-18-2024 End: 10-18-2024 Patient encounter procedure 10/18/2024 9:30 AM EDT Office Visit Urology [address] [id number] Hafsa Mendoza MD [address] [place] [address] Hx of bladder cancer Urology Comment on above: Hx of bladder cancer Start: 10-08-2024 Influenza vaccination [facility] Start: 09-13-2024 Colonoscopy COLONOSCOPY [facility] Start: 09-13-2024 COLORECTAL CANCER SCREENING COLORECTAL CANCER SCREENING [facility] Start: 09-13-2024 Screening for malign ant neoplasm of colon [facility] Start: 08-16-2024 End: 11-15-2024 Creatinine and Glomerular filtration rate.predicted panel - Serum, Plasma or Blood CREATININE BLD Lab Routine Malignant neoplasm of urinary bladder, unspecified site (HCC) Expected: 08/16/2024, Expires: 11/15/2024 [facility] Comment on above: Expected: 08/16/2024 , Expires: 11/15/2024 Start: 08-15-2024 End: 08-15-2024 Patient encounter procedure 08/15/2024 1:45 PM EDT Office Visit Urology [address] [id number] Hafsa Mendoza MD [address] [place] [address] Hx of bladder cancer Urology Comment on above: Hx of bladder cancer Start: 06-26-2024 DIABETES SCREEN DIABETES SCREEN [facility] Start: 02-08-2024 Covid-19 Vaccine ( season) Covid-19 Vaccine () [facility] Comment on above: Postponed from 10/08 (Declined at this time) Start: 02-08-2024 Influenza vaccination Influenza Vacc ine (#1) [facility] Comment on above: Postponed from 10/08 (Declined at this time) Start: 02-08-2024 Shingrix Vaccine (1 of 2) Shingrix Vaccine (1 of 2) [facility] Comment on above: Postponed from 09/09 (Declined at this time) Start: 02-08-2024 Urine microalbumin profile DTaP,Tdap,Td Vaccine (1 - Tdap) [facility] Comment on above: Postponed from 09/09 (Declined at this time) Start: 01-04-2024 LIPID SCREEN LIPID SCREEN [facility] Start: 12-30-2023 DIABETES SCREEN DIABETES SCREEN [facility] Start: 12-01-2023 End: 03-01-2024 CREATININE BLD CREATININE BLD Lab Routine Malignant neoplasm of urinary bladder, unspecified site (HCC) Expected: 12/01/2023 (Approximate), Expires: 03/01/2024 [facility] Comment on above: Expected: 12/01/2023 (Approximate), Expires: 03/01/2024 Start: 11-01-2023 End: 01-31-2024 25-hydroxyvitamin D3 [Mass/volume] in Serum or Plasma [facility] Comment on above: Expected: 11/01/2023 , Expires: 01/31/2024 Start: 11-01-2023 End: 01-31-2024 CBC W Auto Differential panel - Blood [facility] Comment on above: Expected: 11/01/2023 , Expires: 01/31/2024 Start: 11-01-2023 End: 01-31-2024 Comprehensive metabolic 2000 panel - Serum or Plasma [facility] Comment on above: Expected: 11/01/2023 , Expires: 01/31/2024 Start: 11-01-2023 End: 01-31-2024 Hepatitis C virus Ab [Presence] in Serum [facility] [employer] Work Phone: Comment on above: Expected: 11/01/2023 , Expires: 01/31/2024 Start: 11-01-2023 End: 01-31-2024 HIV 1+2 Ab [Presence] in Serum or Plasma by Immunoassay HIV 1/2 COMBO WITH REFLEX TO DIFFERENTIATION Lab Routine Screening for HIV (human immunodeficiency virus) Expected: 11/01/2023, Expires: 01/31/2024 [facility] Comment on above: Expected: 11/01/2023 , Expires: 01/31/2024 Start: 10-09-2023 Covid-19 Vaccine () Covid-19 Vaccine () [facility] Start: 10-09-2023 Covid-19 Vaccine (1 - 2024-25 season) Covid-19 Vaccine ( season) [facility] Start: 10-09-2023 Influenza vaccination [facility] Start: 05-09-2023 [facility] Start: 02-07-2023 Behavioral Health Screening Behavioral Health Screening [facility] Start: 02-07-2023 Depression Assessment Depression Ass essment [facility] Start: 12-17-2022 End: 03-18-2023 Norovirus Ag [Presence] in Stool [employer] 1 AND 2 Lab Routine Diarrhea, unspecified type Expected: 12/17/2022, Expires: 03/18/2023 [facility] Work Phone: Comment on above: Expected: 12/17/2022 , Expires: 03/18/2023 Start: 12-15-2022 End: 12-29-2022 COVID & INFLUENZA A/B & RSV NAAT, ROUTINE [facility] Work Phone: Comment on above: Expected: 12/15/2022 , Expires: 12/29/2022 Start: 10-08-2022 Covid-19 Vaccine ( season) Covid-19 Vaccine ( season) [facility] Start: 10-08-2022 Influenza vaccination [facility] Start: 08-05-2022 End: 10-05-2022 CBC W Auto Differential panel - Blood CBC + DIFF Lab Routine Annual physical exam Expected: 08/05/2022, Expires: 10/05/2022 [facility] Work Phone: Comment on above: Expected: 08/05/2022 , Expires: 10/05/2022 Start: 08-05-2022 End: 10-05-2022 Comprehensive metabolic 2000 panel - Serum or Plasma COMP METABOLIC PANEL Lab Routine Annual physical exam Expected: 08/05/2022, Expires: 10/05/2022 [facility] Work Phone: Comment on above: Expected: 08/05/2022 , Expires: 10/05/2022 Start: 08-05-2022 End: 10-05-2022 Hemoglobin A1c in Blood HGB A1C Lab Routine Annual physical exam Elevated glucose Expected: 08/05/2022, Expires: 10/05/2022 [facility] Work Phone: Comment on above: Expected: 08/05/2022 , Expires: 10/05/2022 Start: 08-05-2022 End: 10-05-2022 Lipid 1996 panel - Serum or Plasma LIPID PANEL BASIC Lab Routine Annual physical exam Expected: 08/05/2022, Expires: 10/05/2022 [facility] Work Phone: Comment on above: Expected: 08/05/2022 , Expires: 10/05/2022 Start: 02-07-2022 DEPRESSION ASSESSMENT DEPRESSION ASS ESSMENT [facility] Start: 01-16-2022 [facility] Work Phone: Start: 11-05-2021 End: 01-05-2022 Basic metabolic 2000 panel - Serum or Plasma [facility] Work Phone: Comment on above: Expected: 11/05/2021 , Expires: 01/05/2022 Start: 11-05-2021 End: 01-05-2022 CBC W Auto Differential panel - Blood [facility] Work Phone: Comment on above: Expected: 11/05/2021 , Expires: 01/05/2022 Start: 10-31-2021 Provision of activit y privileges [facility] Work Phone: Start: 10-31-2021 Following clinical pathway protocol [facility] Work Phone: Start: 10-31-2021 Assessment of risk o f venous thromboembolism [facility] Work Phone: Start: 10-31-2021 Consultation [facility] Work Phone: Start: 10-31-2021 Insertion of cathete r into peripheral vein [facility] Work Phone: Start: 10-31-2021 Measuring intake and output [facility] Work Phone: Start: 10-31-2021 Oxygen therapy [facility] Work Phone: Start: 10-31-2021 Providing care accor ding to standard [facility] Work Phone: Start: 10-31-2021 Provision of activit y privileges [facility] Work Phone: Start: 10-31-2021 Referral to automatic dispenser mechanic [facility] Work Phone: Start: 10-31-2021 Referral to occupati onal therapist [facility] Work Phone: Start: 10-31-2021 Referral to service [facility] Work Phone: Start: 10-31-2021 [facility] Work Phone: Start: 10-31-2021 Creatinine [Mass/vol ume] in Urine [facility] Work Phone: Start: 10-31-2021 Osmolality of Urine [facility] Work Phone: Start: 10-31-2021 Sodium [Moles/volume ] in Urine [facility] Work Phone: Start: 10-31-2021 [facility] Work Phone: Start: 10-31-2021 Admission procedure [facility] Work Phone: Start: 10-31-2021 Verification routine [facility] Work Phone: Start: 10-31-2021 End: 10-31-2021 Blood culture [facility] Work Phone: Start: 10-31-2021 [facility] Work Phone: Start: 10-31-2021 Patient discharge [facility] Work Phone: Start: 10-31-2021 Patient referral to dietitian [facility] Work Phone: Start: 10-08-2021 Influenza vaccination [facility] Start: 09-08-2021 End: 11-08-2021 Bacteria identified in Urine by Culture [facility] Work Phone: Comment on above: Expected: 09/08/2021 , Expires: 11/08/2021 Start: 09-08-2021 End: 11-08-2021 Urinalysis complete panel - Urine [facility] Work Phone: Comment on above: Expected: 09/08/2021 , Expires: 11/08/2021 Start: 08-25-2021 Blood chemistry [facility] Work Phone: Start: 08-24-2021 Patient discharge [facility] Work Phone: Start: 08-23-2021 Application of intermittent pneumatic compression device [facility] Work Phone: Start: 08-23-2021 Following clinical pathway protocol [facility] Work Phone: Start: 08-23-2021 Assessment of risk o f venous thromboembolism [facility] Work Phone: Start: 08-23-2021 Fall prevention [facility] Work Phone: Start: 08-23-2021 Inhalation therapy procedure [facility] Work Phone: Start: 08-23-2021 Insertion of cathete r into peripheral vein [facility] Work Phone: Start: 08-23-2021 Introduction of urin sivan catheter [facility] Work Phone: Start: 08-23-2021 Measuring intake and output [facility] Work Phone: Start: 08-23-2021 Oxygen therapy [facility] Work Phone: Start: 08-23-2021 Providing care accor ding to standard [facility] Work Phone: Start: 08-23-2021 Provision of activit y privileges [facility] Work Phone: Start: 08-23-2021 Referral to service [facility] Work Phone: Start: 08-23-2021 [facility] Work Phone: Start: 08-23-2021 Admission procedure [facility] Work Phone: Start: 08-23-2021 Verification routine [facility] Work Phone: Start: 08-23-2021 [facility] Work Phone: Start: 08-23-2021 SARS-COV-2 COVID19 W/OPTIC SARS-COV-2 COVID19 W/OPTIC [facility] Work Phone: Start: 08-23-2021 Patient referral to dietitian [facility] Work Phone: Start: 06-26-2021 End: 08-26-2021 Basic metabolic 2000 panel - Serum or Plasma BASIC METABOLIC PNL Lab STAT 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) Lung nodules Hematuria, microscopic Malignant neoplasm of overlapping sites of bladder (HCC) Expected: 06/26/2021, Expires: 08/26/2021 [facility] Work Phone: Comment on above: Expected: 06/26/2021 , Expires: 08/26/2021 Start: 06-26-2021 End: 08-26-2021 CBC W Auto Differential panel - Blood [facility] Work Phone: Comment on above: Expected: 06/26/2021 , Expires: 08/26/2021 Start: 06-26-2021 End: 08-26-2021 HEPATIC FUNCTION PNL HEPATIC FUNCTION PNL Lab Routine 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) Lung nodules Hematuria, microscopic Malignant neoplasm of overlapping sites of bladder (HCC) Expected: 06/26/2021, Expires: 08/26/2021 [facility] Work Phone: Comment on above: Expected: 06/26/2021 , Expires: 08/26/2021 Start: 02-18-2021 Adult depression screening assessment DEPRESSION SCREENING [facility] Start: 02-07-2021 DEPRESSION ASSESSMENT DEPRESSION ASS ESSMENT [facility] Start: 08-16-2020 Mammography [facility] Start: 08-16-2020 Screening for malign ant neoplasm of breast Mammogram Screening [facility] Start: 2014 Pneumococcal Vaccine : 50+ (1 of 1 - PCV) Pneumococcal Vaccine: 50+ (1 of 1 - PCV) [facility] Start: 2014 SHINGRIX VACCINE (1 of 2) SHINGRIX VACCINE (1 of 2) [facility] Start: 2009 COLOGUARD (FIT-DNA) COLOGUARD (FIT-D NA) [facility] Start: [address] COLONOGRAPHY [facility] Start: 2009 FECAL OCCULT BLOOD FECAL OCCULT BLOO D [facility] Start: 2009 Screening for malign ant neoplasm of colon [facility] Start: 2009 SIGMOIDOSCOPY SIGMOIDOSCOPY [facility] Start: 1994 HPV TESTING HPV TESTING [facility] Start: 1994 Screening for malign ant neoplasm of cervix HPV Testing [facility] Start: 09-10-1983 ONE PNEUMOVAX PRIOR TO AGE 65 ONE PNEUMOVAX PRIOR TO AGE 65 [facility] Start: 09-10-1983 SHINGRIX VACCINE (1 of 2) SHINGRIX VACCINE (1 of 2) [facility] Start: 09-10-1983 Urine microalbumin profile [facility] Start: 1982 [facility]: [facility] HEPAT[facility]IS C SCREENING HEPATITIS C [facility] Start: 1982 Hepatitis C screening Hepatitis C [facility] Start: 1982 HIV SCREENING HIV SCREENING [facility] Start: 1982 HIV screening HIV Screening [facility] Start: 1970 PNEUMOCOCCAL (1 - PCV) PNEUMOCOCCAL (1 - PCV) [facility] Start: 1969 COVID-19 VACCINE (#1) COVID-19 VACCI NE (#1) [facility] Start: 03-12-1965 COVID-19 VACCINE (#1) COVID-19 VACCI NE (#1) [facility] Bacteria identified in Blood by Culture Blood Culture [facility] Work Phone: Bacteria identified in Urine by Culture Urine Culture [facility] Work Phone: Bacteria identified in Urine by Culture URINE CULTURE Microbiology Routine Left lower quadrant abdominal pain 01/18/2022 1:55 PM EST [facility] Work Phone: Bacteria identified in Urine by Culture BACTERIAL CULTURE, URINE Microbiology Routine Urgency of urination Ordered: 05/17/2024 [facility] Work Phone: Comment on above: Ordered: 05/17/2024 Blood culture [facility] Work Phone: CDIFF PCR W/RFLX EIA IF POSITIVE CDIFF PCR W/RFLX EIA IF POSITIVE Lab Routine Diarrhea, unspecified type Ordered: 12/17/2022 [facility] Work Phone: Comment on above: Ordered: 12/17/2022 End: 01-21-2023 Ct abdomen & pelvis w/contrast material CT ABD/PEL W IVCON Radiology Routine Malignant neoplasm of urinary bladder, unspecified site (HCC) 1 Occurrences starting 12/22/2021 until 01/21/2023 [facility] Work Phone: Comment on above: 1 Occurrences starti ng 12/22/2021 until 01/21/2023 End: 06-15-2023 Ct abdomen & pelvis w/contrast material CT ABD/PEL W IVCON Radiology Routine Malignant neoplasm of urinary bladder, unspecified site (HCC) 1 Occurrences starting 05/16/2022 until 06/15/2023 [facility] Work Phone: Comment on above: 1 Occurrences starti ng 05/16/2022 until 06/15/2023 End: 09-24-2022 Ct abdomen & pelvis w/o contrst 1/> body re CT UROGRAM WO/W IVCON Radiology Routine Malignant neoplasm of overlapping sites of bladder (HCC) Lung nodules 1 Occurrences starting 08/25/2021 until 09/24/2022 [facility] Work Phone: Comment on above: 1 Occurrences starti ng 08/25/2021 until 09/24/2022 End: 11-30-2024 CT Abdomen and Pelvis W contrast IV CT ABD/PEL W IVCON Radiology Routine Malignant neoplasm of urinary bladder, unspecified site (HCC) 1 Occurrences starting 11/01/2023 until 11/30/2024 [facility] Comment on above: 1 Occurrences starti ng 11/01/2023 until 11/30/2024 End: 09-15-2025 CT Abdomen and Pelvis W contrast IV CT ABD/PEL W IVCON Radiology Routine Malignant neoplasm of urinary bladder, unspecified site (HCC) 1 Occurrences starting 08/16/2024 until 09/15/2025 [facility] Work Phone: Comment on above: 1 Occurrences starti ng 08/16/2024 until 09/15/2025 End: 11-30-2024 CT Chest W contrast IV CT CHEST W IVCON Radiology Routine Malignant neoplasm of urinary bladder, unspecified site (HCC) 1 Occurrences starting 11/01/2023 until 11/30/2024 [facility] Work Phone: Comment on above: 1 Occurrences starti ng 11/01/2023 until 11/30/2024 CT Chest W contrast IV CT CHEST W IVCON Radiology Routine Malignant neoplasm of urinary bladder, unspecified site (HCC) 08/01/2024 7:21 AM EDT [facility] Work Phone: End: 09-15-2025 CT Chest W contrast IV CT CHEST W IVCON Radiology Routine Malignant neoplasm of urinary bladder, unspecified site (HCC) 1 Occurrences starting 08/16/2024 until 09/15/2025 [facility] Comment on above: 1 Occurrences starti ng 08/16/2024 until 09/15/2025 End: 06-15-2023 CT CHEST W IVCON CT CHEST W IVCON Radiology Routine Malignant neoplasm of urinary bladder, unspecified site (HCC) 1 Occurrences starting 05/16/2022 until 06/15/2023 [facility] Work Phone: Comment on above: 1 Occurrences starti ng 05/16/2022 until 06/15/2023 End: 09-24-2022 Ct thorax w/o contrast material CT CHEST WO IVCON Radiology Routine Malignant neoplasm of overlapping sites of bladder (HCC) Lung nodules 1 Occurrences starting 08/25/2021 until 09/24/2022 [facility] Work Phone: Comment on above: 1 Occurrences starti ng 08/25/2021 until 09/24/2022 End: 11-30-2024 DBT Breast - bilateral screening OLIVIER SCREENING W TAY Radiology Routine Encounter for screening mammogram for breast cancer 1 Occurrences starting 11/01/2023 until 11/30/2024 [facility] Comment on above: 1 Occurrences starti ng 11/01/2023 until 11/30/2024 DBT Breast - bilater al screening OLIVIER SCREENING W TAY Radiology Routine Encounter for screening mammogram for breast cancer 08/01/2024 11:48 AM EDT [facility] Work Phone: ENTERIC BACTERIAL PA KRYSTAL BY PCR ENTERIC BACTERIAL PANEL BY PCR Lab Routine Diarrhea, unspecified type Ordered: 12/17/2022 [facility] Work Phone: Comment on above: Ordered: 12/17/2022 End: 01-15-2023 OLIVIER SCREENING W TAY OLIVIER SCREENING W TAY Radiology Routine Encounter for screening mammogram for breast cancer 1 Occurrences starting 12/16/2021 until 01/15/2023 [facility] Work Phone: Comment on above: 1 Occurrences starti ng 12/16/2021 until 01/15/2023 End: 12-24-2023 OLIVIER SCREENING W TAY OLIVIER SCREENING W TAY Radiology Routine Encounter for screening mammogram for breast cancer 1 Occurrences starting 11/24/2022 until 12/24/2023 [facility] Work Phone: Comment on above: 1 Occurrences starti ng 11/24/2022 until 12/24/2023 End: 11-26-2023 MRI ELBOW WO IVCON LEFT MRI ELBOW WO IVCON LEFT Radiology Routine Lesion of bone of elbow 1 Occurrences starting 10/27/2022 until 11/26/2023 [facility] Work Phone: Comment on above: 1 Occurrences starti ng 10/27/2022 until 11/26/2023 Ova and parasites identified in Unspecified specimen by Light microscopy OVA + PARA MICROSCOPIC Microbiology Routine Diarrhea, unspecified type Ordered: 12/17/2022 [facility] Work Phone: Comment on above: Ordered: 12/17/2022 Patient Education [facility] Work Phone: Patient referral [facility] Work Phone: ROUTINE FLU A/B + RSV ROUTINE FL U A/B + RSV Lab Routine Flu-like symptoms 12/15/2022 2:19 PM EST [facility] Work Phone: SARS-CoV-2 (COVID-19 ) RNA [Presence] in Respiratory specimen by CHELSEY with probe detection COVID NAAT, UPPER RESPIRATORY, ROUTINE Microbiology Routine Flu-like symptoms 12/15/2022 2:19 PM EST [facility] Work Phone: Urine culture Urine Culture [facility] Work Phone: End: 11-12-2023 Us lmtd joint/oth nonvasc xtr strux r-t w/img US ELBOW LEFT Radiology Routine Lesion of bone of elbow 1 Occurrences starting 10/13/2022 until 11/12/2023 [facility] Work Phone: Comment on above: 1 Occurrences starti ng 10/13/2022 until 11/12/2023 End: 11-07-2023 XR HAND GENERAL 3V PA/LAT/OBL LEFT XR HAND GENERAL 3V PA/LAT/OBL LEFT Radiology Routine Contusion of left hand, initial encounter 1 Occurrences starting 10/08/2022 until 11/07/2023 [facility] Work Phone: Comment on above: 1 Occurrences starti ng 10/08/2022 until 11/07/2023 XR HAND GENERAL 3V PA/LAT/OBL LEFT XR HAND GENERAL 3V PA/LAT/OBL LEFT Radiology Routine Contusion of left hand, initial encounter 10/08/2022 1:57 PM EDT [facility] Work Phone: End: 06-11-2024 XR Lumbar spine 3 Views XR LUMBAR GENERAL 3V AP/LAT/L5-S1 Radiology Routine Acute right-sided low back pain with right-sided sciatica 1 Occurrences starting 05/13/2023 until 06/11/2024 [facility] Work Phone: Comment on above: 1 Occurrences starti ng 05/13/2023 until 06/11/2024 [facility] Immunizations Immunization Date Immunization Notes Care Provider Fa cili 11-23-2018 influenza, seasonal, injectable Huang Wynne DO Work Phone: [facility] 11-23-2018 influenza virus vaccine, unspecified formulation Alma Delia Choudhury MD Work Phone: [facility] 04-26-2003 hepatitis B vaccine, adult dosage Huang Wynne DO Work Phone: [facility] 09-07-2002 hepatitis B vaccine, adult dosage Huang Wynne DO Work Phone: [facility] 07-27-2002 hepatitis B vaccine, adult dosage Huang Wynne DO Work Phone: [facility] NEGATED: Highlighted row has not occurred!03-19-2021 pneumococcal polysaccharide vaccine, 23 valent Huang Wynne DO Work Phone: [facility] Work Phone: Comment on above: Deferred: OTHER Payers Date Payer Category Payer Blue [facility] BLUE CARD PPO OOS Member Subscriber Plan / Payer (Effective 2023-Present) Name: Sunnidulce Sun Ayala Relation to Subscriber: Self Name: Sun Nogueira Payer ID: [id number] (NAIC) Type: PPO Address: [facility] [address] [place] [id number] 2023 Unknown [id number] 2023 Self-pay [id number] 2023 Unknown [id number] 2023 Private Health Insurance HUMANA HUMANA MEDICAID [facility] [id number] 2023-Present [address] [address] [place] [address] Medicaid [id number] 2022 Unknown [id number] 2020 Medicaid [employer] MEDICA[employer] [id number] 2020-Present [phone] [address] [place] [address] Medicaid [id number] 2020 Medicaid [id number] 2010 Private Health Insurance [id number] Unknown [id number] Unknown [id number] Social History Date Type Detail Facility Start: 11-30-2019 End: 11-01-2023 Tobacco smoking status NHIS Ex-smoker [facility] Start: 10-09-2004 End: 10-10-2019 History of tobacco use Current smoker [facility] Start: 10-09-2004 End: 10-10-2019 History of tobacco use Cigarette Smoker [facility] Start: 11-30-2019 End: 11-01-2023 Cigarettes smoked current (pack per day) - Reported 0.5 [facility] Start: 11-30-2019 End: 11-01-2023 Tobacco use and exposure Smokeless tobacco non-user [facility] Start: 04-07-2021 End: 05-17-2024 Alcohol intake Current non-drinker of alcohol (finding) [facility] Start: 1965 Sex Assigned At Not on file [facility] Start: 06-23-2021 End: 11-12-2021 Exposure to SARS-CoV-2 (event) Not sure [facility] Start: 09-30-2020 End: 05-09-2023 Tobacco smoking status NHIS Unknown if ever smoked [facility] Start: 01-10-2020 None [facility] Start: 01-10-2020 Spouse/ Significant Other [facility] Start: 09-11-2019 Non-smoker [facility] Start: 1965 Sex Assigned At Female [facility] Start: 10-24-2021 End: 11-03-2021 Exposure to SARS-CoV-2 (event) Unable to assess [facility] Start: 08-27-2022 End: 11-01-2023 Tobacco use panel [facility] Adult Depression Screening Assessment 0 [facility] Has the [employer], [employer], or [email or web address] threatened to shut off services in your home in past 12Mo Yes [facility] Do you belong to any clubs or organizations such as oriental orthodox groups, unions, fraternal or athletic groups, or school groups? No [facility] How often to you hav e a drink containing alcohol? Never [facility] How hard is it for y ou to pay for the very basics like food, housing, medical care, and heating Hard [facility] (I/We) worried nurys er (my/our) food would run out before (I/we) got money to buy more. Often true [facility] Medical Equipment Procedure Code Equipment Code Equipment Origin al Text Equipment Identifier Dates Insertion, vascular access port PORT,6FR POWER PORT FDA Start: 09-20-2019 Insertion, vascular access port PORT,6FR POWER PORT FDA Start: 09-20-2019 Insertion, vascular access port PORT,6FR POWER PORT FDA Start: 09-20-2019 Insertion, vascular access port PORT,6FR POWER PORT FDA Start: 09-20-2019 Insertion, vascular access port PORT,6FR POWER PORT FDA Start: 09-20-2019 Insertion, vascular access port PORT,6FR POWER PORT FDA Start: 09-20-2019 Insertion, vascular access port PORT,6FR POWER PORT FDA Start: 09-20-2019 Insertion, vascular access port PORT,6FR POWER PORT FDA Start: 09-20-2019 Stent Inlay Opti ma 7fr [employer] Polymer Phreecoat 30cm [facility] - [id number] Start: 12-14-2019 Stent Inlay Opti ma 7fr [employer] Phreecoat 30cm [facility] - [id number] Start: 12-14-2019 Goals Date Patient Goal Desired Activity /State Functional Status Date Assessment Result Facility 10-31-2021 Functional status Activity Abili ty Independent [facility] Work Phone: 08-24-2021 Functional status Ambulates;Up ad blake [facility] Work Phone: 01-31-2020 Are you deaf, or do you have serious difficulty hearing No 01/31/2020 7:17 AM Anup Tiwari RN No [facility] 01-31-2020 Are you blind, or do you have serious difficulty seeing, even when wearing glasses No 01/31/2020 7:17 AM Anup Tiwari RN No [facility] 01-31-2020 Do you have serious difficulty walking or climbing stairs No 01/31/2020 7:17 AM Anup Tiwari RN No [facility] 01-31-2020 Do you have difficul ty dressing or bathing No 01/31/2020 7:17 AM Anup Tiwari RN No [facility] 01-31-2020 Because of a physica l, mental, or emotional condition, do you have difficulty doing errands alone such as visiting a physician's office or shopping No 01/31/2020 7:17 AM Anup Tiwari RN No [facility] Mental Status Date Assessment Result Facility 10-31-2021 Cognitive function Voice/Name [facility] Work Phone: 08-24-2021 Cognitive function Anxious [facility] Work Phone: 01-31-2020 Because of a physica l, mental, or emotional condition, do you have serious difficulty concentrating, remembering, or making decisions No 01/31/2020 7:17 AM Anup Tiwari RN No [facility] Clinical Notes 01-29-2020 to 08-15-2024 Hafsa Mendoza MD - 08/15/2024 1:45 PM Nathan Raygoza Mammo Tech - 08/01/2024 11:30 AM Mirella Terry RN - 08/01/2024 7:00 AM Clive Duff RT(R) - 08/01/2024 7:00 AM EDT Note Date & Type Note Facility 08-15-2024 History of Presen t illness Narrative REASON FOR VISIT: Follow-up, history of bladder cancer HPI: 49 yo female Previously seen and treated by Dr. Post for bladder cancer S/P cystectomy with neobladder in December 2019 Sun Nogueira is a 58-year-old female with a history of bladder removal surgery 5 years ago, presenting with concerns about persistent nocturnal enuresis, abdominal bloating, and pressure in the kidney area. Sun reports experiencing nocturnal enuresis every night since her bladder removal surgery 5 years ago. She states, I hate the nighttime bedwetting, I can't stand it anymore, it's been 5 years of it every night. She notes that she is never dry in the morning and has not slept in her bed to avoid ruining her mattress. She has been using small throws instead of bed sheets and expresses a need for a solution to manage her condition at night. She has tried emptying her bladder completely before sleep but still cannot get through the night without bedwetting. She has not used adult diapers due to cost concerns and lack of trash disposal services. Sun also reports feeling pressure in her kidneys and experiencing pain on her sides since the surgery. She inquires if these symptoms could be related to kidney stones, noting that she has passed a kidney stone in the past. She also mentions experiencing abdominal bloating, stating, I do get bloated sometimes, and I think I got to pee, but I don't. She describes feeling miserable for a couple of days before the bloating subsides. Sun expresses concerns about a spot on her liver and lung nodules, asking if these could be cancerous. She mentions that a healthcare provider from a different facility thought they saw something concerning but did not provide specific details. She inquires about the possibility of a spit test to diagnose lung cancer. PATHOLOGY: FINAL DIAGNOSIS 1. Left distal ureter, excision (A) - Ureter, negative for malignancy. 2. Right distal ureter, excision (B) - Ureter, negative for malignancy. 3. Bladder, uterus, cervix, ovaries and fallopian tubes, accentuation (C) - Bladder with prior biopsy site changes and benign urachal remnants. - Negative for residual carcinoma. - Margins are negative for malignancy. - Cervix with chronic inflammation and atrophic changes, negative for malignancy. - Benign inactive endometrium. - Myometrium with adenomyosis. - Unremarkable right fallopian tube. - Left fallopian tube with benign paratubal adrenal cortical rest. - Unremarkable right ovary. - Left ovary with benign serous cystadenoma. 4. Bilateral pelvic lymph nodes, excision (D) - Fourteen lymph nodes, negative for malignancy (0/14). 5. Final right ureteral margin, excision (E) - Ureter, negative for malignancy. 6. Final left ureteral margin, excision (F) - Ureter, negative for malignancy. LABS: Creatinine Date Value Ref Range Status 11/01/2023 1.16 (H) 0.58 - 0.96 mg/dL Final 08/06/2022 1.52 (H) 0.58 - 0.96 mg/dL Final 01/18/2022 1.29 (H) 0.58 - 0.96 mg/dL Final 11/05/2021 1.29 (H) 0.58 - 0.96 mg/dL Final IMAGING: CT A/P (08/01/24):No metastatic disease in the abdomen or pelvis. Bilateral pelvocaliectasis with mild urothelial thickening of the bilateral renal pelves, unchanged from prior and likely postsurgical from urinary diversion and neobladder. CT chest (08/01/24): 1. Stable lung nodules compared to studies dating back to 2019, in keeping with benign process. No new or growing lung nodules have developed. CT abdomen/pelvis (02/19/22): Non-distended neobladder with resolution of bilateral hydronephrosis and ureterectasis seen on previous study. Nonspecific left periaortic lymph node unchanged from prior study. No evidence of metastatic disease or local recurrence. CT chest (02/19/22): stable 3.4 mm nodule in the right midline lobe, just below horizontal fissure. ALLERGIES: ALLERGIES Allergen Reactions Bactrim [Sulfametho* Other: See Comments Tetanus And Diphthe* Swelling Tetanus Vaccines An* Swelling Venom-Honey Bee Swelling MEDICATIONS: Current Outpatient Medications Medication Sig nitrofurantoin monohydrate and macrocrystal (MACROBID) 100 mg capsule Take 1 capsule by mouth twice daily with meals for 10 days. levoFLOXacin (LEVAQUIN) 750 mg tablet Take 1 tablet by mouth once daily for 7 days. (Patient not taking: Reported on 11/05/2021) Incontinence Pad, Liner, Disp (BLADDER CONTROL PADS) pads 1 Each every 8 hours as needed. Patient would like the over night pads Equate brand albuterol HFA (PROAIR HFA) 90 mcg/actuation inhaler Inhale 2 Puffs as instructed every 4 hours as needed. fluticasone (FLONASE) 50 mcg/actuation nasal spray Use 2 Sprays in each nostril once daily. Rinse mouth after use. (Patient not taking: Reported on 09/01/2021 ) guaiFENesin (MUCINEX) 600 mg 12 hr tablet Take 1 tablet by mouth twice daily. predniSONE (DELTASONE) 20 mg tablet Take 1 tablet by mouth once daily. (Patient not taking: Reported on 11/05/2021) HISTORIES PAST MEDICAL HISTORY Diagnosis Date Bladder cancer (HCC) Hematuria Other anxiety states Proteinuria 03/30/2019 Work-related stress 08/11/2016 PAST SURGICAL HISTORY Procedure Laterality Date ANES IPER LOWER ABD W/LAPS RAD HYSTERECTOMY radical cystectomy- removal of uterus, cervix, tubes and ovaries. rishi bladder creation. NECK SURGERY HX 2004 REMOVAL OF OVARY/TUBE(S) Bilateral ROBOTIC (LAP) CYSTECTOMY W/ NEOBLADDER URINARY DIVERSION (COMP 17774) ROTATOR CUFF REPAIR Left 1994 TUBAL LIGATION 2002 REVIEW OF SYSTEMS General: No weight loss, malaise or fevers., SEE HPI Genitourinary: See HPI The remainder of the ROS was reviewed and negative. PHYSICAL EXAMINATION General: no acute distress Genitourinary: FEMALE EXAM: not done PROBLEMS: 56 year old female s/p cystectomy and neobladder by Dr Post Clinically doing good. Complains of frequent UTI. PLAN - CT and RTC in 6 months Answered all the patients questions. She had questions regarding her vaginal length. Explained that part of it is typically removed with surgery. Will refer to custom tailor apprentice for evaluation PLAN - CT abdomen and chest and RTC in 1 year 1. Screening for genitourinary condition (Z13.89) Recent imaging studies reviewed; no evidence of malignancy. Lung nodules are stable and not indicative of cancer. Hemangioma on the liver is benign and not concerning. - Continue regular monitoring of lung nodules. - Follow-up in two years for routine screening. 2. 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 Continue monitoring with regular imaging studies. 3. Personal history of malignant neoplasm of bladder (Z85.51) Bladder cancer was invasive to the muscularis, necessitating cystectomy. No evidence of metastasis on current imaging studies. Continue regular follow-up and monitoring. 4. Presence of Neobladder (HCC) (Z93.6) Patient experiences nocturnal enuresis and daytime urinary incontinence. Has not utilized urinary catheters or external collection devices due to occupational hazards. - Discussed potential use of a Conte catheter at night to manage incontinence. - Referral to female urology for evaluation of suitability for a sling or artificial urinary sphincter. - Consideration of medical supply order for incontinence products if needed. Hafsa Mendoza MD documented in this encounter [facility] 08-15-2024 Note HNO ID: [id number] Author: HAFSA MENDOZA MD Service: ? Author Type: Physician Type: Progress Notes Filed: 08/16/2024 10:51 Note Text: REASON FOR VISIT: Follow-up, history of bladder cancer HPI: 49 yo female Previously seen and treated by Dr. Post for bladder cancer S/P cystectomy with neobladder in December 2019 Sun Nogueira is a 58-year-old female with a history of bladder removal surgery 5 years ago, presenting with concerns about persistent nocturnal enuresis, abdominal bloating, and pressure in the kidney area. Sun reports experiencing nocturnal enuresis every night since her bladder removal surgery 5 years ago. She states, I hate the nighttime bedwetting, I can't stand it anymore, it's been 5 years of it every night. She notes that she is never dry in the morning and has not slept in her bed to avoid ruining her mattress. She has been using small throws instead of bed sheets and expresses a need for a solution to manage her condition at night. She has tried emptying her bladder completely before sleep but still cannot get through the night without bedwetting. She has not used adult diapers due to cost concerns and lack of trash disposal services. Sun also reports feeling pressure in her kidneys and experiencing pain on her sides since the surgery. She inquires if these symptoms could be related to kidney stones, noting that she has passed a kidney stone in the past. She also mentions experiencing abdominal bloating, stating, I do get bloated sometimes, and I think I got to pee, but I don't. She describes feeling miserable for a couple of days before the bloating subsides. Sun expresses concerns about a spot on her liver and lung nodules, asking if these could be cancerous. She mentions that a healthcare provider from a different facility thought they saw something concerning but did not provide specific details. She inquires about the possibility of a spit test to diagnose lung cancer. PATHOLOGY: FINAL DIAGNOSIS 1. Left distal ureter, excision (A) - Ureter, negative for malignancy. 2. Right distal ureter, excision (B) - Ureter, negative for malignancy. 3. Bladder, uterus, cervix, ovaries and fallopian tubes, accentuation (C) - Bladder with prior biopsy site changes and benign urachal remnants. - Negative for residual carcinoma. - Margins are negative for malignancy. - Cervix with chronic inflammation and atrophic changes, negative for malignancy. - Benign inactive endometrium. - Myometrium with adenomyosis. - Unremarkable right fallopian tube. - Left fallopian tube with benign paratubal adrenal cortical rest. - Unremarkable right ovary. - Left ovary with benign serous cystadenoma. 4. Bilateral pelvic lymph nodes, excision (D) - Fourteen lymph nodes, negative for malignancy (0/14). 5. Final right ureteral margin, excision (E) - Ureter, negative for malignancy. 6. Final left ureteral margin, excision (F) - Ureter, negative for malignancy. LABS: Creatinine Date Value Ref Range Status 11/01/2023 1.16 (H) 0.58 - 0.96 mg/dL Final 08/06/2022 1.52 (H) 0.58 - 0.96 mg/dL Final 01/18/2022 1.29 (H) 0.58 - 0.96 mg/dL Final 11/05/2021 1.29 (H) 0.58 - 0.96 mg/dL Final IMAGING: CT A/P (08/01/24):No metastatic disease in the abdomen or pelvis. Bilateral pelvocaliectasis with mild urothelial thickening of the bilateral renal pelves, unchanged from prior and likely postsurgical from urinary diversion and neobladder. CT chest (08/01/24): 1. Stable lung nodules compared to studies dating back to 2019, in keeping with benign process. No new or growing lung nodules have developed. CT abdomen/pelvis (02/19/22): Non-distended neobladder with resolution of bilateral hydronephrosis and ureterectasis seen on previous study. Nonspecific left periaortic lymph node unchanged from prior study. No evidence of metastatic disease or local recurrence. CT chest (02/19/22): stable 3.4 mm nodule in the right midline lobe, just below horizontal fissure. ALLERGIES: ALLERGIES Allergen Reactions Bactrim [Sulfametho* Other: See Comments Tetanus And Diphthe* Swelling Tetanus Vaccines An* Swelling Venom-Honey Bee Swelling MEDICATIONS: Current Outpatient Medications Medication Sig nitrofurantoin monohydrate and macrocrystal (MACROBID) 100 mg capsule Take 1 capsule by mouth twice daily with meals for 10 days. levoFLOXacin (LEVAQUIN) 750 mg tablet Take 1 tablet by mouth once daily for 7 days. (Patient not taking: Reported on 11/05/2021) Incontinence Pad, Liner, Disp (BLADDER CONTROL PADS) pads 1 Each every 8 hours as needed. Patient would like the over night pads Equate brand albuterol HFA (PROAIR HFA) 90 mcg/actuation inhaler Inhale 2 Puffs as instructed every 4 hours as needed. fluticasone (FLONASE) 50 mcg/actuation nasal spray Use 2 Sprays in each nostril once daily. Rinse mouth after use. (Patient not taking: Reported on 09/01/2021 ) gu (more content not included)... [facility] 08-15-2024 Note Patient Outreach (UR OLMN) SUN NOGUEIRA ([id number]) 1965 F Date Time Provider Department 7/9/25 HAFSA MENDOZA During your visit today, we recorded the following information about you: Allergies As of Date: 08/15/2024 Noted Allergy Reaction BACTRIM (SULFAMETHOXAZOLE-TRIMETH*2023 14 - Other: See Comments TETANUS AND DIPHTHER. TOX (PF) 01/08/2023 7 - Swelling TETANUS VACCINES AND TOXOID 08/23/2021 7 - Swelling VENOM-HONEY BEE 08/23/2021 7 - Swelling Date Reviewed: 08/15/2024 Reviewed by: Tete Jean OCCA - Fully Assessed Visit Diagnosis:Screening for genitourinary condition [Z13.89] Order(s):UA DIP, URINE (POC) [[id number]] Order #: [id number] FUTURE Prescriptions as of 08/20/2024 - cyclobenzaprine (FLEXERIL) 10 mg tablet Take 1 tablet by mouth at bedtime as needed for muscle spasm. - cyclobenzaprine (FLEXERIL) 10 mg tablet Take 1 tablet by mouth three times a day as needed for muscle spasm for up to 12 doses. - albuterol HFA (PROVENTIL HFA, VENTOLIN HFA) 90 mcg/actuation inhaler Inhale 2 puffs as instructed every 4 hours as needed for wheezing/shortness of breath. - buPROPion XL (WELLBUTRIN XL) 150 mg 24 hr tablet Take 1 tablet by mouth once daily for 14 days. - cholecalciferol (VITAMIN D3) 1,000 unit tab tablet Take 2 tablets by mouth once daily. - MULTIVITAMIN ORAL Take by mouth. - iv contrast (will be provided with radiology test) CT ABD/PEL -Inject, intravenously, once for 1 dose.No IV access, insert saline lock prior to the beginning of sedation, infusion, injection of imaging exam. Discontinue saline lock post exam. If Pt. has a central line or IVAD, may access for administration according to line specific nursing protocol. Once exam is complete flush line and de-access according to line specific nursing protocol in the CT contrast administration guidelines link. - docusate sodium (COLACE) 100 mg capsule Take 1 capsule by mouth two times a day as needed for constipation. while taking hydrocodone acetaminophen - iv contrast (will be provided with radiology test) CT ABD/PEL -Inject, intravenously, once for 1 dose.No IV access, insert saline lock prior to the beginning of sedation, infusion, injection of imaging exam. Discontinue saline lock post exam. If Pt. has a central line or IVAD, may access for administration according to line specific nursing protocol. Once exam is complete flush line and de-access according to line specific nursing protocol in the CT contrast administration guidelines link. 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 Opioid dependence, uncomplicated (HCC) [F11.20] 06/02/2017 02/20/2020 Bronchitis [J40] 10/18/2019 Malignant tumor of urinary bladder (HCC) [C67.9]10/18/2019 Smoker [F17.200] 11/30/2019 04/07/2021 Bladder cancer (HCC) [C67.9] 12/14/2019 Retained ureteral stent [Z96.0] 01/29/2020 01/31/2020 Encounter Status:Closed by [employer], PRODUSER on 08/20/24 [facility] 08-01-2024 History of Presen t illness Narrative Radiology Service Progress Note PATIENT NAME: Sun Nogueira DATE OF SERVICE: August 01, 2024 TIME: 11:29 AM PATIENT IDENTITY VERIFICATION COMPLETED USING TWO (2) IDENTIFIERS: Name and Date of confirmed by patient verbally. FALL SCREENING: Has the patient had 2 falls in the last year or 1 fall with injury or currently using an Ambulatory Assistive Device (Walker, Cane, Wheelchair, Crutches, etc.)? No PATIENT GENDER DATA: Assigned female at . status: : No status: NO. PATIENT RELEVANT IMPLANT DATA REVIEWED: Not Applicable PATIENT PRESENTS WITH AN IMPLANTABLE OR ATTACHED FLOAT NURSE: No RADIOLOGY DEPARTMENT: Mammography PERIPHERAL IV DATA: Not applicable SIGNED BY: Tracie Pritchard August 01, 2024 11:29 AM documented in this encounter [facility] 08-01-2024 Note HNO ID: [id number] Author: NATHAN GUTIERREZ Mammo Tech Service: ? Author Type: Reconstructive Surgeon Type: Progress Notes Filed: 08/01/2024 11:30 Note Text: Radiology Service Progress Note PATIENT NAME: Sun Nogueira DATE OF SERVICE: August 01, 2024 TIME: 11:29 AM PATIENT IDENTITY VERIFICATION COMPLETED USING TWO (2) IDENTIFIERS: Name and Date of confirmed by patient verbally. FALL SCREENING: Has the patient had 2 falls in the last year or 1 fall with injury or currently using an Ambulatory Assistive Device (Walker, Cane, Wheelchair, Crutches, etc.)? No PATIENT GENDER DATA: Assigned female at . status: : No status: NO. PATIENT RELEVANT IMPLANT DATA REVIEWED: Not Applicable PATIENT PRESENTS WITH AN IMPLANTABLE OR ATTACHED FLOAT NURSE: No RADIOLOGY DEPARTMENT: Mammography PERIPHERAL IV DATA: Not applicable SIGNED BY: Tracie Pritchard August 01, 2024 11:29 AM [facility] 08-01-2024 History of Presen t illness Narrative Radiology Service Progress Note DATE OF SERVICE: August 01, 2024 TIME: 7:08 AM PATIENT WEIGHT: 125LBS PATIENT IDENTITY VERIFICATION COMPLETED USING TWO (2) STANDARD IDENTIFIERS: Name and Date of confirmed by patient verbally and Name and Date of confirmed by identification band. FALL SCREENING: Has the patient had 2 falls in the last year or 1 fall with injury or currently using an Ambulatory Assistive Device (Walker, Cane, Wheelchair, Crutches, etc.)? No PATIENT GENDER DATA: Assigned female at . status: : No status: NO. ALLERGIES: Reviewed and unchanged CONTRAST ALLERGY: No EXAM: CT -CONTRAST INDUCED NEPHROPATHY RISK FACTORS: Not applicable CREATININE: Creatinine Date Value Ref Range Status 11/01/2023 1.16 (H) 0.58 - 0.96 mg/dL Final 08/06/2022 1.52 (H) 0.58 - 0.96 mg/dL Final 01/18/2022 1.29 (H) 0.58 - 0.96 mg/dL Final Estimated Glomerular Filtration Rate Date Value Ref Range Status 11/01/2023 54 (L) >=60 mL/min/1.73m Final Comment: Estimated Glomerular Filtration Rate (eGFR) is calculated using the 2020 CKD-EPI creatinine equation. This equation utilizes serum creatinine, sex, and age as parameters. The creatinine assay has traceable calibration to isotope dilution-mass spectrometry. Refer to KDIGO guidelines for clinical interpretation. In patients with unstable renal function, e.g. those with acute kidney injury, the eGFR may not accurately reflect actual GFR. eGFR- Date Value Ref Range Status 12/29/2020 >60 Final Comment: Note: On 04/04/2021, the eGFR calculation will be updated to the NKF-ASN Task Force recommended 2020 CKD-EPI creatinine equation which does not include a race variable. For more information or to access a 2020 CKD-EPI calculator, visit the National Kid[employer] website at kidney.org/professionals/kdoqi/g fr_calculator. P.O.C.T. RESULTS: POC done: Yes, See Lab Tab August 01, 2024 TREATMENT: No Hydration needed. IV SITE: Ambulatory: A peripheral IV was started in the Right antecubital site with a Angio cath: 22 gauge. and A Saline lock was inserted per protocol IV SITE APPEARANCE: Clean,Dry and Intact SIGNATURE: Mirella Romero RN PATIENT NAME: Sun Nogueira DATE: August 01, 2024 TIME: 7:08 AM Radiology Service Progress Note PATIENT NAME: Sun Nogueira DATE OF SERVICE: August 01, 2024 TIME: 7:12 AM PATIENT IDENTITY VERIFICATION COMPLETED USING TWO (2) IDENTIFIERS: Name and Date of confirmed by patient verbally and Name and Date of confirmed by identification band. FALL SCREENING: Has the patient had 2 falls in the last year or 1 fall with injury or currently using an Ambulatory Assistive Device (Walker, Cane, Wheelchair, Crutches, etc.)? No PATIENT GENDER DATA: Assigned female at . status: : No status: NO. PATIENT RELEVANT IMPLANT DATA REVIEWED: Yes PATIENT PRESENTS WITH AN IMPLANTABLE OR ATTACHED FLOAT NURSE: No RADIOLOGY DEPARTMENT: CT; Exam(s) Completed: Chest Abdomen Pelvis PERIPHERAL IV DATA: Site assessment: Clean,Dry and Intact, Site disposition Discontinued SIGNED BY: RT Sulema(Ny) August 01, 2024 7:12 AM documented in this encounter [facility] 08-01-2024 Note HNO ID: [id number] Author: CLIVE WILKERSON RT(R) Service: ? Author Type: Technologist Type: Progress Notes Filed: 08/01/2024 07:18 Note Text: Radiology Service Progress Note PATIENT NAME: Sun Nogueira DATE OF SERVICE: August 01, 2024 TIME: 7:12 AM PATIENT IDENTITY VERIFICATION COMPLETED USING TWO (2) IDENTIFIERS: Name and Date of confirmed by patient verbally and Name and Date of confirmed by identification band. FALL SCREENING: Has the patient had 2 falls in the last year or 1 fall with injury or currently using an Ambulatory Assistive Device (Walker, Cane, Wheelchair, Crutches, etc.)? No PATIENT GENDER DATA: Assigned female at . status: : No status: NO. PATIENT RELEVANT IMPLANT DATA REVIEWED: Yes PATIENT PRESENTS WITH AN IMPLANTABLE OR ATTACHED FLOAT NURSE: No RADIOLOGY DEPARTMENT: CT; Exam(s) Completed: Chest Abdomen Pelvis PERIPHERAL IV DATA: Site assessment: Clean,Dry and Intact, Site disposition Discontinued SIGNED BY: RT Sulema(Ny) August 01, 2024 7:12 AM [facility] 08-01-2024 Note HNO ID: [id number] Author: MIRELLA ROMERO RN Service: Radiology Author Type: Registered Nurse Type: Progress Notes Filed: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 Vitals and nursing note reviewed. Constitutional: General: She is not in acute distress. Appearance: Normal appearance. She is normal weight. She is not ill-appearing, toxic-appearing or diaphoretic. HENT: Head: Normocephalic and atraumatic. Right Ear: Ear canal and external ear normal. Left Ear: Ear canal and external ear normal. Nose: Nose normal. No congestion or rhinorrhea. Mouth/Throat: Mouth: Mucous membranes are moist. Pharynx: No oropharyngeal exudate or posterior oropharyngeal erythema. Eyes: General: Right eye: No discharge. Left eye: No discharge. Extraocular Movements: Extraocular movements intact. Conjunctiva/sclera: Conjunctivae normal. Pupils: Pupils are equal, round, and reactive to light. Cardiovascular: Rate and Rhythm: Normal rate and regular rhythm. Pulses: Normal pulses. Heart sounds: Normal heart sounds. No murmur heard. No friction rub. Pulmonary: Effort: Pulmonary effort is normal. No respiratory distress. Breath sounds: Normal breath sounds. No stridor. No wheezing, rhonchi or rales. Chest: Chest wall: No tenderness. Abdominal: General: Abdomen is flat. There is no distension. Palpations: Abdomen is soft. There is no mass. Tenderness: There is no abdominal tenderness. There is no right CVA tenderness, left CVA tenderness, guarding or rebound. Hernia: No hernia is present. Musculoskeletal: General: No swelling, tenderness, deformity or signs of injury. Normal range of motion. Cervical back: Normal range of motion and neck supple. No rigidity. Right lower leg: No edema. Left lower leg: No edema. Lymphadenopathy: Cervical: No cervical adenopathy. Skin: General: Skin is warm and dry. Coloration: Skin is not jaundiced or pale. Findings: No bruising, erythema, lesion or rash. Neurological: General: No focal deficit present. Mental Status: She is alert and oriented to person, place, and time. Cranial Nerves: No cranial nerve deficit. Sensory: No sensory deficit. Motor: No weakness. Coordination: Coordination normal. Gait: Gait normal. Psychiatric: Mood and Affect: Mood normal. Behavior: Behavior normal. Thought Content: Thought content normal. Judgment: Judgment normal. Assessment and Plan ASSESSMENT/PLAN: 1. Nausea and vomiting, unspecified vomiting type - ICD9: 787.01, ICD10: R11.2 (primary diagnosis) X one day Improving greatly Denies emesis today No abdominal pain Hemodynamically stable Declines Zofran 2. Viral illness - ICD9: 079.99, ICD10: B34.9 - Discussed viral etiology and rationale for treatment. - Symptomatic treatment with prn analgesia - Supportive care with fluids and rest - The patient may also use OTC cough and cold meds as needed and nasal saline gtts and suction prn. - Follow up in 3-5 days if symptoms persist or sooner if worsening of symptoms Declines COVID testing Naima Lanier APRN.KITTY documented in this encounter [facility] 01-08-2023 Instructions Vandana Marr APRN.CNP - 01/08/2023 9:04 AM EST DO NOT take any other OTC cough or cold medication while taking the prescription Bromfed DM. May use advil aleve ibuprofen or tylenol Rest, increase water intake Motrin or Tylenol as needed for fever or pain. Salt water gargles, chloraseptic spray or lozenges as needed for sore throat. Warm beverages, honey. Nasal saline spray as needed Cool mist humidifier at night A cold normally lasts 7-10 days. If your symptoms are lasting longer, develop fever, or worsening by that time instead of improving then return to clinic or follow up with PCP for re-evaluation. Albuterol inhaler 2 puffs every 4-6 hours * Prednisone 40 mg (2 tablets) per day for 5 days, take in morning or early in day * Do not NSAIDs during this 5 day course (ibuprofen, naproxen, Motrin, Aleve, Advil) Tylenol only during prednisone use * Follow up with primary care provider if no improvement with treatment * Seek medical care immediately, call 911, go to ER if you have chest pain, difficulty breathing, shortness of breath, inability to swallow. documented in this encounter [facility] 01-08-2023 History of Presen t illness Narrative Subjective The history is provided by the patient. No milk receiver was used. HPI Sun Nogueira is a 57 year old female who presents today for CC of sore throat for 4 days. She is also having cough, congestion, and runny nose. She has used multiple otc cough and cold medications without results. She is a smoker. Recent GI infection BP 118/74 Pulse 84 Temp 36.9 C (98.4 F) Resp 16 Wt 51.7 kg (114 lb) LMP 10/08/2019 SpO2 96% BMI 17.85 kg/m Social History Tobacco Use Smoking status: Former Packs/day: 0.50 Years: 15.00 Additional pack years: 0.00 Total pack years: 7.50 Types: Cigarettes Quit date: 10/10/2019 Years since quittin.2 Smokeless tobacco: Never Vaping Use Vaping Use: Never used Substance Use Topics Alcohol use: No Drug use: Never PAST MEDICAL HISTORY Diagnosis Date Bladder cancer (HCC) Hematuria Other anxiety states Proteinuria 03/30/2019 Work-related stress 08/11/2016 I have confirmed and edited as necessary, the [facility] Review of Systems Constitutional: Negative for chills and fever. HENT: Positive for congestion, sinus pain and sore throat. Negative for ear pain. Respiratory: Positive for cough. Negative for sputum production, shortness of breath and wheezing. Cardiovascular: Negative for chest pain. Gastrointestinal: Negative for abdominal pain, diarrhea, nausea and vomiting. Musculoskeletal: Negative for myalgias. Neurological: Negative for headaches. Objective Physical Exam Vitals and nursing note reviewed. HENT: Head: Normocephalic and atraumatic. Right Ear: Tympanic membrane, ear canal and external ear normal. Left Ear: Tympanic membrane, ear canal and external ear normal. Nose: Mucosal edema, congestion and rhinorrhea present. Right Sinus: No maxillary sinus tenderness or frontal sinus tenderness. Left Sinus: No maxillary sinus tenderness or frontal sinus tenderness. Mouth/Throat: Pharynx: Uvula midline. Posterior oropharyngeal erythema present. No oropharyngeal exudate. Cardiovascular: Rate and Rhythm: Normal rate and regular rhythm. Heart sounds: Normal heart sounds. Pulmonary: Effort: Pulmonary effort is normal. Breath sounds: Normal breath sounds. Lymphadenopathy: Head: Right side of head: No submental, submandibular or tonsillar adenopathy. Left side of head: No submental, submandibular or tonsillar adenopathy. Cervical: No cervical adenopathy. Skin: General: Skin is warm and dry. Neurological: Mental Status: She is alert. Psychiatric: Mood and Affect: Affect normal. ASSESSMENT/PLAN: 1. Sore throat - ICD9: 462, ICD10: J02.9 (primary diagnosis) - suspect viral - Group A strep molecular testing negative - Discussed supportive care treatment with fluids, rest and analgesia. - The patient may also use warm salt water gargles, throat lozenges and/or OTC throat spray as needed. - The patient should follow up in one week if symptoms persist or worsen - Call back if drooling, increased temperature, symptoms of dehydration and/or still sick in one week - STREP A MOLECULAR (POC) 2. URI with cough and congestion - ICD9: 465.9, ICD10: J06.9 - Discussed viral etiology and rationale for treatment. - Symptomatic treatment with prn analgesia - Supportive care with fluids and rest - Declines covid, rsv, and flu testing. 3. Wheezing - ICD9: 786.07, ICD10: R06.2 Prednisone, albuterol Diagnosis and treatment plan were discussed and questions were answered to the patient's satisfaction. Pt acknowledged understanding of concepts and follow up plan. Specific signs and symptoms that would indicate the need for higher level of care were discussed in detail warranting prompt ER evaluation. Vandana Marr APRN.CNP documented in this encounter [facility] 12-19-2022 Miscellaneous Notes Notified of stool testing pos for campylogacter. Patient reports still having s/s but improving. Advised that treatment may not be necessary, requests to have treatment anyways. I will send to pharmacy. F/u with pcp if s/s persist or worsen. documented in this encounter [facility] 12-17-2022 Instructions Vandana Marr APRN.CNP - 12/17/2022 9:14 AM EST Start Nitin Do stool cultures today, and will call as results done If decreasing urine output, need to go to ER for hydration To ER for worsening symptoms, increased pain, fevers, vomiting, decreased urine output, blood in her urine blood in her stools or dark tarry stools. documented in this encounter [facility] 12-17-2022 History of Presen t illness Narrative Subjective The history is provided by the patient. No milk receiver was used. HPI Sun Nogueira is a 57 year old female who presents today for CC of continued diarrhea for 6 days. She states there is no form and mostly water. Denies any blood. She is drinking a lot of water, and is voiding twice in 8 hours, yellow in color. BP 104/64 Pulse 83 Temp 36.8 C (98.3 F) (Tympanic) Resp 18 Wt 53 kg (116 lb 12.8 oz) LMP 10/08/2019 SpO2 96% BMI 18.29 kg/m Social History Tobacco Use Smoking status: Former Packs/day: 0.50 Years: 15.00 Additional pack years: 0.00 Total pack years: 7.50 Types: Cigarettes Quit date: 10/10/2019 Years since quittin.1 Smokeless tobacco: Never Vaping Use Vaping Use: Never used Substance Use Topics Alcohol use: No Drug use: Never PAST MEDICAL HISTORY Diagnosis Date Bladder cancer (HCC) Hematuria Other anxiety states Proteinuria 03/30/2019 Work-related stress 08/11/2016 I have confirmed and edited as necessary, the [facility] Review of Systems Constitutional: Negative for chills and fever. Gastrointestinal: Positive for abdominal pain and diarrhea. Negative for constipation and vomiting. Genitourinary: Negative for dysuria, flank pain, frequency, hematuria and urgency. Objective Physical Exam Vitals and nursing note reviewed. Constitutional: Appearance: Normal appearance. Abdominal: General: Bowel sounds are increased. There is no abdominal bruit. Palpations: Abdomen is not rigid. There is no mass or pulsatile mass. Tenderness: There is no abdominal tenderness. There is no guarding or rebound. Negative signs include Crawford's sign and McBurney's sign. Neurological: Mental Status: She is alert and oriented to person, place, and time. Psychiatric: Mood and Affect: Affect normal. ASSESSMENT/PLAN: 1. Diarrhea, unspecified type - ICD9: 787.91, ICD10: R19.7 Stool cultures ordered today - will call with results and treatment as needed Monitor for signs of dehydration, if decreased urine output, go to ER for further evaluation and treatment. - CDIFF PCR W/RFLX EIA IF POSITIVE - ENTERIC BACTERIAL PANEL BY PCR - OVA + PARA MICROSCOPIC - NOROVIRUS GROUP 1 AND 2 Diagnosis and treatment plan were discussed and questions were answered to the patient's satisfaction. Pt acknowledged understanding of concepts and follow up plan. Specific signs and symptoms that would indicate the need for higher level of care were discussed in detail warranting prompt ER evaluation. Vandana Marr APRN.CNP documented in this encounter [facility] 12-15-2022 Instructions Vandana Marr APRN.CNP - 12/15/2022 1:59 PM EST Rest, increase water intake Motrin or Tylenol as needed for fever or pain. Salt water gargles, chloraseptic spray or lozenges as needed for sore throat. Warm beverages, honey. Nasal saline spray as needed Cool mist humidifier at night Tips for managing diarrhea without medication: Drink liquids frequently. Increase the amount to two to three liters or quarts daily as tolerated, or try sipping liquids in small amounts throughout the day. Choose diluted, pulpless fruit juices, broths, oral rehydration drinks, or sodas (without caffeine). Chicken broth (without the fat), tea with honey, and sports drinks also are good choices. Instead of drinking liquids with your meals, drink liquids between meals. Try these low-fiber foods: potatoes; rice; noodles; ripe bananas; applesauce; smooth peanut butter; white bread; chicken or turkey without the skin; lean ground beef; fish; yogurt; or cottage cheese. Avoid the following: greasy, fatty, or fried foods; raw vegetables and fruits; strong spices; and whole-grain cereals and breads. Limit food or beverages with caffeine, such as chocolate, coffee, strong tea, and some sodas. If you have cramping with diarrhea, avoid foods and beverages that cause gas, such as beans, cabbage, beer, and carbonated beverages. Diarrheal illness may cause temporary lactose (dairy) intolerance, so avoid these foods if they are making diarrhea worse. To ER for worsening symptoms, increased pain, fevers, vomiting, decreased urine output, blood in her urine blood in her stools or dark tarry stools. documented in this encounter [facility] 12-15-2022 History of Presen t illness Narrative Subjective The history is provided by the patient. No milk receiver was used. HPI Sun Nogueira is a 57 year old female who presents today for CC of nausea, diarrhea (loose not bloody or pure water), fatigue, fever, chills, body aches starting on Tuesday. She has not used any treatment or medications. She denies any known exposure to covid or flu. She is drinking a lot of fluids, urine is not dark in color. BP 98/78 Pulse 96 Temp 37.3 C (99.1 F) Resp 21 Wt 52.2 kg (115 lb) LMP 10/08/2019 SpO2 95% BMI 18.01 kg/m Social History Tobacco Use Smoking status: Former Packs/day: 0.50 Years: 15.00 Additional pack years: 0.00 Total pack years: 7.50 Types: Cigarettes Quit date: 10/10/2019 Years since quittin.1 Smokeless tobacco: Never Vaping Use Vaping Use: Never used Substance Use Topics Alcohol use: No Drug use: Never PAST MEDICAL HISTORY Diagnosis Date Bladder cancer (HCC) Hematuria Other anxiety states Proteinuria 03/30/2019 Work-related stress 08/11/2016 I have confirmed and edited as necessary, the [facility] Review of Systems Constitutional: Positive for fever and malaise/fatigue. Negative for chills. HENT: Negative for congestion, ear pain, sinus pain and sore throat. Respiratory: Negative for cough, sputum production, shortness of breath and wheezing. Cardiovascular: Negative for chest pain. Gastrointestinal: Positive for abdominal pain (cramping), diarrhea and nausea. Negative for vomiting. Musculoskeletal: Negative for joint pain and myalgias. Neurological: Negative for headaches. Objective Physical Exam Vitals and nursing note reviewed. Constitutional: Appearance: Normal appearance. HENT: Head: Normocephalic and atraumatic. Right Ear: Tympanic membrane, ear canal and external ear normal. Left Ear: Tympanic membrane, ear canal and external ear normal. Nose: Mucosal edema, congestion and rhinorrhea present. Right Sinus: No maxillary sinus tenderness or frontal sinus tenderness. Left Sinus: No maxillary sinus tenderness or frontal sinus tenderness. Mouth/Throat: Pharynx: Uvula midline. No oropharyngeal exudate or posterior oropharyngeal erythema. Cardiovascular: Rate and Rhythm: Normal rate and regular rhythm. Heart sounds: Normal heart sounds. Pulmonary: Effort: Pulmonary effort is normal. Breath sounds: Normal breath sounds. Abdominal: General: Bowel sounds are increased. There is no abdominal bruit. Palpations: Abdomen is not rigid. There is no mass or pulsatile mass. Tenderness: There is generalized abdominal tenderness (mild). There is no guarding or rebound. Negative signs include Crawford's sign and McBurney's sign. Lymphadenopathy: Head: Right side of head: No submental, submandibular or tonsillar adenopathy. Left side of head: No submental, submandibular or tonsillar adenopathy. Cervical: No cervical adenopathy. Skin: General: Skin is warm and dry. Neurological: Mental Status: She is alert and oriented to person, place, and time. Psychiatric: Mood and Affect: Affect normal. ASSESSMENT/PLAN: 1. Flu-like symptoms - ICD9: 780.99, ICD10: R68.89 Home isolation Testing ordered Comfort measures discussed - see patient instructions. When to seek higher level of care Notified in 12-24 hours with results, available on mychart - COVID & INFLUENZA A/B & RSV NAAT, ROUTINE 2. Diarrhea, unspecified type - ICD9: 787.91, ICD10: R19.7 Diet discussed Return for cultures if not gone by Tuesday Diagnosis and treatment plan were discussed and questions were answered to the patient's satisfaction. Pt acknowledged understanding of concepts and follow up plan. Specific signs and symptoms that would indicate the need for higher level of care were discussed in detail warranting prompt ER evaluation. Vandana Marr APRN.CNP documented in this encounter [facility] 11-26-2022 History of Presen t illness Narrative Radiology Service Progress Note PATIENT NAME: Sun Nogueira DATE OF SERVICE: November 26, 2022 TIME: 1:36 PM PATIENT IDENTITY VERIFICATION COMPLETED USING TWO (2) IDENTIFIERS: Name and Date of confirmed by patient verbally. FALL SCREENING: Has the patient had 2 falls in the last year or 1 fall with injury or currently using an Ambulatory Assistive Device (Walker, Cane, Wheelchair, Crutches, etc.)? No PATIENT GENDER DATA: Female. status: : No status: NO. PATIENT RELEVANT IMPLANT DATA REVIEWED: Yes RADIOLOGY DEPARTMENT: MR; Exam(s) Completed: Upper MSK: Elbow, left PERIPHERAL IV DATA: Not applicable SIGNED BY: RT Zackery(R) November 26, 2022 1:36 PM documented in this encounter [facility] 10-28-2022 Miscellaneous Notes First attempt. Called patient to schedule MRI Elbow. Voicemail full. Unable to leave message. LAURA Smyth There's truly no indication for further imaging but because she is insistent I have placed an order for an MRI. Please have her schedule with appropriate inidividual. Mendy Carrasco PA-C Patient returned call and went over notes below and upset that she can not get the order. Patient said she had ultrasound with Dr Lucas last week. Patient said she saw her Ortho Dr Pineda and he can not see her since it is her elbow. Patient upset had family member with a lump on her shoulder and 6 months later. She has cancer history and said I need this checked out further. Called and left a voicemail for the Patient on her son's phone to have her call back and ask for a nurse to receive the providers message. Karen Simmons RN Could we try to reach out to this patient again with the below message. Mendy Carrasco PA-C 1st attempt to teach pt by phone without success. Mailbox if full. Tried home phone and it rings fast busy. Try later. Aislinn Melara LPN Please call patient and let her know CT and MRI are not appropriate. We can start with an ultrasound, as that will let us know if there's anything of concern. Please forward to appropriate individual to schedule. Also note that from gen surg consult they think that ortho should see her next, if she has any further concerns. Mendy Carrasco PA-C Mendy, looks like she saw you in August for this issue, do you think CT or MRI is needed? I think it would be reasonable to start with ultrasound and then order MRI if needed but not sure of the situation. Pt calling for a CT or MRI to have this done on left elbow. She has a lump on the elbow. Pt upset that she has not been able to get this set up. Pt was told see pcp to get this ordered. Pt requesting Ofelia Lau to review with pt's history of cancer. Pt not asking to be referred to anyone right now only wants to find out what the lump is. Please advise when orders are in or if there is a problem. Aislinn Melara LPN documented in this encounter [facility] 10-14-2022 Miscellaneous Notes Images from the original note were not included. Cheng Lucas MD Archuleta, Rhonda, RN; [facility] General Surgery Pool; Alma Delia Choudhury MD 16 hours ago (7:31 PM) No fractures in her hand. She can follow-up with her PCP for all her issues. Called patient was unable to leave message d/t mail box is full, will leave message in patients MyChart. Jyothi Oliveros LPN Sun called the radiology department, requesting the results of her x-ray that she had completed on 10/08/2022. Could you please review the radiology report and advise? Maricel Granado RN documented in this encounter [facility] 10-13-2022 Miscellaneous Notes CD READY FOR RUBBER TUBING SPLICER AT [facility] RADIOLOGY Pt is aware Pt is requesting a copy of a disk on the following 1) XR hand general left 2) XR elbow general left Please call pt when this is ready for nut picker. Aislinn Melara LPN documented in this encounter [facility] 10-10-2022 History of Presen t illness Narrative HISTORY AND PHYSICAL Sun Nogueira 1965 REFERRING PHYSICIAN: Mendy Carrasco PA-C CHIEF COMPLAINT: Consult (Lump on left elbow. ) HPI: The patient is a 57 year old female with a complaint of a lump in her left elbow region. The patient was seen by Mendy Carrasco on August 27, 2022. At that visit she noted: Sun Nogueira is a 56 year old female who presents today for lump x 3 weeks on left elbow. She notes her primary concern is that it's cancer, because of her hx of bladder ca. Incidentally found when she was itching her dry skin. States that her family member found one similar and it ended up being cancer, and took her life. Still c/o back pain. No fall or mechanism of injury. 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 Was seen in [facility] care on 08/11 and was txed/ with prednisone burst and then cyclobenzaprine. She is requesting refills on prednisone and Pt denies any saddle anesthesia, LE weakness, as well as any bowel/bladder incontinence. MSK: difficult to palpate but possible small 'bump' coarsing along tendon L elbow, nontender, no overlying skin changes My office reviewed the note and felt that there was no skin lesion present and since this was felt to be within the tendon on exam that this was not appropriate for referral to our office and we felt that orthopedics given the suspected tendon location was more appropriate.. My nurses contacted the patient who demanded to be seen even given that information. The patient was seen on Tuesday. The patient also noted she struck her hand and requested an x-ray of her left hand to rule out fractures of her digits. The patient is being seen by me today at the request of Mendy Carrasco PA-C my opinion and advice regarding a small nodule elbow likely within the tendon and now complaint of contusion to the left hand. PAST MEDICAL HISTORY Diagnosis Date Bladder cancer (HCC) Hematuria Other anxiety states Proteinuria 03/30/2019 Work-related stress 08/11/2016 PAST SURGICAL HISTORY Procedure Laterality Date ANES IPER LOWER ABD W/LAPS RAD HYSTERECTOMY radical cystectomy- removal of uterus, cervix, tubes and ovaries. rishi bladder creation. NECK SURGERY HX 2004 REMOVAL OF OVARY/TUBE(S) Bilateral ROBOTIC (LAP) CYSTECTOMY W/ NEOBLADDER URINARY DIVERSION (COMP 78385) ROTATOR CUFF REPAIR Left 1994 TUBAL LIGATION 2002 Current Outpatient Medications Medication Sig cyclobenzaprine (FLEXERIL) 10 mg tablet 1/2 - 1 tablet (10mg) every 8 hours prn (Patient not taking: Reported on 10/08/2022) meloxicam (MOBIC) 15 mg tablet Take 1 tablet by mouth once daily. With food. (Patient not taking: Reported on 10/08/2022) iv contrast (will be provided with radiology test) CT Chest W -Inject, intravenously, once for 1 dose.No IV access, insert saline lock prior to the beginning of sedation, infusion, injection of imaging exam. Discontinue saline lock post exam. If Pt. has a central line or IVAD, may access for administration according to line specific nursing protocol. Once exam is complete flush line and de-access according to line specific nursing protocol in the CT contrast administration guidelines link. (Patient not taking: Reported on 08/11/2022) iv contrast (will be provided with radiology test) CT ABD/PEL -Inject, intravenously, once for 1 dose.No IV access, insert saline lock prior to the beginning of sedation, infusion, injection of imaging exam. Discontinue saline lock post exam. If Pt. has a central line or IVAD, may access for administration according to line specific nursing protocol. Once exam is complete flush line and de-access according to line specific nursing protocol in the CT contrast administration guidelines link. (Patient not taking: Reported on 08/11/2022) triamcinolone (KENALOG) 0.025 % cream Apply 1 application to affected area twice daily. (Patient not taking: Reported on 05/13/2022) iv contrast (will be provided with radiology test) CT ABD/PEL -Inject, intravenously, once for 1 dose.No IV access, insert saline lock prior to the beginning of sedation, infusion, injection of imaging exam. Discontinue saline lock post exam. If Pt. has a central line or IVAD, may access for administration according to line specific nursing protocol. Once exam is complete flush line and de-access according to line specific nursing protocol in the CT contrast administration guidelines link. (Patient not taking: Reported on 02/24/2022) iv contrast (will be provided with radiology test) CT ABD/PEL -Inject, intravenously, once for 1 dose.No IV access, insert saline lock prior to the beginning of sedation, infusion, injection of imaging exam. Discontinue saline lock post exam. If Pt. has a central line or IVAD, may access for administration according to line specific nursing protocol. Once exam is complete flush line and de-access according to line specific nursing protocol in the CT contrast administration guidelines link. (Patient not taking: Reported on 02/24/2022) Incontinence Pad, Liner, Disp (BLADDER CONTROL PADS) pads 1 Each every 8 hours as needed. Patient would like the over night pads Equate brand (Patient not taking: Reported on 02/24/2022) albuterol HFA (PROAIR HFA) 90 mcg/actuation inhaler Inhale 2 Puffs as instructed every 4 hours as needed. (Patient not taking: Reported on 02/24/2022) fluticasone (FLONASE) 50 mcg/actuation nasal spray Use 2 Sprays in each nostril once daily. Rinse mouth after use. (Patient not taking: Reported on 09/01/2021 ) guaiFENesin (MUCINEX) 600 mg 12 hr tablet Take 1 tablet by mouth twice daily. No current facility-administered medications for this visit. ALLERGIES: Bee Stings [Other] and Tetnus [Other] PERSONAL HISTORY: Social History Tobacco Use Smoking status: Former Packs/day: 0.50 Years: 15.00 Additional pack years: 0.00 Total pack years: 7.50 Types: Cigarettes Quit date: 10/10/2019 Years since quittin.0 Smokeless tobacco: Never Vaping Use Vaping Use: Never used Substance Use Topics Alcohol use: No Drug use: Never FAMILY HISTORY: FAMILY HISTORY Problem Relation Age of Onset Cancer Father Heart Maternal Grandfather Cancer Paternal Grandmother skin cancer REVIEW OF SYMPTOMS: The review of systems data was entered by the nurse and reviewed by ma Nursing Notes: Maricel Granado RN 10/08/2022 2:24 PM Signed REVIEW OF SYSTEMS: General: The patient denies fatigue, denies weight loss, denies weight gain, denies feeling hot, and denies feelings of cold. Eyes: The patient denies glaucoma, denies eye injury/surgery, does not wear glasses or contacts. Ear/Nose/Throat: The patient NOTES allergies, denies hayfever, denies ear infections, and denies bloody noses. Cardiovascular: The patient denies chest pain, denies heart disease, denies high blood pressure,denies cardiac stent, denies prior heart attack, denies irregular heart beat, denies high cholesterol, denies poor circulation, denies heart failure, other cardiac issues, denies claudication, denies cold feet, denies peripheral arterial stent. Respiratory: The patient denies tuberculosis, denies pneumonia, denies frequent cough, denies pulmonary embolism, denies shortness of breath, and denies coughing up blood. Gastrointestinal: The patient denies difficulty swallowing, denies acid reflux, denies ulcers, denies vomiting, denies jaundice/hepatitis, denies gallbladder problems, denies black or tarry stools, denies hemorrhoids, denies bleeding from rectum, denies diverticulitis, denies constipation, denies diarrhea, denies loss of stool control, and denies hernias. Kidney/Bladder: The patient NOTES kidney stones, NOTES urine infections, and NOTES bloody urine. Skin: The patient denies a history of skin cancer, denies bleeding/changing moles, and denies a history of skin rash. Neurologic: The patient denies a history of epilepsy/convulsions, denies headaches, denies head/spinal injuries, and denies stroke/TIA. Psychiatric: The patient denies psychiatric medications, denies depression, and denies voices, denies substance abuse. Endocrine: The patient denies thyroid disorders, denies diabetes, and denies hormonal problems. Hematologic: The patient denies a history of bruising, denies bleeding, and denies anemia, denies blood clots. Infections: The patient NOTES a history of measles and mumps, denies rheumatic fever, and denies sexually transmitted diseases. Musculoskeletal: The patient denies back pain/injury, denies back problems, denies sciatica, denies knee/foot trouble, denies arthritis, or denies gout. When was patient's last Mammogram screening? 2019 Last Colonoscopy: Unknown Maricel Granado RN PHYSICAL EXAMINATION: General: The patient is 57 year old female, well nourished, well hydrated in no acute distress. The patient is oriented to time, place, and person. VITALS: Blood pressure 100/60, pulse 86, temperature 37 C (98.6 F), height 170.2 cm (5' 7), weight 55.5 kg (122 lb 6.4 oz), last menstrual period 10/08/2019, SpO2 98 %. Extremities: no clubbing, cyanosis or edema. No adenopathy. Other: Left elbow-a very small minimally perceptible nodule which does not seem to be within the skin as the skin is mobile over it and the nodule stays in place with skin motion. It is in the midline and felt to be most likely in the tendon as when the patient straightens her elbow this is no longer palpable. It does not seem to be consistent with a bursitis. There is no signs of infection or inflammation. Left hand-patient has swelling and discoloration of her fourth and fifth digits consistent with the trauma she described there is no obvious tissue injury or bony deformity noted she is able to move her fingers though it is uncomfortable. LABORATORY VALUES: As Noted RADIOLOGIC STUDIES: As Noted Elbow x-ray was unremarkable. Intraoffice ultrasound was obtained of the elbow. There were no abnormalities seen in the skin. I could not truly identify an abnormality below the level of the skin but I could appreciate the sensation of the nodule as the ultrasound probe moved over the site. The patient also requested a ultrasound of her fingers. I informed her that I would not be able to identify fractures with an ultrasound machine but did so anyways at her request. There appeared to be edema of the fingers but I could not identify any obvious fractures. I reviewed the hand images. The x-ray report is currently pending. I appreciate no fractures but I am not a radiologist nor an orthopedic surgeon. Assessment IMPRESSION: Likely nodule in her tendon-potentially rheumatoid nodule or other orthopedic issue. Contusion to hand rule out digit fracture fourth and fifth digits PLAN: I discussed with the patient that I would communicate my findings back to referring physician. I would also forward this note to orthopedics in the event that they felt there was something appropriate from their site to treat. Otherwise I recommend nonsteroidals rest ice and elevation as needed. She asked to be referred to Dr. [facility]. 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 This note will be forwarded to Alma Delia Choudhury MD. Return to Clinic: The patient is instructed to follow-up with her primary care providers as needed. Cheng Lucas MD documented in this encounter [facility] 09-01-2023 Nurse Note REVIEW OF SYSTEMS: General: The patient denies fatigue, denies weight loss, denies weight gain, denies feeling hot, and denies feelings of cold. Eyes: The patient denies glaucoma, denies eye injury/surgery, does not wear glasses or contacts. Ear/Nose/Throat: The patient NOTES allergies, denies hayfever, denies ear infections, and denies bloody noses. Cardiovascular: The patient denies chest pain, denies heart disease, denies high blood pressure,denies cardiac stent, denies prior heart attack, denies irregular heart beat, denies high cholesterol, denies poor circulation, denies heart failure, other cardiac issues, denies claudication, denies cold feet, denies peripheral arterial stent. Respiratory: The patient denies tuberculosis, denies pneumonia, denies frequent cough, denies pulmonary embolism, denies shortness of breath, and denies coughing up blood. Gastrointestinal: The patient denies difficulty swallowing, denies acid reflux, denies ulcers, denies vomiting, denies jaundice/hepatitis, denies gallbladder problems, denies black or tarry stools, denies hemorrhoids, denies bleeding from rectum, denies diverticulitis, denies constipation, denies diarrhea, denies loss of stool control, and denies hernias. Kidney/Bladder: The patient NOTES kidney stones, NOTES urine infections, and NOTES bloody urine. Skin: The patient denies a history of skin cancer, denies bleeding/changing moles, and denies a history of skin rash. Neurologic: The patient denies a history of epilepsy/convulsions, denies headaches, denies head/spinal injuries, and denies stroke/TIA. Psychiatric: The patient denies psychiatric medications, denies depression, and denies voices, denies substance abuse. Endocrine: The patient denies thyroid disorders, denies diabetes, and denies hormonal problems. Hematologic: The patient denies a history of bruising, denies bleeding, and denies anemia, denies blood clots. Infections: The patient NOTES a history of measles and mumps, denies rheumatic fever, and denies sexually transmitted diseases. Musculoskeletal: The patient denies back pain/injury, denies back problems, denies sciatica, denies knee/foot trouble, denies arthritis, or denies gout. When was patient's last Mammogram screening? 2019 Last Colonoscopy: Unknown Maricel Granado RN documented in this encounter [facility] 10-08-2022 History of Presen t illness Narrative Radiology Service Progress Note PATIENT NAME: Sun Nogueira DATE OF SERVICE: October 08, 2022 TIME: 2:42 PM PATIENT IDENTITY VERIFICATION COMPLETED USING TWO (2) IDENTIFIERS: Name and Date of confirmed by patient verbally. FALL SCREENING: Has the patient had 2 falls in the last year or 1 fall with injury or currently using an Ambulatory Assistive Device (Walker, Cane, Wheelchair, Crutches, etc.)? No PATIENT GENDER DATA: Female. status: : No status: NO. PATIENT RELEVANT IMPLANT DATA REVIEWED: Not Applicable RADIOLOGY DEPARTMENT: General X-ray: Exam(s) Completed: Upper Extremity X-Ray(s): Hand, left PERIPHERAL IV DATA: Not applicable SIGNED BY: RT Kinjal(R) October 08, 2022 2:42 PM documented in this encounter [facility] 09-22-2022 Miscellaneous Notes Scheduled 10/08/2022. Lia Michaud RN 2nd call attempt to schedule, unable to leave vm Called pt to schedule but no answer and mailbox full. 1st attempt Bharti PSS Referral has been placed, please schedule. Olga Alves LPN Patient needs a referral placed so appointment can be scheduled. Referral pended. Needs diagnosis. Lia Michaud RN Patient needs an appointment with general surgery, please set up appt. with on Tuesday. Olga Alves LPN It really isn't indicated to do a CT scan. A biopsy isn't great without additional imaging that would confirm that a concerning mass Is even present. If she wants to pursue it further, I'd advise she see general surgery so they can let her know the next kind of imaging they would want, as well as if they would even consider biopsying it. Mendy Carrasco PA-C Patient calls to report that she remains very concerned about the lump to her left elbow. Patient reports that the area remains itchy and painful and she can feel a knot when she puts pressure on it. Patient wants a CT Scan or biopsy done of the area. She said she is not going to let it go until something is done with her history as well as family history of cancer. Patient wants a call back at [phone] DEENA but after 330 pm during the day. Please review and advise, Lia Michaud RN documented in this encounter [facility] 08-11-2022 History of Presen t illness Narrative Images from the original note were not included. Subjective The history is provided by the patient. No milk receiver was used. RICH Nogueira is a 56 year old female who presents today for CC of right lower back pain, hip pain for 2 days. She denies any known trauma or injury. 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 BP 120/74 Pulse 78 Temp 37.6 C (99.6 F) Resp 16 Wt 55.3 kg (122 lb) LMP 10/08/2019 SpO2 96% BMI 19.69 kg/m Social History Tobacco Use Smoking status: Former Packs/day: 0.50 Years: 15.00 Pack years: 7.50 Types: Cigarettes Quit date: 10/10/2019 Years since quittin.8 Smokeless tobacco: Never Vaping Use Vaping Use: Never used Substance Use Topics Alcohol use: No Drug use: Never PAST MEDICAL HISTORY Diagnosis Date Bladder cancer (HCC) Hematuria Other anxiety states Proteinuria 03/30/2019 Work-related stress 08/11/2016 I have confirmed and edited as necessary, the [facility] Review of Systems Constitutional: Negative for chills and fever. Musculoskeletal: Positive for back pain. Negative for joint pain and myalgias. Skin: Negative for itching and rash. All other systems reviewed and are negative. Objective Physical Exam Vitals and nursing note reviewed. Cardiovascular: Pulses: Dorsalis pedis pulses are 2+ on the right side and 2+ on the left side. Posterior tibial pulses are 2+ on the right side and 2+ on the left side. Pulmonary: Effort: Pulmonary effort is normal. Musculoskeletal: Cervical back: Normal. Thoracic back: Normal. Lumbar back: No swelling, edema, deformity, signs of trauma, lacerations, spasms, tenderness or bony tenderness. Decreased range of motion. Negative right straight leg raise test and negative left straight leg raise test. No scoliosis. Back: Right hip: Normal. Left hip: Normal. Comments: Patient was able to change positions slowly without assistance, slight hesitancy and delay and with overt signs of discomfort. Neurovascular status is intact to bilateral lower extremities. Patellar reflexes are +2 bilaterally. Leg strength 5/5. Pedal pulses are palpable and strong. Normal temp. Normal sensation. Bilateral leg lifts are negative for radiculopathy. Able to ambulate without evidence of a foot drop or ataxic gait. Able to ambulate on toes and heels. Decreased flexion, dorsiflexion, abduction and adduction. Denies bowel or bladder dysfunction, saddle anesthesia, distal paresthesias or weakness in the lower extremities. There is no pain in hip, pain is at base of lower back Skin: General: Skin is warm and dry. Neurological: Mental Status: She is alert and oriented to person, place, and time. Sensory: Sensation is intact. Deep Tendon Reflexes: Reflexes are normal and symmetric. Psychiatric: Mood and Affect: Affect normal. ASSESSMENT/PLAN: 1. Acute right-sided low back pain without sciatica - ICD9: 724.2, ICD10: M54.50 Rest, ice/heat Lower back stretches Prednisone/flexeril as ordered If no improvement follow up with PCP Declined xray today Diagnosis and treatment plan were discussed and questions were answered to the patient's satisfaction. Pt acknowledged understanding of concepts and follow up plan. Specific signs and symptoms that would indicate the need for higher level of care were discussed in detail warranting prompt ER evaluation. Vandana Marr APRN.KITTY documented in this encounter [facility] 08-05-2022 Miscellaneous Notes patient notified, fasting labs have been ordered Olga Alves LPN Fasting lab orders have been placed. Thank you Ofelia Lau APRN.CNP Phoned patient and notified her she needs an appointment for follow up and review of labs results. Patient I swilling to do fasting labs if orders are placed. Appt was made for August 27 at 12:40 with Mendy Carrasco. Please place orders. Olga Alves LPN I have not seen patient in over a year. She is due for annual blood work. Is this what she was thinking needed ordered? Is she fasting? Thank you Ofelia Lau APRN.CNP Per Dr. Wynne- patient does not need labs from his standpoint. Patient had seen her urologist for follow up 05/13/2022, plan was to follow up with him with CT's in 1 year, 05/2023. Shasta Schumacher LPN Pt angry that her lab orders are not placed. Pt states she needs labs ordered but does not know which ones, she states they are hematology orders. 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 Please contact pt with response. Surekha Henderson LPN documented in this encounter [facility] 08-05-2022 Miscellaneous Notes Patient called back and is upset that she is unable to get lab orders put in by any provider. PCP informed her that labs need to come from canoe builder.- Please see TE from today. Patient states she has concerns and needs an appt. Please call patient and advise. Per dr. Wynne, pt. Is to follow up with her PCP or Urologist. He is not going to order labs. Pt. Is waiting in [facility] and is being informed by Olga Hull PSS Sun Leung LPN Patient called requesting lab orders to be put in from missed appointment in April. documented in this encounter [facility] 05-21-2022 Miscellaneous Notes ----- Message from Ro Silverio [facility] sent at 05/21/2022 2:35 PM EDT ----- Contact: Calling for results from uinalysis. [phone] Contacted patient regarding results above. Discussed ISC. Violet Alves RN documented in this encounter [facility] 05-13-2022 History of Presen t illness Narrative REASON FOR VISIT: Follow-up, history of bladder cancer HPI: 56 yo female Previously seen and treated by Dr. Post for bladder cancer S/P cystectomy with neobladder in December 2019 Later had cysto stent removal (01/2020) when stents could not be removed in outpatient clinic ([place]) PATHOLOGY: FINAL DIAGNOSIS 1. Left distal ureter, excision (A) - Ureter, negative for malignancy. 2. Right distal ureter, excision (B) - Ureter, negative for malignancy. 3. Bladder, uterus, cervix, ovaries and fallopian tubes, accentuation (C) - Bladder with prior biopsy site changes and benign urachal remnants. - Negative for residual carcinoma. - Margins are negative for malignancy. - Cervix with chronic inflammation and atrophic changes, negative for malignancy. - Benign inactive endometrium. - Myometrium with adenomyosis. - Unremarkable right fallopian tube. - Left fallopian tube with benign paratubal adrenal cortical rest. - Unremarkable right ovary. - Left ovary with benign serous cystadenoma. 4. Bilateral pelvic lymph nodes, excision (D) - Fourteen lymph nodes, negative for malignancy (0/14). 5. Final right ureteral margin, excision (E) - Ureter, negative for malignancy. 6. Final left ureteral margin, excision (F) - Ureter, negative for malignancy. LABS: Creatinine Date Value Ref Range Status 01/18/2022 1.29 (H) 0.58 - 0.96 mg/dL Final 11/05/2021 1.29 (H) 0.58 - 0.96 mg/dL Final 06/26/2021 1.09 (H) 0.58 - 0.96 mg/dL Final 12/29/2020 1.07 (H) 0.58 - 0.96 mg/dL Final IMAGING: CT abdomen/pelvis (02/19/22): Non-distended neobladder with resolution of bilateral hydronephrosis and ureterectasis seen on previous study. Nonspecific left periaortic lymph node unchanged from prior study. No evidence of metastatic disease or local recurrence. CT chest (02/19/22): stable 3.4 mm nodule in the right midline lobe, just below horizontal fissure. ALLERGIES: ALLERGIES Allergen Reactions Bee Stings [Other] Swelling Tetnus [Other] Swelling Gadolinium-Containi* Rash Patient experienced a rash after receiving IV contrast dye for CT scan. MEDICATIONS: Current Outpatient Medications Medication Sig nitrofurantoin monohydrate and macrocrystal (MACROBID) 100 mg capsule Take 1 capsule by mouth twice daily with meals for 10 days. levoFLOXacin (LEVAQUIN) 750 mg tablet Take 1 tablet by mouth once daily for 7 days. (Patient not taking: Reported on 11/05/2021) Incontinence Pad, Liner, Disp (BLADDER CONTROL PADS) pads 1 Each every 8 hours as needed. Patient would like the over night pads Equate brand albuterol HFA (PROAIR HFA) 90 mcg/actuation inhaler Inhale 2 Puffs as instructed every 4 hours as needed. fluticasone (FLONASE) 50 mcg/actuation nasal spray Use 2 Sprays in each nostril once daily. Rinse mouth after use. (Patient not taking: Reported on 09/01/2021 ) guaiFENesin (MUCINEX) 600 mg 12 hr tablet Take 1 tablet by mouth twice daily. predniSONE (DELTASONE) 20 mg tablet Take 1 tablet by mouth once daily. (Patient not taking: Reported on 11/05/2021) HISTORIES PAST MEDICAL HISTORY Diagnosis Date Bladder cancer (HCC) Hematuria Other anxiety states Proteinuria 03/30/2019 Work-related stress 08/11/2016 PAST SURGICAL HISTORY Procedure Laterality Date ANES IPER LOWER ABD W/LAPS RAD HYSTERECTOMY radical cystectomy- removal of uterus, cervix, tubes and ovaries. rishi bladder creation. NECK SURGERY HX 2004 REMOVAL OF OVARY/TUBE(S) Bilateral ROBOTIC (LAP) CYSTECTOMY W/ NEOBLADDER URINARY DIVERSION (COMP 10564) ROTATOR CUFF REPAIR Left 1994 TUBAL LIGATION 2002 REVIEW OF SYSTEMS General: No weight loss, malaise or fevers., SEE HPI Genitourinary: See HPI The remainder of the ROS was reviewed and negative. PHYSICAL EXAMINATION General: no acute distress Genitourinary: FEMALE EXAM: not done PROBLEMS: 56 year old female s/p cystectomy and neobladder by Dr Post Clinically doing good. Complains of frequent UTI. PLAN - CT and RTC in 6 months Answered all the patients questions. She had questions regarding her vaginal length. Explained that part of it is typically removed with surgery. Will refer to custom tailor apprentice for evaluation PLAN - CT abdomen and chest and RTC in 1 year Hafsa Mendoza MD documented in this encounter [facility] 03-05-2022 Hospital Discharg e instructions Additional Instructions Please only use the tetracaine/numbing eyedrops by using 1 to 2 drops in each eye up to 4 times a day for the next 3 days [facility] Work Phone: 02-24-2022 History of Presen t illness Narrative Subjective Rash Pertinent negatives include no congestion, cough, fever or sore throat. Sun Nogueira is a 56 year old female who presents with a rash on her back and thighs which is red, itchy and bumpy. Present for 4 days. She has not used any thing on it at home. She is not sure what the cause was. She states she ate egg rolls and had a CT scan with contrast dye 2 days prior to her rash appearing. She has not had a fever. She has not had any URI symptoms. Review of Systems Constitutional: Negative for chills and fever. HENT: Negative for congestion and sore throat. Respiratory: Negative for cough. Skin: Positive for itching and rash. BP 118/78 Pulse 73 Temp 36.8 C (98.2 F) Resp 21 Wt 59.4 kg (131 lb) LMP 10/08/2019 SpO2 98% BMI 21.14 kg/m PAST MEDICAL HISTORY Diagnosis Date Bladder cancer (HCC) Hematuria Other anxiety states Proteinuria 03/30/2019 Work-related stress 08/11/2016 PAST SURGICAL HISTORY Procedure Laterality Date ANES IPER LOWER ABD W/LAPS RAD HYSTERECTOMY radical cystectomy- removal of uterus, cervix, tubes and ovaries. rishi bladder creation. NECK SURGERY HX 2004 REMOVAL OF OVARY/TUBE(S) Bilateral ROBOTIC (LAP) CYSTECTOMY W/ NEOBLADDER URINARY DIVERSION (COMP 72722) ROTATOR CUFF REPAIR Left 1994 TUBAL LIGATION 2002 ALLERGIES Bee Stings [Other] and Tetnus [Other] MEDICATIONS predniSONE (DELTASONE) 10 mg tablet Take 4 tabs daily for 3 days, then 2 tabs daily for 3 days, then 1 tab daily for 3 days with food. triamcinolone (KENALOG) 0.025 % cream Apply 1 application to affected area twice daily. iv contrast (will be provided with radiology test) CT ABD/PEL -Inject, intravenously, once for 1 dose.No IV access, insert saline lock prior to the beginning of sedation, infusion, injection of imaging exam. Discontinue saline lock post exam. If Pt. has a central line or IVAD, may access for administration according to line specific nursing protocol. Once exam is complete flush line and de-access according to line specific nursing protocol in the CT contrast administration guidelines link. (Patient not taking: Reported on 02/24/2022) iv contrast (will be provided with radiology test) CT ABD/PEL -Inject, intravenously, once for 1 dose.No IV access, insert saline lock prior to the beginning of sedation, infusion, injection of imaging exam. Discontinue saline lock post exam. If Pt. has a central line or IVAD, may access for administration according to line specific nursing protocol. Once exam is complete flush line and de-access according to line specific nursing protocol in the CT contrast administration guidelines link. (Patient not taking: Reported on 02/24/2022) Incontinence Pad, Liner, Disp (BLADDER CONTROL PADS) pads 1 Each every 8 hours as needed. Patient would like the over night pads Equate brand (Patient not taking: Reported on 02/24/2022) albuterol HFA (PROAIR HFA) 90 mcg/actuation inhaler Inhale 2 Puffs as instructed every 4 hours as needed. (Patient not taking: Reported on 02/24/2022) fluticasone (FLONASE) 50 mcg/actuation nasal spray Use 2 Sprays in each nostril once daily. Rinse mouth after use. (Patient not taking: Reported on 09/01/2021 ) guaiFENesin (MUCINEX) 600 mg 12 hr tablet Take 1 tablet by mouth twice daily. FAMILY HISTORY Problem Relation Age of Onset Cancer Father Heart Maternal Grandfather Cancer Paternal Grandmother skin cancer Social History Tobacco Use Smoking status: Former Packs/day: 0.50 Years: 15.00 Pack years: 7.50 Types: Cigarettes Quit date: 10/10/2019 Years since quittin.3 Smokeless tobacco: Never Vaping Use Vaping Use: Never used Substance Use Topics Alcohol use: No Drug use: Never Objective Physical Exam Vitals and nursing note reviewed. Constitutional: Appearance: Normal appearance. HENT: Nose: Nose normal. Mouth/Throat: Mouth: Mucous membranes are moist. Pharynx: Oropharynx is clear. Uvula midline. No oropharyngeal exudate or posterior oropharyngeal erythema. Cardiovascular: Rate and Rhythm: Normal rate. Pulmonary: Effort: Pulmonary effort is normal. Skin: General: Skin is warm and dry. Findings: Erythema and rash present. Neurological: Mental Status: She is alert. ASSESSMENT/PLAN: 1. Allergic dermatitis - ICD9: 692.9, ICD10: L23.9 - Oral Steriod tx -Prednisone taper - Topical steriod tx with Rx for steriod cream/ointment- see orders - discussed skin care of rash - follow up if symptoms persist or worsen. - PREDNISONE 10 MG TABLET - TRIAMCINOLONE ACETONIDE 0.025 % TOPICAL CREAM - Follow-up with your PCP or ENT for allergy testing in 3-5 days if symptoms have not improved or sooner if symptoms worsen - Discussed red flags and need for immediate medical evaluation if any occur. - Discussed supportive care treatment with fluids, rest and analgesia. - Discussed expected course of illness Dulce Mann APRN.CNP documented in this encounter [facility] 02-24-2022 Instructions Dulce Mann APRN.CNP - 02/24/2022 4:15 PM EST ASSESSMENT/PLAN: 1. Allergic dermatitis - ICD9: 692.9, ICD10: L23.9 - Oral Steriod tx -Prednisone taper - Topical steriod tx with Rx for steriod cream/ointment- see orders - discussed skin care of rash - follow up if symptoms persist or worsen. - PREDNISONE 10 MG TABLET - TRIAMCINOLONE ACETONIDE 0.025 % TOPICAL CREAM - Follow-up with your PCP or ENT for allergy testing in 3-5 days if symptoms have not improved or sooner if symptoms worsen - Discussed red flags and need for immediate medical evaluation if any occur. - Discussed supportive care treatment with fluids, rest and analgesia. - Discussed expected course of illness Dulce Mann APRN.KITYT [facility] Address: [address] [place] [address], [place] [address] NONSPECIFIC RASH: Our exam shows you have a rash which has no clear cause. Rashes can result from infections, allergies, or irritation of the skin by chemicals or other environmental factors. Rashes can also result from scratching or rubbing the skin too much to relieve itching. Further medical examination may be needed to identify the specific cause and proper treatment of your skin rash. You should treat your rash as recommended by your doctor. If you have itching, you should avoid scratching as much as possible, as this further damages the skin. Ask your doctor or pharmacist if you have any questions about what topical medicines may help relieve your symptoms. Call your doctor right away if your rash is not better in 2-3 days, if it worsens, or if there are signs of infection (increased pain, redness, drainage or pus). documented in this encounter [facility] 01-22-2022 Miscellaneous Notes Still unable to reach patient with her negative results-will wait for patient to return call to us if she starts with symptoms.Alexandrea Laboy LPN Still unable to reach patient.Alexandrea Laboy LPN Unable to reach patient. Mailbox full/Mailbox not set up/ Number incorrect. Please try again later. Barbara Underwood Please notify patient that urine culture did grow bacteria. Patient is being placed on Keflex twice a day for 7 days please tell her to complete all antibiotics. And follow-up with primary care. documented in this encounter [facility] 01-18-2022 Miscellaneous Notes Attempted to speak with patient, She answers I can't talk right now, can you call me back another time Informed patient I can send a my chart message. If she has any other concerns, please reach out. documented in this encounter [facility] 01-18-2022 History of Presen t illness Narrative Subjective Patient came in with complaints of left lower abdominal pain. Patient says it is like a 6 to a 9. Patient says she was seen in the ER Tuesday. Patient refused any blood work at that time. Patient says she has bladder cancer but is not sure if it is cured. Patient is visibly upset. Patient does not currently having the pain. Patient started a new job and missed work. Patient does not want to do any testing. The history is provided by the patient. No milk receiver was used. Review of Systems Constitutional: Negative. Skin: Negative. Objective Physical Exam Constitutional: Appearance: Normal appearance. Pulmonary: Effort: Pulmonary effort is normal. Abdominal: General: Abdomen is flat. Palpations: Abdomen is soft. Tenderness: There is no abdominal tenderness. Neurological: Mental Status: She is alert. PAST MEDICAL HISTORY Diagnosis Date Bladder cancer (HCC) Hematuria Other anxiety states Proteinuria 03/30/2019 Work-related stress 08/11/2016 PAST SURGICAL HISTORY Procedure Laterality Date ANES IPER LOWER ABD W/LAPS RAD HYSTERECTOMY radical cystectomy- removal of uterus, cervix, tubes and ovaries. rishi bladder creation. NECK SURGERY HX 2004 REMOVAL OF OVARY/TUBE(S) Bilateral ROBOTIC (LAP) CYSTECTOMY W/ NEOBLADDER URINARY DIVERSION (COMP [id number]) ROTATOR CUFF REPAIR Left 1994 TUBAL LIGATION 2002 ALLERGIES Bee Stings [Other] and Tetnus [Other] MEDICATIONS iv contrast (will be provided with radiology test) CT ABD/PEL -Inject, intravenously, once for 1 dose.No IV access, insert saline lock prior to the beginning of sedation, infusion, injection of imaging exam. Discontinue saline lock post exam. If Pt. has a central line or IVAD, may access for administration according to line specific nursing protocol. Once exam is complete flush line and de-access according to line specific nursing protocol in the CT contrast administration guidelines link. iv contrast (will be provided with radiology test) CT ABD/PEL -Inject, intravenously, once for 1 dose.No IV access, insert saline lock prior to the beginning of sedation, infusion, injection of imaging exam. Discontinue saline lock post exam. If Pt. has a central line or IVAD, may access for administration according to line specific nursing protocol. Once exam is complete flush line and de-access according to line specific nursing protocol in the CT contrast administration guidelines link. Incontinence Pad, Liner, Disp (BLADDER CONTROL PADS) pads 1 Each every 8 hours as needed. Patient would like the over night pads Equate brand albuterol HFA (PROAIR HFA) 90 mcg/actuation inhaler Inhale 2 Puffs as instructed every 4 hours as needed. fluticasone (FLONASE) 50 mcg/actuation nasal spray Use 2 Sprays in each nostril once daily. Rinse mouth after use. (Patient not taking: Reported on 09/01/2021 ) guaiFENesin (MUCINEX) 600 mg 12 hr tablet Take 1 tablet by mouth twice daily. predniSONE (DELTASONE) 20 mg tablet Take 1 tablet by mouth once daily. (Patient not taking: Reported on 11/05/2021) FAMILY HISTORY Problem Relation Age of Onset Cancer Father Heart Maternal Grandfather Cancer Paternal Grandmother skin cancer Social History Tobacco Use Smoking status: Former Packs/day: 0.50 Years: 15.00 Pack years: 7.50 Types: Cigarettes Quit date: 10/10/2019 Years since quittin.2 Smokeless tobacco: Never Vaping Use Vaping Use: Never used Substance Use Topics Alcohol use: No Drug use: Never ASSESSMENT/PLAN: 1. Left lower quadrant abdominal pain - ICD9: 789.04, ICD10: R10.32 - CBC - BASIC METABOLIC PNL The patient's primary care physician she recommended ordering CBC BMP and a urine. Patient was very hesitant to do any of these labs. Patient is visibly upset and yelling. Patient said she will get the labs done. Red flag symptoms were discussed with patient patient will follow-up with the ER if anything changes. Patient was okay with this care plan. Patient was not treated for and uti at this time, attempted to call patient and patient answered the phone Can you call back another day. Told patient would sent results in my chart patient said okay Taniya Messina APRN.KITTY documented in this encounter [facility] 11-16-2021 Miscellaneous Notes SW received a call from pt inquiring if pt is eligible for financial assistance. SW had previously researched possibilities for pt and shared that we would be unable to provide grants or scholarships at this time as pt is not in active treatment. SW discussed applying for SSD with pt as she is reporting she is unable to work due to medical issues. SW answered all questions and guided pt on how to apply. SW offered to assist pt if she would like to come into the office and complete the application together. Pt inquiring if SW knew of any additional community assistance programs. SW advised pt to call [employer] at 2-1-1. Pt did not acknowledge if she was going to require assistance with the SSD application. Pt ended phone call abruptly. ELIZABETH Kaye documented in this encounter [facility] 11-13-2021 Miscellaneous Notes Behavioral Health Social Work Progress Note Patient identified for [facility] from: PCP Reason for referral: [facility] Behavioral Health Resources: Psychology - talk therapy [facility] encounter type: Telephone Encounter Attempts to Outreach: 2 attempts Referral made: Psychology - External Psychology-External referral type: Therapy Reason for external referral: Patient seeking long term care pharmacist support Final Disposition: Resources given Patient Discharged?: No Patient identified for [facility] from: PCP Reason for referral: Resources [facility] encounter type: Letter Attempts to Outreach: 3 Referral made: Psychology - External Final Disposition: Resources given [facility] referral/consult placed for talk therapy, spoke with pt. Pleasant, but feeling overwhelmed with all the doctors appointments and wanted to wait until done with these appointments until starting a new 'thing'. Also wanted letter with resources mailed out will mail out letter with resources. Will close for additional outreach, however will gladly assist should pt reach out in future. SUSI Landers-S November 13, 2021 documented in this encounter [facility] 11-12-2021 History of Presen t illness Narrative REASON FOR VISIT: recurrent UTI HPI: 56 yo female Previously seen and treated by Dr. Post for bladder cancer S/P cystectomy with neobladder in December 2019 Later had cysto stent removal (01/2020) when stents could not be removed in outpatient clinic ([place]) Patient last seen 02/26/20 by Edel Alvarado [facility]- recommended follow-up with Dr. Post in June 2020 Patient lost to follow-up Patient does not want to go back to [facility] Patient reports frequent UTI- wants preventative treatment Urine is dark- clumpy, fatigue, incontinence Patient reports drinking a gallon of water a day PATHOLOGY: FINAL DIAGNOSIS 1. Left distal ureter, excision (A) - Ureter, negative for malignancy. 2. Right distal ureter, excision (B) - Ureter, negative for malignancy. 3. Bladder, uterus, cervix, ovaries and fallopian tubes, accentuation (C) - Bladder with prior biopsy site changes and benign urachal remnants. - Negative for residual carcinoma. - Margins are negative for malignancy. - Cervix with chronic inflammation and atrophic changes, negative for malignancy. - Benign inactive endometrium. - Myometrium with adenomyosis. - Unremarkable right fallopian tube. - Left fallopian tube with benign paratubal adrenal cortical rest. - Unremarkable right ovary. - Left ovary with benign serous cystadenoma. 4. Bilateral pelvic lymph nodes, excision (D) - Fourteen lymph nodes, negative for malignancy (0/14). 5. Final right ureteral margin, excision (E) - Ureter, negative for malignancy. 6. Final left ureteral margin, excision (F) - Ureter, negative for malignancy. LABS: Creatinine Date Value Ref Range Status 11/05/2021 1.29 (H) 0.58 - 0.96 mg/dL Final 06/26/2021 1.09 (H) 0.58 - 0.96 mg/dL Final 12/29/2020 1.07 (H) 0.58 - 0.96 mg/dL Final 12/03/2020 1.35 (H) 0.58 - 0.96 mg/dL Final IMAGING: CT abdomen/pelvis ([facility] imaging from July 2021 viewable in epic) ALLERGIES: ALLERGIES Allergen Reactions Bee Stings [Other] Swelling Tetnus [Other] Swelling MEDICATIONS: Current Outpatient Medications Medication Sig nitrofurantoin monohydrate and macrocrystal (MACROBID) 100 mg capsule Take 1 capsule by mouth twice daily with meals for 10 days. levoFLOXacin (LEVAQUIN) 750 mg tablet Take 1 tablet by mouth once daily for 7 days. (Patient not taking: Reported on 11/05/2021) Incontinence Pad, Liner, Disp (BLADDER CONTROL PADS) pads 1 Each every 8 hours as needed. Patient would like the over night pads Equate brand albuterol HFA (PROAIR HFA) 90 mcg/actuation inhaler Inhale 2 Puffs as instructed every 4 hours as needed. fluticasone (FLONASE) 50 mcg/actuation nasal spray Use 2 Sprays in each nostril once daily. Rinse mouth after use. (Patient not taking: Reported on 09/01/2021 ) guaiFENesin (MUCINEX) 600 mg 12 hr tablet Take 1 tablet by mouth twice daily. predniSONE (DELTASONE) 20 mg tablet Take 1 tablet by mouth once daily. (Patient not taking: Reported on 11/05/2021) HISTORIES PAST MEDICAL HISTORY Diagnosis Date Bladder cancer (HCC) Hematuria Other anxiety states Proteinuria 03/30/2019 Work-related stress 08/11/2016 PAST SURGICAL HISTORY Procedure Laterality Date ANES IPER LOWER ABD W/LAPS RAD HYSTERECTOMY radical cystectomy- removal of uterus, cervix, tubes and ovaries. rishi bladder creation. NECK SURGERY HX 2004 REMOVAL OF OVARY/TUBE(S) Bilateral ROBOTIC (LAP) CYSTECTOMY W/ NEOBLADDER URINARY DIVERSION (COMP [id number]) ROTATOR CUFF REPAIR Left 1994 TUBAL LIGATION 2002 Social History Tobacco Use Smoking status: Former Packs/day: 0.50 Years: 15.00 Pack years: 7.50 Types: Cigarettes Quit date: 10/10/2019 Years since quittin.0 Smokeless tobacco: Never Vaping Use Vaping Use: Never used Substance Use Topics Alcohol use: No Drug use: Never REVIEW OF SYSTEMS General: No weight loss, malaise or fevers., SEE HPI Genitourinary: See HPI The remainder of the ROS was reviewed and negative. PHYSICAL EXAMINATION LMP 10/08/2019 General: no acute distress Genitourinary: FEMALE EXAM: not done PROBLEMS: 56 year old female s/p cystectomy and neobladder by Dr Post Clinically doing good. Complains of frequent UTI. PLAN - CT and RTC in 6 months Hafsa Mendoza MD documented in this encounter [facility] 11-09-2021 Miscellaneous Notes SW called pt to discuss financial assistance options. Pt did not answer and voicemail is full, SW unable to leave a message. ELIZABETH Kaye documented in this encounter [facility] 11-05-2021 History of Presen t illness Narrative Reason for Visit Patient presents with: Hospital F/U: Went into ER 10/31/21 released same day Sun Nogueira is a 56 year old female who presents here today for Above Complaints.. Health Maintenance COVID-19 VACCINE(1) HEPATITIS C SCREENING HIV SCREENING DTAP,TDAP,TD(1 - Tdap) HPV TESTING SHINGRIX VACCINE(1 of 2) MAMMOGRAM DEPRESSION ASSESSMENT INFLUENZA(1) HPI This is a 56-year-old woman with a past medical history of DDD and bladder cancer. Bladder cancer was diagnosed in 2019 and bladder cancer which was treated with removal of the bladder And reconstruction using her bowel and hence no good nerve innervation which leads to incontinence. She has little bladder control, messes her bed, every night , currently is with Dr Ayala and wants to find other ways to deal with it. Had surgery at [facility], had RARC with intracorporal neobladder with Dr. Mendoza/Dr. Post on 12/14/19. Patient was in the Er recently, for [facility] ED for c/o nausea, vomiting, was admitted to [facility] for Acute renal failure due to post obstructive uropathy. Patient signed out AMA. Patient contacted PCP office who instructed patient to go back to ED. I sent her levaquin, she could not take 500 mgs , so she is taking 250 mgs daily. She does not like the levaquin, as he feels like she will hallucinate. We emphasized the importance of taking the medication or going to the er. Her nausea and vomiting is a little better today On reviewing her ER note multiple abnormalities were found when she went 4 days ago. She had large leukocytes and 2+ bacteria in the urine. Her BUN was elevated at 119 and serum creatinine was 2.75 her total protein was elevated probably from hemoconcentration. Also her lipase was very elevated at 445. Sodium was low at 128 and her urine osmolality was 347 and serum osmolality was 305. GFR was low at being in the 30s but lactic acid was normal. She was cultured and found to have grow Citrobacter the course very which was sensitive to Levaquin which we had given her. Her blood counts were positive for white count of 11.6 and hemoglobin of 15.7. She was told in the ER that she has obstructive uropathy because she was not able to pass urine and when they catheterized her she passed a total of more than 1 L of urine at that time. Her neobladder makes her struggle with passing urine and also predisposes her to have frequent urinations. She has a flood of urine that pours out when she lies down but no matter how much she tries when she sits on the commode she is unable to pass urine. We tried to motivate her to get counseling for the stress she has from the surgery and what has happened following that. She notes that she has no anxiety or depression except being overwhelmed because of all this change in her life and she did agree to possibly see someone if needed for all the stress that she is having but she said cannot be done today. She also was talking about losing many many jobs because of her recurrent UTIs and her inadequate emptying of bladder and incontinence and the fact that she probably needs to be on some kind of a disability. No money, house payment, recurrent utis. Not able to keep job because of continence issues. Says she is not depressed, just overwhelmed with all these changes. No problem-specific Assessment & Plan notes found for this encounter. PAST MEDICAL HISTORY Diagnosis Date Bladder cancer (HCC) Hematuria Other anxiety states Proteinuria 03/30/2019 Work-related stress 08/11/2016 PAST SURGICAL HISTORY Procedure Laterality Date ANES IPER LOWER ABD W/LAPS RAD HYSTERECTOMY radical cystectomy- removal of uterus, cervix, tubes and ovaries. rishi bladder creation. NECK SURGERY HX 2005 REMOVAL OF OVARY/TUBE(S) Bilateral ROBOTIC (LAP) CYSTECTOMY W/ NEOBLADDER URINARY DIVERSION (COMP 89003) ROTATOR CUFF REPAIR Left 1995 TUBAL LIGATION 2003 FAMILY HISTORY Problem Relation Age of Onset Cancer Father Heart Maternal Grandfather Cancer Paternal Grandmother skin cancer Social History Tobacco Use Smoking status: Former Packs/day: 0.50 Years: 15.00 Pack years: 7.50 Types: Cigarettes Quit date: 10/10/2019 Years since quittin.0 Smokeless tobacco: Never Vaping Use Vaping Use: Never used Substance Use Topics Alcohol use: No Drug use: Never Past medical history, appointments, medications, allergies reviewed. Pertinent Lab/Diagnostic Studies are reviewed and discussed today Current Outpatient Medications: HYDROcodone-acetaminophen (NORCO) 5-325 mg per tablet Incontinence Pad, Liner, Disp (BLADDER CONTROL PADS) pads albuterol HFA (PROAIR HFA) 90 mcg/actuation inhaler levoFLOXacin (LEVAQUIN) 750 mg tablet fluticasone (FLONASE) 50 mcg/actuation nasal spray guaiFENesin (MUCINEX) 600 mg 12 hr tablet predniSONE (DELTASONE) 20 mg tablet Review of Systems CONSTITUTIONAL: No fevers, chills night sweats, unintended weight loss CARDIOVASCULAR: No chest pain, dyspnea, palpitations, orthopnea, PND, ankle edema. PULM: No dyspnea, unexplained cough. GI: No dysphagia/odynophagia, problematic reflux, constipation, diarrhea, changes in stool habits, hematochezia, melena. : No new urinary complaints, including dysuria, gross hematuria or pyuria. NEURO: No new balance problems, peripheral weakness/paresthesias or numbness of concern. Physical Exam BP 110/72 Pulse 72 Temp 36.8 C (98.2 F) Resp 16 Wt 59 kg (130 lb) LMP 10/08/2019 SpO2 98% BMI 20.98 kg/m General appearance: Well appearing, alert, in no acute distress, well nourished. Skin: Skin color, texture, turgor normal, no suspicious rashes or lesions Head: Normocephalic, no masses, lesions, tenderness or abnormalities Eyes: Anicteric sclera. Pupils are equally round and reactive to light. Extraocular movements are intact. Lungs: Lungs clear to auscultation. No wheezing, rhonchi, rales Heart: RRR without murmur, gallop, or rubs. Extremities: No deformities, edema, skin discoloration, clubbing or cyanosis. Good capillary refill. ASSESSMENT/PLAN: 1. GUZMAN (acute kidney injury) (HCC) - ICD9: 584.9, ICD10: N17.9 (primary diagnosis) Patient has multiple elctrolyte and creat, bun abnormalities. We are rechecking labs - BASIC METABOLIC PNL - CBC + DIFF 2. PTSD (post-traumatic stress disorder) - ICD9: 309.81, ICD10: F43.10 - CONSULT TO [facility]IMARY [facility] ADULT 3. 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 Malignant neoplasm of urinary bladder, unspecified site (HCC) - ICD9: 188.9, ICD10: C67.9 Alma Delia Choudhury MD documented in this encounter [facility] 11-04-2021 Miscellaneous Notes SW spoke to pt today via phone and assessed MH and psychosocial needs. Pt reports she is not feeling physically well today but is taking her medication as prescribed and is hoping for improvement soon. MH/psycho-social Impression: Pt presents as anxious and overwhelmed. She reports I'm not depressed, I'm just overwhelmed with being sick. Throughout assessment, pt relayed family and financial stressors including needing to take loans from family for the last several months for her mortgage and utility payments. She reports family has become frustrated with her for needing so much assistance which has caused interpersonal conflict, especially with her mother. Pt inquired if this is an area that counseling could possibly help with. SW discussed with pt areas counseling can address and benefits it can provide. Pt reported some interest in counseling and reports she may be ready for a referral once she is feeling better physically. SW strongly encouraged pt to give this some thought, pt is in agreement. SW and pt also discussed resources available for financial assistance including possible grants. Pt is in agreement with pursuing these. SW will explore possible grants and funding and remain in contact with pt to complete these. SW provided pt with SW's direct contact number and encouraged pt to reach out as needed. SUSI Kaye-S Thank you Dr Wynne, I will address this. I have tried to bring up psychiatry and counseling in the past , perhaps did not document it. I have not been able to motivate her. I will persist with her in my upcoming appointment. Regards, Alma Delia Choudhury MD After reviewing other phone encounters, patient went to [facility] ED for c/o nausea, vomiting, was admitted to [facility] for Acute renal failure due to post obstructive uropathy. Patient signed out AMA. Patient contacted PCP office who instructed patient to go back to ED. Patient did not go back to ED as advised. Instead, patient is asking if she can come in for IVF today. Patient informed she should follow the advice from her PCP. Patient had complaints regarding [facility], this nurse advised that patient go to [facility] ED instead if she is unhappy with the care provided at [facility]. Patient has a follow-up appointment with PCP this . Patient kept asking this nurse questions regarding labs/CT results from [facility], if she is in renal failure, if it would be safe to treat her condition at home, and if she could just have a peace of mind and come into our office for IVF. Advised patient that this nurse is not a medical doctor and per the phone encounter from her PCP's SERVICE CLERK, patient was advised to go back to the ED for further management of her symptoms, however PCP office also prescribed an antibiotic to treat the renal failure and informed her that this is not the best option to treat her condition. Patient stated she will stay home, rest, push fluids, take her antibiotics, and will go to her PCP follow-up appointment if I'm still breathing. Again, patient advised to go back to the ED for further management. Patient also went on to say that she has PTSD from treatment and lost everything. Patient stated she is having a difficult time coping with losing her job and possibly her house soon. Patient also stated she has been trying to get a job but no one will hire her because she is sick with UTI's frequently. Patient instructed to follow-up with her urologist regarding frequent UTI's. Patient stated she does not have a good support system. Patient asking if there are resources to help with PTSD. Patient stated she is not depressed and does not need medications. Patient aware this nurse will speak to regarding counseling services referral and also transportation. Patient would like a call tomorrow to discuss. Patient asked to have Dr. Wynne review CT scan results from [facility]. Patient advised to review with PCP this week. Abdomen/Pelvis CT 10/31/21 12:34 IMPRESSION: 1. Moderate bilateral hydronephrosis and hydroureters without definite ureteral stones as described above. 2. Thickening of the posterior wall of the bladder wall. Cystitis or infiltrative process cannot be excluded. 3. Fluid collections anterior and superior to the bladder dome likely representing bladder diverticula. 4. Otherwise no focal acute inflammatory process. Allie Martinez RN Patient calling stating she's been vomiting x 3 days. Back pain and very fatigued. Patient asking if she can come in for hydration. Please advise and call patient. documented in this encounter [facility] 11-01-2021 Miscellaneous Notes Patient calling with medication/refill: Patient/caregiver requesting refill of ATB while waiting for urine culture to be final be called to [email or web address] [email or web address] [place] [address] [address] - [phone]., Do you have enough medication to last until the office reopens? No. , and Have you contacted your pharmacy to ask for enough medication to get by until the office reopens? No. . Patient denies any new or worsening symptoms of which a provider is not aware:Yes. [facility] [address] [place] [address] [address] [phone] Reason for call: Patient went to [facility] and was admitted. Patient states that they started her on IV ATB and IV fluids, took urine culture (in process per patient). Patient left AMA this morning because she did not want to sit at the hospital waiting for culture results. Patient states she wants the urologist to call in an ATB and to monitor for urine culture to come back. Patient states that the reason she was admitted to the hospital was for chunky pee and urinary retention. States she had enterobacter infection in the past. Outcome: Advised patient that she should go back to the ED to be admitted since she left AMA - patient refuses. Patient states that Dr. Giron (radiology physician) told her two years ago to call Dr. Mendoza directly if she ever has an infection again and he will call in an ATB. Spoke with Dr. Delgado regarding patient requests. Dr. Delgado recommends patient go to a local ED to continue receiving care that she was at the [facility] prior to her leaving AMA. Advised patient then contact Dr. Mendoza's office for a follow up. However, this sounds like an acute process that needs evaluation/medical attention. Call placed back to patient and informed: states that she will think about it. Educated patient on oral ATB verse IV ATB for acute processes and importance of receiving appropriate medical care. Patient states that the hospital was not constantly giving her IV ATB, educated patient that it is not a continuous infusion, depending on the ATB, each dose may be given upwards of 6-12 hours apart. Patient wants to speak directly with Dr. Giron's office, advised patient that this is a radiologist, who does not take call for patients, she is not an established patient, Dr. Giron did her procedure 01/26. Patient would like [facility] to now call Dr. Choudhury for an oral ATB, informed patient that urologist already advised to go to a local ED, patient disconnected line with NOC GO TO THE EMERGENCY ROOM OR CALL 911 IF: * You develop any new symptoms * Your condition worsens * You are concerned or anxious about your condition for any other reason. If you have any questions, you can call Nurse supervisor pumping station back. documented in this encounter [facility] 09-22-2021 Miscellaneous Notes I called and spoke to Korina at [facility] and clarified that the CT's are not due until February 2022. Shasta Schumacher LPN [facility] Hospital called stating that they received a fax to have an Abdomen ct done. But patient is telling them its not due until Jan. Can someone call [facility] to clarify. Haritha Posada PSS documented in this encounter [facility] 09-08-2021 History of Presen t illness Narrative Reason for Visit Patient presents with: Established Patient: [facility] discharge 08/24/21 d/t low BP Sun Nogueira is a 55 year old female who presents here today for Above Complaints.. Health Maintenance COVID-19 VACCINE(1) HEPATITIS C SCREENING HIV SCREENING DTAP,TDAP,TD(1 - Tdap) HPV TESTING SHINGRIX VACCINE(1 of 2) MAMMOGRAM DEPRESSION SCREENING HPI This is a 55-year-old very pleasant patient with a past history of CKD stage III, anxiety depression and bladder cancer status postresection with reconstructive surgery utilizing bowel for bladder creation. She has chronic issues from the bowel bladder that she has. One of the main complaint she has is incontinence. She does not know when she passes urine sometimes but mostly her concerns are when she lies down at flood of urine will come out. When she sits to pass urine on the commode even if she presses her abdomen her urine does not pass but the moment she lies down on her bed a flight of urine will come out every night and she has to keep a huge pad and absorbing material under her bed so she does not mess up her sheets every day. This is very stressful for her she would like to set up with a urologist who will find some kind of solution for this issue that she is having. She also has a history of recurrent urinary tract infections and she needs antibiotics for longer than regular people because her bladder is bowel material. Today she was asking for antibiotics but I told her that we will evaluate her with a urine analysis and culture. I do admit that she may need more antibiotics since her admission for urinary tract infection on August 23 but she we will first need to get checked. She did note that she has quit smoking 2 years ago. In the ER they they found out that she was hyponatremic but very mild and corrected with hydration She was orthostatic in the ER because of her infection but with fluid hydration she got better No problem-specific Assessment & Plan notes found for this encounter. PAST MEDICAL HISTORY Diagnosis Date Bladder cancer (HCC) Hematuria Other anxiety states Proteinuria 03/30/2019 Work-related stress 08/11/2016 PAST SURGICAL HISTORY Procedure Laterality Date ANES IPER LOWER ABD W/LAPS RAD HYSTERECTOMY radical cystectomy- removal of uterus, cervix, tubes and ovaries. rishi bladder creation. NECK SURGERY HX 2004 REMOVAL OF OVARY/TUBE(S) Bilateral ROBOTIC (LAP) CYSTECTOMY W/ NEOBLADDER URINARY DIVERSION (COMP 23721) ROTATOR CUFF REPAIR Left 1994 TUBAL LIGATION 2003 FAMILY HISTORY Problem Relation Age of Onset Cancer Father Heart Maternal Grandfather Cancer Paternal Grandmother skin cancer Social History Tobacco Use Smoking status: Former Smoker Packs/day: 0.50 Years: 15.00 Pack years: 7.50 Types: Cigarettes Quit date: 10/10/2019 Years since quittin.9 Smokeless tobacco: Never Used Vaping Use Vaping Use: Never used Substance Use Topics Alcohol use: No Drug use: Never Past medical history, appointments, medications, allergies reviewed. Pertinent Lab/Diagnostic Studies are reviewed and discussed today Current Outpatient Medications: Incontinence Pad, Liner, Disp (BLADDER CONTROL PADS) pads albuterol HFA (PROAIR HFA) 90 mcg/actuation inhaler fluticasone (FLONASE) 50 mcg/actuation nasal spray guaiFENesin (MUCINEX) 600 mg 12 hr tablet predniSONE (DELTASONE) 20 mg tablet Review of Systems CONSTITUTIONAL: No fevers, chills night sweats, unintended weight loss CARDIOVASCULAR: No chest pain, dyspnea, palpitations, orthopnea, PND, ankle edema. PULM: No dyspnea, unexplained cough. GI: No dysphagia/odynophagia, problematic reflux, constipation, diarrhea, changes in stool habits, hematochezia, melena. : No new urinary complaints, including dysuria, gross hematuria or pyuria. NEURO: No new balance problems, peripheral weakness/paresthesias or numbness of concern. Physical Exam BP 110/60 (BP Site: Left Arm, BP Position: Sitting, BP Cuff Size: Large Adult) Pulse 86 Temp 37.1 C (98.7 F) Resp 12 Ht 167.6 cm (5' 6) Wt 58.5 kg (129 lb) LMP 10/08/2019 SpO2 99% BMI 20.82 kg/m General appearance: Well appearing, alert, in no acute distress, well nourished. Skin: Skin color, texture, turgor normal, no suspicious rashes or lesions Head: Normocephalic, no masses, lesions, tenderness or abnormalities Eyes: Anicteric sclera. Pupils are equally round and reactive to light. Extraocular movements are intact. Lungs: Lungs clear to auscultation. No wheezing, rhonchi, rales Heart: RRR without murmur, gallop, or rubs. Extremities: No deformities, edema, skin discoloration, clubbing or cyanosis. Good capillary refill. ASSESSMENT/PLAN: 1. Urinary tract infection without hematuria, site unspecified - ICD9: 599.0, ICD10: N39.0 (primary diagnosis) acute - Patient education for prevention given - URINALYSIS, WITH MICROSCOPIC - URINE CULTURE 2. Hospital discharge follow-up - ICD9: V67.59, ICD10: Z09 Reviewed her records. She will need to set up with the urologist at [facility] to address her concerns 3. Urinary incontinence, unspecified type - ICD9: 788.30, ICD10: R32 See hpi, she has pretty distressing symptoms. Alma Delia Choudhury MD documented in this encounter [facility] 09-01-2021 Nurse Note Nurse intake Pre-visit questions Check off list Chief complaint confirmed and entered into [email or web address]: YES Medication list reviewed and updated: YES Pharmacy confirmed: YES Allergies reviewed and updated: YES Past medical and surgical history reviewed and updated: YES Patient reminded to prepare to show any areas of concern and pertinent to visit: YES Reason for visit: Follow up Visit type: In-person Pre-visit conducted by: Shanda Louie RN September 01, 2021 9:23 AM documented in this encounter [facility] 09-01-2021 History and physical note Images from the original note were not included. INTERVENTIONAL RADIOLOGY SERVICE CONSULT NOTE SERVICE DATE: 09/01/2021 SERVICE TIME: 9:00 AM REASON FOR CONSULT: F/U s/p nephrostomy tube removal REQUESTING PHYSICIAN: Self Subjective Ms. Nogueira is a 55 year old female with a history of muscle invasive bladder cancer s/p TURBT on 08/09/2019 and robotic radical cystectomy with bilateral pelvic lymphadenectomy and intracorporeal ileal conduit urinary diversion on 12/14/2019, removal of bilateral double-J stent and placement of b/l neph tubes on 01/30/20 and removed by urology on 02/26/20. Patient reports that she has to strain and physically push on her lower abdomen to urinate. Also endorses that she is able to urinate better when lying down (with urinary pad underneath her in supine position) rather than sitting on the toilet. Other PMHx is significant for lung nodules on imaging and former smoker (quit in 2019). She presents to IR to discuss her urinary anatomy and to assess need for further evaluation or intervention. Patient reports that she recently had a UTI with cx growing enterobacter, went to the ED and was prescribed cipro. Also passed a kidney stone which she has brought with her. Complains of left flank tenderness. Pain when urinating from straining and pushing on her abdomen is rated as 4/10 but is 8/10 at its worse. Currently with out fever chills or symptoms of UTI. She is unhappy with the care she has received from urology. States that she experienced signifcant pain when nephrostomy tubes were removed in the office and passed 15 blood clots. FUNCTIONAL STATUS: Independent PAST MEDICAL HISTORY Diagnosis Date Bladder cancer (HCC) Hematuria Other anxiety states Proteinuria 03/30/2019 Work-related stress 08/11/2016 PAST SURGICAL HISTORY Procedure Laterality Date ANES IPER LOWER ABD W/LAPS RAD HYSTERECTOMY radical cystectomy- removal of uterus, cervix, tubes and ovaries. rishi bladder creation. NECK SURGERY HX 2004 REMOVAL OF OVARY/TUBE(S) Bilateral ROBOTIC (LAP) CYSTECTOMY W/ NEOBLADDER URINARY DIVERSION (COMP 88698) ROTATOR CUFF REPAIR Left 1994 TUBAL LIGATION 2003 FAMILY HISTORY Problem Relation Age of Onset Cancer Father Heart Maternal Grandfather Cancer Paternal Grandmother skin cancer Social History Tobacco Use Smoking status: Former Smoker Packs/day: 0.50 Years: 15.00 Pack years: 7.50 Types: Cigarettes Quit date: 10/10/2019 Years since quittin.8 Smokeless tobacco: Never Used Vaping Use Vaping Use: Never used Substance Use Topics Alcohol use: No Drug use: Never Allergies As of Date: 09/01/2021 Allergen Noted Reaction BEE STINGS [OTHER] 10/24/2004 Swelling TETNUS [OTHER] 10/24/2004 Swelling Fully Assessed 09/01/2021 COMPLETE REVIEW OF SYSTEMS: See HPI: Remaining ROS reviewed and negative unless otherwise noted in HPI. Objective PHYSICAL EXAM: GENERAL: Alert, no distress, cooperative SKIN: Skin color, texture, turgor normal. No rashes or lesions. HEAD/SINUSES: No significant findings CARDIAC: Normal S1 and S2; no rubs, murmurs, or gallops ABDOMEN: Abdomen soft, non-tender, BS normal BACK: mild CVA tenderness with palpation EXTREMITIES: Extremities normal, no deformities, edema, clubbing or skin discoloration. NEURO: Gait normal. Sensation grossly intact The remainder of the physical exam is noncontributory. DATA: Diagnostic tests reviewed for today's visit: Most recent labs and imaging results. 06/26/2021: CT UROGRAM WO/W IVCON IMPRESSION: 1. Increased left-sided hydronephrosis compared to the prior study. No obstructing lesion is visualized. 2. Decreased right-sided hydronephrosis 3. Postoperative changes from a cystectomy. As noted on previous examinations of the neobladder is distended. 4. No new mass or lymphadenopathy LABS 06/26/2021 08:39 Sodium: 137 Potassium: 4.5 Chloride: 107 (H) CO2: 19 (L) BUN: 32 (H) Creatinine: 1.09 (H) Glucose: 102 (H) Protein, Total: 7.4 Calcium: 9.2 Albumin: 4.2 Bilirubin, Total: 0.2 Bilirubin, Conjug: <0.2 Alkaline Phosphatase: 87 ALT: 8 AST: 12 (L) Anion Gap: 11 eGFR: 60 Hematocrit: 37.6 WBC: 7.81 RBC: 4.21 Hemoglobin: 12.5 Platelet Count: 310 12/14/2019: PATHOLOGY CONVERTED FINAL DIAGNOSIS 1. Left distal ureter, excision (A) - Ureter, negative for malignancy. 2. Right distal ureter, excision (B) - Ureter, negative for malignancy. 3. Bladder, uterus, cervix, ovaries and fallopian tubes, accentuation (C) - Bladder with prior biopsy site changes and benign urachal remnants. - Negative for residual carcinoma. - Margins are negative for malignancy. - Cervix with chronic inflammation and atrophic changes, negative for malignancy. - Benign inactive endometrium. - Myometrium with adenomyosis. - Unremarkable right fallopian tube. - Left fallopian tube with benign paratubal adrenal cortical rest. - Unremarkable right ovary. - Left ovary with benign serous cystadenoma. 4. Bilateral pelvic lymph nodes, excision (D) - Fourteen lymph nodes, negative for malignancy (0/14). 5. Final right ureteral margin, excision (E) - Ureter, negative for malignancy. 6. Final left ureteral margin, excision (F) - Ureter, negative for malignancy. 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 FOCUS SUSPICIOUS FOR DESTRUCTIVE MUSCULARIS PROPRIA INVASION. LYMPHOVASCULAR INVASION IS PRESENT. PLEASE SEE COMMENT AND SYNOPTIC REPORT. COMMENT: Histologic sections show a high grade urothelial carcinoma with focal micropapillary differentiation. The tumor extensively involves the submitted tissue with confluent solid growth. One section demonstrates intervening thin bundles of muscle fibers. Therefore, destructive muscularis propria invasion cannot be excluded. A HARPAL-3 immunostain is strongly and diffusely positive consistent with urothelial carcinoma. Dr. Cristy Torres has reviewed this case and concurs. Urinary Bladder TURBT Cancer Case Summary Procedure: Transurethral resection of bladder. Tumor site: Left posterior, lateral and dome. Histologic type: Urothelial carcinoma, invasive with micropapillary features. Associated epithelial lesions: None identified. Histologic grade: High grade. Tumor configuration: Solid, ulcerated. Muscularis propria presence: No definite muscularis propria identified. Lymphovascular invasion: Present. Tumor extension: Tumor invades lamina propria (subepithelial connective tissue). Please see comment. Additional pathologic findings: Cautery artifact. Impression/Recommendations Ms. Nogueira is a 55 year old female with a history of muscle invasive bladder cancer s/p TURBT on 08/09/2019 and robotic radical cystectomy with bilateral pelvic lymphadenectomy and intracorporeal ileal conduit urinary diversion on 12/14/2019, removal of bilateral double-J stent and placement of b/l neph tubes on 01/30/20 and removed by urology on 02/26/20. Patient reports that she has to strain and physically push on her lower abdomen to urinate. Also endorses that she is able to urinate better when lying down (with urinary pad underneath her in supine position) rather than sitting on the toilet. Other PMHx is significant for lung nodules on imaging and former smoker (quit in 2019). She presents to IR to discuss her urinary anatomy and to assess need for further evaluation or intervention. - Patient evaluated, data/imaging reviewed with Dr. Giron - Imaging reviewed with patient. There is evidence of neobladder distension and left sided hydronephrosis - Advised to follow up with Dr. Mendoza to determine if any further intervention is warranted - No IR intervention is warranted at this time - All questions and concerns addressed. Patient agreeable to plan. I spent a total of 60 minutes on the date of the service which included preparing to see the patient, [id number] patient care, completing clinical documentation, obtaining and/or reviewing separately obtained history, performing a medically appropriate examination, counseling and educating the patient/family/caregiver, communicating with other HCPs (not separately reported), independently interpreting results (not separately reported), communicating results to the patient/family/caregiver and care coordination (not separately reported). SIGNATURE: Meri Swanson PA-C PATIENT NAME: Sun Nogueira DATE: September 01, 2021 TIME: 2:36 PM documented in this encounter [facility] 08-27-2021 Miscellaneous Notes Patient is scheduled,for labs and 6mo OV, Patient would like to have Ct scans [facility], orders have been faxed. Meredith Walsh Tried contacting pt went to , was not able to leave a message, voicemail was full. Will try contacting patient again later Meredith Walsh Good news. Can let her know that the radiologist compared the CT images from 08/15/2021 to those of 12/29/2020. The small right lung nodules are stable in size suggesting they are benign. She can be scheduled for a CBC/BMP/Liver panel CTs then OV in about 6 months. CTs can be done here or [facility]. Huang Wynne DO documented in this encounter [facility] 08-25-2021 Miscellaneous Notes spoke with pt. Informed Dr. Wynne did not need to see her for F/U on hospitalization For HTN or UTI. Pt. Wanted follow up from her CT scan. Informed we had requested a comparison of her last ct here to her most recent, ans the radiologist has not completed the comparison. Once done f/u pending results. Pt. Voiced understanding. Sun Lenug LPN Follow-up with her PCP as appropriate. I do not need to see her for follow-up of a UTI. Huang Wynne DO Pt called in asking if Dr. Wynne had 09/08 open to review her recent [facility] stay on 08/23 regarding low BP and a UTI. No resulted culture at this time. Pt is following up with PCP on 09/08 and had hopes to f/u with Dr. Wynne that same day if possible. I notified pt she was booked for his 1st available at this time, but still wanted to send this to him in case it could be a possibility. Thank you, Mendy Oliveros documented in this encounter [facility] 08-25-2021 Miscellaneous Notes Spoke with Maricel in CT @ [facility]. They did receive CD ROM of most recent CT of chest done here. Radiologist will report with comparison. Sun Leung LPN Contacted radiology, They will be getting CD ready and will get sent to [facility] for comparison. Sun Leung LPN Please keep open until we have confirmed [facility] has received. Can let her know the CT of the chest done at [facility] on 08/15/2021 revealed 2 benign-appearing small less than 4 mm lung nodules. However the radiologist did not compare to her previous CT chest done here. Please send the images to [facility] and request that radiology do a comparison and issue an addendum report. Huang Wynne DO documented in this encounter [facility] 08-19-2021 Miscellaneous Notes CD READY FOR RUBBER TUBING SPLICER AT [facility] Patient wanting CT urogram on disc from 06/26. Patient aware she needs to nut picker and sign release form. documented in this encounter [facility] 08-12-2021 Miscellaneous Notes Equate overnight Pads [employer] is a request from patient. The patient would like to switch this over to the [facility] pharmacy She states the pad RX for incontinence in her chart do not work and so she wants these mentioned above to be the new pads but she will need a RX for them. She said this needs to be a script sent to [place] for her. If you need to discuss this she can be reached at [phone] Thank you documented in this encounter [facility] 08-11-2021 Miscellaneous Notes I called and spoke with Jocelyn in the precert department and she will handle precert with [facility]. Shasta Schumacher LPN Patient called back and stated someone from this office would need to call and go through the prompts to speak to someone at [facility]. Patient has a CT scan on Tuesday and stated this needs to be done right now, not at 5 o'clock tonight. Patient stated she was informed that her CT is being denied and asked this nurse to figure out how to get this scan approved. Contacted [facility], left a message for a call back for more information. Allie Martinez RN Pt called wanting to speak to Allie about a CT. documented in this encounter [facility] 07-20-2021 Miscellaneous Notes Patient notified. Please let patient know this has been sent, if there is no improvement or any new symptoms she will need to be evaluated. Pt called and is notified of providers message and instructions. Pt voices understanding. She reports she is not SOB. She states she has some congestion, but it has broken loose. She would like antibiotic sent to [facility] in [place]. Karen Simmons RN She needs re-evaluated for more steroids if she is short of breath. I saw her over 2.5 weeks ago and she only had 4 days worth of steroids. At that visit she had a lot of sinus pressure and congestion. Is this continuing? If so I will order her some augmentin Thank you Ofelia Lau APRN.CNP Pt calls and states the following: ILLNESS persisting after medications MAIN CONCERN OR SYMPTOM: cough ONSET: 06/28/21 [id number]: worse VISIT DATE: 07/03/21 VISIT DOCTOR: Ofelia Lau NP VISIT DIAGNOSIS: Viral URI with cough, wheezing VISIT MEDICATIONS: Pt has completed Prednisone and this is not getting better. PAIN: no FEVER: no Pt states Dr. Arreagales wants to do a CT of her lungs and this needs to be cleared up. REQUEST: Pt requesting another round of Prednisone and ATB. Please advise patient today. Aislinn Melara LPN documented in this encounter [facility] 07-03-2021 Miscellaneous Notes Completed at appointment. Thank you Ofelia Lau APRN.CNP Patient calls and states that she needs a excuse from work letter. Patient has appointment with provider today. Patient also asking about being showed to self mila. Shanda oLpez RN documented in this encounter [facility] 07-03-2021 History of Presen t illness Narrative CC: Patient presents with: Recheck: 3 month follow up HPI Sun Nogueira is a 55 year old female who presents today for head cold for the past 5 days. Was tested for COVID at work which was negative. Is very frustrated with a visit for a CT today and care. Also upset because it shows in her chart she is a smoker but quit in 2019. Smoking history in past medical was resolved but deleted at patient's request. History tab still with former smoker quitting in 2019. Ombudsman number given to patient. Reports sinus pressure, sinus drainage, nonproductive moist persistent cough, wheezing, shortness of breath with exertion for the past 5 days. Used an albuterol inhaler she had at home, and took 2 puffs and had an improvement of symptoms. Has tried bassam seltzer without improvement. Feels there is mucous that she is unable to expectorate. Is needing medications to help thin sputum but unable to afford over the counter medication at this time. Denies fever, chills, chest pain. REVIEW OF SYSTEMS General: no fevers, no chills, no night sweats, no recurrent infections, no change in appetite, no change in energy and no significant changes in weight HEENT: no frequent or significant headaches, no changes in hearing, no visual changes, no nose bleeds Respiratory: no hemoptysis Cardiovascular: no chest pain, no chest pressure, no palpitations and no swelling PAST MEDICAL HISTORY Diagnosis Date Bladder cancer (HCC) Hematuria Other anxiety states Proteinuria 03/30/2019 Smoker Work-related stress 08/11/2016 PAST SURGICAL HISTORY Procedure Laterality Date ANES IPER LOWER ABD W/LAPS RAD HYSTERECTOMY radical cystectomy- removal of uterus, cervix, tubes and ovaries. rishi bladder creation. NECK SURGERY HX 2004 REMOVAL OF OVARY/TUBE(S) Bilateral ROBOTIC (LAP) CYSTECTOMY W/ NEOBLADDER URINARY DIVERSION (COMP [id number]) ROTATOR CUFF REPAIR Left 1994 TUBAL LIGATION 2002 ALLERGIES Bee Stings [Other] and Tetnus [Other] MEDICATIONS Incontinence Pad, Liner, Disp (BLADDER CONTROL PADS) pads 1 Each every 8 hours as needed. ciprofloxacin HCl (CIPRO) 500 mg tablet Take by mouth. albuterol HFA (PROAIR HFA) 90 mcg/actuation inhaler Inhale 2 Puffs as instructed every 4 hours as needed. buPROPion (WELLBUTRIN) 75 mg tablet Take 1 tablet by mouth twice daily. guaiFENesin (MUCINEX) 600 mg 12 hr tablet Take 2 tablets by mouth twice daily. benzonatate (TESSALON PERLE) 100 mg capsule Take 1-2 capsules tid prn, no more than 6 in 24 hours. FAMILY HISTORY Problem Relation Age of Onset Cancer Father Heart Maternal Grandfather Cancer Paternal Grandmother skin cancer Social History Tobacco Use Smoking status: Former Smoker Packs/day: 0.50 Years: 15.00 Pack years: 7.50 Types: Cigarettes Quit date: 10/10/2019 Years since quittin.7 Smokeless tobacco: Never Used Vaping Use Vaping Use: Never used Substance Use Topics Alcohol use: No Drug use: Never PHYSICAL EXAM BP 122/68 Pulse 82 Temp 36.7 C (98 F) (Temporal) Resp 16 Wt 59.9 kg (132 lb) LMP 10/08/2019 SpO2 98% BMI 21.09 kg/m General Appearance: well appearing, in no acute distress, alert Skin: Skin color, texture, turgor normal for age; Eyes: conjunctiva pink and moist, no icterus, sclera white, non-injected Ears: external ears normal to inspection and palpation, canals clear, Left tympanic membrane normal. , Right tympanic membrane normal Nose/sinus: Nares normal. Septum midline. Mucosa normal. No drainage. Neck: Thyroid normal size and symmetric without palpable nodules, No adenopathy Oropharynx: palate normal, tongue midline and normal, soft palate, uvula normal Lymph nodes: No cervical lymphadenopathy and No supraclavicular lymphadenopathy Lungs: Lungs with faint expiratory wheezing to posterior bilateral bases, No rhonchi or rales. Heart: RRR without murmur, gallop, or rubs. No ectopy Wheezing\ Health maintenance reviewed with patient: COVID-19 VACCINE(1) Never done PNEUMOCOCCAL(1 - PCV) Never done HEPATITIS C SCREENING Never done HIV SCREENING Never done DTAP,TDAP,TD(1 - Tdap) Never done HPV TESTING Never done SHINGRIX VACCINE(1 of 2) Never done MAMMOGRAM due on 08/16/2020 DEPRESSION SCREENING due on 02/18/2021 INFLUENZA(Season Ended) due on 10/08/2021 LIPID SCREEN due on 01/04/2024 DIABETES SCREEN due on 06/26/2024 COLORECTAL CANCER SCREENING due on 09/13/2024 PAP TESTING Discontinued DATA REVIEWED: No new labs ASSESSMENT/PLAN: 1. Viral URI with cough - ICD9: 465.9, ICD10: J06.9 (primary diagnosis) - Discussed viral etiology and rationale for treatment. - Symptomatic treatment with prn analgesia - Supportive care with fluids and rest - flonase as prescribed - Follow up in 3-5 days if symptoms persist or sooner if worsening of symptoms - ALBUTEROL SULFATE HFA 90 MCG/ACTUATION AEROSOL INHALER 2. Wheezing - ICD9: 786.07, ICD10: R06.2 - prednisone as prescribed and albuterol inhaler refilled - XR CHEST 2V FRONTAL/LAT 3. Cough - ICD9: 786.2, ICD10: R05.9 - mucinex and albuterol inhaler as prescribed - XR CHEST 2V FRONTAL/LAT Ofelia Lau APRN.CNP Prescription instructions reviewed with patient as applicable. Potential red flag symptoms discussed with the patient. Reviewed appropriate action plan to take if red flag symptoms occur. Patient agreeable to treatment plan. Ofelia Lau APRN.CNP documented in this encounter [facility] 06-26-2021 History of Presen t illness Narrative Radiology Service Progress Note DATE OF SERVICE: June 26, 2021 TIME: 10:09 AM PATIENT IDENTITY VERIFICATION COMPLETED USING TWO (2) STANDARD IDENTIFIERS: Name and Date of confirmed by patient verbally. FALL SCREENING: Has the patient had 2 falls in the last year or 1 fall with injury or currently using an Ambulatory Assistive Device (Walker, Cane, Wheelchair, Crutches, etc.)? No PATIENT GENDER DATA: Female. status: : No status: NO. PATIENT RELEVANT IMPLANT DATA REVIEWED: Yes ALLERGIES: Reviewed and unchanged CONTRAST ALLERGY: NO. EXAM: CT -CONTRAST INDUCED NEPHROPATHY RISK FACTORS: Not applicable CREATININE: Creatinine Date Value Ref Range Status 06/26/2021 1.09 (H) 0.58 - 0.96 mg/dL Final 12/29/2020 1.07 (H) 0.58 - 0.96 mg/dL Final 12/03/2020 1.35 (H) 0.58 - 0.96 mg/dL Final Estimated Glomerular Filtration Rate Date Value Ref Range Status 06/26/2021 60 >=60 mL/min/1.73m Final Comment: Estimated Glomerular Filtration Rate (eGFR) is calculated using the 2020 CKD-EPI creatinine equation. This equation utilizes serum creatinine, sex, and age as parameters. The creatinine assay has traceable calibration to isotope dilution-mass spectrometry. Refer to KDIGO guidelines for clinical interpretation. In patients with unstable renal function, e.g. those with acute kidney injury, the eGFR may not accurately reflect actual GFR. eGFR- Date Value Ref Range Status 12/29/2020 >60 Final Comment: Note: On 04/04/2021, the eGFR calculation will be updated to the NKF-ASN Task Force recommended 2020 CKD-EPI creatinine equation which does not include a race variable. For more information or to access a 2020 CKD-EPI calculator, visit the [employer] website at kidney.org/professionals/kdoqi/g fr_calculator. P.O.C.T. RESULTS: POC done: Yes, See Lab Tab June 26, 2021 TREATMENT: N/A PERIPHERAL IV DATA: Ambulatory: A peripheral IV was started in the Right antecubital site with a Angio cath: 22 gauge. RADIOLOGY DEPARTMENT: CT; Exam(s) Completed: urogram SIGNATURE: RT Shanthi(R) PATIENT NAME: Sun Nogueira DATE: June 26, 2021 TIME: 10:09 AM documented in this encounter [facility] 01-29-2020 History of Past i llness Narrative Problem Noted Date Resolved Date Retained ureteral stent 01/29/2020 01/31/20 20 Smoker 11/30/2019 04/07/2021 Last Assessment & Plan: Patients states she does not want to discuss smoking history 15 pack year history recorded Currently using chantix with occasional cigarettes Proteinuria 03/30/2019 04/07/2021 Opioid dependence, uncomplicated 06/02/2017 02/20/2020 Work-related stress 08/11/2016 04/07/2021 Sprain of neck 05/10/2007 08/11/2016 Sprain of thoracic region 05/10/20072016 documented as of this encounter (statuses as of 06/25/2021) [facility] History of Past illness Narrative* Problem Noted Date Resolved Date Retained ureteral stent 01/29/2020 01/31/20 20 Smoker 11/30/2019 04/07/2021 Last Assessment & Plan: Patients states she does not want to discuss smoking history 15 pack year history recorded Currently using chantix with occasional cigarettes Proteinuria 03/30/2019 04/07/2021 Opioid dependence, uncomplicated 06/02/2017 02/20/2020 Work-related stress 08/11/2016 04/07/2021 Sprain of neck 05/10/2007 08/11/2016 Sprain of thoracic region 05/10/20072016 documented as of this encounter (statuses as of 06/27/2021) [facility] History of Past illness Narrative* Problem Noted Date Resolved Date Retained ureteral stent 01/29/2020 01/31/20 20 Smoker 11/30/2019 04/07/2021 Last Assessment & Plan: Patients states she does not want to discuss smoking history 15 pack year history recorded Currently using chantix with occasional cigarettes Proteinuria 03/30/2019 04/07/2021 Opioid dependence, uncomplicated 06/02/2017 02/20/2020 Work-related stress 08/11/2016 04/07/2021 Sprain of neck 05/10/2007 08/11/2016 Sprain of thoracic region 05/10/20072016 documented as of this encounter (statuses as of 06/27/2021) [facility] History of Past illness Narrative* Problem Noted Date Resolved Date Retained ureteral stent 01/29/2020 01/31/20 20 Smoker 11/30/2019 04/07/2021 Last Assessment & Plan: Patients states she does not want to discuss smoking history 15 pack year history recorded Currently using chantix with occasional cigarettes Proteinuria 03/30/2019 04/07/2021 Opioid dependence, uncomplicated 06/02/2017 02/20/2020 Work-related stress 08/11/2016 04/07/2021 Sprain of neck 05/10/2007 08/11/2016 Sprain of thoracic region 05/10/20072016 documented as of this encounter (statuses as of 07/03/2021) [facility] History of Past illness Narrative* Problem Noted Date Resolved Date Retained ureteral stent 01/29/2020 01/31/20 20 Smoker 11/30/2019 04/07/2021 Last Assessment & Plan: Patients states she does not want to discuss smoking history 15 pack year history recorded Currently using chantix with occasional cigarettes Proteinuria 03/30/2019 04/07/2021 Opioid dependence, uncomplicated 06/02/2017 02/20/2020 Work-related stress 08/11/2016 04/07/2021 Sprain of neck 05/10/2007 08/11/2016 Sprain of thoracic region 05/10/20072016 documented as of this encounter (statuses as of 07/03/2021) [facility] History of Past illness Narrative* Problem Noted Date Resolved Date Retained ureteral stent 01/29/2020 01/31/20 20 Smoker 11/30/2019 04/07/2021 Last Assessment & Plan: Patients states she does not want to discuss smoking history 15 pack year history recorded Currently using chantix with occasional cigarettes Proteinuria 03/30/2019 04/07/2021 Opioid dependence, uncomplicated 06/02/2017 02/20/2020 Work-related stress 08/11/2016 04/07/2021 Sprain of neck 05/10/2007 08/11/2016 Sprain of thoracic region 05/10/20072016 documented as of this encounter (statuses as of 07/20/2021) [facility] History of Past illness Narrative* Problem Noted Date Resolved Date Retained ureteral stent 01/29/2020 01/31/20 20 Smoker 11/30/2019 04/07/2021 Last Assessment & Plan: Patients states she does not want to discuss smoking history 15 pack year history recorded Currently using chantix with occasional cigarettes Proteinuria 03/30/2019 04/07/2021 Opioid dependence, uncomplicated 06/02/2017 02/20/2020 Work-related stress 08/11/2016 04/07/2021 Sprain of neck 05/10/2007 08/11/2016 Sprain of thoracic region 05/10/20072016 documented as of this encounter (statuses as of 08/13/2021) [facility] History of Past illness Narrative* Problem Noted Date Resolved Date Retained ureteral stent 01/29/2020 01/31/20 20 Smoker 11/30/2019 04/07/2021 Last Assessment & Plan: Patients states she does not want to discuss smoking history 15 pack year history recorded Currently using chantix with occasional cigarettes Proteinuria 03/30/2019 04/07/2021 Opioid dependence, uncomplicated 06/02/2017 02/20/2020 Work-related stress 08/11/2016 04/07/2021 Sprain of neck 05/10/2007 08/11/2016 Sprain of thoracic region 05/10/20072016 documented as of this encounter (statuses as of 08/19/2021) [facility] History of Past illness Narrative* Problem Noted Date Resolved Date Retained ureteral stent 01/29/2020 01/31/20 20 Smoker 11/30/2019 04/07/2021 Last Assessment & Plan: Patients states she does not want to discuss smoking history 15 pack year history recorded Currently using chantix with occasional cigarettes Proteinuria 03/30/2019 04/07/2021 Opioid dependence, uncomplicated 06/02/2017 02/20/2020 Work-related stress 08/11/2016 04/07/2021 Sprain of neck 05/10/2007 08/11/2016 Sprain of thoracic region 05/10/20072016 documented as of this encounter (statuses as of 08/25/2021) [facility] History of Past illness Narrative* Problem Noted Date Resolved Date Retained ureteral stent 01/29/2020 01/31/20 20 Smoker 11/30/2019 04/07/2021 Last Assessment & Plan: Patients states she does not want to discuss smoking history 15 pack year history recorded Currently using chantix with occasional cigarettes Proteinuria 03/30/2019 04/07/2021 Opioid dependence, uncomplicated 06/02/2017 02/20/2020 Work-related stress 08/11/2016 04/07/2021 Sprain of neck 05/10/2007 08/11/2016 Sprain of thoracic region 05/10/20072016 documented as of this encounter (statuses as of 08/27/2021) [facility] History of Past illness Narrative* Problem Noted Date Resolved Date Retained ureteral stent 01/29/2020 01/31/20 20 Smoker 11/30/2019 04/07/2021 Last Assessment & Plan: Patients states she does not want to discuss smoking history 15 pack year history recorded Currently using chantix with occasional cigarettes Proteinuria 03/30/2019 04/07/2021 Opioid dependence, uncomplicated 06/02/2017 02/20/2020 Work-related stress 08/11/2016 04/07/2021 Sprain of neck 05/10/2007 08/11/2016 Sprain of thoracic region 05/10/20072016 documented as of this encounter (statuses as of 09/01/2021) [facility] History of Past illness Narrative* Problem Noted Date Resolved Date Retained ureteral stent 01/29/2020 01/31/20 20 Smoker 11/30/2019 04/07/2021 Last Assessment & Plan: Patients states she does not want to discuss smoking history 15 pack year history recorded Currently using chantix with occasional cigarettes Proteinuria 03/30/2019 04/07/2021 Opioid dependence, uncomplicated 06/02/2017 02/20/2020 Work-related stress 08/11/2016 04/07/2021 Sprain of neck 05/10/2007 08/11/2016 Sprain of thoracic region 05/10/20072016 documented as of this encounter (statuses as of 2021) [facility] History of Past illness Narrative* Problem Noted Date Resolved Date Retained ureteral stent 01/29/2020 01/31/20 20 Smoker 11/30/2019 04/07/2021 Last Assessment & Plan: Patients states she does not want to discuss smoking history 15 pack year history recorded Currently using chantix with occasional cigarettes Proteinuria 03/30/2019 04/07/2021 Opioid dependence, uncomplicated 06/02/2017 02/20/2020 Work-related stress 08/11/2016 04/07/2021 Sprain of neck 05/10/2007 08/11/2016 Sprain of thoracic region 05/10/20072016 documented as of this encounter (statuses as of 09/22/2021) [facility] History of Past illness Narrative* Problem Noted Date Resolved Date Retained ureteral stent 01/29/2020 01/31/20 20 Smoker 11/30/2019 04/07/2021 Last Assessment & Plan: Patients states she does not want to discuss smoking history 15 pack year history recorded Currently using chantix with occasional cigarettes Proteinuria 03/30/2019 04/07/2021 Opioid dependence, uncomplicated 06/02/2017 02/20/2020 Work-related stress 08/11/2016 04/07/2021 Sprain of neck 05/10/2007 08/11/2016 Sprain of thoracic region 05/10/20072016 documented as of this encounter (statuses as of 11/01/2021) [facility] History of Past illness Narrative* Problem Noted Date Resolved Date Retained ureteral stent 01/29/2020 01/31/20 20 Smoker 11/30/2019 04/07/2021 Last Assessment & Plan: Patients states she does not want to discuss smoking history 15 pack year history recorded Currently using chantix with occasional cigarettes Proteinuria 03/30/2019 04/07/2021 Opioid dependence, uncomplicated 06/02/2017 02/20/2020 Work-related stress 08/11/2016 04/07/2021 Sprain of neck 05/10/2007 08/11/2016 Sprain of thoracic region 05/10/20072016 documented as of this encounter (statuses as of 11/04/2021) [facility] History of Past illness Narrative* Problem Noted Date Resolved Date Retained ureteral stent 01/29/2020 01/31/20 20 Smoker 11/30/2019 04/07/2021 Last Assessment & Plan: Patients states she does not want to discuss smoking history 15 pack year history recorded Currently using chantix with occasional cigarettes Proteinuria 03/30/2019 04/07/2021 Opioid dependence, uncomplicated 06/02/2017 02/20/2020 Work-related stress 08/11/2016 04/07/2021 Sprain of neck 05/10/2007 08/11/2016 Sprain of thoracic region 05/10/20072016 documented as of this encounter (statuses as of 11/05/2021) [facility] History of Past illness Narrative* Problem Noted Date Resolved Date Retained ureteral stent 01/29/2020 01/31/20 20 Smoker 11/30/2019 04/07/2021 Last Assessment & Plan: Patients states she does not want to discuss smoking history 15 pack year history recorded Currently using chantix with occasional cigarettes Proteinuria 03/30/2019 04/07/2021 Opioid dependence, uncomplicated 06/02/2017 02/20/2020 Work-related stress 08/11/2016 04/07/2021 Sprain of neck 05/10/2007 08/11/2016 Sprain of thoracic region 05/10/20072016 documented as of this encounter (statuses as of 11/05/2021) [facility] History of Past illness Narrative* Problem Noted Date Resolved Date Retained ureteral stent 01/29/2020 01/31/20 20 Smoker 11/30/2019 04/07/2021 Last Assessment & Plan: Patients states she does not want to discuss smoking history 15 pack year history recorded Currently using chantix with occasional cigarettes Proteinuria 03/30/2019 04/07/2021 Opioid dependence, uncomplicated 06/02/2017 02/20/2020 Work-related stress 08/11/2016 04/07/2021 Sprain of neck 05/10/2007 08/11/2016 Sprain of thoracic region 05/10/20072016 documented as of this encounter (statuses as of 11/09/2021) [facility] History of Past illness Narrative* Problem Noted Date Resolved Date Retained ureteral stent 01/29/2020 01/31/20 20 Smoker 11/30/2019 04/07/2021 Last Assessment & Plan: Patients states she does not want to discuss smoking history 15 pack year history recorded Currently using chantix with occasional cigarettes Proteinuria 03/30/2019 04/07/2021 Opioid dependence, uncomplicated 06/02/2017 02/20/2020 Work-related stress 08/11/2016 04/07/2021 Sprain of neck 05/10/2007 08/11/2016 Sprain of thoracic region 05/10/20072016 documented as of this encounter (statuses as of 11/13/2021) [facility] History of Past illness Narrative* Problem Noted Date Resolved Date Retained ureteral stent 01/29/2020 01/31/20 20 Smoker 11/30/2019 04/07/2021 Last Assessment & Plan: Patients states she does not want to discuss smoking history 15 pack year history recorded Currently using chantix with occasional cigarettes Proteinuria 03/30/2019 04/07/2021 Opioid dependence, uncomplicated 06/02/2017 02/20/2020 Work-related stress 08/11/2016 04/07/2021 Sprain of neck 05/10/2007 08/11/2016 Sprain of thoracic region 05/10/20072016 documented as of this encounter (statuses as of 11/16/2021) [facility] History of Past illness Narrative* Problem Noted Date Resolved Date Retained ureteral stent 01/29/2020 01/31/20 20 Smoker 11/30/2019 04/07/2021 Last Assessment & Plan: Patients states she does not want to discuss smoking history 15 pack year history recorded Currently using chantix with occasional cigarettes Proteinuria 03/30/2019 04/07/2021 Opioid dependence, uncomplicated 06/02/2017 02/20/2020 Work-related stress 08/11/2016 04/07/2021 Sprain of neck 05/10/2007 08/11/2016 Sprain of thoracic region 05/10/20072016 documented as of this encounter (statuses as of 12/21/2021) [facility] History of Past illness Narrative* Problem Noted Date Resolved Date Retained ureteral stent 01/29/2020 01/31/20 20 Smoker 11/30/2019 04/07/2021 Last Assessment & Plan: Patients states she does not want to discuss smoking history 15 pack year history recorded Currently using chantix with occasional cigarettes Proteinuria 03/30/2019 04/07/2021 Opioid dependence, uncomplicated 06/02/2017 02/20/2020 Work-related stress 08/11/2016 04/07/2021 Sprain of neck 05/10/2007 08/11/2016 Sprain of thoracic region 05/10/20072016 documented as of this encounter (statuses as of 12/23/2021) [facility] History of Past illness Narrative* Problem Noted Date Resolved Date Retained ureteral stent 01/29/2020 01/31/20 20 Smoker 11/30/2019 04/07/2021 Last Assessment & Plan: Patients states she does not want to discuss smoking history 15 pack year history recorded Currently using chantix with occasional cigarettes Proteinuria 03/30/2019 04/07/2021 Opioid dependence, uncomplicated 06/02/2017 02/20/2020 Work-related stress 08/11/2016 04/07/2021 Sprain of neck 05/10/2007 08/11/2016 Sprain of thoracic region 05/10/20072016 documented as of this encounter (statuses as of 01/18/2022) [facility] History of Past illness Narrative* Problem Noted Date Resolved Date Retained ureteral stent 01/29/2020 01/31/20 20 Smoker 11/30/2019 04/07/2021 Last Assessment & Plan: Patients states she does not want to discuss smoking history 15 pack year history recorded Currently using chantix with occasional cigarettes Proteinuria 03/30/2019 04/07/2021 Opioid dependence, uncomplicated 06/02/2017 02/20/2020 Work-related stress 08/11/2016 04/07/2021 Sprain of neck 05/10/2007 08/11/2016 Sprain of thoracic region 05/10/20072016 documented as of this encounter (statuses as of 01/18/2022) [facility] History of Past illness Narrative* Problem Noted Date Resolved Date Retained ureteral stent 01/29/2020 01/31/20 20 Smoker 11/30/2019 04/07/2021 Last Assessment & Plan: Patients states she does not want to discuss smoking history 15 pack year history recorded Currently using chantix with occasional cigarettes Proteinuria 03/30/2019 04/07/2021 Opioid dependence, uncomplicated 06/02/2017 02/20/2020 Work-related stress 08/11/2016 04/07/2021 Sprain of neck 05/10/2007 08/11/2016 Sprain of thoracic region 05/10/20072016 documented as of this encounter (statuses as of 01/22/2022) [facility] History of Past illness Narrative* Problem Noted Date Resolved Date Retained ureteral stent 01/29/2020 01/31/20 20 Smoker 11/30/2019 04/07/2021 Last Assessment & Plan: Patients states she does not want to discuss smoking history 15 pack year history recorded Currently using chantix with occasional cigarettes Proteinuria 03/30/2019 04/07/2021 Opioid dependence, uncomplicated 06/02/2017 02/20/2020 Work-related stress 08/11/2016 04/07/2021 Sprain of neck 05/10/2007 08/11/2016 Sprain of thoracic region 05/10/20072016 documented as of this encounter (statuses as of 02/24/2022) [facility] History of Past illness Narrative* Problem Noted Date Resolved Date Retained ureteral stent 01/29/2020 01/31/20 20 Smoker 11/30/2019 04/07/2021 Last Assessment & Plan: Patients states she does not want to discuss smoking history 15 pack year history recorded Currently using chantix with occasional cigarettes Proteinuria 03/30/2019 04/07/2021 Opioid dependence, uncomplicated 06/02/2017 02/20/2020 Work-related stress 08/11/2016 04/07/2021 Sprain of neck 05/10/2007 08/11/2016 Sprain of thoracic region 05/10/20072016 documented as of this encounter (statuses as of 05/16/2022) [facility] History of Past illness Narrative* Problem Noted Date Resolved Date Retained ureteral stent 01/29/2020 01/31/20 20 Smoker 11/30/2019 04/07/2021 Last Assessment & Plan: Patients states she does not want to discuss smoking history 15 pack year history recorded Currently using chantix with occasional cigarettes Proteinuria 03/30/2019 04/07/2021 Opioid dependence, uncomplicated 06/02/2017 02/20/2020 Work-related stress 08/11/2016 04/07/2021 Sprain of neck 05/10/2007 08/11/2016 Sprain of thoracic region 05/10/20072016 documented as of this encounter (statuses as of 05/17/2022) [facility] History of Past illness Narrative* Problem Noted Date Resolved Date Retained ureteral stent 01/29/2020 01/31/20 20 Smoker 11/30/2019 04/07/2021 Last Assessment & Plan: Patients states she does not want to discuss smoking history 15 pack year history recorded Currently using chantix with occasional cigarettes Proteinuria 03/30/2019 04/07/2021 Opioid dependence, uncomplicated 06/02/2017 02/20/2020 Work-related stress 08/11/2016 04/07/2021 Sprain of neck 05/10/2007 08/11/2016 Sprain of thoracic region 05/10/20072016 documented as of this encounter (statuses as of 05/22/2022) [facility] History of Past illness Narrative* Problem Noted Date Resolved Date Retained ureteral stent 01/29/2020 01/31/20 20 Smoker 11/30/2019 04/07/2021 Last Assessment & Plan: Patients states she does not want to discuss smoking history 15 pack year history recorded Currently using chantix with occasional cigarettes Proteinuria 03/30/2019 04/07/2021 Opioid dependence, uncomplicated 06/02/2017 02/20/2020 Work-related stress 08/11/2016 04/07/2021 Sprain of neck 05/10/2007 08/11/2016 Sprain of thoracic region 05/10/20072016 documented as of this encounter (statuses as of 08/05/2022) [facility] History of Past illness Narrative* Problem Noted Date Resolved Date Retained ureteral stent 01/29/2020 01/31/20 20 Smoker 11/30/2019 04/07/2021 Last Assessment & Plan: Patients states she does not want to discuss smoking history 15 pack year history recorded Currently using chantix with occasional cigarettes Proteinuria 03/30/2019 04/07/2021 Opioid dependence, uncomplicated 06/02/2017 02/20/2020 Work-related stress 08/11/2016 04/07/2021 Sprain of neck 05/10/2007 08/11/2016 Sprain of thoracic region 05/10/20072016 documented as of this encounter (statuses as of 08/06/2022) [facility] History of Past illness Narrative* Problem Noted Date Resolved Date Retained ureteral stent 01/29/2020 01/31/20 20 Smoker 11/30/2019 04/07/2021 Last Assessment & Plan: Patients states she does not want to discuss smoking history 15 pack year history recorded Currently using chantix with occasional cigarettes Proteinuria 03/30/2019 04/07/2021 Opioid dependence, uncomplicated 06/02/2017 02/20/2020 Work-related stress 08/11/2016 04/07/2021 Sprain of neck 05/10/2007 08/11/2016 Sprain of thoracic region 05/10/20072016 documented as of this encounter (statuses as of 08/12/2022) [facility] History of Past illness Narrative* Problem Noted Date Diagnosed Date Resolved Date Retained ureteral stent 01/29/202001/08 Smoker 11/30/2019 04/07/2021 Last Assessment & Plan: Patients states she does not want to discuss smoking history 15 pack year history recorded Currently using chantix with occasional cigarettes Proteinuria 03/30/2019 04/07/2021 Opioid dependence, uncomplicated 06/02/2017 02/20/2020 Work-related stress 08/11/2016 04/08/19 22 Sprain of neck 05/10/2007 08/11/2016 Sprain of thoracic region 05/10/2007 documented as of this encounter (statuses as of 09/22/2022) [facility] History of Past illness Narrative* Problem Noted Date Diagnosed Date Resolved Date Retained ureteral stent 01/29/202001/08 Smoker 11/30/2019 04/07/2021 Last Assessment & Plan: Patients states she does not want to discuss smoking history 15 pack year history recorded Currently using chantix with occasional cigarettes Proteinuria 03/30/2019 04/07/2021 Opioid dependence, uncomplicated 06/02/2017 02/20/2020 Work-related stress 08/11/2016 04/08/19 22 Sprain of neck 05/10/2007 08/11/2016 Sprain of thoracic region 05/10/2007 documented as of this encounter (statuses as of 10/10/2022) [facility] History of Past illness Narrative* Problem Noted Date Diagnosed Date Resolved Date Retained ureteral stent 01/29/202001/08 Smoker 11/30/2019 04/07/2021 Last Assessment & Plan: Patients states she does not want to discuss smoking history 15 pack year history recorded Currently using chantix with occasional cigarettes Proteinuria 03/30/2019 04/07/2021 Opioid dependence, uncomplicated 06/02/2017 02/20/2020 Work-related stress 08/11/2016 04/08/19 22 Sprain of neck 05/10/2007 08/11/2016 Sprain of thoracic region 05/10/2007 documented as of this encounter (statuses as of 10/14/2022) [facility] History of Past illness Narrative* Problem Noted Date Diagnosed Date Resolved Date Retained ureteral stent 01/29/202001/08 Smoker 11/30/2019 04/07/2021 Last Assessment & Plan: Patients states she does not want to discuss smoking history 15 pack year history recorded Currently using chantix with occasional cigarettes Proteinuria 03/30/2019 04/07/2021 Opioid dependence, uncomplicated 06/02/2017 02/20/2020 Work-related stress 08/11/2016 04/08/19 22 Sprain of neck 05/10/2007 08/11/2016 Sprain of thoracic region 05/10/2007 documented as of this encounter (statuses as of 10/29/2022) [facility] History of Past illness Narrative* Problem Noted Date Diagnosed Date Resolved Date Retained ureteral stent 01/29/202001/08 Smoker 11/30/2019 04/07/2021 Last Assessment & Plan: Patients states she does not want to discuss smoking history 15 pack year history recorded Currently using chantix with occasional cigarettes Proteinuria 03/30/2019 04/07/2021 Opioid dependence, uncomplicated 06/02/2017 02/20/2020 Work-related stress 08/11/2016 04/08/19 22 Sprain of neck 05/10/2007 08/11/2016 Sprain of thoracic region 05/10/2007 documented as of this encounter (statuses as of 11/29/2022) [facility] History of Past illness Narrative* Problem Noted Date Diagnosed Date Resolved Date Retained ureteral stent 01/29/202001/08 Smoker 11/30/2019 04/07/2021 Last Assessment & Plan: Patients states she does not want to discuss smoking history 15 pack year history recorded Currently using chantix with occasional cigarettes Proteinuria 03/30/2019 04/07/2021 Opioid dependence, uncomplicated 06/02/2017 02/20/2020 Work-related stress 08/11/2016 04/08/19 22 Sprain of neck 05/10/2007 08/11/2016 Sprain of thoracic region 05/10/2007 documented as of this encounter (statuses as of 12/11/2022) [facility] History of Past illness Narrative* Problem Noted Date Diagnosed Date Resolved Date Retained ureteral stent 01/29/202001/08 Smoker 11/30/2019 04/07/2021 Last Assessment & Plan: Patients states she does not want to discuss smoking history 15 pack year history recorded Currently using chantix with occasional cigarettes Proteinuria 03/30/2019 04/07/2021 Opioid dependence, uncomplicated 06/02/2017 02/20/2020 Work-related stress 08/11/2016 04/08/19 22 Sprain of neck 05/10/2007 08/11/2016 Sprain of thoracic region 05/10/2007 documented as of this encounter (statuses as of 12/11/2022) [facility] History of Past illness Narrative* Problem Noted Date Diagnosed Date Resolved Date Retained ureteral stent 01/29/202001/08 Smoker 11/30/2019 04/07/2021 Last Assessment & Plan: Patients states she does not want to discuss smoking history 15 pack year history recorded Currently using chantix with occasional cigarettes Proteinuria 03/30/2019 04/07/2021 Opioid dependence, uncomplicated 06/02/2017 02/20/2020 Work-related stress 08/11/2016 04/08/19 22 Sprain of neck 05/10/2007 08/11/2016 Sprain of thoracic region 05/10/2007 documented as of this encounter (statuses as of 12/16/2022) [facility] History of Past illness Narrative* Problem Noted Date Diagnosed Date Resolved Date Retained ureteral stent 01/29/202001/08 Smoker 11/30/2019 04/07/2021 Last Assessment & Plan: Patients states she does not want to discuss smoking history 15 pack year history recorded Currently using chantix with occasional cigarettes Proteinuria 03/30/2019 04/07/2021 Opioid dependence, uncomplicated 06/02/2017 02/20/2020 Work-related stress 08/11/2016 04/08/19 22 Sprain of neck 05/10/2007 08/11/2016 Sprain of thoracic region 05/10/2007 documented as of this encounter (statuses as of 12/17/2022) [facility] History of Past illness Narrative* Problem Noted Date Diagnosed Date Resolved Date Retained ureteral stent 01/29/202001/08 Smoker 11/30/2019 04/07/2021 Last Assessment & Plan: Patients states she does not want to discuss smoking history 15 pack year history recorded Currently using chantix with occasional cigarettes Proteinuria 03/30/2019 04/07/2021 Opioid dependence, uncomplicated 06/02/2017 02/20/2020 Work-related stress 08/11/2016 04/08/19 22 Sprain of neck 05/10/2007 08/11/2016 Sprain of thoracic region 05/10/2007 documented as of this encounter (statuses as of 12/19/2022) [facility] History of Past illness Narrative* Problem Noted Date Diagnosed Date Resolved Date Retained ureteral stent 01/29/202001/08 Smoker 11/30/2019 04/07/2021 Last Assessment & Plan: Patients states she does not want to discuss smoking history 15 pack year history recorded Currently using chantix with occasional cigarettes Proteinuria 03/30/2019 04/07/2021 Opioid dependence, uncomplicated 06/02/2017 02/20/2020 Work-related stress 08/11/2016 04/08/19 22 Sprain of neck 05/10/2007 08/11/2016 Sprain of thoracic region 05/10/2007 documented as of this encounter (statuses as of 01/08/2023) [facility] History of Past illness Narrative* Problem Noted Date Diagnosed Date Resolved Date Retained ureteral stent 01/29/202001/08 Smoker 11/30/2019 04/07/2021 Last Assessment & Plan: Patients states she does not want to discuss smoking history 15 pack year history recorded Currently using chantix with occasional cigarettes Proteinuria 03/30/2019 04/07/2021 Opioid dependence, uncomplicated 06/02/2017 02/20/2020 Work-related stress 08/11/2016 04/08/19 22 Sprain of neck 05/10/2007 08/11/2016 Sprain of thoracic region 05/10/2007 documented as of this encounter (statuses as of 04/26/2023) [facility] History of Past illness Narrative* Problem Noted Date Diagnosed Date Resolved Date Retained ureteral stent 01/29/202001/08 Smoker 11/30/2019 04/07/2021 Last Assessment & Plan: Patients states she does not want to discuss smoking history 15 pack year history recorded Currently using chantix with occasional cigarettes Proteinuria 03/30/2019 04/07/2021 Opioid dependence, uncomplicated 06/02/2017 02/20/2020 Work-related stress 08/11/2016 04/08/19 22 Sprain of neck 05/10/2007 08/11/2016 Sprain of thoracic region 05/10/2007 documented as of this encounter (statuses as of 05/24/2023) [facility] History of Past illness Narrative* Problem Noted Date Diagnosed Date Resolved Date Retained ureteral stent 01/29/202001/08 Smoker 11/30/2019 04/07/2021 Last Assessment & Plan: Patients states she does not want to discuss smoking history 15 pack year history recorded Currently using chantix with occasional cigarettes Proteinuria 03/30/2019 04/07/2021 Opioid dependence, uncomplicated 06/02/2017 02/20/2020 Work-related stress 08/11/2016 04/08/19 22 Sprain of neck 05/10/2007 08/11/2016 Sprain of thoracic region 05/10/2007 documented as of this encounter (statuses as of 05/13/2023) [facility] 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)- Primary Malignant neoplasm of lateral wall of urinary bladder Lung nodules Other nonspecific abnormal finding of lung field Hematuria, microscopic Microscopic hematuria Malignant neoplasm of overlapping sites of bladder (HCC) Malignant neoplasm of other specified sites of bladder [facility] Diagnosis Lung nodules Other nonspecific abnormal finding of lung field 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) Malignant neoplasm of lateral wall of urinary bladder documented in this encounter [facility] note* Diagnosis Lung nodules Other nonspecific abnormal finding of lung field 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) Malignant neoplasm of lateral wall of urinary bladder documented in this encounter [facility] note* Diagnosis Viral URI with cough- Primary Acute upper respiratory infections of unspecified site Wheezing Cough [facility] noteNo assessment information availableW[facility] Work Phone: Evaluation note* Diagnosis Onset Date Resolution Status Dehydration acute Orthostatic hypotension acut e UTI (urinary tract infection) [facility] Work Phone: Evaluation note* Diagnosis Lung nodules- Primary Other nonspecific abnormal finding of lung field Malignant neoplasm of overlapping sites of bladder (HCC) Malignant neoplasm of other specified sites of bladder documented in this encounter [facility] note* Diagnosis Malignant neoplasm of urinary bladder, unspecified site (HCC) Hydronephrosis, unspecified hydronephrosis type documented in this encounter [facility] note* Diagnosis Urinary tract infection without hematuria, site unspecified- Primary Hospital discharge follow-up Other follow-up examination Urinary incontinence, unspecified type documented in this encounter [facility] note* Diagnosis Onset Date Resolution Status UTI (urinary tract infection) acute Dehydration resolved Orthostatic hypotension reso lved Acute dehydration acute Acute hyponatremia acute Acute renal failure acute Acute uremia acute Obstructive uropathy acute UTI (urinary tract infection) 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) Malignant neoplasm of lateral wall of urinary bladder Malignant neoplasm of urinary bladder, unspecified site (HCC) documented in this encounter [facility] note* Diagnosis Encounter for screening mammogram for breast cancer documented in this encounter [facility] note* Diagnosis Malignant neoplasm of urinary bladder, unspecified site (HCC)- Primary documented in this encounter [facility] note* Diagnosis Onset Date Resolution Status Acute dehydration acute Acute hyponatremia acute Acute renal failure acute Acute uremia acute Obstructive uropathy acute UTI (urinary tract infection) acute [facility] Work Phone: Evaluation note* Diagnosis Left lower quadrant abdominal pain- Primary [facility] Diagnosis Allergic dermatitis- Primary Contact dermatitis and other eczema, due to unspecified cause [facility] Diagnosis Malignant neoplasm of urinary bladder, unspecified site (HCC)- Primary [facility]* Diagnosis Screening for genitourinary condition Screening for other and unspecified genitourinary condition [facility]* Diagnosis Annual physical exam- Primary Routine general medical examination at a health care facility Elevated glucose Other abnormal glucose [facility]* Diagnosis Acute right-sided low back pain without sciatica- Primary [facility] Diagnosis Lesion of bone of elbow- Primary [facility] Diagnosis Contusion of left hand, initial encounter- Primary 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) [facility] Diagnosis Lesion of bone of elbow- Primary [facility] Diagnosis Encounter for screening mammogram for breast cancer [facility] Diagnosis Lesion of bone of elbow [facility] Diagnosis Contusion of left hand, initial encounter [facility] Diagnosis Flu-like symptoms- Primary Other general symptoms Diarrhea, unspecified type [facility] Diagnosis Diarrhea, unspecified type- Primary [facility] Diagnosis Campylobacter gastroenteritis- Primary Intestinal infection due to campylobacter [facility] Diagnosis Sore throat- Primary Acute pharyngitis URI with cough and congestion Wheezing [facility]* Diagnosis Nausea and vomiting, unspecified vomiting type- Primary Viral illness Unspecified viral infection, in conditions classified elsewhere and of unspecified site [facility] Diagnosis Degeneration of cervical intervertebral disc 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) Malignant neoplasm of dome of urinary bladder Smoker Tobacco use disorder Lung nodules Other nonspecific abnormal finding of lung field Lesion of bone of elbow [facility] Diagnosis Degeneration of cervical intervertebral disc 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) Malignant neoplasm of dome of urinary bladder Smoker Tobacco use disorder Lung nodules Other nonspecific abnormal finding of lung field Malignant neoplasm of urinary bladder, unspecified site (HCC)- Primary [facility] Diagnosis Degeneration of cervical intervertebral disc 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) Malignant neoplasm of dome of urinary bladder Smoker Tobacco use disorder Lung nodules Other nonspecific abnormal finding of lung field Routine medical exam- Primary Routine general medical examination at a health care facility Encounter for immunization Need for other specified prophylactic vaccination against single bacterial disease Screening for depression Special screening examination for viral disease Special screening examination for unspecified viral disease Screening for HIV (human immunodeficiency virus) Special screening examination for other specified viral diseases Vitamin D deficiency Unspecified vitamin D deficiency Malignant neoplasm of urinary bladder, unspecified site (HCC) Situational anxiety Other anxiety states S/P urinary bladder replacement Bladder replaced by other means 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) Malignant neoplasm of lateral wall of urinary bladder Adjustment disorder with depressed mood Encounter for screening mammogram for breast cancer Adhesions of vagina Stricture or atresia of vagina [facility] Degeneration of cervical intervertebral disc 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) Malignant neoplasm of dome of urinary bladder Smoker Tobacco use disorder Lung nodules Other nonspecific abnormal finding of lung field Acute right-sided low back pain with right-sided sciatica [facility] Diagnosis Degeneration of cervical intervertebral disc 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) Malignant neoplasm of dome of urinary bladder Smoker Tobacco use disorder Lung nodules Other nonspecific abnormal finding of lung field Wheezing Cough [facility] Acute right-sided low back pain with right-sided sciatica- Primary [facility] Degeneration of cervical intervertebral disc 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) Malignant neoplasm of dome of urinary bladder Smoker Tobacco use disorder Lung nodules Other nonspecific abnormal finding of lung field Urgency of urination- Primary Acute cough EVELYN (generalized anxiety disorder) Generalized anxiety disorder [facility] Degeneration of cervical intervertebral disc 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) Malignant neoplasm of dome of urinary bladder Smoker Tobacco use disorder Lung nodules Other nonspecific abnormal finding of lung field Acute right-sided low back pain with right-sided sciatica [facility] Diagnosis Degeneration of cervical intervertebral disc 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) Malignant neoplasm of dome of urinary bladder Smoker Tobacco use disorder Lung nodules Other nonspecific abnormal finding of lung field Malignant neoplasm of urinary bladder, unspecified site (HCC) [facility] Diagnosis Degeneration of cervical intervertebral disc 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) Malignant neoplasm of dome of urinary bladder Smoker Tobacco use disorder Lung nodules Other nonspecific abnormal finding of lung field Encounter for screening mammogram for breast cancer [facility] Diagnosis Degeneration of cervical intervertebral disc 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) Malignant neoplasm of dome of urinary bladder Smoker Tobacco use disorder Lung nodules Other nonspecific abnormal finding of lung field Malignant neoplasm of urinary bladder, unspecified site (HCC)- Primary Screening for genitourinary condition Screening for other and unspecified genitourinary condition Pelvicaliectasis Other specified disorder of kidney and ureter Personal history of malignant neoplasm of bladder Presence of urostomy (HCC) [facility]* Diagnosis Degeneration of cervical intervertebral disc 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) Malignant neoplasm of dome of urinary bladder Smoker Tobacco use disorder Lung nodules Other nonspecific abnormal finding of lung field Malignant neoplasm of urinary bladder, unspecified site (HCC)- Primary Screening for genitourinary condition Screening for other and unspecified genitourinary condition 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 Follow-up with corporate care if not improving.[facility] Work Phone: Reason for referral (narrative)* Diagnostic Procedure Only (Routine) - Pending Review Specialty Diagnoses / Procedures Referred By Deangelo t Referred To Contact [facility] Diagnoses Encounter for screening mammogram for breast cancer Procedures OLIVIER SCREENING W TAY SCREENING DIGITAL BREAST TOMOSYNTHESIS BI SCREENING MAMMOGRAPHY BI 2-VIEW BREAST INC Alma Delia Man MD [address] [place] [address] [facility] [address] [place] [address] Referral ID Status Reason Start Date Expiration Date Visits Requested Visits Authorized [id number] Pending Review Auto-Generat ed Referral 12/16/2021 01/15/[address] [facility] for referral (narrative)* Diagnostic Procedure Only (Routine) - Closed Specialty Diagnoses / Procedures Referred By Deangelo lundy Referred To Contact X[facility] IMAGING Diagnoses Contusion of left hand, initial encounter Procedures XR HAND GENERAL 3V PA/LAT/OBL LEFT RADEX HAND MINIMUM 3 VIEWS Cheng Lucas MD [address] [place] [address] [place] [id number] Referral ID Status Reason Start Date Expiration Date V isits Requested Visits Authorized [id number] Closed Auto-Generate d Referral 10/08/2022 11/07/2023 1 1 T [facility] for referral (narrative)* Diagnostic Procedure Only (Routine) - Pending Review Specialty Diagnoses / Procedures Referred By Deangelo lundy Referred To Contact BR IMAGING Diagnoses Encounter for screening mammogram for breast cancer Procedures OLIVIER SCREENING W TAY SCREENING DIGITAL BREAST TOMOSYNTHESIS BI SCREENING MAMMOGRAPHY BI 2-VIEW BREAST INC Alma Delia Man MD [address] [place] [address] Br Imaging [address] [place] [address] Referral ID Status Reason Start Date Expiration Date Visits Requested Visits Authorized [id number] Pending Review Auto-Generat ed Referral 12/24/2023 1 1 [facility] for referral (narrative)* Diagnostic Procedure Only (Routine) - Closed Specialty Diagnoses / Procedures Referred By Deangelo lundy Referred To Contact XR IMAGING Diagnoses Contusion of left hand, initial encounter Procedures XR HAND GENERAL 3V PA/LAT/OBL LEFT RADEX HAND MINIMUM 3 VIEWS Cheng Lucas MD [address] [place] [address] [place] [address] Referral ID Status Reason Start Date Expiration Date V isits Requested Visits Authorized [id number] Closed Auto-Generate d Referral 10/08/2022 11/07/2023 1 1 [facility] for referral (narrative)* Diagnostic Procedure Only (Routine) - Closed Specialty Diagnoses / Procedures Referred By Contac t Referred To Contact XR IMAGING Diagnoses Lesion of bone of elbow Procedures XR ELBOW GENERAL 2V AP/LAT LEFT RADEX ELBOW 2 VIEWS Mendy Carrasco PA-C [address] [place] [id number] [place] [address] Referral ID Status Reason Start Date Expiration Date V isits Requested Visits Authorized [id number] Closed Auto-Generate d Referral 08/27/2022 09/26/2023 1 1 [facility] for visit Narrative* Diagnostic Procedure Only (Routine) - Closed Specialty Diagnoses / Procedures Referred By Syedaac t Referred To Contact XR IMAGING Diagnoses Contusion of left hand, initial encounter Procedures XR HAND GENERAL 3V PA/LAT/OBL LEFT RADEX HAND MINIMUM 3 VIEWS Cheng Lucas MD [address] [place] [address] [place] [address] Referral ID Status Reason Start Date Expiration Date V isits Requested Visits Authorized [id number] Closed Auto-Generate d Referral 10/08/2022 11/07/2023 1 1 [facility] for visit Narrative* Diagnostic Procedure Only (Routine) - Closed Specialty Diagnoses / Procedures Referred By Contac t Referred To Contact XR IMAGING Diagnoses Lesion of bone of elbow Procedures XR ELBOW GENERAL 2V AP/LAT LEFT RADEX ELBOW 2 VIEWS Mendy Carrasco PA-C [address] [place] [address] [place] [address] Referral ID Status Reason Start Date Expiration Date V isits Requested Visits Authorized [id number] Closed Auto-Generate d Referral 08/27/2022 09/26/2023 [facility] Procedure Only (Routine) - Closed Specialty Diagnoses / Procedures Referred By Contac t Referred To Contact BR IMAGING Diagnoses Encounter for screening mammogram for breast cancer Procedures OLIVIER SCREENING W TAY SCREENING DIGITAL BREAST TOMOSYNTHESIS BI SCREENING MAMMOGRAPHY BI 2-VIEW BREAST INC CAD ValleHeide, APPLE SOLUTIONS CONSULTANT.REHABILITATION MEDICINE PHYSICIAN [address] [place] [address] Phone: tel: fax: BR IMAGING [address] [place] [address] Referral ID Status Reason Start Date Expiration Date V isits Requested Visits Authorized [id number] Closed Auto-Generate d Referral 11/01/2023 11/30/2024 1 1 [facility] Summary Purpose Family History No Family History Records Found Relationship Condition Age at Onset Recorded Date/T danuta father Malignant neoplasm of colon Unknown Kidney disorder Unknown Advance Directives No Advanced Directives Records FoundDocuments on File Type Date Recorded 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 Advance Directive(s) 12/03/2020 8:56 PM Advance Directive(s) 01/29/2020 4:03 PM Advance Directive(s) 11/30/2019 10:02 AM Advance Directive(s) 08/09/2019 10:06 AM Documents on File Type Date Recorded 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 Advance Directive(s) 12/03/2020 8:56 PM Advance Directive(s) 01/29/2020 4:03 PM Advance Directive(s) 11/30/2019 10:02 AM Advance Directive(s) 08/09/2019 10:06 AM Advance Directive Response Recorded Date/ Time Living Will REFUSES TO ANSWER January 10, 2020 11:40am Power of Insecticide Expert REFUSES TO ANSWER January 11:40am Advance Directive Response Recorded Date/ Time Name of Medical Power of Insecticide Expert PT DOES NOT KN OW August 23, 2021 10:51pm Living Will Yes August 23, 2021 10:51pm Power of Insecticide Expert Yes August 23 10:51pm Advance Directive Response Recorded Date/ Time Name of Medical Power of Insecticide Expert PT DOES NOT KN OW August 23, 2021 10:51pm Name of Medical Power of Insecticide Expert children October 31, 2021 11:27am Living Will Yes October 31, 2021 11:27am Power of Insecticide Expert Yes October 11:27am Advance Directive Response Recorded Date/ Time Name of Medical Power of Insecticide Expert PT DOES NOT KN OW August 23, 2021 10:51pm Name of Medical Power of Insecticide Expert Brigitte and Sowy er October 31, 2021 5:09pm Living Will Yes October 31, 2021 5:09pm Power of Insecticide Expert Yes October 5:09pm Advance Directive Response Recorded Date/ Time Name of Medical Power of Insecticide Expert Brigitte [employer] Sowy er October 31, 2021 4:09pm Living Will Yes January 16, 12:03pm Power of Insecticide Expert No January 16, 2022 12:03pm Advance Directive Response Recorded Date/ Time Living Will Yes January 16 12:03pm Power of Insecticide Expert No January 16, 2022 12:03pm Advance Directive Response Recorded Date/ Time Living Will No March 05 2:35am Power of Insecticide Expert No March 05, 2022 2:35am Advance Directive Response Recorded Date/ Time Living Will No May 09, 2023 9:20am Power of Insecticide Expert No May 08 9:20am Reason for Referral Specialty Diagnoses / Procedures Referred By Contac t Referred To Contact CT IMAGING Diagnoses Lung nodules 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) Procedures CT UROGRAM WO/W IVCON CT ABD & PELVIS W/O CONTRST 1+ BODY REGNS Huang Wynne DO [address] [place] [address] Ct Imaging Referral ID Status Reason Start Date Expiration Date V isits Requested Visits Authorized [id number] Closed Auto-Generate d Referral 06/26/2021 08/09/2021 1 1 Specialty Diagnoses / Procedures Referred By Contac t Referred To Contact CT IMAGING Diagnoses Malignant neoplasm of overlapping sites of bladder (HCC) Lung nodules Procedures CT CHEST WO IVCON DIAGNOSTIC COMPUTED TOMOGRAPHY THORAX W/O CNTRST Huang Wynne DO [address] [place] [address] Ct Imaging Referral ID Status Reason Start Date Expiration Date Visits Requested Visits Authorized [id number] Pending Review Auto-Generat ed Referral 08/25/2021 09/24/2022 1 1 Specialty Diagnoses / Procedures Referred By Contac t Referred To Contact CT IMAGING Diagnoses Malignant neoplasm of overlapping sites of bladder (HCC) Lung nodules Procedures CT UROGRAM WO/W IVCON CT ABD & PELVIS W/O CONTRST 1+ BODY REGNS Huang Wynne, DO [address] [place] [address] Ct Imaging Referral ID Status Reason Start Date Expiration Date Visits Requested Visits Authorized [id number] Pending Review Auto-Generat ed Referral 08/25/2021 09/24/2022 1 1 Specialty Diagnoses / Procedures Referred By Contac t Referred To Contact CT IMAGING Diagnoses Malignant neoplasm of urinary bladder, unspecified site (HCC) Procedures CT ABD/PEL W IVCON CT ABD & PELVIS W/CONTRAST Hafsa Mendoza MD [address] [place] [address] Ct Imaging Referral ID Status Reason Start Date Expiration Date Visits Requested Visits Authorized [id number] Pending Review Auto-Generat ed Referral 2 01/21/2023 1 1 Referral ID Status Reason Start Date Expiration Date Visits Requested Visits Authorized [id number] Pending Review Auto-Generat ed Referral 2 01/21/2023 1 1 Specialty Diagnoses / Procedures Referred By Contac t Referred To Contact Ent - Otolaryngology Diagnoses Allergic dermatitis Procedures CONSULT TO ENT OFFICE/OUTPATIENT NEW HIGH MDM 60-74 MINUTES Dulce Mann, [employer].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 [address] [place] [address] Referral ID Status Reason Start Date Expiration Date Visits Requested Visits Authorized [id number] Authorized PCP Requested Referral 02/24/2022 02/24/2023 1 1 Specialty Diagnoses / Procedures Referred By Contac t Referred To Contact CT IMAGING Diagnoses Malignant neoplasm of urinary bladder, unspecified site (HCC) Procedures CT ABD/PEL W IVCON CT ABD & PELVIS W/CONTRAST Hafsa Mendoza MD [address] [facility] [place] [address] Ct Imaging Referral ID Status Reason Start Date Expiration Date Visits Requested Visits Authorized [id number] Pending Review Auto-Generat ed Referral 05/16/2022 06/15/2023 1 1 Specialty Diagnoses / Procedures Referred By Contac t Referred To Contact CT IMAGING Diagnoses Malignant neoplasm of urinary bladder, unspecified site (HCC) Procedures CT CHEST W IVCON DIAGNOSTIC COMPUTED TOMOGRAPHY THORAX W/CONTRAST Hafsa Mendoza MD [address] [place] [address] Ct Imaging Referral ID Status Reason Start Date Expiration Date Visits Requested Visits Authorized [id number] Pending Review Auto-Generat ed Referral 05/16/2022 06/15/2023 1 1 Specialty Diagnoses / Procedures Referred By Contac t Referred To Contact Gynecology Diagnoses Malignant neoplasm of urinary bladder, unspecified site (HCC) Procedures CONSULT TO GYNECOLOGY OFFICE/OUTPATIENT [facility] 60-74 MINUTES Hafsa Mendoza MD [address] [place] [address] Referral ID Status Reason Start Date Expiration Date Visits Requested Visits Authorized [id number] Authorized PCP Requested Referral Auto-Generate d Referral 05/16/2022 05/16/2023 1 1 Specialty Diagnoses / Procedures Referred By Contac t Referred To Contact General Surgery Diagnoses Lesion of bone of elbow Procedures CONSULT TO GENERAL SURGERY OFFICE/OUTPATIENT [facility] 60-74 MINUTES Mendy Carrasco PA-C [address] [place] [address] Referral ID Status Reason Start Date Expiration Date Visits Requested Visits Authorized [id number] Authorized PCP Requested Referral 09/17/2022 09/17/2023 1 1 Specialty Diagnoses / Procedures Referred By Contac t Referred To Contact MR IMAGING Diagnoses Lesion of bone of elbow Procedures MRI ELBOW WO IVCON LEFT MRI ANY JT UPPER EXTREMITY W/O CONTRAST MATRL Mendy Carrasco PA-C [address] [place] [address] [place] [address] Referral ID Status Reason Start Date Expiration Date Visits Requested Visits Authorized [id number] Pending Review Auto-Generat ed Referral 10/27/2022 11/26/2023 1 1 Specialty Diagnoses / Procedures Referred By Contac t Referred To Contact US IMAGING Diagnoses Lesion of bone of elbow Procedures US ELBOW LEFT US LMTD JOINT/OTH NONVASC XTR STRUX R-T W/IMG Mendy Carrasco PA-C [address] [place] [address] [place] [address] Referral ID Status Reason Start Date Expiration Date Visits Requested Visits Authorized [id number] Pending Review Auto-Generat ed Referral 10/13/2022 11/12/2023 1 1 Referral ID Status Reason Start Date Expiration Date V isits Requested Visits Authorized [id number] Closed Auto-Generate d Referral 10/27/2022 11/26/2023 1 1 Specialty Diagnoses / Procedures Referred By Contac t Referred To Contact Vandana Marr, [employer].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 [address] [place] [address] Referral ID Status Reason Start Date Expiration Date V isits Requested Visits Authorized [id number] Pending Review 1 1 Specialty Diagnoses / Procedures Referred By Contac t Referred To Contact CT IMAGING Diagnoses Malignant neoplasm of urinary bladder, unspecified site (HCC) Procedures CT ABD/PEL W IVCON CT ABD & PELVIS W/CONTRAST Adela Church MD [address] [place] [address] [place] [address] Referral ID Status Reason Start Date Expiration Date Visits Requested Visits Authorized [id number] New Request Auto-Generat ed Referral 11/01/2023 11/30/2024 1 1 Specialty Diagnoses / Procedures Referred By Contac t Referred To Contact CT IMAGING Diagnoses Malignant neoplasm of urinary bladder, unspecified site (HCC) Procedures CT CHEST W IVCON DIAGNOSTIC COMPUTED TOMOGRAPHY THORAX W/CONTRAST Adela Church MD [address] [place] [address] [place] [address] Referral ID Status Reason Start Date Expiration Date Visits Requested Visits Authorized [id number] New Request Auto-Generat ed Referral 11/01/2023 11/30/2024 1 1 Specialty Diagnoses / Procedures Referred By Contac t Referred To Contact Diagnoses Adhesions of vagina Procedures CONSULT TO FEMALE UROLOGY/URO GYNECOLOGY OFFICE/OUTPATIENT NEW HIGH MDM 60 MINUTES Heide Valle, APPLE SOLUTIONS CONSULTANT.REHABILITATION MEDICINE PHYSICIAN [address] [place] [phone] Referral ID Status Reason Start Date Expiration Date Visits Requested Visits Authorized [id number] Authorized PCP Requested Referral 11/01/2023 10/31/2024 1 1 Specialty Diagnoses / Procedures Referred By Contac t Referred To Contact BR IMAGING Diagnoses Encounter for screening mammogram for breast cancer Procedures OLIVIER SCREENING W TAY SCREENING DIGITAL BREAST TOMOSYNTHESIS BI SCREENING MAMMOGRAPHY BI 2-VIEW BREAST INC CAD Heide Valle, APPLE SOLUTIONS CONSULTANT.REHABILITATION MEDICINE PHYSICIAN [address] [place] [address] Br Imaging [address] [place] [address] Referral ID Status Reason Start Date Expiration Date Visits Requested Visits Authorized [id number] New Request Auto-Generat ed Referral 11/01/2023 11/30/2024 1 1 Specialty Diagnoses / Procedures Referred By Contac t Referred To Contact [facility] Diagnoses Acute right-sided low back pain with right-sided sciatica Procedures CONSULT TO PHYSICAL THERAPY PHYSICAL THERAPY EVALUATION HIGH COMPLEX 45 MINS Heide Valle, APPLE SOLUTIONS CONSULTANT.REHABILITATION MEDICINE PHYSICIAN [address] [place] [address] [facility] [place] [address] [place] [address] Referral ID Status Reason Start Date Expiration Date Visits Requested Visits Authorized [id number] Pending Review Auto-Generat ed Referral 05/13/2023 05/12/2024 1 1 Specialty Diagnoses / Procedures Referred By Contac t Referred To Contact XR IMAGING Diagnoses Acute right-sided low back pain with right-sided sciatica Procedures XR LUMBAR GENERAL 3V AP/LAT/L5-S1 RADEX SPINE LUMBOSACRAL 2/3 VIEWS Heide Valle, APPLE SOLUTIONS CONSULTANT.REHABILITATION MEDICINE PHYSICIAN [address] [place] [address] [place] [address] Referral ID Status Reason Start Date Expiration Date Visits Requested Visits Authorized [id number] Pending Review Auto-Generat ed Referral 05/13/2023 06/11/2024 1 1 Chief Complaint and Reason for Visit Chief Complaint LUNG NODULE Chief Complaint LUNG NODULE UTI ORTHOSTATIC HYPOTENSION UTI ORTHOSTATIC HYPOTENSION Reason for Visit Dehydration Orthostatic hypotension UTI (urinary tract infection) Chief Complaint LUNG NODULE UTI ORTHOSTATIC HYPOTENSION UTI ORTHOSTATIC HYPOTENSION GUZMAN, OBSTRUCTIVE UROPATHY Reason for Visit UTI (urinary tract i nfection) Dehydration Orthostatic hypotension Acute dehydration Acute hyponatremia Acute renal failure Acute uremia Obstructive uropathy UTI (urinary tract infection) Chief Complaint LUNG NODULE UTI ORTHOSTATIC HYPOTENSION UTI ORTHOSTATIC HYPOTENSION GUZMAN, OBSTRUCTIVE UROPATHY GUZMAN, OBSTRUCTIVE UROPATHY Reason for Visit UTI (urinary tract i nfection) Dehydration Orthostatic hypotension Acute dehydration Acute hyponatremia Acute renal failure Acute uremia Obstructive uropathy UTI (urinary tract infection) Chief Complaint GUZMAN, OBSTRUCTIVE URO ALEXSANDER GUZMAN, OBSTRUCTIVE UROPATHY abd Reason for Visit Acute dehydration Acute hyponatremia Acute renal failure Acute uremia Obstructive uropathy UTI (urinary tract infection) Chief Complaint abd MALIGNANT NEOPLASM OF BLADDER, LUNG NODULES Chief Complaint abd MALIGNANT NEOPLASM OF BLADDER, LUNG NODULES EYE ISSUE Chief Complaint RIGHT LEG PAIN Health Concerns Infection Onset Date Last Indicated Resolved Time COVID-19 Rule-Out 12/15/2022 12/15/2022 Additional Source Comments INFORMATION SOURCE (unrecogn ized section and content) DATE CREATED AUTHOR 09/04/2019 [facility] DATE CREATED AUTHOR AUTHOR'S ORGANIZ ATION 09/04/2019 [facility] DATE CREATED AUTHOR AUTHOR'S ORGANIZ ATION 01/19/2021 [facility] DATE CREATED AUTHOR AUTHOR'S ORGANIZ ATION 05/09/2023 [facility] DATE CREATED AUTHOR AUTHOR'S ORGANIZ ATION 08/23/2024 [facility] Source Comments (unrecognize d section and content) In the event this informatio n is protected by the Federal Confidentiality of Alcohol and Drug Abuse Patient Records regulations: The Federal rules restrict any use of the information to criminally investigate or prosecute any alcohol or drug abuse patient.[facility] the event this information is protected by the Federal Confidentiality of Alcohol and Drug Abuse Patient Records regulations: The Federal rules restrict any use of the information to criminally investigate or prosecute any alcohol or drug abuse patient.[facility] the event this information is protected by the Federal Confidentiality of Alcohol and Drug Abuse Patient Records regulations: The Federal rules restrict any use of the information to criminally investigate or prosecute any alcohol or drug abuse patient.[facility] the event this information is protected by the Federal Confidentiality of Alcohol and Drug Abuse Patient Records regulations: The Federal rules restrict any use of the information to criminally investigate or prosecute any alcohol or drug abuse patient.[facility] the event this information is protected by the Federal Confidentiality of Alcohol and Drug Abuse Patient Records regulations: The Federal rules restrict any use of the information to criminally investigate or prosecute any alcohol or drug abuse patient.[facility] the event this information is protected by the Federal Confidentiality of Alcohol and Drug Abuse Patient Records regulations: The Federal rules restrict any use of the information to criminally investigate or prosecute any alcohol or drug abuse patient.[facility] the event this information is protected by the Federal Confidentiality of Alcohol and Drug Abuse Patient Records regulations: The Federal rules restrict any use of the information to criminally investigate or prosecute any alcohol or drug abuse patient.[facility] the event this information is protected by the Federal Confidentiality of Alcohol and Drug Abuse Patient Records regulations: The Federal rules restrict any use of the information to criminally investigate or prosecute any alcohol or drug abuse patient.[facility] the event this information is protected by the Federal Confidentiality of Alcohol and Drug Abuse Patient Records regulations: The Federal rules restrict any use of the information to criminally investigate or prosecute any alcohol or drug abuse patient.[facility] the event this information is protected by the Federal Confidentiality of Alcohol and Drug Abuse Patient Records regulations: The Federal rules restrict any use of the information to criminally investigate or prosecute any alcohol or drug abuse patient.[facility] HospitalIn the event this information is protected by the Federal Confidentiality of Alcohol and Drug Abuse Patient Records regulations: The Federal rules restrict any use of the information to criminally investigate or prosecute any alcohol or drug abuse patient.[facility] HospitalIn the event this information is protected by the Federal Confidentiality of Alcohol and Drug Abuse Patient Records regulations: The Federal rules restrict any use of the information to criminally investigate or prosecute any alcohol or drug abuse patient.[facility] HospitalIn the event this information is protected by the Federal Confidentiality of Alcohol and Drug Abuse Patient Records regulations: The Federal rules restrict any use of the information to criminally investigate or prosecute any alcohol or drug abuse patient.[facility] HospitalIn the event this information is protected by the Federal Confidentiality of Alcohol and Drug Abuse Patient Records regulations: The Federal rules restrict any use of the information to criminally investigate or prosecute any alcohol or drug abuse patient.[facility] HospitalIn the event this information is protected by the Federal Confidentiality of Alcohol and Drug Abuse Patient Records regulations: The Federal rules restrict any use of the information to criminally investigate or prosecute any alcohol or drug abuse patient.[facility] HospitalIn the event this information is protected by the Federal Confidentiality of Alcohol and Drug Abuse Patient Records regulations: The Federal rules restrict any use of the information to criminally investigate or prosecute any alcohol or drug abuse patient.[facility] HospitalIn the event this information is protected by the Federal Confidentiality of Alcohol and Drug Abuse Patient Records regulations: The Federal rules restrict any use of the information to criminally investigate or prosecute any alcohol or drug abuse patient.[facility] HospitalIn the event this information is protected by the Federal Confidentiality of Alcohol and Drug Abuse Patient Records regulations: The Federal rules restrict any use of the information to criminally investigate or prosecute any alcohol or drug abuse patient.[facility] HospitalIn the event this information is protected by the Federal Confidentiality of Alcohol and Drug Abuse Patient Records regulations: The Federal rules restrict any use of the information to criminally investigate or prosecute any alcohol or drug abuse patient.[facility] HospitalIn the event this information is protected by the Federal Confidentiality of Alcohol and Drug Abuse Patient Records regulations: The Federal rules restrict any use of the information to criminally investigate or prosecute any alcohol or drug abuse patient.[facility] HospitalIn the event this information is protected by the Federal Confidentiality of Alcohol and Drug Abuse Patient Records regulations: The Federal rules restrict any use of the information to criminally investigate or prosecute any alcohol or drug abuse patient.[facility] HospitalIn the event this information is protected by the Federal Confidentiality of Alcohol and Drug Abuse Patient Records regulations: The Federal rules restrict any use of the information to criminally investigate or prosecute any alcohol or drug abuse patient.[facility] HospitalIn the event this information is protected by the Federal Confidentiality of Alcohol and Drug Abuse Patient Records regulations: The Federal rules restrict any use of the information to criminally investigate or prosecute any alcohol or drug abuse patient.[facility] HospitalIn the event this information is protected by the Federal Confidentiality of Alcohol and Drug Abuse Patient Records regulations: The Federal rules restrict any use of the information to criminally investigate or prosecute any alcohol or drug abuse patient.[facility] HospitalIn the event this information is protected by the Federal Confidentiality of Alcohol and Drug Abuse Patient Records regulations: The Federal rules restrict any use of the information to criminally investigate or prosecute any alcohol or drug abuse patient.[facility] HospitalIn the event this information is protected by the Federal Confidentiality of Alcohol and Drug Abuse Patient Records regulations: The Federal rules restrict any use of the information to criminally investigate or prosecute any alcohol or drug abuse patient.[facility] HospitalIn the event this information is protected by the Federal Confidentiality of Alcohol and Drug Abuse Patient Records regulations: The Federal rules restrict any use of the information to criminally investigate or prosecute any alcohol or drug abuse patient.[facility] HospitalIn the event this information is protected by the Federal Confidentiality of Alcohol and Drug Abuse Patient Records regulations: The Federal rules restrict any use of the information to criminally investigate or prosecute any alcohol or drug abuse patient.[facility] HospitalIn the event this information is protected by the Federal Confidentiality of Alcohol and Drug Abuse Patient Records regulations: The Federal rules restrict any use of the information to criminally investigate or prosecute any alcohol or drug abuse patient.[facility] HospitalIn the event this information is protected by the Federal Confidentiality of Alcohol and Drug Abuse Patient Records regulations: The Federal rules restrict any use of the information to criminally investigate or prosecute any alcohol or drug abuse patient.[facility] HospitalIn the event this information is protected by the Federal Confidentiality of Alcohol and Drug Abuse Patient Records regulations: The Federal rules restrict any use of the information to criminally investigate or prosecute any alcohol or drug abuse patient.[facility] HospitalIn the event this information is protected by the Federal Confidentiality of Alcohol and Drug Abuse Patient Records regulations: The Federal rules restrict any use of the information to criminally investigate or prosecute any alcohol or drug abuse patient.[facility] HospitalIn the event this information is protected by the Federal Confidentiality of Alcohol and Drug Abuse Patient Records regulations: The Federal rules restrict any use of the information to criminally investigate or prosecute any alcohol or drug abuse patient.[facility] HospitalIn the event this information is protected by the Federal Confidentiality of Alcohol and Drug Abuse Patient Records regulations: The Federal rules restrict any use of the information to criminally investigate or prosecute any alcohol or drug abuse patient.[facility] HospitalIn the event this information is protected by the Federal Confidentiality of Alcohol and Drug Abuse Patient Records regulations: The Federal rules restrict any use of the information to criminally investigate or prosecute any alcohol or drug abuse patient.[facility] HospitalIn the event this information is protected by the Federal Confidentiality of Alcohol and Drug Abuse Patient Records regulations: The Federal rules restrict any use of the information to criminally investigate or prosecute any alcohol or drug abuse patient.[facility] HospitalIn the event this information is protected by the Federal Confidentiality of Alcohol and Drug Abuse Patient Records regulations: The Federal rules restrict any use of the information to criminally investigate or prosecute any alcohol or drug abuse patient.[facility] HospitalIn the event this information is protected by the Federal Confidentiality of Alcohol and Drug Abuse Patient Records regulations: The Federal rules restrict any use of the information to criminally investigate or prosecute any alcohol or drug abuse patient.[facility] HospitalIn the event this information is protected by the Federal Confidentiality of Alcohol and Drug Abuse Patient Records regulations: The Federal rules restrict any use of the information to criminally investigate or prosecute any alcohol or drug abuse patient.[facility] HospitalIn the event this information is protected by the Federal Confidentiality of Alcohol and Drug Abuse Patient Records regulations: The Federal rules restrict any use of the information to criminally investigate or prosecute any alcohol or drug abuse patient.[facility] HospitalIn the event this information is protected by the Federal Confidentiality of Alcohol and Drug Abuse Patient Records regulations: The Federal rules restrict any use of the information to criminally investigate or prosecute any alcohol or drug abuse patient.[facility] HospitalIn the event this information is protected by the Federal Confidentiality of Alcohol and Drug Abuse Patient Records regulations: The Federal rules restrict any use of the information to criminally investigate or prosecute any alcohol or drug abuse patient.[facility] HospitalIn the event this information is protected by the Federal Confidentiality of Alcohol and Drug Abuse Patient Records regulations: The Federal rules restrict any use of the information to criminally investigate or prosecute any alcohol or drug abuse patient.[facility] HospitalIn the event this information is protected by the Federal Confidentiality of Alcohol and Drug Abuse Patient Records regulations: The Federal rules restrict any use of the information to criminally investigate or prosecute any alcohol or drug abuse patient.[facility] HospitalIn the event this information is protected by the Federal Confidentiality of Alcohol and Drug Abuse Patient Records regulations: The Federal rules restrict any use of the information to criminally investigate or prosecute any alcohol or drug abuse patient.[facility] HospitalIn the event this information is protected by the Federal Confidentiality of Alcohol and Drug Abuse Patient Records regulations: The Federal rules restrict any use of the information to criminally investigate or prosecute any alcohol or drug abuse patient.[facility] HospitalIn the event this information is protected by the Federal Confidentiality of Alcohol and Drug Abuse Patient Records regulations: The Federal rules restrict any use of the information to criminally investigate or prosecute any alcohol or drug abuse patient.[facility] HospitalIn the event this information is protected by the Federal Confidentiality of Alcohol and Drug Abuse Patient Records regulations: The Federal rules restrict any use of the information to criminally investigate or prosecute any alcohol or drug abuse patient.[facility] HospitalIn the event this information is protected by the Federal Confidentiality of Alcohol and Drug Abuse Patient Records regulations: The Federal rules restrict any use of the information to criminally investigate or prosecute any alcohol or drug abuse patient.[facility] HospitalIn the event this information is protected by the Federal Confidentiality of Alcohol and Drug Abuse Patient Records regulations: The Federal rules restrict any use of the information to criminally investigate or prosecute any alcohol or drug abuse patient.[facility] HospitalIn the event this information is protected by the Federal Confidentiality of Alcohol and Drug Abuse Patient Records regulations: The Federal rules restrict any use of the information to criminally investigate or prosecute any alcohol or drug abuse patient.[facility] HospitalIn the event this information is protected by the Federal Confidentiality of Alcohol and Drug Abuse Patient Records regulations: The Federal rules restrict any use of the information to criminally investigate or prosecute any alcohol or drug abuse patient.[facility] HospitalIn the event this information is protected by the Federal Confidentiality of Alcohol and Drug Abuse Patient Records regulations: The Federal rules restrict any use of the information to criminally investigate or prosecute any alcohol or drug abuse patient.[facility] HospitalIn the event this information is protected by the Federal Confidentiality of Alcohol and Drug Abuse Patient Records regulations: The Federal rules restrict any use of the information to criminally investigate or prosecute any alcohol or drug abuse patient.[facility] HospitalIn the event this information is protected by the Federal Confidentiality of Alcohol and Drug Abuse Patient Records regulations: The Federal rules restrict any use of the information to criminally investigate or prosecute any alcohol or drug abuse patient.[facility] HospitalIn the event this information is protected by the Federal Confidentiality of Alcohol and Drug Abuse Patient Records regulations: The Federal rules restrict any use of the information to criminally investigate or prosecute any alcohol or drug abuse patient.[facility] HospitalIn the event this information is protected by the Federal Confidentiality of Alcohol and Drug Abuse Patient Records regulations: The Federal rules restrict any use of the information to criminally investigate or prosecute any alcohol or drug abuse patient.[facility] HospitalIn the event this information is protected by the Federal Confidentiality of Alcohol and Drug Abuse Patient Records regulations: The Federal rules restrict any use of the information to criminally investigate or prosecute any alcohol or drug abuse patient.[facility] HospitalIn the event this information is protected by the Federal Confidentiality of Alcohol and Drug Abuse Patient Records regulations: The Federal rules restrict any use of the information to criminally investigate or prosecute any alcohol or drug abuse patient.[facility] HospitalIn the event this information is protected by the Federal Confidentiality of Alcohol and Drug Abuse Patient Records regulations: The Federal rules restrict any use of the information to criminally investigate or prosecute any alcohol or drug abuse patient.[facility] HospitalIn the event this information is protected by the Federal Confidentiality of Alcohol and Drug Abuse Patient Records regulations: The Federal rules restrict any use of the information to criminally investigate or prosecute any alcohol or drug abuse patient.[facility] HospitalIn the event this information is protected by the Federal Confidentiality of Alcohol and Drug Abuse Patient Records regulations: The Federal rules restrict any use of the information to criminally investigate or prosecute any alcohol or drug abuse patient.[facility] HospitalIn the event this information is protected by the Federal Confidentiality of Alcohol and Drug Abuse Patient Records regulations: The Federal rules restrict any use of the information to criminally investigate or prosecute any alcohol or drug abuse patient.[facility] HospitalIn the event this information is protected by the Federal Confidentiality of Alcohol and Drug Abuse Patient Records regulations: The Federal rules restrict any use of the information to criminally investigate or prosecute any alcohol or drug abuse patient.[facility] HospitalIn the event this information is protected by the Federal Confidentiality of Alcohol and Drug Abuse Patient Records regulations: The Federal rules restrict any use of the information to criminally investigate or prosecute any alcohol or drug abuse patient.[facility] HospitalIn the event this information is protected by the Federal Confidentiality of Alcohol and Drug Abuse Patient Records regulations: The Federal rules restrict any use of the information to criminally investigate or prosecute any alcohol or drug abuse patient.[facility] HospitalIn the event this information is protected by the Federal Confidentiality of Alcohol and Drug Abuse Patient Records regulations: The Federal rules restrict any use of the information to criminally investigate or prosecute any alcohol or drug abuse patient.[facility] Care Teams (unrecognized sec tion and content) Sql Etl Developer Relationship Specialty Start Date End Date Alma Delia Choudhury MD [address] [place], [place] [address] PCP - General Internal Medicine 01/05/21 Jacinto Welch MD, [address], [place] [address] [phone] Physician Radiation Oncology 08/21/19 Allie Martinez RN Specialty [employer] C[employer] Helper Oncology 09/03/19 Sql Etl Developer Relationship Specialty Start Date End Date Alma Delia Choudhury MD [address] [place], [place] [address] PCP - General Internal Medicine 01/05/21 Jacinto Welch MD, [address] [place] [address] Physician Radiation Oncology 08/21/19 Allie Martinez RN Specialty [employer] C[employer] Helper Oncology 09/03/19 Sql Etl Developer Relationship Specialty Start Date End Date Alma Delia Choudhury MD [address] [place] [address] PCP - General Internal Medicine 01/05/21 Jacinto Welch MD, [address] [place] [address] Physician Radiation Oncology 08/21/19 Allie Martinez RN Specialty Cord[employer] C[employer] Helper Oncology 09/03/19 Sql Etl Developer Relationship Specialty Start Date End Date Alma Delia Choudhury MD [address] [place] [address] PCP - General Internal Medicine 01/05/21 Jacinto Welch MD, [address] [place] [address] Physician Radiation Oncology 08/21/19 Allie Martinez RN Specialty Cord[employer] C[employer] Helper Oncology 09/03/19 Sql Etl Developer Relationship Specialty Start Date End Date Alma Delia Choudhury MD [address] [place] [address] PCP - General Internal Medicine 01/05/21 Jacinto Welch MD, [address] [place] [address] Physician Radiation Oncology 08/21/19 Allie Martinez RN Specialty Cord[employer] C[employer] Helper Oncology 09/03/19 Sql Etl Developer Relationship Specialty Start Date End Date Alma Delia Choudhury MD [address] [place] [address] PCP - General Internal Medicine 01/05/21 Jacinto Welch MD, [address] [place] [address] Physician Radiation Oncology 08/21/19 Allie Martinez RN Specialty [employer] C[employer] Helper Oncology 09/03/19 Sql Etl Developer Relationship Specialty Start Date End Date Alma Delia Choudhury MD [address] [place] [address] PCP - General Internal Medicine 01/05/21 Jacinto Welch MD, [address] [place] [address] Physician Radiation Oncology 08/21/19 Allie Martinez RN Specialty Cord[employer] C[employer] Helper Oncology 09/03/19 Sql Etl Developer Relationship Specialty Start Date End Date Alma Delia Choudhury MD [address] [facility] [place] [address] PCP - General Internal Medicine 01/05/21 Jacinto Welch MD, [address] [place] [address] Physician Radiation Oncology 08/21/19 Allie Martinez RN Specialty Cord[employer] C[employer] Helper Oncology 09/03/19 Sql Etl Developer Relationship Specialty Start Date End Date Alma Delia Choudhury MD [address] [place] [address] PCP - General Internal Medicine 01/05/21 Jacinto Welch MD, [address] [place] [address] Physician Radiation Oncology 08/21/19 Allie Martinez RN Specialty Cord[employer] C[employer] Helper Oncology 09/03/19 Sql Etl Developer Relationship Specialty Start Date End Date Alma Delia Choudhury MD [address] [place] [address] PCP - General Internal Medicine 01/05/21 Jacinto Welch MD, [address] [place] [address] Physician Radiation Oncology 08/21/19 Allie Martinez RN Specialty Cord[employer] C[employer] Helper Oncology 09/03/19 Sql Etl Developer Relationship Specialty Start Date End Date Alma Delia Choudhury MD [address] [place] [address] PCP - General Internal Medicine 01/05/21 Jacinto Welch MD, [address] [facility] [place] [address] Physician Radiation Oncology 08/21/19 Allie Martinez RN Specialty Cord[employer] C[employer] Helper Oncology 09/03/19 Sql Etl Developer Relationship Specialty Start Date End Date Alma Delia Choudhury MD [address] [place] [address] PCP - General Internal Medicine 01/05/21 Jacinto Welch MD, [address] [place] [address] Physician Radiation Oncology 08/21/19 Allie Martinez RN Specialty Cord[employer] C[employer] Helper Oncology 09/03/19 Sql Etl Developer Relationship Specialty Start Date End Date Alma Delia Choudhury MD [address] [place] [address] PCP - General Internal Medicine 01/05/21 Jacinto Welch MD, [address] [place] [address] Physician Radiation Oncology 08/21/19 Allie Martinez RN Specialty Cord[employer] C[employer] Helper Oncology 09/03/19 Sql Etl Developer Relationship Specialty Start Date End Date Alma Delia Choudhury MD [address] [place] [address] PCP - General Internal Medicine 01/05/21 Jacinto Welch MD, [address] [place] [address] Physician Radiation Oncology 08/21/19 Allie Martinez RN Specialty Cord[employer] C[employer] Helper Oncology 09/03/19 Sql Etl Developer Relationship Specialty Start Date End Date Alma Delia Choudhury MD [address] [place] [address] PCP - General Internal Medicine 01/05/21 Jacinto Welch MD, [address] [facility] [address] Physician Radiation Oncology 08/21/19 Allie Martinez RN Specialty Cord[employer] C[employer] Helper Oncology 09/03/19 Sql Etl Developer Relationship Specialty Start Date End Date Alma Delia Choudhury MD [address] [facility] [place] [address] PCP - General Internal Medicine 01/05/21 Jacinto Welch MD, [address] [place] [address] Physician Radiation Oncology 08/21/19 Allie Martinez RN Specialty Cord[employer] C[employer] Helper Oncology 09/03/19 Sql Etl Developer Relationship Specialty Start Date End Date Alma Delia Choudhury MD [address] [facility] [place] [address] PCP - General Internal Medicine 01/05/21 Jacinto Welch MD, [address] [place] [address] Physician Radiation Oncology 08/21/19 Allie Martinez RN Specialty Cord[employer] C[employer] Helper Oncology 09/03/19 Sql Etl Developer Relationship Specialty Start Date End Date Alma Delia Choudhury MD [address] [place] [address] PCP - General Internal Medicine 01/05/21 Jacinto Welch MD, [address] [place] [address] Physician Radiation Oncology 08/21/19 Allie Martinez RN Specialty [employer] C[employer] Helper Oncology 09/03/19 Team Status: Active Member Role Status Dates Dr. Rio Foley III, MD Family Provider Active Dr. Alma Delia Choudhury MD Primary Care Provider Active Team Status: Inactive Member Role Status Dates Dr. Alma Delia Choudhury MD Primary Care Provider Active Dr. Huang Wynne DO Attending Provider Active Team Status: Inactive Member Role Status Dates Dr. Alma Delia Choudhury MD Primary Care Provider Active Dr. Trevor Doe MD Attending Provider, Emergency Provider Active Team Status: Inactive Member Role Status Dates Dr. Alma Delia Choudhury MD Primary Care Provider Active Dr. Lg Andes , DO Emergency Provider Active Sql Etl Developer Relationship Specialty Start Date End Date Alma Delia Choudhury MD [address] [place] [address] PCP - General Internal Medicine 01/05/21 Jacinto Welch MD, [address] [place] [address] Physician Radiation Oncology 08/21/19 Allie Martinez RN Specialty Cord[employer] C[employer] Helper Oncology 09/03/19 Sql Etl Developer Relationship Specialty Start Date End Date Alma Delia Choudhury MD [address] [place] [address] PCP - General Internal Medicine 01/05/21 Jacinto Welch MD, [address] [place] [address] Physician Radiation Oncology 08/21/19 Allie Martinez RN Specialty Cord[employer] C[employer] Helper Oncology 09/03/19 Sql Etl Developer Relationship Specialty Start Date End Date Alma Delia Choudhury MD [address] [place] [address] PCP - General Internal Medicine 01/05/21 Jacinto Welch MD, [address] [place] [address] Physician Radiation Oncology 08/21/19 Allie Martinez RN Specialty Cord[employer] C[employer] Helper Oncology 09/03/19 Sql Etl Developer Relationship Specialty Start Date End Date Alma Delia Choudhury MD [address] [place] [address] PCP - General Internal Medicine 01/05/21 Jacinto Welch MD, MD [address] [place] [address] Physician Radiation Oncology 08/21/19 Allie Martinez RN Specialty Cord[employer] C[employer] Helper Oncology 09/03/19 Sql Etl Developer Relationship Specialty Start Date End Date Alma Delia Choudhury MD [address] [place] [address] PCP - General Internal Medicine 01/05/21 Jacinto Welch MD, [address] [place] [address] Physician Radiation Oncology 08/21/19 Allie Martinez RN Specialty [employer] C[employer] Helper Oncology 09/03/19 Sql Etl Developer Relationship Specialty Start Date End Date Alma Delia Choudhury MD [address] [place] [address] PCP - General Internal Medicine 01/05/21 Jacinto Welch MD, [address] [place] [address] Physician Radiation Oncology 08/21/19 Allie Martinez RN Specialty Cord[employer] C[employer] Helper Oncology 09/03/19 Sql Etl Developer Relationship Specialty Start Date End Date Alma Delia Choudhury MD [address] [place] [address] PCP - General Internal Medicine 01/05/21 Jacinto Welch MD, [address] [place] [address] Physician Radiation Oncology 08/21/19 Allie Martinez RN Specialty Cord[employer] C[employer] Helper Oncology 09/03/19 Sql Etl Developer Relationship Specialty Start Date End Date Alma Delia Choudhury MD [address] [place] [address] PCP - General Internal Medicine 01/05/21 Jacinto Welch MD, [address] [place] [address] Physician Radiation Oncology 08/21/19 Allie Martinez RN Specialty Cord[employer] C[employer] Helper Oncology 09/03/19 Sql Etl Developer Relationship Specialty Start Date End Date Alma Delia Choudhury MD [address] [place] [address] PCP - General Internal Medicine 01/05/21 Jacinto Welch MD, [address] [place] [address] Physician Radiation Oncology 08/21/19 Allie Martinez RN Specialty Cord[employer] C[employer] Helper Oncology 09/03/19 Sql Etl Developer Relationship Specialty Start Date End Date Alma Delia Choudhury MD [address] [place] [address] PCP - General Internal Medicine 01/05/21 Jacinto Welch MD, [address] [place] [address] Physician Radiation Oncology 08/21/19 Allie Martinez RN Specialty Cord[employer] Cutter Helper Oncology 09/03/19 Sql Etl Developer Relationship Specialty Start Date End Date Alma Delia Choudhury MD [address] [place] [address] PCP - General Internal Medicine 01/05/21 Jacinto Welch MD, MD [address] [place] [address] Physician Radiation Oncology 08/21/19 Allie Martinez RN Specialty Cord[employer] C[employer] Helper Oncology 09/03/19 Sql Etl Developer Relationship Specialty Start Date End Date Alma Delia Choudhury MD [address] [place] [address] PCP - General Internal Medicine 01/05/21 Jacinto Welch MD, MD [address] [place] [address] Physician Radiation Oncology 08/21/19 Allie Martinez RN Specialty Cord[employer] Cutter Helper Oncology 09/03/19 Sql Etl Developer Relationship Specialty Start Date End Date Alma Delia Choudhury MD [address] [place] [address] PCP - General Internal Medicine 01/05/21 Jacinto Welch MD [address] [place] [address] Physician Radiation Oncology 08/21/19 Allie Martinez RN Specialty Cord[employer] Cutter Helper Oncology 09/03/19 Team Status: Inactive Member Role Status Dates Dr. Alma Delia Choudhury MD Primary Care Provider Active Dr. Pravin Masterson MD Emergency Provider Active Sql Etl Developer Relationship Specialty Start Date End Date Alma Delia Choudhury MD [address] [place] [address] PCP - General Internal Medicine 01/05/21 Jacinto Welch MD [address] [place] [address] Physician Radiation Oncology 08/21/19 Allie Martinez RN Specialty Cord[employer] C[employer] Helper Oncology 09/03/19 Sql Etl Developer Relationship Specialty Start Date End Date Alma Delia Choudhury MD [address] [place] [address] PCP - General Internal Medicine 01/05/21 Jacinto Welch MD [address] [place] [address] Physician Radiation Oncology 08/21/19 Allie Martinez RN Specialty Cord[employer] Cutter Helper Oncology 09/03/19 Sql Etl Developer Relationship Specialty Start Date End Date Alma Delia Choudhury MD [address] [place] [address] PCP - General Internal Medicine 01/05/21 Jacinto Welch MD [address] [place] [address] Physician Radiation Oncology 08/21/19 Allie Martinez RN Specialty Cord[employer] C[employer] Helper Oncology 09/03/19 Sql Etl Developer Relationship Specialty Start Date End Date Alma Delia Choudhury MD [address] [place] [address] PCP - General Internal Medicine 01/05/21 Jacinto Welch MD [address] [place] [address] Physician Radiation Oncology 08/21/19 Allie Martinez RN Specialty Cord[employer] Cutter Helper Oncology 09/03/19 Sql Etl Developer Relationship Specialty Start Date End Date Alma Delia Choudhury MD [address] [place] [address] PCP - General Internal Medicine 01/05/21 Jacinto Welch MD [address] [place] [address] Physician Radiation Oncology 08/21/19 Allie Martinez RN Specialty Cord[employer] Cutter Helper Oncology 09/03/19 Sql Etl Developer Relationship Specialty Start Date End Date Alma Delia Choudhury MD [address] [place] [address] PCP - General Internal Medicine 01/05/21 Jacinto Welch MD [address] [place] [address] Physician Radiation Oncology 08/21/19 Allie Martinez RN Specialty Cord[employer] Cutter Helper Oncology 09/03/19 Sql Etl Developer Relationship Specialty Start Date End Date Alma Delia Choudhury MD [address] [place] [address] PCP - General Internal Medicine 01/05/21 Jacinto Welch MD [address] [place] [address] Physician Radiation Oncology 08/21/19 Allie Martinez RN Specialty Cord[employer] Cutter Helper Oncology 09/03/19 Sql Etl Developer Relationship Specialty Start Date End Date Alma Delia Choudhury MD [address] [place] [address] PCP - General Internal Medicine 01/05/21 Jacinto Welch MD [address] [place] [address] Physician Radiation Oncology 08/21/19 Allie Martinez RN Specialty Cordwood Cutter Helper Oncology 09/03/19 Sql Etl Developer Relationship Specialty Start Date End Date Alma Delia Choudhury MD [address] [place] [address] PCP - General Internal Medicine 01/05/21 Jacinto Welch MD [address] [place] [address] Physician Radiation Oncology 08/21/19 Allie Martinez RN Specialty Cordwood Cutter Helper Oncology 09/03/19 Sql Etl Developer Relationship Specialty Start Date End Date Alma Delia Choudhury MD [address] [place] [address] PCP - General Internal Medicine 01/05/21 Jacinto Welch MD [address] [place] [address] Physician Radiation Oncology 08/21/19 Allie Martinez RN Specialty Cordwood Cutter Helper Oncology 09/03/19 Sql Etl Developer Relationship Specialty Start Date End Date Alma Delia Choudhury MD [address] [place] [address] PCP - General Internal Medicine 01/05/21 Jacinto Welch MD [address] [place] [address] Physician Radiation Oncology 08/21/19 Allie Martinez RN Specialty Cordwood Cutter Helper Oncology 09/03/19 Ofelia Lau APRN.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 [address] [place] [address] Outcomes Analyst Internal Medicine 01/15/24 Sql Etl Developer Relationship Specialty Start Date End Date Alma Delia Choudhury MD [address] [place] [address] PCP - General Internal Medicine 01/05/21 Jacinto Welch MD [address] [place] [address] Physician Radiation Oncology 08/21/19 Allie Martinez RN Specialty Cordwood Cutter Helper Oncology 09/03/19 Ofelia Lau APRN.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 [address] [place] [address] Outcomes Analyst Internal Medicine 01/15/24 Sql Etl Developer Relationship Specialty Start Date End Date Alma Delia Choudhury MD [address] [place] [address] PCP - General Internal Medicine 01/05/21 Jacinto Welch MD [address] [place] [address] Physician Radiation Oncology 08/21/19 Allie Martinez RN Specialty Cordwood Cutter Helper Oncology 09/03/19 Ofelia Lau APRN.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 [address] [place] [address] Outcomes Analyst Internal Medicine 01/15/24 Sql Etl Developer Relationship Specialty Start Date End Date Alma Delia Choudhury MD [address] [place] [address] PCP - General Internal Medicine 01/05/21 Jacinto Welch MD [address] [place] [address] Physician Radiation Oncology 08/21/19 Allie Martinez RN Specialty Cordwood Cutter Helper Oncology 09/03/19 Ofelia Lau APPLE SOLUTIONS CONSULTANT.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 [address] [place] [address] Outcomes Analyst Internal Medicine 01/15/24 Sql Etl Developer Relationship Specialty Start Date End Date lAma Delia Choudhury MD [address] [place] [address] PCP - General Internal Medicine 01/05/21 Jacinto Welch MD [address] [place] [address] Physician Radiation Oncology 08/21/19 Allie Martinez RN Specialty Cordwood Cutter Helper Oncology 09/03/19 Ofelia Lau APRN.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 [address] [place] [address] Outcomes Analyst Internal Medicine 01/15/24 Sql Etl Developer Relationship Specialty Start Date End Date Alma Delia Choudhury MD [address] [place] [address] PCP - General Internal Medicine 01/05/21 Jacinto Welch MD [address] [place] [address] Physician Radiation Oncology 08/21/19 Allie Martinez RN Specialty Cordwood Cutter Helper Oncology 09/03/19 Ofelia Lau APRN.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 [address] [place] [address] Outcomes Analyst Internal Medicine 01/15/24 Sql Etl Developer Relationship Specialty Start Date End Date Alma Delia Choudhury MD [address] [place] [address] PCP - General Internal Medicine 01/05/21 Jacinto Welch MD [address] [place] [address] Physician Radiation Oncology 08/21/19 Allie Martinez RN Specialty Cordwood Cutter Helper Oncology 09/03/19 Ofelia Lau APRN.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 [address] [place] [address] [facility] Internal Medicine 01/15/24 Reason for Visit (unrecogniz ed section and content) Reason Comments Radiology CT Specialty Diagnoses / Procedures Referred By Deangelo t Referred To Contact CT IMAGING Diagnoses Lung nodules 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) Procedures CT UROGRAM WO/W IVCON CT ABD & PELVIS W/O CONTRST 1+ BODY REGNS Huang Wynne, DO [address] [place] [address] Ct Imaging Referral ID Status Reason Start Date Expiration Date V isits Requested Visits Authorized [id number] Closed Auto-Generate d Referral 06/26/2021 08/09/2021 1 1 Reason Comments Return To Work Letter Reason Comments Recheck 3 month follow up Reason Comments Patient Question Reason Comments disc request Reason Comments ED Follow-up Reason Comments Results CT chest from [facility] Reason Comments Results CT Chest from 08/16/19 at [facility] Reason Comments Radiology IR Follow up s/p nephro stomy tube removal Reason Comments Established Patient [facility] discharge 2 d/t low BP Reason Comments Question Reason Comments UTI Reason Comments Patient Update Reason Comments Hospital F/U Went into ER 10/31/21 released same day Reason Comments Financial Assistance Reason Comments patient outreach Reason Comments Consult Reason Comments Results Reason Comments Results Orders Reason Comments Rash On back and thighs x 4 days Reason Comments Follow Up MALIGNANT NEOPLASM O F URINARY BLADDER Reason Comments Follow Up Reason Comments Orders Reason Comments Orders Requesting lab order s Reason Comments Right Hip Pain x 2 days, denies inj ury Reason Comments Orders Reason Comments Consult Lump on left elbow. Specialty Diagnoses / Procedures Referred By Deangelo lundy Referred To Contact General Surgery Diagnoses Lesion of bone of elbow Procedures CONSULT TO GENERAL SURGERY OFFICE/OUTPATIENT [facility] 60-74 MINUTES Mendy Carrasco PA-C [address] [place] [address] Referral ID Status Reason Start Date Expiration Date V isits Requested Visits Authorized [id number] Closed PCP Requested Referral 09/17/2022 09/17/2023 1 1 Reason Comments requesting a disk from radiology Reason Comments Requesting further testing CT or MRI per pt Specialty Diagnoses / Procedures Referred By Deangelo lundy Referred To Contact MR IMAGING Diagnoses Lesion of bone of elbow Procedures MRI ELBOW WO IVCON LEFT MRI ANY JT UPPER EXTREMITY W/O CONTRAST Mendy Montes PA-C [address] [place] [address] Mr Imaging [place] [address] Referral ID Status Reason Start Date Expiration Date V isits Requested Visits Authorized [id number] Closed Auto-Generate d Referral 10/27/2022 11/26/2023 1 1 Reason Comments Diarrhea Fever, chills, MERCADO x 4 days Reason Comments Diarrhea Diarrhea x 6 days Reason Comments Cough sore throat x 4 days Reason Comments Vomiting Vomiting and MERCADO x 1 day Reason Comments Patient Request Reason Comments Letter Reason Onset Date Comments cathater bag orders 07/20/2023 Reason Comments supplies Reason Comments Forms Reason Comments Physical Reason Onset Date Comments Refill Request 11/01/2023 Reason Comments Hospital F/U Reason Comments Urinary Frequency Odor, x 3-4 Earache Left ear pain, heada bryce, congestion, cough, x 1 week Reason Onset Date Comments Refill Request 05/17/2024 Specialty Diagnoses / Procedures Referred By Contgermán t Referred To Contact CT IMAGING Diagnoses Malignant neoplasm of urinary bladder, unspecified site (HCC) Procedures CT ABD/PEL W IVCON CT ABD & PELVIS W/CONTRAST Adela Church MD [address] [place] [address] Phone: tel: fax: CT IMAGING [place] [address] Referral ID Status Reason Start Date Expiration Date V isits Requested Visits Authorized [id number] Closed Auto-Generate d Referral 07/11/2024 01/07/2025 1 1 Reason Comments Established Patient Goals (unrecognized section and content) Goals may be documented in a n alternate sectionGoals may be documented in an alternate sectionGoals may be documented in an alternate sectionGoals may be documented in an alternate section FOR RECORDS PERTAINING TO PATIENTS WHO ARE OR HAVE BEEN ENROLLED IN A CHEMICAL DEPENDENCY/SUBSTANCEABUSE PROGRAM, SOME INFORMATION MAY BE OMITTED. This clinical summary was aggregated from multiple sources. Caution should be exercised in using it in the provision of clinical care. This summary normalizes information from multiple sources, and as a consequence, information in this document may materially change the coding, format and clinical context of patient data. In addition, data may be omitted in some cases. CLINICAL DECISIONS SHOULD BE BASED ON THE PRIMARY CLINICAL RECORDS. [employer] [facility]. provides no warranty or guarantee of the accuracy or completeness of information in this document.
[2024-09-30 11:14] VITALS: BP 113/71; PULSE 74; RESP 14; TEMP 36.1; O2SAT 98
== END 2024-09-30 11:20 | disposition home or self-care (01) ==
PROVIDERS: Emergency Provider Emergency Medicine; PCP Clinical Nurse Specialist; Visit Provider Emergency Medicine
DX: S61.233A Puncture wound without foreign body of left middle finger without damage to nail, initial encounter (principal); L08.9 Local infection of the skin and subcutaneous tissue, unspecified; Z23 Encounter for immunization; W26.8XXA Contact with other sharp object(s), not elsewhere classified, initial encounter; Y93.89 Activity, other specified; Y99.0 Civilian activity done for income or pay; Z87.891 Personal history of nicotine dependence
CPT/HCPCS: 10160; 73140; 90715; 99282

== ENCOUNTER → 2024-11-30 | Outpatient (CLI) | payer OTHER, SELFPAY | END | disposition home or self-care (01) | PROVIDERS: PCP Clinical Nurse Specialist; Referring Provider Physician Assistant; Visit Provider Physician Assistant | DX: S61.233A Puncture wound without foreign body of left middle finger without damage to nail, initial encounter (principal); X58.XXXA Exposure to other specified factors, initial encounter; L08.9 Local infection of the skin and subcutaneous tissue, unspecified | CPT/HCPCS: 73200 ==

== ENCOUNTER 2025-02-05 12:12 | Emergency (ER) | payer BC, SELFPAY ==
[2025-02-05 12:13] VITALS: BP 150/2; PULSE 80; RESP 16; TEMP 36.4; O2SAT 99; BMI 28.8
--- NOTE | 2025-02-05 12:36 | RAD_ITS ---
PROCEDURE: FINGER(S) MIN 2 VIEWS 02/05/2025 REASON FOR EXAM: PINKY FINGER, BUMPS LATERAL SIDE TECHNIQUE: Procedure Code: RADFIN Modality: DX Procedure: Three-view left 5th finger. COMPARISON: Left 3rd finger study of 09/30/2024. RAD/Finger(s) Min 2 Views IMPRESSION: Fgtp-py-dyymcyny degenerative changes are seen of the left proximal and distal interphalangeal joints, and also of the visualized 4th proximal interphalangeal joint. No erosive process is seen. Satisfactory osseous alignment is noted. No acute fracture site is seen. Reading Location: [place] [address]
--- NOTE | 2025-02-05 12:40 | EX.ED.UPPERE ---
HPI History of Present Illness Chief Complaint: Upper Extremity Injury Narrative Narrative: Patient is a 59-year-old female with a past medical history depression, anxiety, kidney stones who presents to the emergency department for the concern of bumps on her left pinky finger. When inquiring how long these been there she states that they have been there for a significant mount time and notes that she has not had time to take off work to get this taken care of. She states that today she has vacation and now has time to have these removed therefore she came to the emergency department for to do so. 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 [facility] Medical History Puncture wound of hand, left Kidney stone Former tobacco use Urinary bladder cancer Depression Lung nodule Anxiety Home Medications ?Medication ?Instructions ?Recorded ?Last Taken ?Type hydrocodone-acetaminophen 5-325mg 1 tab PO Q6H PRN pain 3 days #10 01/16/22 Unknown Rx 5mg-325mg tabs erythromycin 5 mg/gram (0.5 %) eye 1 applic EACH EYE 4X/DAY 5 days 03/05/22 Unknown Rx ointment #3.5 grams methocarbamol 500 mg tablet 500 mg PO 4X/DAY PRN PRN Muscle 03/05/22 Unknown Rx pain/spasm #40 tabs Allergy/AdvReac Type Severity Reaction Status Date / Time Tetanus Vaccines and Toxoid AdvReac Swelling Verified 02/05/25 12:14 (Tetanus Vaccines & Toxoid) venom-honey bee (bee venom AdvReac Swelling Verified 02/05/25 12:14 (honey bee)) Family History Father Colon cancer bone and MM Kidney disease stones Surgical History History of bladder surgery History of colonoscopy History of cervical spinal surgery History of tubal ligation History of repair of left rotator cuff Social History household members: none Smoking Status: Former smoker how long ago did patient quit smoking: Quit >2 years prior, smoked 1/4 ppd, 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 alcohol intake: never substance use type: does not use ROS ROS ED ROS Narrative Constitutional: Denies any fevers Neurological: Denies any numbness or tingling Musculoskeletal: Complains of bumps on her left pinky finger as noted above Skin: Denies any redness or drainage from the site EXAM Physical Exam Narrative Exam Narrative: General: Patient is lying in bed rest comfortably not appear to be in acute distress Head: Atraumatic, normocephalic Eyes: PERRL bilaterally, EOMI bilaterally, no conjunctival injection or Neck: Soft, supple, trachea Cardiovascular:Regular rate Extremities: Radial pulses +2/4 in the left upper extremity, +5/5 strength noted in the bilateral upper and lower extremities, Neurological: Patient following commands knew that she was at [facility] year is 2024 sensation gross intact in the median ulnar and radial nerve distributions Skin: Warm, dry, patient has 2 small bumps on the lateral aspect of her left pinky finger. No rashes no lesions no purulent drainage noted Const Vital Signs: 02/05/25 12:13 Temperature 97.5 F L Temperature Source Temporal Pulse Rate 80 Respiratory Rate 16 Blood Pressure 150/2 H Blood Pressure Mean 51 Pulse Ox 99 Oxygen Delivery Method Room Air MDM MDM MDM Narrative Medical decision making narrative: Patient is a 59-year-old female who presents to the emergency department for evaluation of the bumps on her left finger. On the differential diagnose includes but not limited to retained foreign body, cyst, abscess although have low suspicion for this given the longevity of this. Once workup is obtained and reviewed she will be reevaluated Patient's x-ray of her finger reviewed by myself and by radiology and per radiology showed mild to moderate degenerative changes seen at the left proximal and distal interphalangeal joints also visualized fourth proximal interphalangeal joint no erosive processes noted satisfactory osseous alignment noted no acute fracture noted. Nursing notified me that she is complaining of some chest discomfort especially when she coughs therefore however will obtain EKG which was reviewed which showed a rate of 89 bpm with a IL interval 150 normal sinus rhythm. They also noted that she is requesting steroids for her cough and congestion which she was given a dose of 40 mg of prednisone here in the emergency department. I went back into discuss with the patient and her result of her x-ray and that would not cut into her hand. Immediately the patient became very mad and angry and states that she laid here for hours wasting her time. I explained to her that there is no indication for me to acutely cut into her finger as this is not specialty. She advised me that she called [facility] earlier today and she was told to come here as this will be taken care of as her deductible is lower now and starting next year will be significantly higher therefore she wants me to cut her finger open. I told her there is no indication for me to do this as this has been going on for a significant amount of time now and is not in acute process. She left immediately and was very angry. I did sent her steroids to the pharmacy for her cough and congestion. According to staff the patient called into Dr. Banks office and apparently the patient was yelling at the nurse therefore the his nurse called down to the emergency department and spoke with staff here and was updated as well as the patient told them that we did nothing for her. Discharge Plan Triage Chief Complaint: Upper Extremity Injury ED Provider: Padilla Argueta Dx/Rx/DC Orders Clinical Impression: Swelling of finger, left, Cough, History of anxiety Prescriptions: No Action hydrocodone-acetaminophen 5-325 mg tablet 1 tab PO Q6H PRN (Reason: pain) 3 Days Qty: 10 0RF methocarbamol 500 mg tablet 500 mg PO 4X/DAY PRN PRN (Reason: Muscle pain/spasm) Qty: 40 0RF erythromycin 5 mg/gram (0.5 %) ointment 1 applic EACH EYE 4X/DAY 5 Days Qty: 3.5 0RF Primary Care Provider: Joan Valle NP Referrals: Joan Valle NP, LABORATORY TECHNICAL SPECIALIST-C [Primary Care Provider, Medical] Print Language: Palauan Disposition Disposition: Home, Self Care Discharge Date/Time: 02/05/25 14:32
--- NOTE | 2025-02-05 13:19 | EKG12_ITS ---
Test Reason : CHEST BURNING Blood Pressure : */* mmHG Vent. Rate : 89 BPM Atrial Rate : 89 BPM P-R Int : 150 ms QRS Dur : 72 ms QT Int : 346 ms P-R-T Axes : 81 81 77 degrees QTcB Int : 420 ms Normal sinus rhythm Normal ECG Confirmed by Horacio Arias ([id number]), assistant production editor ORIN MARSHALL ([id number]) on 02/11/2025 8:36:07 AM Referred By: Confirmed By: Horacio Arias
--- NOTE | 2025-02-05 14:30 | ED.RN ---
PT OUTSIDE ROOM. ASKING IF DR IS SENDING MEDS IN FOR HER. PT STATES I AM LEAVING AND GOING TO OPEN MY OWN FINGER.THIS RN UP TO TALK TO DR PLEITEZ. PT STORMS OUT OF ER
--- NOTE | 2025-02-06 09:12 | ED.RN ---
Pt called and asked about steroid Rx. Dr Argueta will [facility] [place] per pt request.
== END 2025-02-05 14:32 | disposition home or self-care (01) ==
LOC: ED 12:59
PROVIDERS: Emergency Provider Emergency Medicine; PCP Clinical Nurse Specialist; Visit Provider Emergency Medicine
DX: R22.32 Localized swelling, mass and lump, left upper limb (principal); R05.9 Cough, unspecified; F41.9 Anxiety disorder, unspecified; Z87.891 Personal history of nicotine dependence
CPT/HCPCS: 73140; 93005; 99282